=== PATIENT | male | born 1955 | race Caucasian/White ===

== ENCOUNTER 2016-05-20 23:03 | Inpatient (IN) | payer OTHER, SELFPAY ==
[~2016-05-20] VITALS: Ht 185.4 cm; Wt 50.1 kg
[2016-05-20 23:41] LABS: MEAN CORPUSCULAR HEMOGLOBIN 34.1 pg (27.0-33.0); MEAN CORPUSCULAR HGB CONC 34.4 g/dl (32.0-36.5); MEAN CORPUSCULAR VOLUME 99.1 fl (80.0-96.0); RED CELL DISTRIBUTION WIDTH 11.7 % (11.5-14.5); WHITE BLOOD COUNT 19.4 K/mm3 (4.0-10.0)
[2016-05-20 23:43] LABS: INR 1.03
[2016-05-20 23:53] LABS: ANION GAP 9 MEQ/L (8-16); BLOOD UREA NITROGEN 29 MG/DL (7-18); CALCIUM LEVEL 9.4 MG/DL (8.5-10.1); CARBON DIOXIDE LEVEL 30 MEQ/L (21-32); CHLORIDE LEVEL 100 MEQ/L (98-107); CREATININE FOR GFR 0.85 MG/DL (0.70-1.30); GLOMERULAR FILTRATION RATE > 60.0 (>56); GLUCOSE, FASTING 164 MG/DL (70-105); POTASSIUM SERUM 3.8 MEQ/L (3.5-5.1); SODIUM LEVEL 139 MEQ/L (136-145)
[2016-05-20] MEDS ORDERED: ASPIRIN 81 MG CHEW TABLET As Ordered ONE (23:58)
[2016-05-21] VITALS (15 sets, daily range): BP systolic 87–178; BP diastolic 45–91
[2016-05-21] MEDS ORDERED: cloNIDine 0.2 MG TAB As Ordered ONE (00:02)
[2016-05-21] MEDS ORDERED: ISOVUE-370 76% 100ML VIAL (Q9967) As Ordered ONE (00:02)
[2016-05-21 00:30] LABS: ALBUMIN 3.4 GM/DL (3.2-5.2); ALBUMIN/GLOBULIN RATIO 0.85 (1.00-1.93); ALKALINE PHOSPHATASE 83 U/L (45-117); ALT/SGPT 21 U/L (12-78); AMYLASE 74 U/L (25-115); AST/SGOT 17 U/L (15-37); BILIRUBIN,DIRECT 0.2 MG/DL (0.0-0.2); BILIRUBIN,TOTAL 0.6 MG/DL (0.2-1.0); TOTAL PROTEIN 7.4 GM/DL (6.4-8.2)
[2016-05-21] MEDS ORDERED: cloNIDine 0.1 MG TAB As Ordered ONE (01:05)
[2016-05-21] MEDS ORDERED: HYDROmorphone HCL 1 MG/ML SYRINGE (J1170) As Ordered ONE (02:03)
[2016-05-21] MEDS ORDERED: ZOSYN 3.375 GM VIAL (J2543) As Ordered ONE (02:05)
[2016-05-21] MEDS ORDERED: TYLE500T78 PO (02:23)
[2016-05-21] MEDS ORDERED: PROMETHAZINE INJ 25 MG/ML VIAL (J2550) IV PRN (03:15)
[2016-05-21] MEDS ORDERED: zolPIDEM TARTRATE 10MG TAB PO PRN (03:15)
[2016-05-21] MEDS ORDERED: ONDANSETRON 4MG/2ML VIAL (J2405) IV PRN ×2 (03:15→20:15)
[2016-05-21] MEDS ORDERED: HYDROmorphone HCL 1 MG/ML SYRINGE (J1170) IV PRN ×3 (03:15→20:15)
--- NOTE | 2016-05-21 03:50 | REPUSA ---
CLINICAL HISTORY: Abdominal pain. TECHNIQUE: Multiple axial, sagittal and coronal CT images were obtained through the abdomen and pelvi s after administration of intravenous contrast material. COMMENTS: Moderate pneumoperitoneum. Moderate ascites. Distended significantly thickened stomach. Significant thickening and enhancement of the proximal small bowels. Moderate prostatomegaly. Prostatic calcifications. Moderate large bowel fecal stasis. Diffuse thickening of the bladder. Pericholecystic free fluid. The liver is of uniform attenuation without mass or defect. There is no intra or extrahepatic biliary ductal dilatation. The spleen is normal. The pancreas is of normal contour and attenuation character istics. There is no evidence of adrenal mass. Both kidneys demonstrate prompt and equal nephrograms. The kidneys are normal in size, shape and conf iguration. There is no evidence of renal or ureteral mass. No renal or ureteral calculi are identifie d. There is no hydroureter or hydronephrosis. No evidence for appendicitis. No evidence for small or large bowel obstruction. There is no evidence of intrinsic or extrinsic bladder mass. Images of the lung bases show no evidence of pleural or parenchymal mass. There are no pleural effusi ons. The bony structures are free of lytic or blastic lesions. IMPRESSION: Thickened stomach. Thickened duodenum. Moderate amount of pneumoperitoneum. This needs to be correlated with any history of recent surgical intervention to exclude gastric/small bowel perforation. Surgical consultation is suggested. Ascites. Gastroparesis. Mildly dilated and thickened proximal small bowels. Thank you for your kind referral of this patient.
--- NOTE | 2016-05-21 03:57 | EDDOCDS ---
Physician Documentation [facility] Name: Artie Ferguson Age: 60 yrs Sex: Male : 1955 Arrival Date: 05/20/2016 Time: 23:03 Bed 11 Private MD: NO PRIMARY PHYSICIAN, . Disposition: 05/21/16 02:12 Hospitalization ordered by Torito Duran for Inpatient Admission. Preliminary diagnosis are Abdominal tenderness, Perforation of intestine (nontraumatic). - Bed requested for 4 [place]. - Status is Inpatient Admission. jp6 - Condition is Stable. - Problem is new. - Symptoms are unchanged. Historical: - Allergies: no known allergies; - Home Meds: 1. none - PMHx: none; - PSHx: none; - Social history: Smoking status: Patient uses tobacco products, heavy tobacco smoker. No barriers to communication noted, The patient speaks fluent [place]. - Family history: Not pertinent. - : The pt / caregiver states he / she is not on anticoagulants. Home medication list is obtained from the patient. - Exposure Risk Screening:: None identified. Vital Signs: 05/20 23:06 BP 203 / 94; Pulse 101; Resp 18 S; Temp 95.3(T); Pulse Ox 98% on R/A; Weight 55.79 kg / gr2 123 lbs (M); Height 6 ft. 1 in. (185.42 cm); Pain 4/10; 23:15 BP 216 / 99 (auto/); jp6 23:16 Pulse 94 MON; Pulse Ox 100% ; jp6 23:21 BP 205 / 85 (auto/); jp6 23:21 Pulse 92 MON; Pulse Ox 100% ; jp6 23:36 BP 204 / 93 (auto/); jp6 23:36 Pulse 90 MON; Pulse Ox 100% ; jp6 23:51 BP 205 / 89 (auto/); jp6 23:51 Pulse 96 MON; Pulse Ox 98% ; jp6 05/21 00:06 BP 233 / 119 (auto/); jp6 00:06 Pulse 98 MON; Pulse Ox 96% ; jp6 00:21 BP 235 / 106 (auto/); jp6 00:21 Pulse 92 MON; jp6 00:36 BP 220 / 96 (auto/); jp6 00:36 Pulse 94 MON; jp6 00:51 BP 219 / 92 (auto/); jp6 00:51 Pulse 102 MON; Pulse Ox 96% ; jp6 00:54 BP 206 / 91 (auto/); jp6 00:54 Pulse 96 MON; Pulse Ox 97% ; jp6 01:06 BP 187 / 84 (auto/); jp6 01:06 Pulse 96 MON; Pulse Ox 96% ; jp6 01:08 BP 188 / 87 (auto/); jp6 01:08 Pulse 98 MON; Pulse Ox 97% ; jp6 01:21 BP 216 / 96 (auto/); jp6 01:21 Pulse 102 MON; Pulse Ox 98% ; jp6 01:31 BP 205 / 74 (auto/); jp6 01:31 Pulse 104 MON; Pulse Ox 98% ; jp6 01:35 Pulse 100 MON; Pulse Ox 98% ; jp6 01:51 BP 193 / 86 (auto/); jp6 01:51 Pulse 102 MON; Pulse Ox 99% ; jp6 02:06 BP 179 / 82 (auto/); jp6 02:06 Pulse 102 MON; Pulse Ox 97% ; jp6 02:21 BP 182 / 84 (auto/); jp6 02:21 Pulse 106 MON; Pulse Ox 96% ; jp6 02:36 BP 172 / 79 (auto/); jp6 02:36 Pulse 110 MON; Pulse Ox 95% ; jp6 02:50 Pulse 108 MON; Pulse Ox 94% ; jp6 03:30 BP 165 / 80; Pulse 99; Resp 18; Temp 98.1(TE); Pulse Ox 98% ; Pain 0/10; jp6 05/20 23:06 Body Mass Index 16.23 (55.79 kg, 185.42 cm) gr2 MDM: 05/20 23:12 ECG WITH READING ER PHYS+CARDIAG ordered. EDMS 23:33 Chest, 1 View Ordered. EDMS 23:33 CBC Ordered. EDMS 23:33 MED Profile Ordered. EDMS 23:33 Pt & Aptt Ordered. EDMS 23:33 Cardiac Marker Panel Ordered. EDMS 23:57 Aspirin 324 mg PO once ordered. cs11 23:57 CBC Reviewed. cs11 23:57 MED Profile Reviewed. cs11 23:57 Pt & Aptt Reviewed. cs11 23:57 NS 0.9% 500 ml IV at bolus once ordered. cs11 23:59 MED Profile Reviewed. cs11 23:59 Cardiac Marker Panel Reviewed. cs11 23:59 CT Chest Angio R/O PE Ordered. EDMS 05/21 00:00 cloNIDine 0.1 mg PO once ordered. cs11 00:16 CT ABD & PELVIS: IV Contrast Only Ordered. EDMS 00:20 AMYLASE Ordered. EDMS 00:20 LIPASE Ordered. EDMS 00:20 LIVER PROFILE Ordered. EDMS 00:35 Financial registration complete. [facility] 00:55 cloNIDine 0.1 mg PO once ordered. cs11 00:56 MED Profile Reviewed. cs11 00:56 Cardiac Marker Panel Reviewed. cs11 00:56 LIVER PROFILE Reviewed. cs11 00:56 AMYLASE Reviewed. cs11 00:56 LIPASE Reviewed. cs11 00:56 [facility] [place] was scanned into [employer] and attached to record. [facility] 01:57 NS 0.9% 1000 ml IV at bolus once ordered. cs11 01:57 Piperacillin-Tazobactam 3.375 grams IVPB once over 30 mins; dilute in 50mL of NS or D5W cs11 ordered. 01:57 Dilaudid - HYDROmorphone 0.5 mg IVP once ordered. cs11 02:03 BED REQUEST+ADM ordered. EDMS 02:12 NG Tube, 18Fr ordered. cs11 03:17 T-Sheet-- Draft Copy was scanned into [employer] and attached to record. hs2 03:21 Admission / Observation Status ordered. EDMS 03:21 NPO DIET ordered. EDMS 03:23 PICC LINE INSERTION W/SITERITE Ordered. EDMS 03:23 ABCESS DRAIN ([facility] PL[facility]) US Ordered. EDMS 03:23 ABDOMEN (MIN 2 VIEW) Ordered. EDMS 03:23 ABDOMEN (MIN 2 VIEW) Ordered. EDMS 03:23 ABDOMEN (MIN 2 VIEW) Ordered. EDMS 03:55 HEPATITIS PROFILE Ordered. EDMS Administered Medications: 00:01 Drug: Aspirin 324 mg [aspirin 81 mg chewable tablet (4 tabs)] Route: PO; jp6 00:26 Drug: NS 0.9% 500 ml [sodium chloride 0.9 % intravenous solution] Route: IV; Rate: jp6 bolus; Site: left antecubital; 00:26 Drug: cloNIDine 0.1 mg [clonidine HCl 0.2 mg tablet (0.5 tabs)] Route: PO; jp6 01:32 Drug: cloNIDine 0.1 mg [clonidine HCl 0.2 mg tablet (0.5 tabs)] Route: PO; jp6 : Drug: NS 0.9% 1000 ml [sodium chloride 0.9 % intravenous solution] Route: IV; Rate: jp6 bolus; Site: left antecubital; Drug: Piperacillin-Tazobactam 3.375 grams [piperacillin-tazobactam 3.375 gram jp6 intravenous solution] Route: IVPB; Infused Over: 30 mins; Site: left antecubital; Drug: Dilaudid - HYDROmorphone 0.5 mg [hydromorphone 1 mg/mL injection syringe (0.5 jp6 mL)] Route: IVP; Site: left antecubital; Signatures: Dispatcher [employer] EDEma Jay,RN RN jo3 Xu Sahni, DO cs11 McLear, Johanny, SECURITY CONTROL ROOM OFFICER SECURITY CONTROL ROOM OFFICER tmm1 Aysha, Tanika [facility] Lissett Sotelo, Reg Reg hs2 Venice Abraham,RN RN jp6 The chart was reviewed and I authenticate all verbal orders and agree with the evaluation and treatment provided.Corrections: (The following items were deleted from the chart) 00:18 00:17 LIVER PROFILE+LAB ordered. EDMS EDMS 00:18 00:17 AMYLASE+LAB ordered. EDMS EDMS 00:18 00:17 LIPASE+LAB ordered. EDMS EDMS Attachments: 00:56 [facility] Payment Agreement [facility] 03:17 T-Sheet-- Draft Copy hs2 MTDD
--- NOTE | 2016-05-21 03:57 | EDDOCDS ---
Nurse's Notes [facility] Name: Artie Ferguson Age: 60 yrs Sex: Male : 1955 Arrival Date: 05/20/2016 Time: 23:03 Bed 11 Private MD: NO PRIMARY PHYSICIAN, . Diagnosis: Abdominal tenderness;Perforation of intestine (nontraumatic) Presentation: 05/20 23:17 Presenting complaint: Patient states: Mid sternal chest pain which does not radiate x 1 jo3 hour. Pt denies cardiac history. Adult Sepsis Screening: The patient does not have new or worsening altered mentation. Patient's respiratory rate is less than 22. Systolic blood pressure is greater than 100. Patient has a qSOFA score of 0- Negative Sepsis Screen. Suicide/Homicide risk assessment- the patient denies having any suicidal and/or homicidal ideations and does not present with any other emotional, behavioral or mental health complaints. Status: Patient is not a senior professional services consultant or dependent. Transition of care: patient was not received from another setting of care. 23:17 Acuity: RAISA Level 2 jo3 23:17 Method Of Arrival: Walkin/Carried/Asstd jo3 23:26 Aspirin was not taken prior to arrival. jp6 Triage Assessment: 23:18 General: Appears ill, unkempt, Behavior is cooperative. Neurological: Level of jo3 Consciousness is awake, alert, Oriented to person, place, time. Respiratory: Airway is patent Respiratory effort is even, unlabored, Reports shortness of breath at rest. Derm: Skin is intact, Skin is diaphoretic, Skin is pale, Skin temperature is cool. 23:26 Pain: Location: chest. Pt Declines HIV testing. Cardiovascular: Chest pain is described jp6 as when chest pain started it was a 10 at this time chest pain is gone.. radiates Does not radiate. episodes are intermittent began 1 hour prior to arrival. Historical: - Allergies: no known allergies; - Home Meds: 1. none - PMHx: none; - PSHx: none; - Social history: Smoking status: Patient uses tobacco products, heavy tobacco smoker. No barriers to communication noted, The patient speaks fluent Vietnamese. - Family history: Not pertinent. - : The pt / caregiver states he / she is not on anticoagulants. Home medication list is obtained from the patient. - Exposure Risk Screening:: None identified. Screenin:36 Screening information is obtained from the patient. Fall risk: No risks identified. jp6 Assistance ADL's: requires no assistance with activities of daily living. Abuse/DV Screen: The patient / caregiver reports he/she is: not in a situation that causes fear, pain or injury. Nutritional screening: No deficits noted. Advance Directives: Currently, there is no health care proxy. There is no active DNR order. There is no living will. home support is adequate. Assessment: 23:30 General: Appears distressed, slender, Behavior is anxious, appropriate for age, jp6 cooperative, Reports not feeling well. Neurological: Level of Consciousness is awake, alert, Oriented to person, place, time. EENT: No deficits noted. Cardiovascular: Capillary refill < 3 seconds Rhythm is sinus rhythm. Respiratory: Airway is patent Respiratory effort is even, unlabored, Respiratory pattern is regular, symmetrical, Breath sounds with wheezes. GI: No deficits noted. : No deficits noted. Derm: Skin is intact, Skin is clammy, diaphoretic, Skin is pale, Skin temperature is cool. Musculoskeletal: No deficits noted. 05/21 00:47 Reassessment: states pain upon inspiration. General: Appears ill, slender, Behavior is jp6 appropriate for age, cooperative. Pain: Denies pain. Respiratory: Airway is patent Respiratory effort is even, unlabored, Respiratory pattern is regular, symmetrical. 01:33 Reassessment: Patient denies pain at this time. General: Appears in no apparent jp6 distress, ill, Behavior is anxious, appropriate for age, cooperative. Neurological: Level of Consciousness is awake, alert, Oriented to person, place, time. Cardiovascular: Rhythm is sinus rhythm No ectopy. Respiratory: Airway is patent Respiratory effort is even, unlabored, Respiratory pattern is regular, symmetrical. Derm: Skin is intact, Skin is clammy, Skin is pale, Skin temperature is cool. 02:48 Reassessment: Patient states symptoms have not improved. General: Appears ill, Behavior jp6 is appropriate for age, cooperative. Pain: Denies pain. Neurological: Level of Consciousness is awake, alert, Oriented to person, place, time. Cardiovascular: Rhythm is sinus tachycardia No ectopy. Respiratory: Airway is patent Respiratory effort is even, unlabored, Respiratory pattern is regular, symmetrical. GI: Abdomen is flat, NGT to suction. approx 100ml brown emesis returned Bowel sounds present X 4 quads. present in right upper quadrant, left upper quadrant, right lower quadrant and left lower quadrant Reports anorexia, upper abdominal pain, intolerance of food. Vital Signs: 05/20 23:06 BP 203 / 94; Pulse 101; Resp 18 S; Temp 95.3(T); Pulse Ox 98% on R/A; Weight 55.79 kg gr2 (M); Height 6 ft. 1 in. (185.42 cm); Pain 4/10; 23:15 BP 216 / 99 (auto/); jp6 23:16 Pulse 94 MON; Pulse Ox 100% ; jp6 23:21 BP 205 / 85 (auto/); jp6 23:21 Pulse 92 MON; Pulse Ox 100% ; jp6 23:36 BP 204 / 93 (auto/); jp6 23:36 Pulse 90 MON; Pulse Ox 100% ; jp6 23:51 BP 205 / 89 (auto/); jp6 23:51 Pulse 96 MON; Pulse Ox 98% ; jp6 05/21 00:06 BP 233 / 119 (auto/); jp6 00:06 Pulse 98 MON; Pulse Ox 96% ; jp6 00:21 BP 235 / 106 (auto/); jp6 00:21 Pulse 92 MON; jp6 00:36 BP 220 / 96 (auto/); jp6 00:36 Pulse 94 MON; jp6 00:51 BP 219 / 92 (auto/); jp6 00:51 Pulse 102 MON; Pulse Ox 96% ; jp6 00:54 BP 206 / 91 (auto/); jp6 00:54 Pulse 96 MON; Pulse Ox 97% ; jp6 01:06 BP 187 / 84 (auto/); jp6 01:06 Pulse 96 MON; Pulse Ox 96% ; jp6 01:08 BP 188 / 87 (auto/); jp6 01:08 Pulse 98 MON; Pulse Ox 97% ; jp6 01:21 BP 216 / 96 (auto/); jp6 01:21 Pulse 102 MON; Pulse Ox 98% ; jp6 01:31 BP 205 / 74 (auto/); jp6 01:31 Pulse 104 MON; Pulse Ox 98% ; jp6 01:35 Pulse 100 MON; Pulse Ox 98% ; jp6 01:51 BP 193 / 86 (auto/); jp6 01:51 Pulse 102 MON; Pulse Ox 99% ; jp6 02:06 BP 179 / 82 (auto/); jp6 02:06 Pulse 102 MON; Pulse Ox 97% ; jp6 02:21 BP 182 / 84 (auto/); jp6 02:21 Pulse 106 MON; Pulse Ox 96% ; jp6 02:36 BP 172 / 79 (auto/); jp6 02:36 Pulse 110 MON; Pulse Ox 95% ; jp6 02:50 Pulse 108 MON; Pulse Ox 94% ; jp6 03:30 BP 165 / 80; Pulse 99; Resp 18; Temp 98.1(TE); Pulse Ox 98% ; Pain 0/10; jp6 05/20 23:06 Body Mass Index 16.23 (55.79 kg, 185.42 cm) gr2 Vitals: 05/20 23:06 Log In Time: May 20, 2016 at 23:06. RN notified that patient meets Red Flag gr2 criteria. ED Course: 23:05 Patient visited by Yulissa García. gr2 23:05 NO PRIMARY PHYSICIAN, . is Private Physician. gr2 23:05 Patient moved to Waiting gr2 23:08 Patient visited by Yulissa García. gr2 23:08 Patient moved to Pre RCE gr2 23:10 Rebeca Bryan RN is Primary Nurse. jo3 23:10 Patient moved to 11 jo3 23:11 Primary Nurse role handed off by Rebeca Bryan RN jp6 23:11 Venice Abraham,RN is Primary Nurse. jp6 23:12 Xu Sahni DO is Attending Physician. cs11 23:12 Patient visited by Xu Sahni DO. cs11 23:18 Triage Initiated jo3 23:19 Patient visited by Ema Barry RN. jo3 23:22 Patient visited by Maicol Cuenca. jp4 23:22 EKG done. (by ED staff). Reviewed by Xu Sahni DO. jp4 23:36 The patient / caregiver is instructed regarding the plan of care and ED course. Cardiac jp6 monitor on. Pulse ox on. NIBP on. 23:36 Inserted saline lock: 18 gauge in left antecubital area and blood collected. No jp6 procedures done that require assistance. O2 via nasal cannula \T\ 2L/min. 05/21 00:27 Patient visited by Venice Abraham RN. jp6 00:54 Patient name changed from Artie\Xiomara\Valentine\S\Marty\S\ to Artie\Xiomara\Roberto\Xiomara\Marty. EDMS 00:56 [facility] Payment Agreement was scanned into [employer] and attached to record. [facility] 01:38 Patient visited by Venice Abraahm RN. jp6 02:11 Torito Duran MD is Hospitalizing Provider. cs11 02:50 NGT inserted 18 Fr. via right nare. Placement verified. Returned gastric contents. to jp6 intermittent suction. Returned gastric contents. Patient tolerated well. 03:17 T-Sheet-- Draft Copy was scanned into [employer] and attached to record. hs2 Administered Medications: 00:01 Drug: Aspirin 324 mg [aspirin 81 mg chewable tablet (4 tabs)] Route: PO; jp6 00:26 Drug: NS 0.9% 500 ml [sodium chloride 0.9 % intravenous solution] Route: IV; Rate: jp6 bolus; Site: left antecubital; 00:26 Drug: cloNIDine 0.1 mg [clonidine HCl 0.2 mg tablet (0.5 tabs)] Route: PO; jp6 01:32 Drug: cloNIDine 0.1 mg [clonidine HCl 0.2 mg tablet (0.5 tabs)] Route: PO; jp6 02:26 Drug: NS 0.9% 1000 ml [sodium chloride 0.9 % intravenous solution] Route: IV; Rate: jp6 bolus; Site: left antecubital; 02:26 Drug: Piperacillin-Tazobactam 3.375 grams [piperacillin-tazobactam 3.375 gram jp6 intravenous solution] Route: IVPB; Infused Over: 30 mins; Site: left antecubital; 02:26 Drug: Dilaudid - HYDROmorphone 0.5 mg [hydromorphone 1 mg/mL injection syringe (0.5 jp6 mL)] Route: IVP; Site: left antecubital; Intake: 03:30 PO: 0.00ml; IV: 1000.00ml; Total: 1000.00ml. jp6 Output: 03:55 Gastric: 300.00ml (NGT); Total: 300.00ml. jp6 Order Results: Lab Order: CBC; [facility] 05/20/16 23:24 Test: WHITE BLOOD COUNT; Value: 19.4; Range: 4.0-10.0; Abnormal: Above high normal; Units: K/mm3; Status: F Test: RED BLOOD COUNT; Value: 4.71; Range: 4.30-6.10; Units: M/mm3; Status: F Test: HEMOGLOBIN; Value: 16.0; Range: 14.0-18.0; Units: g/dl; Status: F Test: HEMATOCRIT; Value: 46.6; Range: 42.0-52.0; Units: %; Status: F Test: MEAN CORPUSCULAR VOLUME; Value: 99.1; Range: 80.0-96.0; Abnormal: Above high normal; Units: fl; Status: F Test: MEAN CORPUSCULAR HEMOGLOBIN; Value: 34.1; Range: 27.0-33.0; Abnormal: Above high normal; Units: pg; Status: F Test: MEAN CORPUSCULAR HGB CONC; Value: 34.4; Range: 32.0-36.5; Units: g/dl; Status: F Test: RED CELL DISTRIBUTION WIDTH; Value: 11.7; Range: 11.5-14.5; Units: %; Status: F Test: PLATELET COUNT, AUTOMATED; Value: 412; Range: 150-450; Units: k/mm3; Status: F Lab Order: MED Profile; [facility] 05/20/16 23:24 Test: GLUCOSE, FASTING; Value: 164; Range: 70-105; Abnormal: Above high normal; Units: MG/DL; Status: F Test: BLOOD UREA NITROGEN; Value: 29; Range: 7-18; Abnormal: Above high normal; Units: MG/DL; Status: F Test: CREATININE FOR GFR; Value: 0.85; Range: 0.70-1.30; Units: MG/DL; Status: F Test: GLOMERULAR FILTRATION RATE; Value: > 60.0; Range: >56; Status: F Test: SODIUM LEVEL; Value: 139; Range: 136-145; Units: MEQ/L; Status: F Test: POTASSIUM SERUM; Value: 3.8; Range: 3.5-5.1; Units: MEQ/L; Status: F Test: CHLORIDE LEVEL; Value: 100; Range: 98-107; Units: MEQ/L; Status: F Test: CARBON DIOXIDE LEVEL; Value: 30; Range: 21-32; Units: MEQ/L; Status: F Test: ANION GAP; Value: 9; Range: 8-16; Units: MEQ/L; Status: F Test: CALCIUM LEVEL; Value: 9.4; Range: 8.5-10.1; Units: MG/DL; Status: F Test Note: ; Units are mL/min/1.73 m2 Chronic Kidney Disease Staging per NKF: Stage I & II GFR >=60 Normal to Mildly Decreased Stage III GFR 30-59 Moderately Decreased Stage IV GFR 15-29 Severely Decreased Stage V GFR <15 Very Little GFR Left ESRD GFR <15 on FUNCTIONAL ANALYST Lab Order: Pt & Aptt; [facility] 05/20/16 23:24 Test: PROTHROMBIN TIME; Value: 13.6; Range: 12.3-14.5; Units: SECONDS; Status: F Test: INR; Value: 1.03; Status: F Test: PARTIAL THROMBOPLASTIN TIME; Value: 25.9; Range: 26.6-37.1; Abnormal: Below low normal; Units: SECONDS; Status: F Test Note: ; THERAPUTIC HUMAN INR VALUES INDICATIONS NORMAL RANGES PROPHYLAXIS/TREATMENT OF: VENOUS THROMBOSIS 2.0-3.0 PULMONARY EMBOLISM 2.0-3.0 PREVENTION OF SYSTEMIC EMBOLISM FROM: TISSUE HEART VALVES 2.0-3.0 ACUTE MYOCARDIAL INFARCTION 2.0-3.0 VALVULAR HEART DISEASE 2.0-3.0 ATRIAL FIBRILLATION 2.0-3.0 MECHANICAL VALVES(HIGH RISK) 2.5-3.5 RECURRENT MYOCARDIAL INFARCTION 2.5-3.5 Lab Order: Cardiac Marker Panel; [facility] 05/20/16 23:24 Test: CPK CREATINE PHOSPHOKINASE; Value: 28; Range: 39-308; Abnormal: Below low normal; Units: U/L; Status: F Test: CK-MB VALUE MASS; Value: 1.0; Range: 0.0-3.6; Units: NG/ML; Status: F Test: MB/CK RELATIVE INDEX; Value: 3.57; Range: < OR =4; Status: F Test: TROPONIN I; Value: < 0.02; Range: < 0.10; Units: NG/ML; Status: F Test Note: ; DIAGNOSIS CRITERIA MMB ng/ml Relative Index (RI) NON-AMI < or = 5 N/A SONI ZONE > 5 < or = 4 AMI > 5 > 4 Lab Order: AMYLASE; SPEC'M 05/20/16 23:24 Test: AMYLASE; Value: 74; Range: 25-115; Units: U/L; Status: F Lab Order: LIPASE; SPEC'M 05/20/16 23:24 Test: LIPASE; Value: 113; Range: 73-393; Units: U/L; Status: F Lab Order: LIVER PROFILE; SPEC' 05/20/16 23:24 Test: AST/SGOT; Value: 17; Range: 15-37; Units: U/L; Status: F Test: ALT/SGPT; Value: 21; Range: 12-78; Units: U/L; Status: F Test: ALKALINE PHOSPHATASE; Value: 83; Range: 45-117; Units: U/L; Status: F Test: BILIRUBIN,TOTAL; Value: 0.6; Range: 0.2-1.0; Units: MG/DL; Status: F Test: BILIRUBIN,DIRECT; Value: 0.2; Range: 0.0-0.2; Units: MG/DL; Status: F Test: TOTAL PROTEIN; Value: 7.4; Range: 6.4-8.2; Units: GM/DL; Status: F Test: ALBUMIN; Value: 3.4; Range: 3.2-5.2; Units: GM/DL; Status: F Test: ALBUMIN/GLOBULIN RATIO; Value: 0.85; Range: 1.00-1.93; Abnormal: Below low normal; Status: F Outcome: 02:12 Decision to Hospitalize by Provider. cs11 03:55 Discharge Assessment: Patient awake, alert and oriented x 3. No cognitive and/or jp6 functional deficits noted. Patient verbalized understanding of disposition instructions. patient administered narcotics - yes. Patient was admitted to the hospital or transferred to another facility. The following High Risk Discharge criteria are identified: None. Admitted to Med/Surg accompanied by tech, via stretcher, with chart. Condition: unchanged. CT Study completed. Admission hand-off: Report called to [facility]. Property :Personal belongings accompany Pt. 03:56 Patient left the ED. jp6 Signatures: Dispatcher [employer] EDEma Jay,RN RN jo3 Xu Sahni DO DO cs11 Yulissa García gr2 Maicol Cuenca jp4 Tanika Olmstead Lissett Porter, Reg Reg hs2 Venice Abraham,RN RN jp6 MTDD
[2016-05-21] MEDS: LR 1,000 ML IV SCH ×6 (04:28→23:12)
[2016-05-21] MEDS: CIPROFLOXACIN 400 MG in APPROPRIATE DILUENT 1 EA IV SCH ×2 (04:28→22:05)
--- NOTE | 2016-05-21 05:51 | ECGEPIP ---
Stationary ECG Study [facility] - ED Test Date: 2016-05-20 Pat Name: MAMI NIEVES Department: Room: - Gender: M Golf Manager: abhijit : 1955 Requested By: GOLDEN BAI Order Number: [id number] Reading MD: Apollo Sanders Measurements Intervals [place] Rate: 93 P: 138 FL: 124 QRS: -13 QRSD: 108 T: 74 QT: 341 QTc: 426 Interpretive Statements SINUS RHYTHM POSSIBLE LAE Electronically Signed On 05-21-2016 5:51:03 EST by Apollo Sanders
[2016-05-21] MEDS: metroNIDAZOLE 500 MG in APPROPRIATE DILUENT 1 EA IV SCH ×3 (05:55→23:24)
--- NOTE | 2016-05-21 06:11 | CR ---
DATE OF CONSULTATION: 05/21/2016 CONSULTING PHYSICIAN: Dr. Torito Duran PRIMARY CARE PROVIDER: None. REASON FOR CONSULTATION: Medical management. HISTORY OF PRESENT ILLNESS: Patient is a 60-year-old male with no known medical history. Patient does not have a primary care provider, has not gone to see a doctor in many years, presented to the emergency room today complaining of abdominal pain worse in the left than right lower quadrant. CT scan of the abdomen was done in the emergency room, which showed moderate amount of pneumoperitoneum. Patient denies a surgical history. Dr. Duran was called from the emergency room and he agreed to admit patient requesting a medical consultation. Patient in the emergency room had elevated blood pressure in the 200s systolically. He was given two doses of clonidine 0.1 mg. Upon my exam, patient's systolic blood pressure was 178/74, heart rate of 101. Nasogastric (NG) tube was placed in the emergency room. Patient was made nothing by mouth and admitted to a medical-surgical bed. REVIEW OF SYSTEMS: Patient denied any chest pain, stating he had epigastric pain earlier but it had resolved on its own. Denied any palpitation. Denied any shortness of breath. Was complaining of abdominal pain and nausea earlier but currently had resolved. Denied any other fevers or chills. 12-point review of systems was obtained, all of which was negative except for those mentioned. PAST MEDICAL HISTORY: None. PAST SURGICAL HISTORY: None. ALLERGIES: None. MEDICATIONS: None. SOCIAL HISTORY: Patient smokes one pack per day for the past 40 years. Denies any alcohol use. States he lives at home with his mom and his sister. FAMILY HISTORY: Noncontributory. PHYSICAL FINDINGS: Vital signs on admission: Temperature 96.7, pulse 101, respiratory rate 16, blood pressure is 178/74, repeat was 168/81, pulse oximetry 96% on room air. HEENT: Pupils equal, round and react to light and accommodation. Neck: Supple. No jugular venous distention (JVD). Lungs: Clear bilaterally. Abdomen: Soft, but hypoactive bowel sounds. Mild tenderness to palpation in the lower quadrants. Extremities: No clubbing, cyanosis or edema. Skin: No obvious lesions or rashes. Neurologic: Cranial nerves II-XII appear to be grossly intact. No focal deficits. LABORATORY FINDINGS: WBC 19.4, hemoglobin 16, hematocrit 46.6, platelet count 412. Sodium 139, potassium 3.8, chloride 100, bicarbonate 30, BUN 29, creatinine 0.85, fasting glucose 164, total bilirubin 0.6, AST 17, ALT 21, total CK 28, troponin less than 0.02, lipase 113, amylase 74. PT 13.6, INR 1.03, PTT 25.9. CT abdomen and pelvis showed thickened stomach, thickened duodenum, moderate amount of pneumoperitoneum, ascites, gastroparesis, mildly dilated thickened proximal small bowels. CT angiogram is pending. Chest x-ray is pending. ASSESSMENT AND PLAN: 1. Pneumoperitoneum. Dr. Duran admit the patient. NG tube is in place, done at the low intermittent suction. Patient is made nothing by mouth. Patient is currently on ceftriaxone, Flagyl and Cipro. Zofran and Reglan and Dilaudid was ordered for pain, but patient did not receive any on the floor. He did receive one dose of Dilaudid in the emergency room, as well as one dose of Zosyn. Await further surgical recommendation. 2. Hypertension. Patient is on no home medication for high blood pressure. He received two doses of clonidine in the emergency room. Current blood pressure is 168/81. Patient will not be able to take any oral medications at this time and given the fact that patient is on medical-surgical, we will not be able to administer any IV medication. If his blood pressure continues to be elevated, he may have to be transferred to a different unit to administer IV blood pressure medication. 3. Leukocytosis likely secondary to number #1. Continue current antibiotics. 4. Elevated fasting glucose level. We will check hemoglobin A1c. 5. Deep venous thrombosis (DVT) prophylaxis. Will defer to primary team.
[2016-05-21] MEDS: IPRATROPIUM 0.5MG/ALBUTEROL 2.5MG INH SOL UD 3ML (DUONEB)(J7620) NEB SCH ×3 (07:35→20:00)
[2016-05-21] MEDS: PANTOPRAZOLE 40MG INJ (PROTONIX) (C9113) IV SCH ×2 (08:54→22:05)
[2016-05-21] MEDS: cefTRIAXone SOD 1 GM in D5W MINI-BAG PLUS 50 ML IV SCH (08:54)
[2016-05-21] MEDS ORDERED: cloNIDine HCL 0.1 MG/24 HR PATCH TOP SCH (09:00)
[2016-05-21 10:07] LABS: MEAN CORPUSCULAR HEMOGLOBIN 33.5 pg (27.0-33.0); MEAN CORPUSCULAR HGB CONC 33.8 g/dl (32.0-36.5); MEAN CORPUSCULAR VOLUME 99.2 fl (80.0-96.0); RED CELL DISTRIBUTION WIDTH 11.8 % (11.5-14.5); WHITE BLOOD COUNT 5.4 K/mm3 (4.0-10.0)
--- NOTE | 2016-05-21 10:08 | REP ---
PORTABLE CHEST X-RAY: Sitting AP view. HISTORY: Chest pain. FINDINGS: The lungs are symmetrically hyperinflated and clear. Oxygen tubing and EKG electrodes are seen. There is a skin fold over the right upper chest. Pleural angles are sharp. Cardiomediastinal silhouette is unremarkable. IMPRESSION: Mild hyperinflation otherwise no acute disease. Signed by Lloyd Espinosa MD 05/21/2016 04:56 P
[2016-05-21 10:24] LABS: ALBUMIN 2.7 GM/DL (3.2-5.2); ALBUMIN/GLOBULIN RATIO 0.75 (1.00-1.93); ALKALINE PHOSPHATASE 62 U/L (45-117); ALT/SGPT 21 U/L (12-78); ANION GAP 12 MEQ/L (8-16); AST/SGOT 22 U/L (15-37); BILIRUBIN,TOTAL 0.8 MG/DL (0.2-1.0); BLOOD UREA NITROGEN 32 MG/DL (7-18); CALCIUM LEVEL 9.2 MG/DL (8.5-10.1); CARBON DIOXIDE LEVEL 22 MEQ/L (21-32); CHLORIDE LEVEL 105 MEQ/L (98-107); CREATININE FOR GFR 1.12 MG/DL (0.70-1.30); GLOMERULAR FILTRATION RATE > 60.0 (>56); GLUCOSE, FASTING 145 MG/DL (70-105); SODIUM LEVEL 139 MEQ/L (136-145); TOTAL PROTEIN 6.3 GM/DL (6.4-8.2)
[2016-05-21 10:27] LABS: POTASSIUM SERUM 4.7 MEQ/L (3.5-5.1)
[2016-05-21] MEDS ORDERED: SODIUM CHLORIDE 0.9% 1000 ML IV ONE (10:45)
--- NOTE | 2016-05-21 10:46 | REP ---
ABDOMINAL SERIES: Supine and erect views of the abdomen are performed and correlated with the recent CT scan of the abdomen and pelvis performed the same day. Once again, there is free air noted in the peritoneal cavity, seen beneath the diaphragms on the upright view. No dilated bowel loops are seen. Nasogastric tube is seen in the stomach. There is excreted contrast material in a mildly distended urinary bladder. There are scattered vascular calcifications. There are mild degenerative changes of the spine. IMPRESSION: Persistent free air in the peritoneal cavity. No dilated bowel loops. Nasogastric tube with sideport in the body of the stomach. Signed by Winston Salazar MD 05/21/2016 04:14 P
--- NOTE | 2016-05-21 12:40 | HPE ---
DATE OF ADMISSION: 05/21/2016 BRIEF HISTORY OF PRESENT ILLNESS: Patient is a 60-year-old white male who has had about a 40 pound weight loss over the last couple months has developed abdominal pain that has been quite severe over the last 2 weeks and noticed some abdominal distension earlier today. Came into the emergency room with increasing discomfort and pain. He had an nasogastric (NG) tube placed and since having his NG tube placed the patient states that his abdominal pain has improved/mostly resolved. He has not had any fevers, no chills. No diarrhea. Has not had any anemia issues. He has been a chronic smoker, but otherwise does not see a medical doctor, has not had any medical or surgical history. Once again, has not had any gastrointestinal (GI) complaints previously other than this abdominal pain in the epigastric area that has been problematic and quite severe over the last couple weeks such that he is not able to eat regular food for 2 weeks and only has been able to drink liquids. On physical exam, the patient is a 60-year-old of male who looks much older than stated age. He is quite cachectic appearing. HEENT: Reveals an atraumatic, normocephalic head with extraocular movements intact. Pupils are equal and reactive to light. Sclerae nonicteric. Oropharynx clear without exudate or lesions. Neck: Supple without adenopathy. Lungs are diminished bilaterally with a few crackles at the bases, Heart is regular. Abdomen is tense and some mild right upper quadrant tenderness. No significant guarding. No significant rebound. NG tube has old blood within this. Extremities: Warm, well-perfused. In addition, his white count is elevated at 19,000 and he has evidence of this CT scan of some air within the abdominal cavity, i.e. some free air. There is pockets of it all around the stomach and he has a very distended stomach. There is a significant amount of edema and the duodenal loop and even in the small bowel as well on the left side of his abdomen. IMPRESSION/PLAN: The patient has evidence of gastrointestinal abnormality of undetermined etiology. My concerns are twofold. One is the duration of this perforation given that he actually does not appear septic, hypotensive etc. and given that he does not have the typical significant peritoneal signs, I am concerned that this may have occurred previously this perforation and in general would suggest that we may be able to treat him nonoperatively. 2. The inflammatory changes around the duodenum suggest that this may be duodenitis/upper gastrointestinal ulcer with perforation, but the significant amount of inflation is concerning such that it seems as though this is also more than an acute process that has happened within the last few hours. It does not act like a typical acute perforation. 3. Issue #3 is that he has evidence of a significant amount weight loss. With his significant weight loss and the bloody NG tube drainage, I do have concerns that there may be an upper gastrointestinal malignancy as a possibility. Right now the CAT scan would be hard to determine this as a possibility given the inflammatory changes throughout his abdomen, but will obtain some followup labs in the morning and reevaluate him at that time. We will make him nothing by mouth, NG tube, IV fluids, IV antibiotics, and plan on a peripherally inserted central catheter (PICC) line placement and aspiration of this fluid for cytology, gram stain, etc. in the a.m.
--- NOTE | 2016-05-21 13:04 | IPN ---
DATE: 05/21/2016 Patient was admitted earlier this morning and since having his nasogastric (NG) tube patient states his abdominal pain has significantly improved and overall has not required any additional pain medication throughout since being admitted to the floor. He overall once again feels "better, much better this morning." Still has some "discomfort" but nothing compared to what it was yesterday before admission. He has been afebrile and his labs, however show that he has some more hemoconcentration and his white count has dropped. His albumin has dropped as well, which I would have expected given some chronic malnutrition issues, and I anticipate this to continue dropping. I will repeat his complete blood count (CBC) later on today because I am less convinced that it is actually that the CBC is correct, i.e., hematocrit increasing without all the other components of the CBC increasing as well. Will recheck this. On his physical exam, lungs are clear anteriorly. Abdomen is still tight as it was last night, but he has less discomfort, less pain. Still some mild discomfort in lower abdomen at this point. Extremities are warm, well-perfused. IMPRESSION AND PLAN: Patient has a peripherally inserted central catheter (PICC ) line scheduled for today as well as NG tube decompression. Will start some total parenteral nutrition (TPN) on him later on today. Clinically, he appears to have improved. However, I think we will have to reserve our impression how he is going to improve over the ensuing 24-48 hours. We will see what the peritoneal drainage is as well. ARBEN
[2016-05-21 13:40] LABS: CARCINOEMBRYONIC ANTIGEN 1.1 NG/ML (<2.5)
[2016-05-21 14:08] LABS: CA 125 12.2 U/ML (<30.2)
--- NOTE | 2016-05-21 15:41 | REP ---
PICC line insertion: History: TPN. IV access. Procedure: The patient was interviewed and informed consent was obtained. Ultrasound was utilized to identify basilic and brachial vein, a candidate in the right arm above the elbow. The skin was marked at the site. The patient was placed on the angiography table and the right upper medial arm was prepped and draped in the usual fashion. After a patient safety time-out was articulated and agreed to, an ultrasound directed micropuncture was carried out of the basilic vein on the right side without technical difficulty. A 39 cm dual-lumen 5-[place]an PICC line was installed with its tip positioned in the superior vena cava under fluoroscopic guidance. Catheter was flushed with heparinized saline per hospital protocol. The skin entry site was covered with an OpSite dressing. Impression: Dual-lumen PICC line insertion. Signed by Lloyd Espinosa MD 05/21/2016 04:56 P
--- NOTE | 2016-05-21 16:23 | IPN ---
DATE: 05/21/2016 60-year-old seen at bedside. No overnight issues reported. He just returned from x-ray. No nausea or vomiting. Continues with nasogastric tube in place. OBJECTIVE: Temperature is 97.4, pulse 111, respiratory rate 18, blood pressure 127/64, SpO2 is 96% on room air. GENERAL: The patient appears to be in no acute distress. He is alert and oriented. HEENT: Unremarkable. LUNGS: Clear. HEART: Regular rhythm. ABDOMEN: Soft. EXTREMITIES: No edema. No calf tenderness. LABORATORY DATA: White count is 5.4, down from 19,000, hemoglobin is 19.2 with hematocrit of 56.9, platelets 367,000. Sodium is 139, potassium 4.7, chloride 105, bicarbonate 12, anion gap 12, BUN is 32, creatinine 1.12, glucose is 154, albumin is 2.7. Hepatitis antibody is pending, as well as CEA, CA19-9 and CA-125, as well as alpha fetoprotein. ASSESSMENT AND PLAN: 1. Pneumoperitoneum. The patient has had significant amount of weight loss recently. He does appear to be cachectic. Nasogastric tube is in place to low intermittent suction. Appreciate Dr. Duran's care regarding this. He continues on Cipro, Flagyl Zofran, Reglan, and Dilaudid as needed for pain. My concern is that he has had weight loss, he appears to be cachectic and this could be a harbinger of significant pathology. I did discuss this with Dr. Duran who thinks that he might need further workup. 2. Ascites seen on CT. He had paracentesis and that fluid will be sent for further analysis 3. Hypertension. I did start him on a clonidine patch. This appears to be doing better. He does appear to have some tachycardia, and his hemoglobin and hematocrit do appear to be concentrated, most likely some mild dehydration. We will continue with some IV fluids. 4. Leukocytosis, trending downward. Continue antibiotics. 5. Elevated fasting glucose with a normal hemoglobin A1c. We will follow. 6. Deep vein thrombosis (DVT) prophylaxis. Encourage to be out of bed to ambulate. We will put orders in for TEDs and sequential compression device (SCD)s. DISPOSITION: Unclear at this point. We will defer to Dr. Duran regarding gastrointestinal issues and the pneumoperitoneum; however, we will go ahead and begin workup for underlying GI cancer pathology and he will most likely need endoscopy.
[2016-05-21 16:50] LABS: MEAN CORPUSCULAR HEMOGLOBIN 32.4 pg (27.0-33.0); MEAN CORPUSCULAR HGB CONC 31.8 g/dl (32.0-36.5); RED CELL DISTRIBUTION WIDTH 11.8 % (11.5-14.5); WHITE BLOOD COUNT 4.6 K/mm3 (4.0-10.0)
[2016-05-21] MEDS ORDERED: MIDAZOLAM INJ 2 MG/2 ML VIAL (J2250) As Ordered ONE (16:54)
[2016-05-21] MEDS ORDERED: ROCURONIUM BROMIDE 50 MG/5 ML VIAL As Ordered ONE ×2 (16:54→19:11)
[2016-05-21] MEDS ORDERED: fentaNYL 250 MCG/5 ML INJECTION (J3010) As Ordered ONE (16:54)
[2016-05-21] MEDS ORDERED: PROPOFOL 200 MG/20 ML VIAL As Ordered ONE (16:54)
[2016-05-21] MEDS ORDERED: SUCCINYLCHOLINE 100 MG/5 ML SYRINGE (J0330) As Ordered ONE (16:54)
[2016-05-21] MEDS ORDERED: LIDOCAINE 2% INJ 100 MG/5 ML SDV (FOR ANES.) As Ordered ONE (16:54)
--- NOTE | 2016-05-21 16:54 | REP ---
Ultrasound-guided paracentesis: History: Ascites, pneumoperitoneum, diagnostic paracentesis. Comparison is made with the previous CT from earlier on this same date. Procedure: The patient was interviewed and informed consent was obtained. Preliminary sonographic survey scanning demonstrates an area of complex ascites around the liver edge in the right lateral abdomen. This area was marked on the skin. After patient safety time-out was articulated and agreed to, the right mid abdomen was prepped and draped in the usual fashion. Real time ultrasound guidance, aseptic precautions and 1% lidocaine local anesthetic were used to guide an 8-Khmer centesis catheter with trocar technique into the peritoneal space. This was accomplished without difficulty. A total of 770 ml of opaque succus entericus fluid (bile stained bowel content) was withdrawn. A sample of this was submitted to the lab for Gram stain culture and sensitivity and cytology. During the procedure the patient reported difficulty in dorsiflexing the right foot compared to the left and an uncomfortable sensation in the right leg. The skin of the right calf and foot were observed to be cooler than the left lower extremity and I was unable to feel the right groin pulse. This was relayed to Dr. Duran. Impression: Ultrasound guided diagnostic paracentesis. Signed by Lloyd Espinosa MD 05/21/2016 04:58 P
[2016-05-21] MEDS ORDERED: ETOMIDATE INJ 20MG/10ML VIAL As Ordered ONE (17:09)
[2016-05-21] MEDS ORDERED: GLUCAGON FOR INJ 1 MG VIAL (J1610) As Ordered ONE (17:12)
[2016-05-21] MEDS ORDERED: LACTATED RINGER'S 1000 ML IV ONE (17:15)
[2016-05-21 17:16] LABS: MEAN CORPUSCULAR VOLUME 101.9 fl (80.0-96.0)
--- NOTE | 2016-05-21 17:23 | REP ---
MRA of the abdominal aorta with bilateral lower extremity runoff 05/21/2016 Indication: Cold right leg. Technique: Following dynamic IV contrast administration with 35 ml ProHance 0.2 ml/kg, dynamic gadolinium contrast was injected and serial CINE coronal images were obtained. Findings: The abdominal aorta is of normal course and caliber without aneurysm or visualized dissection. The celiac and superior mesenteric arteries are patent. The renal arteries are normal. There is near occlusion of right common iliac artery at its origin and just distal to origin. There is reconstitution of the right common femoral artery by right internal and external iliac artery collaterals. Right lower extremity runoff : There is subsequent tapering of the right common femoral artery distally with near occlusion at the level of the proximal right superficial femoral artery. There is reconstitution of the right popliteal artery via multiple collateral arteries from the profunda femoris as well as from the proximal right superficial femoral artery. The right popliteal artery is unremarkable. There is two vessel runoff to the right mid calf. Left lower extremity runoff : Left common iliac artery is widely patent. The left external iliac artery is widely patent. There is attenuation of the left internal iliac artery branches, which are incompletely visualized. There is moderate tapering at the distal left common femoral artery. There are multiple collaterals likely supplied by the left profunda femoris artery which reconstitute the mid to distal superficial femoral artery. The left popliteal artery is unremarkable. There is two vessel runoff to the distal third left calf. Impression1. Bilateral lower extremity peripheral arterial disease, most significant on the right. 2. There is significant decreased perfusion of the right common iliac artery at its origin with reconstitution of right common femoral artery. Distal tapering of the right common femoral artery with near occlusion at the proximal superficial femoral artery. There is reconstitution of right popliteal artery by multiple collaterals. 3. Two vessel runoff to the mid right calf. 4. Widely patent left common iliac and common femoral arteries. Diffusely attenuated left internal iliac artery. Absent proximal and mid superficial femoral arteries with reconstitution of the mid to distal left superficial femoral artery. Two-vessel runoff to the distal left calf. Signed by Gypsy Russell MD 05/24/2016 03:59 P
[2016-05-21] MEDS ORDERED: PHENYLephrine HCL 500 MCG/5 ML (100MCG/ML) SYRINGE (J2370) As Ordered ONE (17:30)
[2016-05-21] MEDS ORDERED: PHENYLEPHRINE INJ 10MG/ML VIAL (J2370) As Ordered ONE (17:34)
[2016-05-21] MEDS ORDERED: VASOPRESSIN INJ 20 UNITS/ML VIAL As Ordered ONE (18:13)
[2016-05-21] MEDS ORDERED: dexameTHASONE 4 MG/ML 1ML VIAL (J1100) As Ordered ONE (18:23)
[2016-05-21 18:35] LABS: ANION GAP 20 MEQ/L (8-16); BLOOD UREA NITROGEN 21 MG/DL (7-18); CALCIUM LEVEL 7.1 MG/DL (8.5-10.1); CARBON DIOXIDE LEVEL 12 MEQ/L (21-32); CHLORIDE LEVEL 109 MEQ/L (98-107); CREATININE FOR GFR 0.51 MG/DL (0.70-1.30); GLUCOSE, FASTING 61 MG/DL (70-105); POTASSIUM SERUM 4.5 MEQ/L (3.5-5.1); SODIUM LEVEL 141 MEQ/L (136-145)
[2016-05-21 18:37] LABS: GLOMERULAR FILTRATION RATE > 60.0 (>56)
[2016-05-21] MEDS ORDERED: BUPIVACAINE HCL 0.25% 30 ML VIAL As Ordered ONE (19:00)
[2016-05-21] MEDS ORDERED: BUPIVACAINE LIPOSOME/PF 1.3% 20ML (266MG/20ML) VIAL (EXPAREL) As Ordered ONE (19:00)
[2016-05-21] MEDS ORDERED: GLYCOPYRROLATE INJ 0.2 MG/ML 2 ML VIAL As Ordered ONE (19:01)
[2016-05-21] MEDS ORDERED: ONDANSETRON 4MG/2ML VIAL (J2405) As Ordered ONE (19:01)
[2016-05-21] MEDS ORDERED: NEOSTIGMINE 1MG/ML 5 ML SYRINGE (J2710) As Ordered ONE (19:04)
[2016-05-21] MEDS ORDERED: BUPIVACAINE LIPOSOME/PF 1.3% 20ML (266MG/20ML) VIAL (EXPAREL) INJ ONE (19:04)
[2016-05-21] MEDS ORDERED: BUPIVACAINE HCL 0.25% 10 ML VIAL SC ONE (19:05)
[2016-05-21] MEDS ORDERED: fentaNYL 100 MCG/2 ML INJECTION (J3010) As Ordered ONE (19:42)
[2016-05-21] MEDS ORDERED: NS 1,000 ML IV SCH (19:48)
[2016-05-21] MEDS ORDERED: EPIDURAL/PCA KEYS XX PRN (20:00)
[2016-05-21] MEDS ORDERED: diphenhydrAMINE INJ 50MG/ML VIAL (J1200) IV PRN (20:00)
[2016-05-21] MEDS ORDERED: NALBUPHINE HCL 10 MG/ML AMP (J2300) IV PRN (20:00)
[2016-05-21] MEDS ORDERED: NALOXONE INJ 0.4 MG/1 ML VIAL (J2310) IV PRN (20:00)
[2016-05-21] MEDS ORDERED: MORPHINE PCA 1MG/ML 100ML CADD As Ordered ONE (20:13)
[2016-05-21] MEDS ORDERED: LR 1,000 ML IV SCH (20:15)
[2016-05-21] MEDS ORDERED: fentaNYL 100 MCG/2 ML INJECTION (J3010) IV PRN (20:15)
[2016-05-21] MEDS: MORPHINE PCA 1MG/ML 100ML CADD IV PRN (20:20)
[2016-05-21] MEDS: SODIUM CHLORIDE 0.9% INJ 10 ML SYR IV SCH (22:05)
[2016-05-22] VITALS (22 sets, daily range): BP systolic 96–141; BP diastolic 45–62; O2SAT 93–96
[2016-05-22] MEDS: IPRATROPIUM 0.5MG/ALBUTEROL 2.5MG INH SOL UD 3ML (DUONEB)(J7620) NEB SCH ×4 (01:56→19:43)
[2016-05-22 04:49] LABS: MEAN CORPUSCULAR HEMOGLOBIN 33.1 pg (27.0-33.0); MEAN CORPUSCULAR HGB CONC 33.4 g/dl (32.0-36.5); MEAN CORPUSCULAR VOLUME 98.9 fl (80.0-96.0); RED CELL DISTRIBUTION WIDTH 11.8 % (11.5-14.5); WHITE BLOOD COUNT 14.6 K/mm3 (4.0-10.0)
[2016-05-22 04:50] LABS: ALBUMIN 1.7 GM/DL (3.2-5.2); ALBUMIN/GLOBULIN RATIO 0.89 (1.00-1.93); ALKALINE PHOSPHATASE 38 U/L (45-117); ALT/SGPT 59 U/L (12-78); ANION GAP 8 MEQ/L (8-16); AST/SGOT 71 U/L (15-37); BILIRUBIN,TOTAL 0.5 MG/DL (0.2-1.0); BLOOD UREA NITROGEN 26 MG/DL (7-18); CARBON DIOXIDE LEVEL 25 MEQ/L (21-32); CHLORIDE LEVEL 109 MEQ/L (98-107); CREATININE FOR GFR 0.75 MG/DL (0.70-1.30); GLOMERULAR FILTRATION RATE > 60.0 (>56); GLUCOSE, FASTING 71 MG/DL (70-105); POTASSIUM SERUM 4.6 MEQ/L (3.5-5.1); SODIUM LEVEL 142 MEQ/L (136-145); TOTAL PROTEIN 3.6 GM/DL (6.4-8.2)
[2016-05-22] MEDS: CIPROFLOXACIN 400 MG in APPROPRIATE DILUENT 1 EA IV SCH ×2 (05:09→17:02)
[2016-05-22] MEDS: LR 1,000 ML IV SCH ×4 (05:40→19:53)
[2016-05-22] MEDS: metroNIDAZOLE 500 MG in APPROPRIATE DILUENT 1 EA IV SCH ×3 (05:43→21:23)
[2016-05-22] MEDS: SODIUM CHLORIDE 0.9% INJ 10 ML SYR IV SCH ×2 (05:44→18:10)
[2016-05-22] MEDS: PANTOPRAZOLE 40MG INJ (PROTONIX) (C9113) IV SCH ×2 (08:51→21:22)
[2016-05-22] MEDS: cefTRIAXone SOD 1 GM in D5W MINI-BAG PLUS 50 ML IV SCH (08:51)
--- NOTE | 2016-05-22 09:08 | REP ---
Clinical: "Nasogastric tube placement" technique supine and upright views of the abdomen and pelvis. Comparison: 05/21/2016 and 08:15 a.m. Technique: Supine and upright views of the abdomen and pelvis. Findings: Previously identified nasogastric tube has been removed. The patient is status post abdominal surgery with vertical midline skin villa and multiple intra-abdominal drainage catheters noted. The bowel gas pattern is nonspecific. Impression: Nasogastric tube removed. Postsurgical changes. Nonspecific bowel gas pattern. Signed by Franco Sifuentes MD 05/22/2016 08:58 A
--- NOTE | 2016-05-22 09:51 | IPN ---
DATE: 05/22/2016 60-year-old gentleman seen at bedside. No overnight issues reported; however, he was taken to surgery late in the day yesterday for hypotension, sepsis and bowel perforation. OBJECTIVE: Temperature is 96.3 tympanically, pulse is 109, respiratory rate is 18, blood pressure (BP) 120/62, SPO2 is 96% on 2 liters. General: The patient appears to be in no acute distress. He is alert and oriented, pleasant talk to. HEENT: Unremarkable. Lungs: Clear. Heart: Regular rate and rhythm. Abdomen: Soft. Positive bowel sounds. He does have two drains in place which appear to be draining and patent. No purulent drainage is noted. Extremities: No edema. No calf tenderness. LABORATORY DATA: White count is 14.6, hemoglobin 13.9, platelets 278,000. Sodium is 142, potassium 4.6, chloride 109, bicarb 25, anion gap 8, BUN 26, creatinine 0.75, glucose 71, calcium 8.0, total bilirubin 0.5, AST 71, ALT is 59, alkaline phosphatase 38, albumin is 1.7. ASSESSMENT/PLAN: 1. Pneumoperitoneum. Fluid drained from the abdomen yesterday did apparently have some fecal material. The patient has been cachectic. NG tube has been placed to low intermittent suction. He did become hypotensive requiring fluid boluses and appreciate Dr. Duran's timely response. The patient currently does have two drains in place. There is no operative note available for me this morning; however, the patient continues on broad-spectrum antibiotics, pain management per surgery and TPN as well per surgery. 2. Fluid in the abdomen seen on CT with paracentesis that demonstrate fecal material. As outlined above, the patient did go to surgery yesterday. 3. Hypotension, most likely related to bowel perforation and sepsis. Hold parameters in place on his blood pressure medications. 4. Sepsis with hypotension and leukocytosis. Continue broad-spectrum antibiotics and IV fluids. His lungs did sound a little crackly this morning. Will go ahead and decrease the rate from 250 to 125 mL an hour. 5. Elevated fasting glucose with normal hemoglobin A1c. He is critically ill. Will change him to fingersticks every 6 hours since he is nothing by mouth (n.p.o.) with sliding scale coverage as needed. 6. Deep vein thrombosis (DVT) prophylaxis. Thromboembolic deterrents (TEDS) and sequentials. DISPOSITION: The patient does continue to be critically ill. Will continue to follow along for medical issues.
[2016-05-22] MEDS ORDERED: GLUCAGON FOR INJ 1 MG VIAL (J1610) SC PRN (16:15)
[2016-05-22] MEDS ORDERED: GLUCOSE 4 GM CHEW TABLET PO PRN (16:15)
[2016-05-22] MEDS ORDERED: DEXTROSE 50% 50 ML SYRINGE IV PRN (16:15)
[2016-05-22] MEDS: HumaLOG INSULIN (NovoLOG) PER UNIT SC SCH (17:39)
[2016-05-23] VITALS (9 sets, daily range): BP systolic 116–163; BP diastolic 56–71; O2SAT 93
[2016-05-23] MEDS: IPRATROPIUM 0.5MG/ALBUTEROL 2.5MG INH SOL UD 3ML (DUONEB)(J7620) NEB SCH ×4 (01:50→19:26)
[2016-05-23] MEDS: LR 1,000 ML IV SCH (04:01)
[2016-05-23] MEDS: CIPROFLOXACIN 400 MG in APPROPRIATE DILUENT 1 EA IV SCH ×2 (04:34→17:07)
[2016-05-23 04:56] LABS: MEAN CORPUSCULAR HEMOGLOBIN 32.4 pg (27.0-33.0); MEAN CORPUSCULAR HGB CONC 32.8 g/dl (32.0-36.5); MEAN CORPUSCULAR VOLUME 98.7 fl (80.0-96.0); RED CELL DISTRIBUTION WIDTH 12.7 % (11.5-14.5); WHITE BLOOD COUNT 16.3 K/mm3 (4.0-10.0)
--- NOTE | 2016-05-23 04:57 | EDDOCDS ---
Nurse's Notes [facility] Name: Artie Ferguson Age: 60 yrs Sex: Male : 1955 Arrival Date: 05/20/2016 Time: 23:03 Bed 11 Private MD: NO PRIMARY PHYSICIAN, . Diagnosis: Abdominal tenderness;Perforation of intestine (nontraumatic) Presentation: 05/20 23:17 Presenting complaint: Patient states: Mid sternal chest pain which does not radiate x 1 jo3 hour. Pt denies cardiac history. Adult Sepsis Screening: The patient does not have new or worsening altered mentation. Patient's respiratory rate is less than 22. Systolic blood pressure is greater than 100. Patient has a qSOFA score of 0- Negative Sepsis Screen. Suicide/Homicide risk assessment- the patient denies having any suicidal and/or homicidal ideations and does not present with any other emotional, behavioral or mental health complaints. Status: Patient is not a emergency medical services coordinator or dependent. Transition of care: patient was not received from another setting of care. 23:17 Acuity: RAISA Level 2 jo3 23:17 Method Of Arrival: Walkin/Carried/Asstd jo3 23:26 Aspirin was not taken prior to arrival. jp6 Triage Assessment: 23:18 General: Appears ill, unkempt, Behavior is cooperative. Neurological: Level of jo3 Consciousness is awake, alert, Oriented to person, place, time. Respiratory: Airway is patent Respiratory effort is even, unlabored, Reports shortness of breath at rest. Derm: Skin is intact, Skin is diaphoretic, Skin is pale, Skin temperature is cool. 23:26 Pain: Location: chest. Pt Declines HIV testing. Cardiovascular: Chest pain is described jp6 as when chest pain started it was a 10 at this time chest pain is gone.. radiates Does not radiate. episodes are intermittent began 1 hour prior to arrival. Historical: - Allergies: no known allergies; - Home Meds: 1. none - PMHx: none; - PSHx: none; - Social history: Smoking status: Patient uses tobacco products, heavy tobacco smoker. No barriers to communication noted, The patient speaks fluent Sinhala. - Family history: Not pertinent. - : The pt / caregiver states he / she is not on anticoagulants. Home medication list is obtained from the patient. - Exposure Risk Screening:: None identified. Screenin:36 Screening information is obtained from the patient. Fall risk: No risks identified. jp6 Assistance ADL's: requires no assistance with activities of daily living. Abuse/DV Screen: The patient / caregiver reports he/she is: not in a situation that causes fear, pain or injury. Nutritional screening: No deficits noted. Advance Directives: Currently, there is no health care proxy. There is no active DNR order. There is no living will. home support is adequate. Assessment: 23:30 General: Appears distressed, slender, Behavior is anxious, appropriate for age, jp6 cooperative, Reports not feeling well. Neurological: Level of Consciousness is awake, alert, Oriented to person, place, time. EENT: No deficits noted. Cardiovascular: Capillary refill < 3 seconds Rhythm is sinus rhythm. Respiratory: Airway is patent Respiratory effort is even, unlabored, Respiratory pattern is regular, symmetrical, Breath sounds with wheezes. GI: No deficits noted. : No deficits noted. Derm: Skin is intact, Skin is clammy, diaphoretic, Skin is pale, Skin temperature is cool. Musculoskeletal: No deficits noted. 05/21 00:47 Reassessment: states pain upon inspiration. General: Appears ill, slender, Behavior is jp6 appropriate for age, cooperative. Pain: Denies pain. Respiratory: Airway is patent Respiratory effort is even, unlabored, Respiratory pattern is regular, symmetrical. 01:33 Reassessment: Patient denies pain at this time. General: Appears in no apparent jp6 distress, ill, Behavior is anxious, appropriate for age, cooperative. Neurological: Level of Consciousness is awake, alert, Oriented to person, place, time. Cardiovascular: Rhythm is sinus rhythm No ectopy. Respiratory: Airway is patent Respiratory effort is even, unlabored, Respiratory pattern is regular, symmetrical. Derm: Skin is intact, Skin is clammy, Skin is pale, Skin temperature is cool. 02:48 Reassessment: Patient states symptoms have not improved. General: Appears ill, Behavior jp6 is appropriate for age, cooperative. Pain: Denies pain. Neurological: Level of Consciousness is awake, alert, Oriented to person, place, time. Cardiovascular: Rhythm is sinus tachycardia No ectopy. Respiratory: Airway is patent Respiratory effort is even, unlabored, Respiratory pattern is regular, symmetrical. GI: Abdomen is flat, NGT to suction. approx 100ml brown emesis returned Bowel sounds present X 4 quads. present in right upper quadrant, left upper quadrant, right lower quadrant and left lower quadrant Reports anorexia, upper abdominal pain, intolerance of food. Vital Signs: 05/20 23:06 BP 203 / 94; Pulse 101; Resp 18 S; Temp 95.3(T); Pulse Ox 98% on R/A; Weight 55.79 kg gr2 (M); Height 6 ft. 1 in. (185.42 cm); Pain 4/10; 23:15 BP 216 / 99 (auto/); jp6 23:16 Pulse 94 MON; Pulse Ox 100% ; jp6 23:21 BP 205 / 85 (auto/); jp6 23:21 Pulse 92 MON; Pulse Ox 100% ; jp6 23:36 BP 204 / 93 (auto/); jp6 23:36 Pulse 90 MON; Pulse Ox 100% ; jp6 23:51 BP 205 / 89 (auto/); jp6 23:51 Pulse 96 MON; Pulse Ox 98% ; jp6 05/21 00:06 BP 233 / 119 (auto/); jp6 00:06 Pulse 98 MON; Pulse Ox 96% ; jp6 00:21 BP 235 / 106 (auto/); jp6 00:21 Pulse 92 MON; jp6 00:36 BP 220 / 96 (auto/); jp6 00:36 Pulse 94 MON; jp6 00:51 BP 219 / 92 (auto/); jp6 00:51 Pulse 102 MON; Pulse Ox 96% ; jp6 00:54 BP 206 / 91 (auto/); jp6 00:54 Pulse 96 MON; Pulse Ox 97% ; jp6 01:06 BP 187 / 84 (auto/); jp6 01:06 Pulse 96 MON; Pulse Ox 96% ; jp6 01:08 BP 188 / 87 (auto/); jp6 01:08 Pulse 98 MON; Pulse Ox 97% ; jp6 01:21 BP 216 / 96 (auto/); jp6 01:21 Pulse 102 MON; Pulse Ox 98% ; jp6 01:31 BP 205 / 74 (auto/); jp6 01:31 Pulse 104 MON; Pulse Ox 98% ; jp6 01:35 Pulse 100 MON; Pulse Ox 98% ; jp6 01:51 BP 193 / 86 (auto/); jp6 01:51 Pulse 102 MON; Pulse Ox 99% ; jp6 02:06 BP 179 / 82 (auto/); jp6 02:06 Pulse 102 MON; Pulse Ox 97% ; jp6 02:21 BP 182 / 84 (auto/); jp6 02:21 Pulse 106 MON; Pulse Ox 96% ; jp6 02:36 BP 172 / 79 (auto/); jp6 02:36 Pulse 110 MON; Pulse Ox 95% ; jp6 02:50 Pulse 108 MON; Pulse Ox 94% ; jp6 03:30 BP 165 / 80; Pulse 99; Resp 18; Temp 98.1(TE); Pulse Ox 98% ; Pain 0/10; jp6 05/20 23:06 Body Mass Index 16.23 (55.79 kg, 185.42 cm) gr2 Vitals: 05/20 23:06 Log In Time: May 20, 2016 at 23:06. RN notified that patient meets Red Flag gr2 criteria. ED Course: 23:05 Patient visited by Yulissa García. gr2 23:05 NO PRIMARY PHYSICIAN, . is Private Physician. gr2 23:05 Patient moved to Waiting gr2 23:08 Patient visited by Yulissa García. gr2 23:08 Patient moved to Pre RCE gr2 23:10 Rebeca Bryan RN is Primary Nurse. jo3 23:10 Patient moved to 11 jo3 23:11 Primary Nurse role handed off by Rebeca Bryan RN jp6 23:11 Venice Abraham,RN is Primary Nurse. jp6 23:12 Xu Sahni DO is Attending Physician. cs11 23:12 Patient visited by Xu Sahni DO. cs11 23:18 Triage Initiated jo3 23:19 Patient visited by Ema Barry RN. jo3 23:22 Patient visited by Maicol Cuenca. jp4 23:22 EKG done. (by ED staff). Reviewed by Xu Sahni DO. jp4 23:36 The patient / caregiver is instructed regarding the plan of care and ED course. Cardiac jp6 monitor on. Pulse ox on. NIBP on. 23:36 Inserted saline lock: 18 gauge in left antecubital area and blood collected. No jp6 procedures done that require assistance. O2 via nasal cannula \T\ 2L/min. 05/21 00:27 Patient visited by Venice Abraham RN. jp6 00:54 Patient name changed from Artie\Xiomara\Valentine\S\Marty\S\ to Artie\Xiomara\Roberto\Xiomara\Marty. EDMS 00:56 [facility] Payment Agreement was scanned into The [address] [facility] and attached to record. [facility] 01:38 Patient visited by Venice Abraham RN. jp6 02:11 Torito Duran MD is Hospitalizing Provider. cs11 02:50 NGT inserted 18 Fr. via right nare. Placement verified. Returned gastric contents. to jp6 intermittent suction. Returned gastric contents. Patient tolerated well. 03:17 T-Sheet-- Draft Copy was scanned into [employer] and attached to record. hs2 10:23 T-Sheet-- Draft Copy was scanned into [employer] and attached to record. gb 10:23 ECG/EKG was scanned into [employer] and attached to record. gb 10:24 Radiology Report was scanned into The [address] [facility] and attached to record. gb Administered Medications: 00:01 Drug: Aspirin 324 mg [aspirin 81 mg chewable tablet (4 tabs)] Route: PO; jp6 00:26 Drug: NS 0.9% 500 ml [sodium chloride 0.9 % intravenous solution] Route: IV; Rate: jp6 bolus; Site: left antecubital; 00:26 Drug: cloNIDine 0.1 mg [clonidine HCl 0.2 mg tablet (0.5 tabs)] Route: PO; jp6 01:32 Drug: cloNIDine 0.1 mg [clonidine HCl 0.2 mg tablet (0.5 tabs)] Route: PO; jp6 02:26 Drug: NS 0.9% 1000 ml [sodium chloride 0.9 % intravenous solution] Route: IV; Rate: jp6 bolus; Site: left antecubital; 02:26 Drug: Piperacillin-Tazobactam 3.375 grams [piperacillin-tazobactam 3.375 gram jp6 intravenous solution] Route: IVPB; Infused Over: 30 mins; Site: left antecubital; 02:26 Drug: Dilaudid - HYDROmorphone 0.5 mg [hydromorphone 1 mg/mL injection syringe (0.5 jp6 mL)] Route: IVP; Site: left antecubital; Intake: 03:30 PO: 0.00ml; IV: 1000.00ml; Total: 1000.00ml. jp6 Output: 03:55 Gastric: 300.00ml (NGT); Total: 300.00ml. jp6 Order Results: Lab Order: CBC; SPEC'M 05/20/16 23:24 Test: WHITE BLOOD COUNT; Value: 19.4; Range: 4.0-10.0; Abnormal: Above high normal; Units: K/mm3; Status: F Test: RED BLOOD COUNT; Value: 4.71; Range: 4.30-6.10; Units: M/mm3; Status: F Test: HEMOGLOBIN; Value: 16.0; Range: 14.0-18.0; Units: g/dl; Status: F Test: HEMATOCRIT; Value: 46.6; Range: 42.0-52.0; Units: %; Status: F Test: MEAN CORPUSCULAR VOLUME; Value: 99.1; Range: 80.0-96.0; Abnormal: Above high normal; Units: fl; Status: F Test: MEAN CORPUSCULAR HEMOGLOBIN; Value: 34.1; Range: 27.0-33.0; Abnormal: Above high normal; Units: pg; Status: F Test: MEAN CORPUSCULAR HGB CONC; Value: 34.4; Range: 32.0-36.5; Units: g/dl; Status: F Test: RED CELL DISTRIBUTION WIDTH; Value: 11.7; Range: 11.5-14.5; Units: %; Status: F Test: PLATELET COUNT, AUTOMATED; Value: 412; Range: 150-450; Units: k/mm3; Status: F Lab Order: MED Profile; SPEC'M 05/20/16 23:24 Test: GLUCOSE, FASTING; Value: 164; Range: 70-105; Abnormal: Above high normal; Units: MG/DL; Status: F Test: BLOOD UREA NITROGEN; Value: 29; Range: 7-18; Abnormal: Above high normal; Units: MG/DL; Status: F Test: CREATININE FOR GFR; Value: 0.85; Range: 0.70-1.30; Units: MG/DL; Status: F Test: GLOMERULAR FILTRATION RATE; Value: > 60.0; Range: >56; Status: F Test: SODIUM LEVEL; Value: 139; Range: 136-145; Units: MEQ/L; Status: F Test: POTASSIUM SERUM; Value: 3.8; Range: 3.5-5.1; Units: MEQ/L; Status: F Test: CHLORIDE LEVEL; Value: 100; Range: 98-107; Units: MEQ/L; Status: F Test: CARBON DIOXIDE LEVEL; Value: 30; Range: 21-32; Units: MEQ/L; Status: F Test: ANION GAP; Value: 9; Range: 8-16; Units: MEQ/L; Status: F Test: CALCIUM LEVEL; Value: 9.4; Range: 8.5-10.1; Units: MG/DL; Status: F Test Note: ; Units are mL/min/1.73 m2 Chronic Kidney Disease Staging per NKF: Stage I & II GFR >=60 Normal to Mildly Decreased Stage III GFR 30-59 Moderately Decreased Stage IV GFR 15-29 Severely Decreased Stage V GFR <15 Very Little GFR Left ESRD GFR <15 on PROPULSION GENERATOR REPAIRER Lab Order: Pt & Aptt; SPEC'M 05/20/16 23:24 Test: PROTHROMBIN TIME; Value: 13.6; Range: 12.3-14.5; Units: SECONDS; Status: F Test: INR; Value: 1.03; Status: F Test: PARTIAL THROMBOPLASTIN TIME; Value: 25.9; Range: 26.6-37.1; Abnormal: Below low normal; Units: SECONDS; Status: F Test Note: ; THERAPUTIC HUMAN INR VALUES INDICATIONS NORMAL RANGES PROPHYLAXIS/TREATMENT OF: VENOUS THROMBOSIS 2.0-3.0 PULMONARY EMBOLISM 2.0-3.0 PREVENTION OF SYSTEMIC EMBOLISM FROM: TISSUE HEART VALVES 2.0-3.0 ACUTE MYOCARDIAL INFARCTION 2.0-3.0 VALVULAR HEART DISEASE 2.0-3.0 ATRIAL FIBRILLATION 2.0-3.0 MECHANICAL VALVES(HIGH RISK) 2.5-3.5 RECURRENT MYOCARDIAL INFARCTION 2.5-3.5 Lab Order: Cardiac Marker Panel; SPEC'M 05/20/16 23:24 Test: CPK CREATINE PHOSPHOKINASE; Value: 28; Range: 39-308; Abnormal: Below low normal; Units: U/L; Status: F Test: CK-MB VALUE MASS; Value: 1.0; Range: 0.0-3.6; Units: NG/ML; Status: F Test: MB/CK RELATIVE INDEX; Value: 3.57; Range: < OR =4; Status: F Test: TROPONIN I; Value: < 0.02; Range: < 0.10; Units: NG/ML; Status: F Test Note: ; DIAGNOSIS CRITERIA MMB ng/ml Relative Index (RI) NON-AMI < or = 5 N/A SONI ZONE > 5 < or = 4 AMI > 5 > 4 Lab Order: AMYLASE; [facility] 05/20/16 23:24 Test: AMYLASE; Value: 74; Range: 25-115; Units: U/L; Status: F Lab Order: LIPASE; [facility] 05/20/16 23:24 Test: LIPASE; Value: 113; Range: 73-393; Units: U/L; Status: F Lab Order: LIVER PROFILE; [facility] 05/20/16 23:24 Test: AST/SGOT; Value: 17; Range: 15-37; Units: U/L; Status: F Test: ALT/SGPT; Value: 21; Range: 12-78; Units: U/L; Status: F Test: ALKALINE PHOSPHATASE; Value: 83; Range: 45-117; Units: U/L; Status: F Test: BILIRUBIN,TOTAL; Value: 0.6; Range: 0.2-1.0; Units: MG/DL; Status: F Test: BILIRUBIN,DIRECT; Value: 0.2; Range: 0.0-0.2; Units: MG/DL; Status: F Test: TOTAL PROTEIN; Value: 7.4; Range: 6.4-8.2; Units: GM/DL; Status: F Test: ALBUMIN; Value: 3.4; Range: 3.2-5.2; Units: GM/DL; Status: F Test: ALBUMIN/GLOBULIN RATIO; Value: 0.85; Range: 1.00-1.93; Abnormal: Below low normal; Status: F Outcome: 02:12 Decision to Hospitalize by Provider. cs11 03:55 Discharge Assessment: Patient awake, alert and oriented x 3. No cognitive and/or jp6 functional deficits noted. Patient verbalized understanding of disposition instructions. patient administered narcotics - yes. Patient was admitted to the hospital or transferred to another facility. The following High Risk Discharge criteria are identified: None. Admitted to Med/Surg accompanied by tech, via stretcher, with chart. Condition: unchanged. CT Study completed. Admission hand-off: Report called to [address] [place] [address]. Property :Personal belongings accompany Pt. 03:56 Patient left the ED. jp6 Signatures: Dispatcher [employer] EDCT Loren Ybarra, Reg Reg gb Ema Barry,RN RN jo3 Xu Sahni DO DO cs11 Yulissa García gr2 Maicol Cuenca jp4 Tanika Olmstead Hillary, Reg Reg hs2 Venice Abraham,RN RN jp6 Chart Complete MTDD
--- NOTE | 2016-05-23 04:57 | EDDOCDS ---
Physician Documentation [facility] Name: Artie Ferguson Age: 60 yrs Sex: Male : 1955 Arrival Date: 05/20/2016 Time: 23:03 Bed 11 Private MD: NO PRIMARY PHYSICIAN, . Disposition: 05/21/16 02:12 Hospitalization ordered by Torito Duran for Inpatient Admission. Preliminary diagnosis are Abdominal tenderness, Perforation of intestine (nontraumatic). - Bed requested for 4 [place]. - Status is Inpatient Admission. jp6 - Condition is Stable. - Problem is new. - Symptoms are unchanged. Historical: - Allergies: no known allergies; - Home Meds: 1. none - PMHx: none; - PSHx: none; - Social history: Smoking status: Patient uses tobacco products, heavy tobacco smoker. No barriers to communication noted, The patient speaks fluent Faroese. - Family history: Not pertinent. - : The pt / caregiver states he / she is not on anticoagulants. Home medication list is obtained from the patient. - Exposure Risk Screening:: None identified. Vital Signs: 05/20 23:06 BP 203 / 94; Pulse 101; Resp 18 S; Temp 95.3(T); Pulse Ox 98% on R/A; Weight 55.79 kg / gr2 123 lbs (M); Height 6 ft. 1 in. (185.42 cm); Pain 4/10; 23:15 BP 216 / 99 (auto/); jp6 23:16 Pulse 94 MON; Pulse Ox 100% ; jp6 23:21 BP 205 / 85 (auto/); jp6 23:21 Pulse 92 MON; Pulse Ox 100% ; jp6 23:36 BP 204 / 93 (auto/); jp6 23:36 Pulse 90 MON; Pulse Ox 100% ; jp6 23:51 BP 205 / 89 (auto/); jp6 23:51 Pulse 96 MON; Pulse Ox 98% ; jp6 05/21 00:06 BP 233 / 119 (auto/); jp6 00:06 Pulse 98 MON; Pulse Ox 96% ; jp6 00:21 BP 235 / 106 (auto/); jp6 00:21 Pulse 92 MON; jp6 00:36 BP 220 / 96 (auto/); jp6 00:36 Pulse 94 MON; jp6 00:51 BP 219 / 92 (auto/); jp6 00:51 Pulse 102 MON; Pulse Ox 96% ; jp6 00:54 BP 206 / 91 (auto/); jp6 00:54 Pulse 96 MON; Pulse Ox 97% ; jp6 01:06 BP 187 / 84 (auto/); jp6 01:06 Pulse 96 MON; Pulse Ox 96% ; jp6 01:08 BP 188 / 87 (auto/); jp6 01:08 Pulse 98 MON; Pulse Ox 97% ; jp6 01:21 BP 216 / 96 (auto/); jp6 01:21 Pulse 102 MON; Pulse Ox 98% ; jp6 01:31 BP 205 / 74 (auto/); jp6 01:31 Pulse 104 MON; Pulse Ox 98% ; jp6 01:35 Pulse 100 MON; Pulse Ox 98% ; jp6 01:51 BP 193 / 86 (auto/); jp6 01:51 Pulse 102 MON; Pulse Ox 99% ; jp6 02:06 BP 179 / 82 (auto/); jp6 02:06 Pulse 102 MON; Pulse Ox 97% ; jp6 02:21 BP 182 / 84 (auto/); jp6 02:21 Pulse 106 MON; Pulse Ox 96% ; jp6 02:36 BP 172 / 79 (auto/); jp6 02:36 Pulse 110 MON; Pulse Ox 95% ; jp6 02:50 Pulse 108 MON; Pulse Ox 94% ; jp6 03:30 BP 165 / 80; Pulse 99; Resp 18; Temp 98.1(TE); Pulse Ox 98% ; Pain 0/10; jp6 05/20 23:06 Body Mass Index 16.23 (55.79 kg, 185.42 cm) gr2 MDM: 05/20 23:12 ECG WITH READING ER PHYS+CARDIAG ordered. EDMS 23:33 Chest, 1 View Ordered. EDMS 23:33 CBC Ordered. EDMS 23:33 MED Profile Ordered. EDMS 23:33 Pt & Aptt Ordered. EDMS 23:33 Cardiac Marker Panel Ordered. EDMS 23:57 Aspirin 324 mg PO once ordered. cs11 23:57 CBC Reviewed. cs11 23:57 MED Profile Reviewed. cs11 23:57 Pt & Aptt Reviewed. cs11 23:57 NS 0.9% 500 ml IV at bolus once ordered. cs11 23:59 MED Profile Reviewed. cs11 23:59 Cardiac Marker Panel Reviewed. cs11 23:59 CT Chest Angio R/O PE Ordered. EDMS 05/21 00:00 cloNIDine 0.1 mg PO once ordered. cs11 00:16 CT ABD & PELVIS: IV Contrast Only Ordered. EDMS 00:20 AMYLASE Ordered. EDMS 00:20 LIPASE Ordered. EDMS 00:20 LIVER PROFILE Ordered. EDMS 00:35 Financial registration complete. h 00:55 cloNIDine 0.1 mg PO once ordered. cs11 00:56 MED Profile Reviewed. cs11 00:56 Cardiac Marker Panel Reviewed. cs11 00:56 LIVER PROFILE Reviewed. cs11 00:56 AMYLASE Reviewed. cs11 00:56 LIPASE Reviewed. cs11 00:56 [facility] Payment Agreement was scanned into [employer] and attached to record. [facility] 01:57 NS 0.9% 1000 ml IV at bolus once ordered. cs11 01:57 Piperacillin-Tazobactam 3.375 grams IVPB once over 30 mins; dilute in 50mL of NS or D5W cs11 ordered. 01:57 Dilaudid - HYDROmorphone 0.5 mg IVP once ordered. cs11 02:03 BED REQUEST+ADM ordered. EDMS 02:12 NG Tube, 18Fr ordered. cs11 03:17 T-Sheet-- Draft Copy was scanned into [employer] and attached to record. hs2 03:21 Admission / Observation Status ordered. EDMS 03:21 NPO DIET ordered. EDMS 03:23 PICC LINE INSERTION W/SITERITE Ordered. EDMS 03:23 ABCESS DRAIN ([facility]ED[facility] PLACE) US Ordered. EDMS 03:23 ABDOMEN (MIN 2 VIEW) Ordered. EDMS 03:23 ABDOMEN (MIN 2 VIEW) Ordered. EDMS 03:23 ABDOMEN (MIN 2 VIEW) Ordered. EDMS 03:55 HEPATITIS PROFILE Ordered. EDMS 10:23 T-Sheet-- Draft Copy was scanned into [employer] and attached to record. gb 10:23 ECG/EKG was scanned into [employer] and attached to record. gb 10:24 Radiology Report was scanned into [employer] and attached to record. gb Administered Medications: 00:01 Drug: Aspirin 324 mg [aspirin 81 mg chewable tablet (4 tabs)] Route: PO; jp6 00:26 Drug: NS 0.9% 500 ml [sodium chloride 0.9 % intravenous solution] Route: IV; Rate: jp6 bolus; Site: left antecubital; 00:26 Drug: cloNIDine 0.1 mg [clonidine HCl 0.2 mg tablet (0.5 tabs)] Route: PO; jp6 01:32 Drug: cloNIDine 0.1 mg [clonidine HCl 0.2 mg tablet (0.5 tabs)] Route: PO; jp6 02:26 Drug: NS 0.9% 1000 ml [sodium chloride 0.9 % intravenous solution] Route: IV; Rate: jp6 bolus; Site: left antecubital; 02:26 Drug: Piperacillin-Tazobactam 3.375 grams [piperacillin-tazobactam 3.375 gram jp6 intravenous solution] Route: IVPB; Infused Over: 30 mins; Site: left antecubital; 02: Drug: Dilaudid - HYDROmorphone 0.5 mg [hydromorphone 1 mg/mL injection syringe (0.5 jp6 mL)] Route: IVP; Site: left antecubital; Signatures: Dispatcher [employer] EDMS Loren Ybarra, Reg Reg gb Ema Barry,RN RN jo3 Xu Sahni, DO cs11 McLmaria de jesus Johanny, SHOP DIRECTOR SHOP DIRECTOR tmm1 Tanika Olmstead [facility] Lissett Sotelo, Reg Reg hs2 Venice Abraham,RN RN jp6 The chart was reviewed and I authenticate all verbal orders and agree with the evaluation and treatment provided.Corrections: (The following items were deleted from the chart) 00:18 00:17 LIVER PROFILE+LAB ordered. EDMS EDMS 00:18 00:17 AMYLASE+LAB ordered. EDMS EDMS 00:18 00:17 LIPASE+LAB ordered. EDMS EDMS Attachments: 00:56 [facility] Payment Agreement [facility] 10:23 T-Sheet-- Draft Copy 10:23 ECG/EKG Chart Complete MTDD
--- NOTE | 2016-05-23 04:57 | EDDOCDS ---
Physician Documentation [facility] Name: Artie Ferguson Age: 60 yrs Sex: Male : 1955 Arrival Date: 05/20/2016 Time: 23:03 Bed 11 Private MD: NO PRIMARY PHYSICIAN, . Disposition: 05/21/16 02:12 Hospitalization ordered by Torito Duran for Inpatient Admission. Preliminary diagnosis are Abdominal tenderness, Perforation of intestine (nontraumatic). - Bed requested for 4 [place]. - Status is Inpatient Admission. jp6 - Condition is Stable. - Problem is new. - Symptoms are unchanged. Historical: - Allergies: no known allergies; - Home Meds: 1. none - PMHx: none; - PSHx: none; - Social history: Smoking status: Patient uses tobacco products, heavy tobacco smoker. No barriers to communication noted, The patient speaks fluent Kiswahili. - Family history: Not pertinent. - : The pt / caregiver states he / she is not on anticoagulants. Home medication list is obtained from the patient. - Exposure Risk Screening:: None identified. Vital Signs: 05/20 23:06 BP 203 / 94; Pulse 101; Resp 18 S; Temp 95.3(T); Pulse Ox 98% on R/A; Weight 55.79 kg / gr2 123 lbs (M); Height 6 ft. 1 in. (185.42 cm); Pain 4/10; 23:15 BP 216 / 99 (auto/); jp6 23:16 Pulse 94 MON; Pulse Ox 100% ; jp6 23:21 BP 205 / 85 (auto/); jp6 23:21 Pulse 92 MON; Pulse Ox 100% ; jp6 23:36 BP 204 / 93 (auto/); jp6 23:36 Pulse 90 MON; Pulse Ox 100% ; jp6 23:51 BP 205 / 89 (auto/); jp6 23:51 Pulse 96 MON; Pulse Ox 98% ; jp6 05/21 00:06 BP 233 / 119 (auto/); jp6 00:06 Pulse 98 MON; Pulse Ox 96% ; jp6 00:21 BP 235 / 106 (auto/); jp6 00:21 Pulse 92 MON; jp6 00:36 BP 220 / 96 (auto/); jp6 00:36 Pulse 94 MON; jp6 00:51 BP 219 / 92 (auto/); jp6 00:51 Pulse 102 MON; Pulse Ox 96% ; jp6 00:54 BP 206 / 91 (auto/); jp6 00:54 Pulse 96 MON; Pulse Ox 97% ; jp6 01:06 BP 187 / 84 (auto/); jp6 01:06 Pulse 96 MON; Pulse Ox 96% ; jp6 01:08 BP 188 / 87 (auto/); jp6 01:08 Pulse 98 MON; Pulse Ox 97% ; jp6 01:21 BP 216 / 96 (auto/); jp6 01:21 Pulse 102 MON; Pulse Ox 98% ; jp6 01:31 BP 205 / 74 (auto/); jp6 01:31 Pulse 104 MON; Pulse Ox 98% ; jp6 01:35 Pulse 100 MON; Pulse Ox 98% ; jp6 01:51 BP 193 / 86 (auto/); jp6 01:51 Pulse 102 MON; Pulse Ox 99% ; jp6 02:06 BP 179 / 82 (auto/); jp6 02:06 Pulse 102 MON; Pulse Ox 97% ; jp6 02:21 BP 182 / 84 (auto/); jp6 02:21 Pulse 106 MON; Pulse Ox 96% ; jp6 02:36 BP 172 / 79 (auto/); jp6 02:36 Pulse 110 MON; Pulse Ox 95% ; jp6 02:50 Pulse 108 MON; Pulse Ox 94% ; jp6 03:30 BP 165 / 80; Pulse 99; Resp 18; Temp 98.1(TE); Pulse Ox 98% ; Pain 0/10; jp6 05/20 23:06 Body Mass Index 16.23 (55.79 kg, 185.42 cm) gr2 MDM: 05/20 23:12 ECG WITH READING ER PHYS+CARDIAG ordered. EDMS 23:33 Chest, 1 View Ordered. EDMS 23:33 CBC Ordered. EDMS 23:33 MED Profile Ordered. EDMS 23:33 Pt & Aptt Ordered. EDMS 23:33 Cardiac Marker Panel Ordered. EDMS 23:57 Aspirin 324 mg PO once ordered. cs11 23:57 CBC Reviewed. cs11 23:57 MED Profile Reviewed. cs11 23:57 Pt & Aptt Reviewed. cs11 23:57 NS 0.9% 500 ml IV at bolus once ordered. cs11 23:59 MED Profile Reviewed. cs11 23:59 Cardiac Marker Panel Reviewed. cs11 23:59 CT Chest Angio R/O PE Ordered. EDMS 05/21 00:00 cloNIDine 0.1 mg PO once ordered. cs11 00:16 CT ABD & PELVIS: IV Contrast Only Ordered. EDMS 00:20 AMYLASE Ordered. EDMS 00:20 LIPASE Ordered. EDMS 00:20 LIVER PROFILE Ordered. EDMS 00:35 Financial registration complete. h 00:55 cloNIDine 0.1 mg PO once ordered. cs11 00:56 MED Profile Reviewed. cs11 00:56 Cardiac Marker Panel Reviewed. cs11 00:56 LIVER PROFILE Reviewed. cs11 00:56 AMYLASE Reviewed. cs11 00:56 LIPASE Reviewed. cs11 00:56 [facility] Payment Agreement was scanned into [employer] and attached to record. [facility] 01:57 NS 0.9% 1000 ml IV at bolus once ordered. cs11 01:57 Piperacillin-Tazobactam 3.375 grams IVPB once over 30 mins; dilute in 50mL of NS or D5W cs11 ordered. 01:57 Dilaudid - HYDROmorphone 0.5 mg IVP once ordered. cs11 02:03 BED REQUEST+ADM ordered. EDMS 02:12 NG Tube, 18Fr ordered. cs11 03:17 T-Sheet-- Draft Copy was scanned into [employer] and attached to record. hs2 03:21 Admission / Observation Status ordered. EDMS 03:21 NPO DIET ordered. EDMS 03:23 PICC LINE INSERTION W/SITERITE Ordered. EDMS 03:23 ABCESS DRAIN ([facility]) US Ordered. EDMS 03:23 ABDOMEN (MIN 2 VIEW) Ordered. EDMS 03:23 ABDOMEN (MIN 2 VIEW) Ordered. EDMS 03:23 ABDOMEN (MIN 2 VIEW) Ordered. EDMS 03:55 HEPATITIS PROFILE Ordered. EDMS 10:23 T-Sheet-- Draft Copy was scanned into [employer] and attached to record. gb 10:23 ECG/EKG was scanned into [employer] and attached to record. gb 10:24 Radiology Report was scanned into [employer] and attached to record. gb Administered Medications: 00:01 Drug: Aspirin 324 mg [aspirin 81 mg chewable tablet (4 tabs)] Route: PO; jp6 00:26 Drug: NS 0.9% 500 ml [sodium chloride 0.9 % intravenous solution] Route: IV; Rate: jp6 bolus; Site: left antecubital; 00:26 Drug: cloNIDine 0.1 mg [clonidine HCl 0.2 mg tablet (0.5 tabs)] Route: PO; jp6 01:32 Drug: cloNIDine 0.1 mg [clonidine HCl 0.2 mg tablet (0.5 tabs)] Route: PO; jp6 02:26 Drug: NS 0.9% 1000 ml [sodium chloride 0.9 % intravenous solution] Route: IV; Rate: jp6 bolus; Site: left antecubital; 02:26 Drug: Piperacillin-Tazobactam 3.375 grams [piperacillin-tazobactam 3.375 gram jp6 intravenous solution] Route: IVPB; Infused Over: 30 mins; Site: left antecubital; 02: Drug: Dilaudid - HYDROmorphone 0.5 mg [hydromorphone 1 mg/mL injection syringe (0.5 jp6 mL)] Route: IVP; Site: left antecubital; Signatures: Dispatcher [employer] EDMS Loren Ybarra, Reg Reg gb Ema Barry,RN RN jo3 Xu Sahni, DO cs11 McLmaria de jesus Johanny, [employer] tmm1 Tanika [place] [facility] Lissett Sotelo, Reg Reg hs2 [place] Abraham,RN RN jp6 The chart was reviewed and I authenticate all verbal orders and agree with the evaluation and treatment provided.Corrections: (The following items were deleted from the chart) 00:18 00:17 LIVER PROFILE+LAB ordered. EDMS EDMS 00:18 00:17 AMYLASE+LAB ordered. EDMS EDMS 00:18 00:17 LIPASE+LAB ordered. EDMS EDMS Attachments: 00:56 [facility] Payment Agreement [facility] 10:23 T-Sheet-- Draft Copy 10:23 ECG/EKG Chart Complete MTDD
[2016-05-23 05:22] LABS: ALBUMIN 1.5 GM/DL (3.2-5.2); ALBUMIN/GLOBULIN RATIO 0.75 (1.00-1.93); ALKALINE PHOSPHATASE 37 U/L (45-117); ALT/SGPT 42 U/L (12-78); ANION GAP 9 MEQ/L (8-16); AST/SGOT 59 U/L (15-37); BILIRUBIN,TOTAL 0.4 MG/DL (0.2-1.0); BLOOD UREA NITROGEN 18 MG/DL (7-18); CALCIUM LEVEL 8.1 MG/DL (8.5-10.1); CARBON DIOXIDE LEVEL 26 MEQ/L (21-32); CHLORIDE LEVEL 106 MEQ/L (98-107); CREATININE FOR GFR 0.52 MG/DL (0.70-1.30); GLOMERULAR FILTRATION RATE > 60.0 (>56); GLUCOSE, FASTING 61 MG/DL (70-105); POTASSIUM SERUM 3.9 MEQ/L (3.5-5.1); SODIUM LEVEL 141 MEQ/L (136-145); TOTAL PROTEIN 3.5 GM/DL (6.4-8.2)
[2016-05-23] MEDS: metroNIDAZOLE 500 MG in APPROPRIATE DILUENT 1 EA IV SCH ×3 (05:50→21:18)
[2016-05-23] MEDS: SODIUM CHLORIDE 0.9% INJ 10 ML SYR IV SCH ×2 (05:50→18:28)
[2016-05-23] MEDS: HumaLOG INSULIN (NovoLOG) PER UNIT SC SCH ×5 (05:53→23:54)
[2016-05-23] MEDS: cefTRIAXone SOD 1 GM in D5W MINI-BAG PLUS 50 ML IV SCH (07:56)
[2016-05-23 07:59] LABS: VENOUS BASE EXCESS 0.7 (-2.0-2.0); VENOUS O2 SATURATION 98.2 % (60.0-80.0); VENOUS PARTIAL PRESSURE CO2 38.6 mmHg (38.0-50.0); VENOUS STANDARD HCO3 25.1 MEQ/L; VENOUS TOTAL CO2 26.1 MEQ/L (24.0-28.0)
--- NOTE | 2016-05-23 08:46 | REP ---
Clinical: Nasogastric tube placement. Technique: Supine and upright views of the abdomen and pelvis. Findings: Nasogastric tube tip extends to the level of the diaphragm and requires advancement into the stomach. Postsurgical changes involving the abdomen and pelvis noted. Bowel gas pattern is nonspecific. No obvious pneumoperitoneum noted. Impression: 1. Nasogastric tube requires advancement into the stomach. II. Nonspecific bowel gas pattern with postsurgical changes noted. Signed by Franco Sifuentes MD 05/23/2016 08:38 A
[2016-05-23] MEDS ORDERED: INFLUENZA QUADRIVALENT PF VACCINE 0.5ML SYRINGE/VIAL (90686) IM ONE (09:00)
[2016-05-23] MEDS: PANTOPRAZOLE 40MG INJ (PROTONIX) (C9113) IV SCH ×2 (09:10→21:17)
--- NOTE | 2016-05-23 12:26 | IPNPDOC ---
Text Note Date of Service The patient was seen on 05/23/16 at 12:11. NOTE Subjective: Pt is feeling well. Denies any pain. Objective: Vitals: (see below) General: No acute distress, laying comfortably in bed. HEENT: Moist mucous membranes. Neck: No JVD or lymphadenopathy Cardiac: RRR, No murmurs Pulm: Clear to auscultation b/l. No wheezing, rhonchi Abd: NT/ND + BS. 2 RUBY drains with serosanguineous fluid. Ext: No edema or cyanosis Labs (see below) Images: MRA LE 05/21/16 Impression 1. Bilateral lower extremity peripheral arterial disease, most significant on the right. 2. There is significant decreased perfusion of the right common iliac artery at its origin with reconstitution of right common femoral artery. Distal tapering of the right common femoral artery with near occlusion at the proximal superficial femoral artery. There is reconstitution of right popliteal artery by multiple collaterals. 3. Two vessel runoff to the mid right calf. 4. Widely patent left common iliac and common femoral arteries. Diffusely attenuated left internal iliac artery. Absent small and mid superficial femoral arteries with reconstitution of the mid to distal left superficial femoral artery. Two-vessel runoff to the distal left calf. CT Abd/pelvis 05/21/16 IMPRESSION: Thickened stomach. Thickened duodenum. Moderate amount of pneumoperitoneum. This needs to be correlated with any history of recent surgical intervention to exclude gastric/small bowel perforation. Surgical consultation is suggested. Ascites. Gastroparesis. Mildly dilated and thickened proximal small bowels. Assessment/Plan 1. POD 2 s/p Ex lap for Duodenal ulcer perforation. Status post repair of the ulcer, gastrojejunostomy. Management per surgery. 2. Sepsis secondary to #1. On Rocephin, Cipro, Flagyl. The WBC 16. CRP 29. Hemodynamically stable. Leukocytosis and CRP are not improving may need to broaden coverage for Pseudomonas. On IV fluids. Blood cultures negative thus far. 3. PAD with Chronic lower extremity ischemia - will need outpt vascular surgery eval. DVT prophylaxis SCDs. VS,Fishbone, I+O VS, Fishbone, I+O Laboratory Tests 05/23/16 04:33 Calcium Level 8.1 L, Aspartate Amino Transf (AST/SGOT) 59 H, Alanine Aminotransferase (ALT/SGPT) 42, Alkaline Phosphatase 37 L, Total Bilirubin 0.4, Total Protein 3.5 L, Albumin 1.5 L, Red Blood Count 3.33 L, Mean Corpuscular Volume 98.7 H, Mean Corpuscular Hemoglobin 32.4, Mean Corpuscular Hemoglobin Concent 32.8, Red Cell Distribution Width 12.7 Vital Signs Date Time Temp Pulse Resp B/P Pulse Ox O2 Delivery O2 Flow Rate FiO2 05/23/16 10:00 109 20 149/67 93 Nasal Cannula 2.0 05/23/16 08:00 98.4 I&O- Last 24 Hours up to 6 AM 05/23/16 06:00 Intake Total 3450 ml Output Total 1995 ml Balance 1455 ml LEONEL HUYNH MD May 23, 2016 12:26
[2016-05-23] MEDS: KCL 10MEQ IN D5/0.45NS 1000ML 1,000 ML IV SCH (12:40)
[2016-05-23] MEDS ORDERED: SLF 3 ML SYR IV PRN (17:15)
[2016-05-23] MEDS ORDERED: INFLUENZA QUADRIVALENT PF VACCINE 0.5ML SYRINGE/VIAL (90686) IM SCH (17:15)
[2016-05-23] MEDS: PENTOXIFYLLINE 400 MG TAB PO SCH (18:24)
[2016-05-23] MEDS: MORPHINE PCA 1MG/ML 100ML CADD IV PRN (18:29)
[2016-05-23] MEDS: SLF 3 ML SYR IV SCH (21:18)
[2016-05-24] VITALS (8 sets, daily range): BP systolic 114–140; BP diastolic 54–64; O2SAT 93
[2016-05-24] MEDS: KCL 10MEQ IN D5/0.45NS 1000ML 1,000 ML IV SCH (01:10)
[2016-05-24] MEDS: IPRATROPIUM 0.5MG/ALBUTEROL 2.5MG INH SOL UD 3ML (DUONEB)(J7620) NEB SCH ×4 (01:47→20:32)
[2016-05-24] MEDS: CIPROFLOXACIN 400 MG in APPROPRIATE DILUENT 1 EA IV SCH ×2 (04:07→16:02)
[2016-05-24] MEDS: metroNIDAZOLE 500 MG in APPROPRIATE DILUENT 1 EA IV SCH ×3 (05:12→22:07)
[2016-05-24] MEDS: SODIUM CHLORIDE 0.9% INJ 10 ML SYR IV SCH ×2 (05:13→17:06)
[2016-05-24] MEDS: SLF 3 ML SYR IV SCH ×3 (05:13→22:07)
[2016-05-24 05:17] LABS: MEAN CORPUSCULAR HEMOGLOBIN 32.3 pg (27.0-33.0); MEAN CORPUSCULAR HGB CONC 32.9 g/dl (32.0-36.5); MEAN CORPUSCULAR VOLUME 98.2 fl (80.0-96.0); RED CELL DISTRIBUTION WIDTH 12.8 % (11.5-14.5); WHITE BLOOD COUNT 18.7 K/mm3 (4.0-10.0)
[2016-05-24 05:57] LABS: ALBUMIN 1.4 GM/DL (3.2-5.2); ALKALINE PHOSPHATASE 44 U/L (45-117); ALT/SGPT 40 U/L (12-78); ANION GAP 9 MEQ/L (8-16); AST/SGOT 59 U/L (15-37); BILIRUBIN,TOTAL 0.3 MG/DL (0.2-1.0); BLOOD UREA NITROGEN 11 MG/DL (7-18); CALCIUM LEVEL 7.7 MG/DL (8.5-10.1); CARBON DIOXIDE LEVEL 26 MEQ/L (21-32); CHLORIDE LEVEL 103 MEQ/L (98-107); CREATININE FOR GFR 0.48 MG/DL (0.70-1.30); GLOMERULAR FILTRATION RATE > 60.0 (>56); GLUCOSE, FASTING 106 MG/DL (70-105); POTASSIUM SERUM 3.3 MEQ/L (3.5-5.1); SODIUM LEVEL 138 MEQ/L (136-145); TOTAL PROTEIN 4.2 GM/DL (6.4-8.2)
[2016-05-24] MEDS: HumaLOG INSULIN (NovoLOG) PER UNIT SC SCH ×3 (06:00→17:11)
[2016-05-24] MEDS: PENTOXIFYLLINE 400 MG TAB PO SCH ×2 (07:40→17:05)
[2016-05-24] MEDS: cefTRIAXone SOD 1 GM in D5W MINI-BAG PLUS 50 ML IV SCH (07:40)
[2016-05-24] MEDS: PANTOPRAZOLE 40MG INJ (PROTONIX) (C9113) IV SCH ×2 (08:07→20:45)
[2016-05-24] MEDS ORDERED: KCL 20MEQ IN 100ML SWI (KRUN) 20 MEQ in APPROPRIATE DILUENT 1 EA IV ONE ×2 (10:00)
--- NOTE | 2016-05-24 13:38 | IPN ---
DATE: 05/24/2016 Artie is seen in intensive care unit (ICU). White count continues to climb. Dr. Duran's notes have been reviewed and I agree with the concern about developing abscess. No fever has been noted. PHYSICAL EXAMINATION: VITAL SIGNS: Afebrile, 97.2 degrees, vital signs stable. LUNGS: Clear. HEART: Regular rhythm. ABDOMEN: Soft. It is dressed, drain is present. No peripheral edema. LABORATORY DATA: White count is up to 18.7, potassium is 3.3. IMPRESSION: 1. Postoperative day #3 of exploratory laparotomy and perforated duodenal ulcer. Will broaden his antibiotic coverage, stopping the Rocephin, changing to ceftazidime which will provide some pseudomonas coverage. Continue Rocephin and Flagyl. CT scan for tomorrow ordered. 2. Hypokalemia. He is nothing by mouth. Potassium runs have been ordered. 3. Vascular disease. Outpatient vascular surgery referral as an outpatient.
[2016-05-24] MEDS: cefTAZidime 1 GM in D5W MINI-BAG PLUS 100 ML IV SCH ×2 (14:04→23:34)
[2016-05-24] MEDS ORDERED: MULTIVITAMIN -ADULT INJECTION 10 ML, CR/CU/SE/MN/ZN INJ 1 ML in AMINO AC/ELECTROLYTE/DE... IV SCH (18:00)
[2016-05-24] MEDS ORDERED: FAT EMULSION IV 20% 500 ML IV SCH (18:00)
[2016-05-25] MEDS: HumaLOG INSULIN (NovoLOG) PER UNIT SC SCH ×4 (00:07→17:38)
[2016-05-25] MEDS: IPRATROPIUM 0.5MG/ALBUTEROL 2.5MG INH SOL UD 3ML (DUONEB)(J7620) NEB SCH ×4 (01:44→19:16)
[2016-05-25] MEDS: CIPROFLOXACIN 400 MG in APPROPRIATE DILUENT 1 EA IV SCH ×2 (05:16→16:21)
[2016-05-25] MEDS: SLF 3 ML SYR IV SCH ×3 (05:17→22:01)
[2016-05-25] MEDS: SODIUM CHLORIDE 0.9% INJ 10 ML SYR IV SCH ×2 (05:17→17:39)
[2016-05-25 05:54] LABS: MEAN CORPUSCULAR HEMOGLOBIN 32.3 pg (27.0-33.0); MEAN CORPUSCULAR HGB CONC 33.4 g/dl (32.0-36.5); MEAN CORPUSCULAR VOLUME 96.6 fl (80.0-96.0); RED CELL DISTRIBUTION WIDTH 12.8 % (11.5-14.5); WHITE BLOOD COUNT 21.4 K/mm3 (4.0-10.0)
[2016-05-25] MEDS: IPRATROPIUM 0.5MG/ALBUTEROL 2.5MG INH SOL UD 3ML (DUONEB)(J7620) NEB PRN (05:57)
[2016-05-25 06:22] LABS: ALBUMIN 1.6 GM/DL (3.2-5.2); ALBUMIN/GLOBULIN RATIO 0.53 (1.00-1.93); ALKALINE PHOSPHATASE 54 U/L (45-117); ALT/SGPT 40 U/L (12-78); ANION GAP 9 MEQ/L (8-16); AST/SGOT 51 U/L (15-37); BILIRUBIN,TOTAL 0.5 MG/DL (0.2-1.0); BLOOD UREA NITROGEN 8 MG/DL (7-18); CALCIUM LEVEL 7.7 MG/DL (8.5-10.1); CARBON DIOXIDE LEVEL 30 MEQ/L (21-32); CHLORIDE LEVEL 100 MEQ/L (98-107); CREATININE FOR GFR 0.45 MG/DL (0.70-1.30); GLOMERULAR FILTRATION RATE > 60.0 (>56); GLUCOSE, FASTING 119 MG/DL (70-105); POTASSIUM SERUM 3.2 MEQ/L (3.5-5.1); SODIUM LEVEL 139 MEQ/L (136-145); TOTAL PROTEIN 4.6 GM/DL (6.4-8.2)
[2016-05-25] MEDS: metroNIDAZOLE 500 MG in APPROPRIATE DILUENT 1 EA IV SCH ×3 (06:31→22:01)
[2016-05-25] MEDS: cefTAZidime 1 GM in D5W MINI-BAG PLUS 100 ML IV SCH ×3 (07:37→23:25)
[2016-05-25] MEDS: PANTOPRAZOLE 40MG INJ (PROTONIX) (C9113) IV SCH ×2 (09:00→20:38)
[2016-05-25] MEDS ORDERED: ISOVUE-370 76% 100ML VIAL (Q9967) As Ordered ONE (09:32)
[2016-05-25 10:00] VITALS: BP 157/66
[2016-05-25] MEDS: FLUCONAZOLE 200 MG in APPROPRIATE DILUENT 1 EA IV SCH (11:19)
[2016-05-25] MEDS: PENTOXIFYLLINE 400 MG TAB PO SCH ×2 (11:19→17:37)
[2016-05-25 14:00] VITALS: BP 150/70
--- NOTE | 2016-05-25 14:20 | RO ---
DATE OF PROCEDURE: 05/21/2016 PREOPERATIVE DIAGNOSIS: Perforated bowel. POSTOPERATIVE DIAGNOSIS: Perforated bowel (duodenal perforation). PROCEDURE PERFORMED: 1. Repair of duodenal ulcer. 2. Pyloric exclusion 3. Gastrojejunostomy/Billroth II. SURGEON: Torito Duran Jr., MD BALANCE WHEEL HAND FILER: Deon Quezada MD ANESTHESIA: INDICATIONS FOR BALANCE WHEEL HAND FILER: Dr. Quezada provided exposure, assisted with the anastomosis and abdominal wall closure. ESTIMATED BLOOD LOSS: Minimal. FLUIDS: Crystalloid. DESCRIPTION OF PROCEDURE: The patient was brought to the operating room was given preoperative antibiotics, was prepped and draped in the usual sterile fashion. Next, an upper midline incision was made with skin knife. Electrocautery was used to go through dermis, underlying subcutaneous tissue down to the fascia itself. Fascia was entered and there was a great deal of succus entericus that was seen and essentially this was aspirated out. The abdomen was copiously irrigated at this point, but given this was all bilious, I anticipated that this was upper GI in etiology and thus the incision was opened up to just inferior to the xyphoid superiorly and to the umbilicus inferiorly. After adequate exposure of the stomach, which had a great deal of fibrinous exudate on it and fibrinous throughout the abdominal cavity. The end of the stomach looked okay but it was obvious there was a perforation in the post pyloric area and on further evaluation, it was obvious that there was a previous thickened abscess cavity in this area that probably had a secondary perforation on the day of admission. This had about a 2-1/2 cm to 3 cm size duodenal bulb of perforation, but there was almost a second portion like a figure-of-8 that was just as large in the distal portion of the duodenal bulb, almost in her first portion of the duodenum as it started to round the bend. It was abutting the gallbladder area and all this area was able to be visualized adequately, but it was obvious prior to mobilization of the bowel that this was such a large defect and the tissue surrounding was all fibrosed, that this was not going to come together very well and would have an extremely high leak rate associated with, and it either needed to be resected or needed to be excluded. Thus, at this point, dissection of that area was slow and tedious, but eventually I was able to mobilize the duodenum distal to this with a modified Kocherization of this area, I was able to mobilize laterally. The gallbladder was adherent to the top of this ulcer and I mobilized this off using some electrocautery and blunt dissection and eventually the entire defect could be appreciated superior to the duodenum, and I was able to mobilize into less thickened tissue. The peritoneum itself was quite thickened and after getting through this, avoiding any entrance into the biliary system, it still was obvious that this was going to be very difficult to get together. There was a great deal of mucosa that it was pouched out in this area and less of the serosa could be establish well. Thus, given the current findings, I felt that a gastrojejunostomy with pyloric exclusion was a reasonable option for him. A TA60 stapler was placed across the prepyloric area. Next, a gastrojejunostomy was performed using a [id number] anastomosis. First a posterior layer of #3-0 silks, then the staple line was placed and then the anterior soaks were placed as well to reinforce the suture line. The opening was closed with a TA60 stapler. The anastomosis was widely patent. This was reinforced with some interrupted #3-0 silks in this area as well. Next, attention was turned toward the ulcer and after this seemed to be coming together a little bit better, I felt that there was a size mismatch. The proximal/pyloric channel ulcer/perforation was smaller in diameter than the distal portion, thus I opened up the proximal portion slightly to allow for a better closure and it was closed similar to a hand-sewn [id number] anastomosis. Unfortunately. because the tissue was so friable in this area, #3-0 silks were used as a single layer all along this. This came together adequately well. There was a very significant fibrosed posterior wall down next to the neck of the gallbladder and this was able to be used to suture the anterior portion too. Once this was closed transversely, two Nicola-Upton drains, #19 were left in the bed of the dissection on the right-hand side as well as along the left-hand side in the pelvis. The incision was closed with looped #0 PDS and the skin was closed loosely over this and wicked with gauze. Dry sterile dressing was applied. The patient was awakened from his anesthesia and brought to the recovery room extubated, awake, alert and hemodynamically stable. Sponge and needle counts correct times two.
--- NOTE | 2016-05-25 14:56 | REP ---
CT OF ABDOMEN AND PELVIS WITH IV CONTRAST ONLY: 05/25/2016 INDICATION: Postop abscess, no oral contrast. Comparison made with CT abdomen and pelvis of 16 FINDINGS: Moderate bilateral posterior layering pleural effusions with bibasilar atelectatic changes. Lungs are incompletely included in view. The spleen and pancreas are normal. Gallbladder is fluid-filled, without stones. There is mild gallbladder wall enhancement. There is no obvious common bile duct dilatation. The adrenal glands are normal. Kidneys are without hydronephrosis. There is a 13 mm left renal cortical cyst. There is moderate fluid within the stomach with some surgical clips seen anterior to the mid gastric body and representing interval change. Multiple fluid-filled loops of small bowel are identified some of which have mural thickening. The terminal ileum is not dilated but has mild nonspecific mural thickening. The appendix is mildly effaced due to intra-abdominal and pelvic ascites. There is small amount of air within the appendix. Abdominal aorta with atherosclerotic changes. There is absent perfusion within the right common iliac artery. There is some reconstitution of circulation on the right at the level of the common femoral artery. Small amount of air is seen in the bladder may be secondary to recent Barboza catheter or instrumentation. Prostate is not enlarged, yet does have coarse internal calcifications. Mural thickening is seen throughout the majority of the colon contributed to by ascites. Percutaneous drainage catheters are identified within the right upper quadrant and in the left upper to mid pelvis. IMPRESSION: 1. Surgical clips seen in the anterior mid gastric body most compatible with site of previous perforation of duodenal ulcer. There is generalized ascites. Mural thickening within the stomach small bowel and colon most compatible with nonspecific enteritis or gastroenteritis/colitis. 2. Moderate subcostal fluid collection is seen within the peritoneal cavity in the left upper quadrant. 3. Abdominal and upper pelvic drainage catheters. Case discussed with Dr. Duran in Dept. of General Surgery on 05/25/2016 at 2 pm. ARBEN
--- NOTE | 2016-05-25 15:08 | IPNPDOC ---
Text Note Date of Service The patient was seen on 05/25/16 at 15:06. NOTE Subjective: Patient denies any acute changes overnight. Objective: Vitals: (see below) General: No acute distress, laying comfortably in bed. HEENT: Moist mucous membranes. Neck: No JVD or lymphadenopathy Cardiac: RRR, No murmurs Pulm: Clear to auscultation b/l. No wheezing, rhonchi Abd: NT/ND + BS. No drainage. Ext: No edema or cyanosis Labs (see below) Images: MRA LE 05/21/16 Impression 1. Bilateral lower extremity peripheral arterial disease, most significant on the right. 2. There is significant decreased perfusion of the right common iliac artery at its origin with reconstitution of right common femoral artery. Distal tapering of the right common femoral artery with near occlusion at the proximal superficial femoral artery. There is reconstitution of right popliteal artery by multiple collaterals. 3. Two vessel runoff to the mid right calf. 4. Widely patent left common iliac and common femoral arteries. Diffusely attenuated left internal iliac artery. Absent small and mid superficial femoral arteries with reconstitution of the mid to distal left superficial femoral artery. Two-vessel runoff to the distal left calf. CT Abd/pelvis 05/21/16 IMPRESSION: Thickened stomach. Thickened duodenum. Moderate amount of pneumoperitoneum. This needs to be correlated with any history of recent surgical intervention to exclude gastric/small bowel perforation. Surgical consultation is suggested. Ascites. Gastroparesis. Mildly dilated and thickened proximal small bowels. Assessment/Plan 1. POD 2 s/p Ex lap for Duodenal ulcer perforation. Status post repair of the ulcer, gastrojejunostomy. Management per surgery. 2. Sepsis secondary to #1. On Ceftazidine, Cipro, Flagyl. Hemodynamically stable. Leukocytosis elevated. CRP improving. On IV fluids. Blood cultures negative thus far. CT abd/pelvis today to r/o abscess. Body culture with yeast like organism - on fluconazole now. 3. PAD with Chronic lower extremity ischemia - will need outpt vascular surgery eval. DVT prophylaxis SCDs. VS,Fishbone, I+O VS, Fishbone, I+O Laboratory Tests 05/25/16 05:37 Calcium Level 7.7 L, Aspartate Amino Transf (AST/SGOT) 51 H, Alanine Aminotransferase (ALT/SGPT) 40, Alkaline Phosphatase 54, Total Bilirubin 0.5 #, Total Protein 4.6 L, Albumin 1.6 L, Red Blood Count 3.79 L, Mean Corpuscular Volume 96.6 H, Mean Corpuscular Hemoglobin 32.3, Mean Corpuscular Hemoglobin Concent 33.4, Red Cell Distribution Width 12.8 Vital Signs Date Time Temp Pulse Resp B/P Pulse Ox O2 Delivery O2 Flow Rate FiO2 05/25/16 14:34 Room Air 05/25/16 10:00 97.3 91 18 157/66 90 3.0 I&O- Last 24 Hours up to 6 AM 05/25/16 06:00 Intake Total 1595 ml Output Total 4040 ml Balance -2445 ml LEONEL HUYNH MD May 25, 2016 15:08
--- NOTE | 2016-05-25 16:26 | REP ---
CT abdomen and pelvis with IV contrast 05/25/2016 Indication: Possible postoperative abscess. Study performed without contrast. Comparison made with prior CT abdomen and pelvis 05/21/2016. There are [id number] bilateral pleural effusions with bibasilar compressive atelectasis. Bullous changes are present within the lingula. Moderately small hypodense foci in the liver are most compatible with cysts and unchanged. The patient is status post exploratory laparotomy for free intraperitoneal air. The patient had a large perforated duodenal ulcer. Surgical clips are seen anterior to the mid body stomach and in the region of the duodenum post surgical repair. Generalized mural enhancement is noted in the stomach, and also seen throughout small bowel and colon. There is intraluminal fluid within the stomach, small bowel and to a lesser extent colon. Adrenal glands are normal. Kidneys without hydronephrosis. There is a 1.3 cm cyst within the lateral mid pole left kidney. There is moderate left subcostal fluid. Surgical drains are seen within the bilateral lower abdomen/upper pelvis. There is occlusion of the right common iliac artery at its origin with reconstitution of the right common femoral. There is moderate intra-abdominal, to a smaller extent pelvic ascites. Small amount of air is seen in the bladder, likely from recent instrumentation. Impression:1. Patient is status post recent exploratory laparotomy and surgical repair for perforated large duodenal ulcer. There is no visualized free intraperitoneal air. Generalized mural thickening and enhancement in bowel as can be seen with inflammation or infection. 2. Bilateral lower abdominal/superior pelvic percutaneous drainage catheters. No focal visualized intra-abdominal or pelvic abscess. 3. Moderate intra-abdominal and small intrapelvic ascites. 4. Significant peripheral vascular disease with occlusion of the right common iliac artery and its origin and partial occlusion of the right internal and external iliac arteries. There is reconstitution of the right common femoral artery for a short distance only. Case discussed with Dr. Duran of Dept of General Surgery on 05/25/2016 at 410 pm. Signed by Gypsy Russell MD 05/27/2016 10:31 P
[2016-05-25 18:00] VITALS: BP 162/70
[2016-05-25] MEDS ORDERED: POTASSIUM CHLORIDE 10 MEQ SR TABLET PO ONE (18:00)
[2016-05-25] MEDS ORDERED: FAT EMULSION IV 20% 500 ML IV SCH (18:00)
[2016-05-25] MEDS ORDERED: AMINO AC/ELECTROLYTE/DEX/CALC 2,000 ML IV SCH (18:00)
[2016-05-25 22:00] VITALS: BP 160/70
[2016-05-26] MEDS: HumaLOG INSULIN (NovoLOG) PER UNIT SC SCH ×4 (00:07→18:00)
[2016-05-26 02:00] VITALS: BP 148/62
[2016-05-26] MEDS: IPRATROPIUM 0.5MG/ALBUTEROL 2.5MG INH SOL UD 3ML (DUONEB)(J7620) NEB SCH ×5 (02:00→19:15)
[2016-05-26] MEDS: METOCLOPRAMIDE INJ 10MG/2ML VIAL (J2765) IV PRN ×2 (02:48→20:49)
[2016-05-26] MEDS: CIPROFLOXACIN 400 MG in APPROPRIATE DILUENT 1 EA IV SCH ×2 (04:46→17:02)
[2016-05-26 05:44] LABS: MEAN CORPUSCULAR HEMOGLOBIN 33.2 pg (27.0-33.0); MEAN CORPUSCULAR HGB CONC 34.2 g/dl (32.0-36.5); MEAN CORPUSCULAR VOLUME 97.2 fl (80.0-96.0)
[2016-05-26 06:00] VITALS: BP 148/58
[2016-05-26 06:09] LABS: ALBUMIN 1.6 GM/DL (3.2-5.2); ALBUMIN/GLOBULIN RATIO 0.67 (1.00-1.93); ALKALINE PHOSPHATASE 57 U/L (45-117); ALT/SGPT 36 U/L (12-78); ANION GAP 8 MEQ/L (8-16); AST/SGOT 31 U/L (15-37); BILIRUBIN,TOTAL 0.3 MG/DL (0.2-1.0); BLOOD UREA NITROGEN 10 MG/DL (7-18); CALCIUM LEVEL 7.5 MG/DL (8.5-10.1); CARBON DIOXIDE LEVEL 30 MEQ/L (21-32); CHLORIDE LEVEL 101 MEQ/L (98-107); CREATININE FOR GFR 0.46 MG/DL (0.70-1.30); GLOMERULAR FILTRATION RATE > 60.0 (>56); GLUCOSE, FASTING 160 MG/DL (70-105); POTASSIUM SERUM 3.2 MEQ/L (3.5-5.1); SODIUM LEVEL 139 MEQ/L (136-145)
[2016-05-26] MEDS: metroNIDAZOLE 500 MG in APPROPRIATE DILUENT 1 EA IV SCH ×3 (06:15→22:45)
[2016-05-26] MEDS: SLF 3 ML SYR IV SCH ×3 (07:21→22:45)
[2016-05-26] MEDS: cefTAZidime 1 GM in D5W MINI-BAG PLUS 100 ML IV SCH ×3 (07:33→23:58)
[2016-05-26] MEDS: SODIUM CHLORIDE 0.9% INJ 10 ML SYR IV SCH ×2 (07:33→18:05)
[2016-05-26] MEDS: PENTOXIFYLLINE 400 MG TAB PO SCH ×2 (09:13→18:03)
[2016-05-26] MEDS: FLUCONAZOLE 200 MG in APPROPRIATE DILUENT 1 EA IV SCH (09:14)
[2016-05-26] MEDS: PANTOPRAZOLE 40MG INJ (PROTONIX) (C9113) IV SCH ×2 (09:14→20:49)
[2016-05-26 10:00] VITALS: BP 154/69
[2016-05-26 14:00] VITALS: BP 159/70
--- NOTE | 2016-05-26 15:06 | IPNPDOC ---
Text Note Date of Service The patient was seen on 05/26/16 at 15:05. NOTE Subjective: Patient denies any acute changes overnight. No abd pain. Passed gas. No BM yet. Objective: Vitals: (see below) General: No acute distress, laying comfortably in bed. HEENT: Moist mucous membranes. Neck: No JVD or lymphadenopathy Cardiac: RRR, No murmurs Pulm: Clear to auscultation b/l. No wheezing, rhonchi Abd: NT/ND + BS. No drainage. 2 drains with serous fluid. Ext: No edema or cyanosis Labs (see below) Images: MRA LE 05/21/16 Impression 1. Bilateral lower extremity peripheral arterial disease, most significant on the right. 2. There is significant decreased perfusion of the right common iliac artery at its origin with reconstitution of right common femoral artery. Distal tapering of the right common femoral artery with near occlusion at the proximal superficial femoral artery. There is reconstitution of right popliteal artery by multiple collaterals. 3. Two vessel runoff to the mid right calf. 4. Widely patent left common iliac and common femoral arteries. Diffusely attenuated left internal iliac artery. Absent small and mid superficial femoral arteries with reconstitution of the mid to distal left superficial femoral artery. Two-vessel runoff to the distal left calf. CT Abd/pelvis 05/21/16 IMPRESSION: Thickened stomach. Thickened duodenum. Moderate amount of pneumoperitoneum. This needs to be correlated with any history of recent surgical intervention to exclude gastric/small bowel perforation. Surgical consultation is suggested. Ascites. Gastroparesis. Mildly dilated and thickened proximal small bowels. Assessment/Plan 1. POD 2 s/p Ex lap for Duodenal ulcer perforation. Status post repair of the ulcer, gastrojejunostomy. Management per surgery. 2. Sepsis secondary to #1. On Ceftazidine, Cipro, Flagyl. Hemodynamically stable. Leukocytosis elevated. CRP improving. On IV fluids. Blood cultures negative thus far. CT abd/pelvis negative for abscess. Body culture with yeast like organism - on fluconazole. 3. PAD with Chronic lower extremity ischemia - will need outpt vascular surgery eval. DVT prophylaxis SCDs. VS,Fishbone, I+O VS, Fishbone, I+O Laboratory Tests 05/26/16 05:35 Calcium Level 7.5 L, Aspartate Amino Transf (AST/SGOT) 31, Alanine Aminotransferase (ALT/SGPT) 36, Alkaline Phosphatase 57, Total Bilirubin 0.3, Total Protein 4.0 L, Albumin 1.6 L, Red Blood Count 3.75 L, Mean Corpuscular Volume 97.2 H, Mean Corpuscular Hemoglobin 33.2 H, Mean Corpuscular Hemoglobin Concent 34.2, Red Cell Distribution Width 12.0 Vital Signs Date Time Temp Pulse Resp B/P Pulse Ox O2 Delivery O2 Flow Rate FiO2 05/26/16 10:07 Room Air 05/26/16 10:00 97.9 95 20 154/69 95 2.0 I&O- Last 24 Hours up to 6 AM 05/26/16 06:00 Intake Total 3743 ml Output Total 3430 ml Balance 313 ml LEONEL HUYNH MD May 26, 2016 15:06
[2016-05-26 18:00] VITALS: BP 158/72
[2016-05-26] MEDS ORDERED: MULTIVITAMIN -ADULT INJECTION 10 ML, CR/CU/SE/MN/ZN INJ 1 ML in AMINO AC/ELECTROLYTE/DE... IV SCH (18:00)
[2016-05-26] MEDS ORDERED: FAT EMULSION IV 20% 500 ML IV SCH (18:00)
[2016-05-26 22:00] VITALS: BP 152/78
[2016-05-27] MEDS: HumaLOG INSULIN (NovoLOG) PER UNIT SC SCH ×5 (00:32→23:46)
[2016-05-27] MEDS: IPRATROPIUM 0.5MG/ALBUTEROL 2.5MG INH SOL UD 3ML (DUONEB)(J7620) NEB SCH ×4 (01:14→19:36)
[2016-05-27 02:00] VITALS: BP 158/64
[2016-05-27] MEDS: CIPROFLOXACIN 400 MG in APPROPRIATE DILUENT 1 EA IV SCH ×2 (04:04→17:36)
[2016-05-27] MEDS: SLF 3 ML SYR IV SCH ×3 (05:41→21:22)
[2016-05-27] MEDS: SODIUM CHLORIDE 0.9% INJ 10 ML SYR IV SCH ×2 (05:42→18:30)
[2016-05-27] MEDS: metroNIDAZOLE 500 MG in APPROPRIATE DILUENT 1 EA IV SCH ×3 (05:42→21:22)
[2016-05-27 06:00] VITALS: BP 133/66
[2016-05-27 06:06] LABS: MEAN CORPUSCULAR HEMOGLOBIN 32.3 pg (27.0-33.0); MEAN CORPUSCULAR HGB CONC 33.1 g/dl (32.0-36.5); MEAN CORPUSCULAR VOLUME 97.5 fl (80.0-96.0); RED CELL DISTRIBUTION WIDTH 12.1 % (11.5-14.5); WHITE BLOOD COUNT 21.4 K/mm3 (4.0-10.0)
[2016-05-27 06:24] LABS: ALBUMIN 1.6 GM/DL (3.2-5.2); ALBUMIN/GLOBULIN RATIO 0.62 (1.00-1.93); ALKALINE PHOSPHATASE 52 U/L (45-117); ALT/SGPT 32 U/L (12-78); ANION GAP 9 MEQ/L (8-16); AST/SGOT 26 U/L (15-37); BILIRUBIN,TOTAL 0.3 MG/DL (0.2-1.0); BLOOD UREA NITROGEN 10 MG/DL (7-18); CALCIUM LEVEL 7.6 MG/DL (8.5-10.1); CARBON DIOXIDE LEVEL 29 MEQ/L (21-32); CHLORIDE LEVEL 102 MEQ/L (98-107); GLOMERULAR FILTRATION RATE > 60.0 (>56); GLUCOSE, FASTING 110 MG/DL (70-105); SODIUM LEVEL 140 MEQ/L (136-145); TOTAL PROTEIN 4.2 GM/DL (6.4-8.2)
[2016-05-27] MEDS: cefTAZidime 1 GM in D5W MINI-BAG PLUS 100 ML IV SCH ×3 (06:41→23:46)
[2016-05-27] MEDS: PANTOPRAZOLE 40MG INJ (PROTONIX) (C9113) IV SCH ×2 (08:57→21:22)
[2016-05-27] MEDS: PENTOXIFYLLINE 400 MG TAB PO SCH ×2 (08:58→18:29)
[2016-05-27] MEDS: SODIUM CHLORIDE 0.9% INJ 10 ML SYR IV PRN (08:58)
[2016-05-27] MEDS: FLUCONAZOLE 200 MG in APPROPRIATE DILUENT 1 EA IV SCH (09:02)
[2016-05-27 10:00] VITALS: BP 154/70
--- NOTE | 2016-05-27 13:18 | IPNPDOC ---
Text Note Date of Service The patient was seen on 05/27/16 at 13:15. NOTE Subjective: No acute changes overnight. No N/V. No abd pain. Passed gas. Objective: Vitals: (see below) General: No acute distress, laying comfortably in bed. HEENT: Moist mucous membranes. Neck: No JVD or lymphadenopathy Cardiac: RRR, No murmurs Pulm: Clear to auscultation b/l. No wheezing, rhonchi Abd: NT/ND + BS. No drainage. 2 drains with serous fluid. Ext: No edema or cyanosis Labs (see below) Images: MRA LE 05/21/16 Impression 1. Bilateral lower extremity peripheral arterial disease, most significant on the right. 2. There is significant decreased perfusion of the right common iliac artery at its origin with reconstitution of right common femoral artery. Distal tapering of the right common femoral artery with near occlusion at the proximal superficial femoral artery. There is reconstitution of right popliteal artery by multiple collaterals. 3. Two vessel runoff to the mid right calf. 4. Widely patent left common iliac and common femoral arteries. Diffusely attenuated left internal iliac artery. Absent small and mid superficial femoral arteries with reconstitution of the mid to distal left superficial femoral artery. Two-vessel runoff to the distal left calf. CT Abd/pelvis 05/21/16 IMPRESSION: Thickened stomach. Thickened duodenum. Moderate amount of pneumoperitoneum. This needs to be correlated with any history of recent surgical intervention to exclude gastric/small bowel perforation. Surgical consultation is suggested. Ascites. Gastroparesis. Mildly dilated and thickened proximal small bowels. CT Abd/pelvis 05/25/16 There are [id number] bilateral pleural effusions with bibasilar compressive atelectasis. Bullous changes are present within the lingula. Moderately small hypodense foci in the liver are most compatible with cysts and unchanged. The patient is status post exploratory laparotomy for free intraperitoneal air. The patient had a large perforated duodenal ulcer. Surgical clips are seen anterior to the mid body stomach and in the region of the duodenum post surgical repair. Generalized mural enhancement in the stomach also seen throughout small bowel and colon. There is intraluminal fluid within stomach, small bowel and to a lesser extent colon. There is mural enhancement within the colon. Adrenal glands are normal. Kidneys without hydronephrosis. There is a 1.3 cm cyst within the lateral mid pole left kidney. There is moderate left subcostal fluid. Surgical drains are seen within the bilateral lower abdomen/upper pelvis. There is some occlusion of the right common iliac artery at its origin with reconstitution of the right common femoral. There is moderate intra-abdominal, to a smaller extent pelvic ascites. Small amount of air is seen in the bladder, likely from recent instrumentation. Impression: 1. Patient is status post recent exploratory laparotomy and surgical repair for perforated large duodenal ulcer. There is no visualized free intraperitoneal air. 2. Bilateral lower abdominal/superior pelvic percutaneous drainage catheters. No focal visualized intra-abdominal or pelvic abscess. 3. Moderate intra-abdominal and small intrapelvic ascites. 4. Significant peripheral vascular disease with occlusion of the right common iliac artery and its origin and partial occlusion of the right internal and external iliac arteries. There is reconstitution of the right common femoral artery for a short distance only. Assessment/Plan 1. POD 2 s/p Ex lap for Duodenal ulcer perforation. Status post repair of the ulcer, gastrojejunostomy. Management per surgery. 2. Sepsis secondary to #1. On Ceftazidine, Cipro, Flagyl. Hemodynamically stable. Leukocytosis elevated. CRP improving. On IV fluids. Blood cultures negative thus far. CT abd/pelvis negative for abscess. Body culture with yeast like organism - on fluconazole. Getting an u/s abd with needle drainage of a fluid collection in LUQ. 3. PAD with Chronic lower extremity ischemia - will need outpt vascular surgery eval. DVT prophylaxis SCDs. VS,Fishbone, I+O VS, Fishbone, I+O Laboratory Tests 05/27/16 05:47 Calcium Level 7.6 L, Aspartate Amino Transf (AST/SGOT) 26, Alanine Aminotransferase (ALT/SGPT) 32, Alkaline Phosphatase 52, Total Bilirubin 0.3, Total Protein 4.2 L, Albumin 1.6 L, Red Blood Count 3.69 L, Mean Corpuscular Volume 97.5 H, Mean Corpuscular Hemoglobin 32.3, Mean Corpuscular Hemoglobin Concent 33.1, Red Cell Distribution Width 12.1 Vital Signs Date Time Temp Pulse Resp B/P Pulse Ox O2 Delivery O2 Flow Rate FiO2 05/27/16 10:00 97.9 103 20 154/70 90 Nasal Cannula 2.0 I&O- Last 24 Hours up to 6 AM 05/27/16 06:00 Intake Total 3846 ml Output Total 3740 ml Balance 106 ml LEONEL HUYNH MD May 27, 2016 13:18
[2016-05-27] MEDS ORDERED: LIDOCAINE 1% MDV 20ML VIAL As Ordered ONE (14:10)
[2016-05-27 15:50] VITALS: BP 148/70
--- NOTE | 2016-05-27 16:10 | REP ---
PA CHEST: AP view of the chest is performed following placement of left upper quadrant pigtail drainage catheter for a fluid collection. No pneumothorax is seen. Small bilateral pleural effusions are present. There are diffuse interstitial opacities which are unchanged since the prior chest radiograph of 05/20/2016. There is a right arm PICC line. Signed by Winston Salazar MD 05/27/2016 04:57 P
--- NOTE | 2016-05-27 17:09 | REP ---
ULTRASOUND GUIDED DRAINAGE OF LEFT UPPER QUADRANT FLUID COLLECTION: The patient was referred for ultrasound guided drainage of fluid seen in the perisplenic region of left upper quadrant. Informed consent was obtained. Under sterile conditions and after satisfactory administration of local anesthesia, using ultrasound guidance, a #10-J[place]ican pigtail drainage catheter was placed into the fluid collection. Fluid collection appears to contain multiple septations. I moved the catheter around to drain as much fluid as possible and break the septations. Approximately 155 mL of yellow fluid was aspirated and sent for gram stain, culture and sensitivity. The catheter was fixed at the skin entrance site with a suture and dressing was applied. Hemostasis was obtained. The catheter was left in place and hooked up to a drainage bag. Signed by Winston Salazar MD 05/28/2016 04:34 P
[2016-05-27 18:00] VITALS: BP 150/70
[2016-05-27] MEDS ORDERED: FAT EMULSION IV 20% 500 ML IV SCH (18:00)
[2016-05-27] MEDS ORDERED: AMINO AC/ELECTROLYTE/DEX/CALC 2,000 ML IV SCH (18:00)
[2016-05-27 22:00] VITALS: BP 154/72
[2016-05-28] MEDS: IPRATROPIUM 0.5MG/ALBUTEROL 2.5MG INH SOL UD 3ML (DUONEB)(J7620) NEB SCH ×4 (01:12→19:26)
[2016-05-28 02:00] VITALS: BP 148/60
[2016-05-28] MEDS: SODIUM CHLORIDE 0.9% INJ 10 ML SYR IV SCH ×2 (05:15→16:43)
[2016-05-28 06:00] VITALS: BP 148/60
[2016-05-28] MEDS: metroNIDAZOLE 500 MG in APPROPRIATE DILUENT 1 EA IV SCH ×3 (06:00→22:19)
[2016-05-28 06:17] LABS: MEAN CORPUSCULAR HEMOGLOBIN 32.6 pg (27.0-33.0); MEAN CORPUSCULAR HGB CONC 33.9 g/dl (32.0-36.5); MEAN CORPUSCULAR VOLUME 96.1 fl (80.0-96.0); RED CELL DISTRIBUTION WIDTH 12.1 % (11.5-14.5); WHITE BLOOD COUNT 24.3 K/mm3 (4.0-10.0)
[2016-05-28 06:36] LABS: ALBUMIN 1.6 GM/DL (3.2-5.2); ALBUMIN/GLOBULIN RATIO 0.47 (1.00-1.93); ALKALINE PHOSPHATASE 57 U/L (45-117); ALT/SGPT 29 U/L (12-78); ANION GAP 9 MEQ/L (8-16); AST/SGOT 20 U/L (15-37); BILIRUBIN,TOTAL 0.4 MG/DL (0.2-1.0); BLOOD UREA NITROGEN 11 MG/DL (7-18); CALCIUM LEVEL 7.8 MG/DL (8.5-10.1); CARBON DIOXIDE LEVEL 27 MEQ/L (21-32); CHLORIDE LEVEL 103 MEQ/L (98-107); CREATININE FOR GFR 0.33 MG/DL (0.70-1.30); GLOMERULAR FILTRATION RATE > 60.0 (>56); GLUCOSE, FASTING 95 MG/DL (70-105); POTASSIUM SERUM 3.1 MEQ/L (3.5-5.1); SODIUM LEVEL 139 MEQ/L (136-145)
[2016-05-28] MEDS: HumaLOG INSULIN (NovoLOG) PER UNIT SC SCH ×3 (06:48→18:35)
[2016-05-28] MEDS: SLF 3 ML SYR IV SCH ×3 (06:53→22:19)
[2016-05-28] MEDS: cefTAZidime 1 GM in D5W MINI-BAG PLUS 100 ML IV SCH (06:53)
[2016-05-28] MEDS: PENTOXIFYLLINE 400 MG TAB PO SCH ×2 (08:38→18:34)
[2016-05-28] MEDS: KCL 10MEQ IN 100ML SWI (KRUN) 10 MEQ in APPROPRIATE DILUENT 1 EA IV SCH ×8 (08:38→15:06)
[2016-05-28] MEDS: PANTOPRAZOLE 40MG INJ (PROTONIX) (C9113) IV SCH ×2 (08:38→20:38)
[2016-05-28 10:00] VITALS: BP 128/59
[2016-05-28] MEDS: FLUCONAZOLE 200 MG in APPROPRIATE DILUENT 1 EA IV SCH (11:12)
[2016-05-28] MEDS: MEROPENEM INJ 1 GM in D5W MINI-BAG PLUS 100 ML IV SCH ×2 (12:44→20:38)
--- NOTE | 2016-05-28 13:51 | IPNPDOC ---
Text Note Date of Service The patient was seen on 05/28/16 at 13:47. NOTE Subjective: No acute changes overnight. No N/V. No abd pain. Objective: Vitals: (see below) General: No acute distress, laying comfortably in bed. HEENT: Moist mucous membranes. Neck: No JVD or lymphadenopathy Cardiac: RRR, No murmurs Pulm: Diminished breath sounds at the bases. No wheezing. + Rhonchi b/l Abd: NT/ND + BS. No drainage. 2 drains with serous fluid. Ext: No edema or cyanosis Labs (see below) Images: MRA LE 05/21/16 Impression 1. Bilateral lower extremity peripheral arterial disease, most significant on the right. 2. There is significant decreased perfusion of the right common iliac artery at its origin with reconstitution of right common femoral artery. Distal tapering of the right common femoral artery with near occlusion at the proximal superficial femoral artery. There is reconstitution of right popliteal artery by multiple collaterals. 3. Two vessel runoff to the mid right calf. 4. Widely patent left common iliac and common femoral arteries. Diffusely attenuated left internal iliac artery. Absent small and mid superficial femoral arteries with reconstitution of the mid to distal left superficial femoral artery. Two-vessel runoff to the distal left calf. CT Abd/pelvis 05/21/16 IMPRESSION: Thickened stomach. Thickened duodenum. Moderate amount of pneumoperitoneum. This needs to be correlated with any history of recent surgical intervention to exclude gastric/small bowel perforation. Surgical consultation is suggested. Ascites. Gastroparesis. Mildly dilated and thickened proximal small bowels. CT Abd/pelvis 05/25/16 There are [id number] bilateral pleural effusions with bibasilar compressive atelectasis. Bullous changes are present within the lingula. Moderately small hypodense foci in the liver are most compatible with cysts and unchanged. The patient is status post exploratory laparotomy for free intraperitoneal air. The patient had a large perforated duodenal ulcer. Surgical clips are seen anterior to the mid body stomach and in the region of the duodenum post surgical repair. Generalized mural enhancement in the stomach also seen throughout small bowel and colon. There is intraluminal fluid within stomach, small bowel and to a lesser extent colon. There is mural enhancement within the colon. Adrenal glands are normal. Kidneys without hydronephrosis. There is a 1.3 cm cyst within the lateral mid pole left kidney. There is moderate left subcostal fluid. Surgical drains are seen within the bilateral lower abdomen/upper pelvis. There is some occlusion of the right common iliac artery at its origin with reconstitution of the right common femoral. There is moderate intra-abdominal, to a smaller extent pelvic ascites. Small amount of air is seen in the bladder, likely from recent instrumentation. Impression: 1. Patient is status post recent exploratory laparotomy and surgical repair for perforated large duodenal ulcer. There is no visualized free intraperitoneal air. 2. Bilateral lower abdominal/superior pelvic percutaneous drainage catheters. No focal visualized intra-abdominal or pelvic abscess. 3. Moderate intra-abdominal and small intrapelvic ascites. 4. Significant peripheral vascular disease with occlusion of the right common iliac artery and its origin and partial occlusion of the right internal and external iliac arteries. There is reconstitution of the right common femoral artery for a short distance only. Assessment/Plan 1. POD 5 s/p Ex lap for Duodenal ulcer perforation. Status post repair of the ulcer, gastrojejunostomy. Management per surgery. 2. Sepsis secondary to #1. D/c Ceftazidine and Cipro. On Flagyl. Start meropenem. Hemodynamically stable. Leukocytosis still elevated, with mild decrease. On TPN. Blood cultures negative thus far. CT abd/pelvis negative for abscess. Body culture with yeast like organism - on fluconazole. S/p u/s abd guided pigtail and drainage of fluid collection in LUQ with cx pending. CXR negative for acute pathology. 3. PAD with Chronic lower extremity ischemia - will need outpt vascular surgery eval. DVT prophylaxis SCDs. VS,Fishbone, I+O VS, Fishbone, I+O Laboratory Tests 05/28/16 05:49 Calcium Level 7.8 L, Aspartate Amino Transf (AST/SGOT) 20, Alanine Aminotransferase (ALT/SGPT) 29, Alkaline Phosphatase 57, Total Bilirubin 0.4, Total Protein 5.0 L, Albumin 1.6 L, Red Blood Count 3.64 L, Mean Corpuscular Volume 96.1 H, Mean Corpuscular Hemoglobin 32.6, Mean Corpuscular Hemoglobin Concent 33.9, Red Cell Distribution Width 12.1 Vital Signs Date Time Temp Pulse Resp B/P Pulse Ox O2 Delivery O2 Flow Rate FiO2 05/28/16 10:00 98.8 99 20 128/59 92 Nasal Cannula 2.0 I&O- Last 24 Hours up to 6 AM 05/28/16 06:00 Intake Total 3005 ml Output Total 2655 ml Balance 350 ml LEONEL HUYNH MD May 28, 2016 13:51
[2016-05-28 14:00] VITALS: BP 146/62
[2016-05-28] MEDS: guaiFENesin ER 600 MG TAB PO SCH ×2 (15:07→20:38)
--- NOTE | 2016-05-28 15:22 | REP ---
PORTABLE CHEST, SINGLE AP VIEW, 05/28/2016, 2:12 P.M.: Comparisons are the postbiopsy PA chest dated 05/27/2016 and the portable frontal view of the chest dated 05/20/2016. There is a pigtail drainage catheter inferiorly on the left, similar to 05/27/2016. The costophrenic angles are mildly effaced bilaterally, unchanged. There is mild interstitial coarsening, unchanged from recent prior studies. No focal infiltrate. There is a right upper extremity PICC line with the tip at the junction of the subclavian vein and superior vena cava, unchanged. Cardiac size is normal. The ambika, mediastinum, and bony thorax are unremarkable. There is no pneumothorax. IMPRESSION: No significant interval change from 05/27/2016. Unreviewed
[2016-05-28] MEDS ORDERED: MULTIVITAMIN -ADULT INJECTION 10 ML, CR/CU/SE/MN/ZN INJ 1 ML in AMINO AC/ELECTROLYTE/DE... IV SCH (18:00)
[2016-05-28] MEDS ORDERED: FAT EMULSION IV 20% 500 ML IV SCH (18:00)
[2016-05-28 22:00] VITALS: BP 149/66
[2016-05-28] MEDS: SODIUM CHLORIDE 0.9% INJ 10 ML SYR IV PRN (23:42)
[2016-05-29] MEDS: HumaLOG INSULIN (NovoLOG) PER UNIT SC SCH ×3 (00:09→12:00)
[2016-05-29 02:00] VITALS: BP 139/65
[2016-05-29] MEDS: IPRATROPIUM 0.5MG/ALBUTEROL 2.5MG INH SOL UD 3ML (DUONEB)(J7620) NEB SCH ×4 (02:00→20:05)
[2016-05-29] MEDS: MEROPENEM INJ 1 GM in D5W MINI-BAG PLUS 100 ML IV SCH ×3 (04:30→20:21)
[2016-05-29] MEDS: metroNIDAZOLE 500 MG in APPROPRIATE DILUENT 1 EA IV SCH (05:20)
[2016-05-29 06:00] VITALS: BP 129/60
[2016-05-29] MEDS: SLF 3 ML SYR IV SCH ×3 (06:00→20:21)
[2016-05-29] MEDS: SODIUM CHLORIDE 0.9% INJ 10 ML SYR IV SCH ×2 (06:35→18:15)
[2016-05-29 08:00] LABS: MEAN CORPUSCULAR HEMOGLOBIN 32.3 pg (27.0-33.0); MEAN CORPUSCULAR HGB CONC 33.5 g/dl (32.0-36.5); MEAN CORPUSCULAR VOLUME 96.6 fl (80.0-96.0); RED CELL DISTRIBUTION WIDTH 13.1 % (11.5-14.5); WHITE BLOOD COUNT 22.7 K/mm3 (4.0-10.0)
[2016-05-29 08:24] LABS: BANDS 2 % (< 11); EOSINOPHILS 1 % (0-5)
[2016-05-29 08:25] LABS: ANISOCYTOSIS 1+
[2016-05-29 08:26] LABS: POLYCHROMASIA 1+
[2016-05-29 08:27] LABS: ALBUMIN 1.6 GM/DL (3.2-5.2); ALBUMIN/GLOBULIN RATIO 0.55 (1.00-1.93); ALKALINE PHOSPHATASE 67 U/L (45-117); ALT/SGPT 27 U/L (12-78); ANION GAP 10 MEQ/L (8-16); AST/SGOT 20 U/L (15-37); BILIRUBIN,TOTAL 0.5 MG/DL (0.2-1.0); BLOOD UREA NITROGEN 13 MG/DL (7-18); CALCIUM LEVEL 7.3 MG/DL (8.5-10.1); CARBON DIOXIDE LEVEL 26 MEQ/L (21-32); CHLORIDE LEVEL 106 MEQ/L (98-107); GLOMERULAR FILTRATION RATE > 60.0 (>56); GLUCOSE, FASTING 49 MG/DL (70-105); MAGNESIUM LEVEL 1.9 MG/DL (1.8-2.4); POTASSIUM SERUM 3.5 MEQ/L (3.5-5.1); SODIUM LEVEL 142 MEQ/L (136-145); TOTAL PROTEIN 4.5 GM/DL (6.4-8.2)
[2016-05-29] MEDS: FLUCONAZOLE 200 MG in APPROPRIATE DILUENT 1 EA IV SCH (10:08)
[2016-05-29] MEDS: PENTOXIFYLLINE 400 MG TAB PO SCH ×2 (10:08→18:15)
[2016-05-29] MEDS: guaiFENesin ER 600 MG TAB PO SCH ×2 (10:08→20:21)
[2016-05-29] MEDS: PANTOPRAZOLE 40MG INJ (PROTONIX) (C9113) IV SCH (10:08)
[2016-05-29 14:00] VITALS: BP 153/63
[2016-05-29] MEDS: POTASSIUM CHLORIDE 10 MEQ SR TABLET PO SCH ×2 (14:42→20:20)
[2016-05-29] MEDS: metroNIDAZOLE (FLAGYL) 500 MG TAB PO SCH ×2 (14:42→20:20)
[2016-05-29] MEDS ORDERED: HumaLOG INSULIN (NovoLOG) PER UNIT SC SCH (18:00)
[2016-05-29] MEDS ORDERED: AMINO AC/ELECTROLYTE/DEX/CALC 2,000 ML IV SCH (18:00)
[2016-05-29] MEDS ORDERED: FAT EMULSION IV 20% 500 ML IV SCH (18:00)
[2016-05-29] MEDS: PANTOPRAZOLE 40MG TAB (PROTONIX) PO SCH (20:21)
[2016-05-29 22:00] VITALS: BP 144/64
[2016-05-30] MEDS: IPRATROPIUM 0.5MG/ALBUTEROL 2.5MG INH SOL UD 3ML (DUONEB)(J7620) NEB SCH ×5 (02:00→22:30)
[2016-05-30] MEDS: MEROPENEM INJ 1 GM in D5W MINI-BAG PLUS 100 ML IV SCH ×3 (03:21→20:04)
[2016-05-30] MEDS: metroNIDAZOLE (FLAGYL) 500 MG TAB PO SCH ×3 (05:26→21:11)
[2016-05-30] MEDS: SODIUM CHLORIDE 0.9% INJ 10 ML SYR IV SCH ×2 (05:26→17:59)
[2016-05-30 06:00] VITALS: BP 144/65
[2016-05-30 09:08] LABS: MEAN CORPUSCULAR HEMOGLOBIN 32.6 pg (27.0-33.0); MEAN CORPUSCULAR HGB CONC 33.6 g/dl (32.0-36.5); MEAN CORPUSCULAR VOLUME 97.1 fl (80.0-96.0); RED CELL DISTRIBUTION WIDTH 12.4 % (11.5-14.5); WHITE BLOOD COUNT 21.2 K/mm3 (4.0-10.0)
[2016-05-30 09:25] LABS: ALBUMIN 1.8 GM/DL (3.2-5.2); ALBUMIN/GLOBULIN RATIO 0.56 (1.00-1.93); ALKALINE PHOSPHATASE 74 U/L (45-117); ALT/SGPT 28 U/L (12-78); ANION GAP 7 MEQ/L (8-16); AST/SGOT 26 U/L (15-37); BILIRUBIN,TOTAL 0.6 MG/DL (0.2-1.0); BLOOD UREA NITROGEN 13 MG/DL (7-18); CALCIUM LEVEL 7.5 MG/DL (8.5-10.1); CARBON DIOXIDE LEVEL 27 MEQ/L (21-32); CHLORIDE LEVEL 106 MEQ/L (98-107); CREATININE FOR GFR 0.41 MG/DL (0.70-1.30); GLOMERULAR FILTRATION RATE > 60.0 (>56); GLUCOSE, FASTING 105 MG/DL (70-105); POTASSIUM SERUM 3.9 MEQ/L (3.5-5.1); SODIUM LEVEL 140 MEQ/L (136-145)
[2016-05-30] MEDS: PANTOPRAZOLE 40MG TAB (PROTONIX) PO SCH ×2 (09:39→20:05)
[2016-05-30] MEDS: guaiFENesin ER 600 MG TAB PO SCH ×2 (09:39→20:05)
[2016-05-30] MEDS: POTASSIUM CHLORIDE 10 MEQ SR TABLET PO SCH ×2 (09:39→20:05)
[2016-05-30] MEDS: FLUCONAZOLE 200 MG in APPROPRIATE DILUENT 1 EA IV SCH (09:39)
[2016-05-30] MEDS: PENTOXIFYLLINE 400 MG TAB PO SCH ×2 (09:39→17:58)
[2016-05-30 10:02] LABS: ANISOCYTOSIS 1+; BANDS 3 % (< 11)
--- NOTE | 2016-05-30 11:15 | IPNPDOC ---
Text Note Date of Service The patient was seen on 05/30/16 at 11:14. NOTE Subjective: No acute changes overnight. No N/V. No abd pain. Had a BM, and is getting out of bed. Objective: Vitals: (see below) General: No acute distress, laying comfortably in bed. HEENT: Moist mucous membranes. Neck: No JVD or lymphadenopathy Cardiac: RRR, No murmurs Pulm: Diminished breath sounds at the bases. No wheezing. + Rhonchi b/l Abd: NT/ND + BS. No drainage. 1 drain LUQ with serous fluid. Ext: No edema or cyanosis Labs (see below) Images: MRA LE 05/21/16 Impression 1. Bilateral lower extremity peripheral arterial disease, most significant on the right. 2. There is significant decreased perfusion of the right common iliac artery at its origin with reconstitution of right common femoral artery. Distal tapering of the right common femoral artery with near occlusion at the proximal superficial femoral artery. There is reconstitution of right popliteal artery by multiple collaterals. 3. Two vessel runoff to the mid right calf. 4. Widely patent left common iliac and common femoral arteries. Diffusely attenuated left internal iliac artery. Absent small and mid superficial femoral arteries with reconstitution of the mid to distal left superficial femoral artery. Two-vessel runoff to the distal left calf. CT Abd/pelvis 05/21/16 IMPRESSION: Thickened stomach. Thickened duodenum. Moderate amount of pneumoperitoneum. This needs to be correlated with any history of recent surgical intervention to exclude gastric/small bowel perforation. Surgical consultation is suggested. Ascites. Gastroparesis. Mildly dilated and thickened proximal small bowels. CT Abd/pelvis 05/25/16 There are [id number] bilateral pleural effusions with bibasilar compressive atelectasis. Bullous changes are present within the lingula. Moderately small hypodense foci in the liver are most compatible with cysts and unchanged. The patient is status post exploratory laparotomy for free intraperitoneal air. The patient had a large perforated duodenal ulcer. Surgical clips are seen anterior to the mid body stomach and in the region of the duodenum post surgical repair. Generalized mural enhancement in the stomach also seen throughout small bowel and colon. There is intraluminal fluid within stomach, small bowel and to a lesser extent colon. There is mural enhancement within the colon. Adrenal glands are normal. Kidneys without hydronephrosis. There is a 1.3 cm cyst within the lateral mid pole left kidney. There is moderate left subcostal fluid. Surgical drains are seen within the bilateral lower abdomen/upper pelvis. There is some occlusion of the right common iliac artery at its origin with reconstitution of the right common femoral. There is moderate intra-abdominal, to a smaller extent pelvic ascites. Small amount of air is seen in the bladder, likely from recent instrumentation. Impression: 1. Patient is status post recent exploratory laparotomy and surgical repair for perforated large duodenal ulcer. There is no visualized free intraperitoneal air. 2. Bilateral lower abdominal/superior pelvic percutaneous drainage catheters. No focal visualized intra-abdominal or pelvic abscess. 3. Moderate intra-abdominal and small intrapelvic ascites. 4. Significant peripheral vascular disease with occlusion of the right common iliac artery and its origin and partial occlusion of the right internal and external iliac arteries. There is reconstitution of the right common femoral artery for a short distance only. Assessment/Plan 1. POD 6 s/p Ex lap for Duodenal ulcer perforation. Status post repair of the ulcer, gastrojejunostomy. Management per surgery. 2. Sepsis secondary to #1. D/c Ceftazidine and Cipro. On Flagyl. Cont meropenem. Hemodynamically stable. Leukocytosis still elevated, with mild decrease. On TPN. Blood cultures negative thus far. CT abd/pelvis negative for abscess. Body culture with yeast like organism - on fluconazole. S/p u/s abd guided pigtail and drainage of fluid collection in LUQ with cx with yeast. CXR negative for acute pathology. 3. PAD with Chronic lower extremity ischemia - will need outpt vascular surgery eval. DVT prophylaxis SCDs. VS,Fishbone, I+O VS, Fishbone, I+O Laboratory Tests 05/30/16 08:05 Calcium Level 7.5 L, Aspartate Amino Transf (AST/SGOT) 26, Alanine Aminotransferase (ALT/SGPT) 28, Alkaline Phosphatase 74, Total Bilirubin 0.6, Total Protein 5.0 L, Albumin 1.8 L Vital Signs Date Time Temp Pulse Resp B/P Pulse Ox O2 Delivery O2 Flow Rate FiO2 05/30/16 06:00 97.8 86 18 144/65 97 Nasal Cannula 1.0 I&O- Last 24 Hours up to 6 AM 05/30/16 06:00 Intake Total 4120 ml Output Total 2225 ml Balance 1895 ml LEONEL HUYNH MD May 30, 2016 11:15
[2016-05-30 14:00] VITALS: BP 141/63
--- NOTE | 2016-05-30 15:25 | REP ---
Clinical: Shortness of breath and decreased breath sounds on auscultation. Technique: PA and lateral. Comparison: 05/27/2016. Findings: Pigtail catheter at the left lung base is unchanged. Bibasilar atelectasis and small pleural effusions are similar to prior examination. Lung nunez demonstrate diffuse chronic interstitial changes. Subtle right upper lobe infiltrate on prior examination may be slightly improved. No pneumothorax. Right subclavian catheter with tip in the SVC. Impression: Bibasilar atelectasis and small pleural effusions similar to prior examination. Diffuse chronic interstitial changes. Suspect improved aeration to the right upper lobe infiltrate. Signed by Franco Sifuentes MD 05/30/2016 03:17 P
[2016-05-30] MEDS: SODIUM CHLORIDE 0.9% INJ 10 ML SYR IV PRN (20:19)
[2016-05-30 21:38] VITALS: BP 128/60
[2016-05-31] MEDS: MEROPENEM INJ 1 GM in D5W MINI-BAG PLUS 100 ML IV SCH ×3 (03:41→20:05)
[2016-05-31] MEDS: SODIUM CHLORIDE 0.9% INJ 10 ML SYR IV PRN (04:28)
[2016-05-31] MEDS: SODIUM CHLORIDE 0.9% INJ 10 ML SYR IV SCH (05:04)
[2016-05-31] MEDS: metroNIDAZOLE (FLAGYL) 500 MG TAB PO SCH (05:04)
[2016-05-31 05:22] LABS: MEAN CORPUSCULAR HEMOGLOBIN 32.2 pg (27.0-33.0); MEAN CORPUSCULAR HGB CONC 33.1 g/dl (32.0-36.5); MEAN CORPUSCULAR VOLUME 97.1 fl (80.0-96.0); RED CELL DISTRIBUTION WIDTH 13.2 % (11.5-14.5); WHITE BLOOD COUNT 21.2 K/mm3 (4.0-10.0)
[2016-05-31 05:26] VITALS: BP 138/63
[2016-05-31 05:49] LABS: ALBUMIN 1.7 GM/DL (3.2-5.2); ALBUMIN/GLOBULIN RATIO 0.53 (1.00-1.93); ALKALINE PHOSPHATASE 72 U/L (45-117); ALT/SGPT 25 U/L (12-78); ANION GAP 8 MEQ/L (8-16); AST/SGOT 20 U/L (15-37); BILIRUBIN,TOTAL 0.5 MG/DL (0.2-1.0); BLOOD UREA NITROGEN 13 MG/DL (7-18); CALCIUM LEVEL 7.4 MG/DL (8.5-10.1); CARBON DIOXIDE LEVEL 26 MEQ/L (21-32); CHLORIDE LEVEL 106 MEQ/L (98-107); CREATININE FOR GFR 0.49 MG/DL (0.70-1.30); GLOMERULAR FILTRATION RATE > 60.0 (>56); GLUCOSE, FASTING 79 MG/DL (70-105); POTASSIUM SERUM 4.3 MEQ/L (3.5-5.1); SODIUM LEVEL 140 MEQ/L (136-145); TOTAL PROTEIN 4.9 GM/DL (6.4-8.2)
[2016-05-31] MEDS: IPRATROPIUM 0.5MG/ALBUTEROL 2.5MG INH SOL UD 3ML (DUONEB)(J7620) NEB SCH ×3 (07:44→19:09)
[2016-05-31] MEDS ORDERED: FLUCONAZOLE 100 MG TAB PO SCH (09:00)
[2016-05-31] MEDS: PENTOXIFYLLINE 400 MG TAB PO SCH ×2 (09:53→18:16)
[2016-05-31] MEDS: PANTOPRAZOLE 40MG TAB (PROTONIX) PO SCH ×2 (09:53→20:05)
[2016-05-31] MEDS: guaiFENesin ER 600 MG TAB PO SCH ×2 (09:53→20:05)
[2016-05-31 14:00] VITALS: BP 122/62
--- NOTE | 2016-05-31 14:03 | IPNPDOC ---
Text Note Date of Service The patient was seen on 05/31/16 at 13:56. NOTE Subjective: No acute changes overnight. Getting out of bed. Objective: Vitals: (see below) General: No acute distress, laying comfortably in bed. HEENT: Moist mucous membranes. Neck: No JVD or lymphadenopathy Cardiac: RRR, No murmurs Pulm: Diminished breath sounds at the bases. No wheezing. + Rhonchi b/l Abd: NT/ND + BS. No drainage. 1 drain LUQ with serous fluid. Ext: No edema or cyanosis Labs (see below) Images: MRA LE 05/21/16 Impression 1. Bilateral lower extremity peripheral arterial disease, most significant on the right. 2. There is significant decreased perfusion of the right common iliac artery at its origin with reconstitution of right common femoral artery. Distal tapering of the right common femoral artery with near occlusion at the proximal superficial femoral artery. There is reconstitution of right popliteal artery by multiple collaterals. 3. Two vessel runoff to the mid right calf. 4. Widely patent left common iliac and common femoral arteries. Diffusely attenuated left internal iliac artery. Absent small and mid superficial femoral arteries with reconstitution of the mid to distal left superficial femoral artery. Two-vessel runoff to the distal left calf. CT Abd/pelvis 05/21/16 IMPRESSION: Thickened stomach. Thickened duodenum. Moderate amount of pneumoperitoneum. This needs to be correlated with any history of recent surgical intervention to exclude gastric/small bowel perforation. Surgical consultation is suggested. Ascites. Gastroparesis. Mildly dilated and thickened proximal small bowels. CT Abd/pelvis 05/25/16 There are [id number] bilateral pleural effusions with bibasilar compressive atelectasis. Bullous changes are present within the lingula. Moderately small hypodense foci in the liver are most compatible with cysts and unchanged. The patient is status post exploratory laparotomy for free intraperitoneal air. The patient had a large perforated duodenal ulcer. Surgical clips are seen anterior to the mid body stomach and in the region of the duodenum post surgical repair. Generalized mural enhancement in the stomach also seen throughout small bowel and colon. There is intraluminal fluid within stomach, small bowel and to a lesser extent colon. There is mural enhancement within the colon. Adrenal glands are normal. Kidneys without hydronephrosis. There is a 1.3 cm cyst within the lateral mid pole left kidney. There is moderate left subcostal fluid. Surgical drains are seen within the bilateral lower abdomen/upper pelvis. There is some occlusion of the right common iliac artery at its origin with reconstitution of the right common femoral. There is moderate intra-abdominal, to a smaller extent pelvic ascites. Small amount of air is seen in the bladder, likely from recent instrumentation. Impression: 1. Patient is status post recent exploratory laparotomy and surgical repair for perforated large duodenal ulcer. There is no visualized free intraperitoneal air. 2. Bilateral lower abdominal/superior pelvic percutaneous drainage catheters. No focal visualized intra-abdominal or pelvic abscess. 3. Moderate intra-abdominal and small intrapelvic ascites. 4. Significant peripheral vascular disease with occlusion of the right common iliac artery and its origin and partial occlusion of the right internal and external iliac arteries. There is reconstitution of the right common femoral artery for a short distance only. Assessment/Plan 1. POD 7 s/p Ex lap for Duodenal ulcer perforation. Status post repair of the ulcer, gastrojejunostomy. Management per surgery. 2. Sepsis secondary to #1. D/c Ceftazidine and Cipro. On Flagyl. Cont meropenem. Hemodynamically stable. Leukocytosis still elevated, with mild decrease. On TPN. Blood cultures negative thus far. CT abd/pelvis negative for abscess. Body culture with yeast like organism - on fluconazole. S/p u/s abd guided pigtail and drainage of fluid collection in LUQ with cx with yeast. CXR negative for acute pathology. Will have ID available tomorrow for persistent leukocytosis. 3. PAD with Chronic lower extremity ischemia - will need outpt vascular surgery eval. DVT prophylaxis SCDs. VS,Fishbone, I+O VS, Fishbone, I+O Laboratory Tests 05/31/16 05:08 Calcium Level 7.4 L, Aspartate Amino Transf (AST/SGOT) 20, Alanine Aminotransferase (ALT/SGPT) 25, Alkaline Phosphatase 72, Total Bilirubin 0.5, Total Protein 4.9 L, Albumin 1.7 L Vital Signs Date Time Temp Pulse Resp B/P Pulse Ox O2 Delivery O2 Flow Rate FiO2 05/31/16 10:17 Room Air 05/31/16 08:17 96 05/31/16 05:26 97.3 81 18 138/63 1.0 I&O- Last 24 Hours up to 6 AM 05/31/16 05:59 Intake Total 1950 ml Output Total 1410 ml Balance 540 ml LEONEL HUYNH MD May 31, 2016 14:03
[2016-05-31 22:00] VITALS: BP 139/64
[2016-06-01] MEDS: IPRATROPIUM 0.5MG/ALBUTEROL 2.5MG INH SOL UD 3ML (DUONEB)(J7620) NEB SCH ×4 (01:40→19:39)
[2016-06-01] MEDS: IPRATROPIUM 0.5MG/ALBUTEROL 2.5MG INH SOL UD 3ML (DUONEB)(J7620) NEB PRN (03:20)
[2016-06-01] MEDS: MEROPENEM INJ 1 GM in D5W MINI-BAG PLUS 100 ML IV SCH ×2 (03:32→12:48)
[2016-06-01 06:00] VITALS: BP 128/60
[2016-06-01 06:30] LABS: MEAN CORPUSCULAR HEMOGLOBIN 31.7 pg (27.0-33.0); MEAN CORPUSCULAR HGB CONC 31.9 g/dl (32.0-36.5); MEAN CORPUSCULAR VOLUME 99.3 fl (80.0-96.0); RED CELL DISTRIBUTION WIDTH 13.2 % (11.5-14.5); WHITE BLOOD COUNT 20.4 K/mm3 (4.0-10.0)
[2016-06-01 06:50] LABS: ALBUMIN 1.8 GM/DL (3.2-5.2); ALBUMIN/GLOBULIN RATIO 0.46 (1.00-1.93); ALKALINE PHOSPHATASE 69 U/L (45-117); ALT/SGPT 24 U/L (12-78); ANION GAP 8 MEQ/L (8-16); AST/SGOT 20 U/L (15-37); BILIRUBIN,TOTAL 0.6 MG/DL (0.2-1.0); BLOOD UREA NITROGEN 11 MG/DL (7-18); CARBON DIOXIDE LEVEL 27 MEQ/L (21-32); CHLORIDE LEVEL 104 MEQ/L (98-107); CREATININE FOR GFR 0.48 MG/DL (0.70-1.30); GLOMERULAR FILTRATION RATE > 60.0 (>56); GLUCOSE, FASTING 90 MG/DL (70-105); POTASSIUM SERUM 3.7 MEQ/L (3.5-5.1); SODIUM LEVEL 139 MEQ/L (136-145); TOTAL PROTEIN 5.7 GM/DL (6.4-8.2)
[2016-06-01] MEDS: PENTOXIFYLLINE 400 MG TAB PO SCH ×2 (08:11→17:46)
[2016-06-01] MEDS: PANTOPRAZOLE 40MG TAB (PROTONIX) PO SCH ×2 (08:11→20:31)
[2016-06-01] MEDS: guaiFENesin ER 600 MG TAB PO SCH ×2 (08:11→20:31)
[2016-06-01] MEDS: FLUCONAZOLE 100 MG TAB PO SCH (08:11)
--- NOTE | 2016-06-01 11:38 | IPNPDOC ---
Text Note Date of Service The patient was seen on 06/01/16 at 11:26. NOTE Subjective: Patient is a 60 year old male with no PMHx who presented to the ER with complaints of abdominal pain. CT performed in the ER reveals pneumoperitoneum. Patient was admitted to surgical service. Patient was also found to be hypertensive with SBP in 200s. He received clonidine and his BP became better controlled. Patient subsequently received a paracentesis which revealed stool. He was taken to the OR on 05/25 and found to have a duodenal ulcer perforation which was repaired. Patient was seen and examined at the bedside. He denies any abdominal pain, nausea, vomiting, diarrhea or constipation. He reports that he is ambulating and having bowel movements. Objective: Vitals (See below) General: Lying in bed, no acute distress, AAOx3 HEENT: NC, AT CVS: RRR, +S1S2 Lungs: Fair air entry b/l, -w/r/r Abdomen: Midline incision (no erythema, drainage or tenderness), NT, ND, +BSx4 Extremities: +PPx4 Assessment and plan: 1. s/p Abdominal pain 2/2 perforated duodenal ulcer - s/p exploratory laparotomy and repair (POD #8) - s/p repair of duodenal ulcer, gastrojejunostomy - c/w Protonix BID - on regular diet - managed by surgery 2. Sepsis - likely 2/2 perforated duodenal ulcer - denies abdominal pain, diarrhea, has remained afebrile - CRP has been trending down - leukocytosis still remains elevated - fluid collection in LUQ had drainage catheter placed; + For yeast organisms - Cultures from abdomen were positive for So albicans - c/w meropenem and fluconazole - Will consult ID (Dr. Mejia) today 3. Peripheral vascular disease with chronic lower extremity ischemia - will need outpatient vascular surgery evaluation - c/w Pentoxifylline 4. GI Prophylaxis - c/w protonix 5. DVT Prophylaxis - c/w Heparin VS,Fishbone, I+O VS, Fishbone, I+O Laboratory Tests 06/01/16 05:30 Calcium Level 8.0 L, Aspartate Amino Transf (AST/SGOT) 20, Alanine Aminotransferase (ALT/SGPT) 24, Alkaline Phosphatase 69, Total Bilirubin 0.6, Total Protein 5.7 L, Albumin 1.8 L Vital Signs Date Time Temp Pulse Resp B/P Pulse Ox O2 Delivery O2 Flow Rate FiO2 06/01/16 06:00 97.0 85 20 128/60 96 Room Air 05/31/16 05:26 1.0 I&O- Last 24 Hours up to 6 AM 06/01/16 06:00 Intake Total 1470 ml Output Total 925 ml Balance 545 ml NATHANAEL FERRO MD Jun 01, 2016 11:26
[2016-06-01 14:00] VITALS: BP 122/60
--- NOTE | 2016-06-01 19:10 | CR ---
DATE OF CONSULTATION: 06/01/2016 REASON FOR CONSULTATION: Asked to consult by hospitalist for evaluation of abdominal abscess after perforation of duodenal ulcer. HISTORY: The patient is as 60-year-old admitted to Dr. Duran after he had severe abdominal pain. The patient came to the emergency room on 05/21, complaining of 40-pound weight loss with increasing abdominal pain worsening over the past two weeks. The patient had an nasogastric (NG) tube placed. He had a CT of the abdomen which showed some free air. He did not have any fever or chills. He had an elevated white count at 19,000. The patient went to the operating room with , who had repaired the duodenal ulcer and did a gastrojejunostomy. The patient has been on intravenous (IV) meropenem and Diflucan. The patient has markedly improved. On 05/21, cultures from the abdomen had So albicans; on 05/27, again cultures had yeastlike organism. The patient's NG tube was removed and total parenteral nutrition (TPN) was discontinued. His white count has remained elevated at 20,000, but clinically he is markedly improved. He denies any nausea, vomiting, diarrhea or abdominal pain. He is anxious to go home. His last temperature was on 05/27 which was 100. PAST MEDICAL HISTORY: Is significant for tobacco abuse but no other history of chronic obstructive pulmonary disease (COPD) or diabetes or hypertension. PAST SURGICAL HISTORY: Duodenal perforation repair done on this admission and gastrojejunostomy. He has a drain placed in the left upper quadrant, which still has about 10 mL of yeastlike organism. ALLERGIES: No known drug allergies. MEDICATIONS: - fluconazole 200 mg daily started on 06/01 - meropenem 1 gram IV every eight hours - Protonix 40 mg by mouth twice a day - Mucinex 600 mg twice a day - Trental 400 mg twice a day - albuterol/Atrovent nebulizers. He received Flagyl 500 mg by mouth every eight hours from 05/29 to 05/31. He was on IV fluconazole from 05/25 to 05/31, ceftazidime 1 gram IV every eight hours from 05/24 to 05/28. PHYSICAL EXAMINATION: GENERAL: On physical exam he is a pleasant gentleman, looks older than stated age in no acute distress. VITAL SIGNS: Temperature is 98.1, pulse 103, respirations 20, blood pressure 122/60, oxygen saturation 97% on room air. HEART: Normal S1, S2 with no murmurs, rubs or gallops. LUNGS: Clear but diminished. No wheezes, rales or rhonchi. ABDOMEN: Soft. There are villa in place. There is minimal yellowish discharge at the middle of the incision. BACK: No costovertebral angle tenderness. EXTREMITIES: No clubbing, cyanosis or edema. No calf tenderness. MOUTH: Oropharynx clear. LABORATORY DATA: On 05/21, peritoneal fluid culture had So albicans. MRSA screen was negative. Blood culture from 05/23 two sets were negative. Abdominal fluid culture from 05/27 again had yeastlike organism preliminary. White count is 20.4, hemoglobin 11.3, hematocrit 35.4, platelets 607, 90% neutrophils, 8% lymphocytes. Sodium 139, potassium 3.7, chloride 104, bicarb 27, BUN 11, creatinine 0.4, glucose 90, calcium 8, AST 20, ALT 24. CRP 7.66. IMAGING STUDY: Chest x-ray done 05/30 showed right basilar atelectasis, small pleural effusion, diffuse chronic interstitial changes, improved aeration of the right upper lobe. Drainage of the left upper quadrant was done under ultrasound guidance by Dr. Salazar. Approximately 155 mL of yellow fluid was aspirated on 05/27. Cultures and sensitivities were sent and they are still not final. Lower extremity MRA 05/21 shows bilateral lower extremity peripheral arterial disease, more on the right side, with significant decreased perfusion of the right common iliac artery. IMPRESSION: This is a 60-year-old gentleman with peripheral vascular disease, tobacco abuse, who presented with duodenal ulcer perforation and developed an abdominal abscess. The patient had repair of the ulcer, gastrojejunostomy and drainage of the abscess. Abscess has mostly been positive for So albicans. The patient has markedly improved, tolerating oral intake and asymptomatic except for an elevated white count of 20,000. PLAN: Agree with Dr. Duran for home discharge in the morning. Switch to fluconazole 200 mg by mouth daily, which has already been done. Discontinue IV meropenem. Switch him to Augmentin. Continue 7-10 days of antibiotic. Repeat complete blood count (CBC), C-reactive protein (CRP) next week.
[2016-06-01] MEDS: AUGMENTIN 875 MG TAB PO SCH (20:31)
[2016-06-01 22:00] VITALS: BP 131/61
[2016-06-02] MEDS: IPRATROPIUM 0.5MG/ALBUTEROL 2.5MG INH SOL UD 3ML (DUONEB)(J7620) NEB SCH ×3 (01:37→13:40)
[2016-06-02 05:51] LABS: BASO # 0.1 K/mm3 (0.0-0.2); BASO % 0.4 % (0.0-1.0); EOS # 0.2 K/mm3 (0.0-0.50); EOS % 1.1 % (0.0-3.0); LARGE UNSTAINED CELL # 0.7 K/mm3 (0.0-0.4); LARGE UNSTAINED CELL % 4.3 % (0.0-4.0); LYMPH # 1.7 K/mm3 (1.5-4.5); MEAN CORPUSCULAR HEMOGLOBIN 32.3 pg (27.0-33.0); MEAN CORPUSCULAR HGB CONC 32.8 g/dl (32.0-36.5); MEAN CORPUSCULAR VOLUME 98.2 fl (80.0-96.0); MONO # 1.2 K/mm3 (0.0-0.8); MONO % 7.2 % (0.0-5.0); NEUTROPHILS # 12.6 K/mm3 (1.8-7.7); NEUTROPHILS % 76.9 % (36.0-66.0); PLATELET COUNT, AUTOMATED 676 k/mm3 (150-450); RED CELL DISTRIBUTION WIDTH 12.6 % (11.5-14.5); WHITE BLOOD COUNT 16.4 K/mm3 (4.0-10.0)
[2016-06-02 06:00] VITALS: BP 138/62
[2016-06-02 06:08] LABS: ALBUMIN 1.9 GM/DL (3.2-5.2); ALBUMIN/GLOBULIN RATIO 0.45 (1.00-1.93); ALKALINE PHOSPHATASE 80 U/L (45-117); ALT/SGPT 26 U/L (12-78); ANION GAP 8 MEQ/L (8-16); AST/SGOT 22 U/L (15-37); BILIRUBIN,TOTAL 0.5 MG/DL (0.2-1.0); BLOOD UREA NITROGEN 14 MG/DL (7-18); CARBON DIOXIDE LEVEL 26 MEQ/L (21-32); CHLORIDE LEVEL 105 MEQ/L (98-107); CREATININE FOR GFR 0.46 MG/DL (0.70-1.30); GLOMERULAR FILTRATION RATE > 60.0 (>56); GLUCOSE, FASTING 93 MG/DL (70-105); POTASSIUM SERUM 3.9 MEQ/L (3.5-5.1); SODIUM LEVEL 139 MEQ/L (136-145); TOTAL PROTEIN 6.1 GM/DL (6.4-8.2)
[2016-06-02] MEDS ORDERED: PENT40TASA PO (07:10)
[2016-06-02] MEDS ORDERED: PANT40TA2 PO (07:10)
[2016-06-02] MEDS ORDERED: FLUC10TA PO (07:10)
[2016-06-02] MEDS ORDERED: AMOX875T2 PO (07:10)
[2016-06-02] MEDS: PANTOPRAZOLE 40MG TAB (PROTONIX) PO SCH (08:43)
[2016-06-02] MEDS: AUGMENTIN 875 MG TAB PO SCH (08:43)
[2016-06-02] MEDS: guaiFENesin ER 600 MG TAB PO SCH (08:43)
[2016-06-02] MEDS: FLUCONAZOLE 100 MG TAB PO SCH (08:44)
[2016-06-02] MEDS: PENTOXIFYLLINE 400 MG TAB PO SCH (08:44)
--- NOTE | 2016-06-02 11:34 | IPNPDOC ---
Text Note Date of Service The patient was seen on 06/02/16 at 11:25. NOTE Subjective: Patient is a 60 year old male with no PMHx who presented to the ER with complaints of abdominal pain. CT performed in the ER reveals pneumoperitoneum. Patient was admitted to surgical service. Patient was also found to be hypertensive with SBP in 200s. He received clonidine and his BP became better controlled. Patient subsequently received a paracentesis which revealed stool. He was taken to the OR on 05/25 and found to have a duodenal ulcer perforation which was repaired. Patient was seen and examined at the bedside. He was sitting in the couch, has been ambulating. No events overnight. Objective: Vitals (See below) General: Lying in bed, no acute distress, AAOx3 HEENT: NC, AT CVS: RRR, +S1S2 Lungs: Fair air entry b/l, -w/r/r Abdomen: Midline incision (no erythema, drainage or tenderness), NT, ND, +BSx4, L drainage catheter in place Extremities: +PPx4 Assessment and plan: 1. s/p Abdominal pain 2/2 perforated duodenal ulcer - s/p exploratory laparotomy and repair (POD #8) - s/p repair of duodenal ulcer, gastrojejunostomy - c/w Protonix BID - Drainage catheter present within minimal drainage; will be removed today prior to discharge home - on regular diet - managed by surgery 2. Sepsis - likely 2/2 perforated duodenal ulcer - denies abdominal pain, diarrhea, has remained afebrile - CRP has been trending down - leukocytosis still remains elevated - fluid collection in LUQ had drainage catheter placed; + For yeast organisms - Cultures from abdomen were positive for Os albicans - c/w Augmentin and fluconazole, s/p meropenem - ID consulted (Dr. Mejia); recommended change from meropenem to Augmentin 3. Peripheral vascular disease with chronic lower extremity ischemia - will need outpatient vascular surgery evaluation - c/w Pentoxifylline 4. GI Prophylaxis - c/w protonix 5. DVT Prophylaxis - c/w Heparin Disposition: - Plan on discharge home today with oral antibiotics and f/u with Dr. Mejia and Dr. Roger HOYOS,Tash, I+O VSTash, I+O Laboratory Tests 06/02/16 04:58 Calcium Level 8.0 L, Aspartate Amino Transf (AST/SGOT) 22, Alanine Aminotransferase (ALT/SGPT) 26, Alkaline Phosphatase 80, Total Bilirubin 0.5, Total Protein 6.1 L, Albumin 1.9 L, Red Blood Count 3.65 L, Mean Corpuscular Volume 98.2 H, Mean Corpuscular Hemoglobin 32.3, Mean Corpuscular Hemoglobin Concent 32.8, Red Cell Distribution Width 12.6, Neutrophils (%) (Auto) 76.9 H, Lymphocytes (%) (Auto) 10.0 L, Monocytes (%) (Auto) 7.2 H, Eosinophils (%) (Auto ) 1.1, Basophils (%) (Auto) 0.4, Neutrophils # (Auto) 12.6 H, Lymphocytes # ( Auto) 1.7, Monocytes # (Auto) 1.2 H, Eosinophils # (Auto) 0.2, Basophils # (Auto ) 0.1 Vital Signs Date Time Temp Pulse Resp B/P Pulse Ox O2 Delivery O2 Flow Rate FiO2 06/02/16 06:00 97.7 95 22 138/62 98 Room Air 05/31/16 05:26 1.0 I&O- Last 24 Hours up to 6 AM 06/02/16 06:00 Intake Total 1450 ml Output Total 775 ml Balance 675 ml NATHANAEL FERRO MD Jun 02, 2016 11:33
--- NOTE | 2016-06-06 17:33 | DSES ---
DATE OF ADMISSION: 05/21/2016 DATE OF DISCHARGE: 06/02/2016 PRINCIPAL DIAGNOSIS: Perforated duodenal ulcer. ASSOCIATED DIAGNOSES: 1. History of recent weight loss. 2. History of peripheral vascular disease. 3. History of hypertension. PROCEDURES PERFORMED: Exploratory laparotomy with oversewing of duodenal ulcer, pyloric exclusion and gastrojejunostomy (Billroth II). BRIEF HOSPITAL COURSE SUMMARY: The patient was seen in the emergency room with a prolonged history of abdominal pain about two weeks with some ascites and underwent an aspiration of fluid intra-abdominally which revealed succus entericus. At that point, we planned on taking him to the operating room. However, he developed a cold right leg and was brought to the radiology/MRI for an angiogram which revealed some chronic severe arterial insufficiency with occlusions and reconstitutions of lower extremities. In any case, because of some progressive sepsis, hypotension over a very short period of time, he is taken emergently to the operating room where he underwent exploratory laparotomy and had what appeared to be a probable perforated duodenum that had sealed off and was most likely the reason of his abdominal pain for two weeks, and then probably re-perforated his duodenum on the day of admission. He underwent operative intervention and because of the inflammatory changes in the duodenum and essentially what was probably two perforations adjacent to itself in the duodenal bulb and first portion of the duodenum, this area was able to be oversewn but I felt that we needed to divert gastrointestinal (GI) contents and thus, the pylorus was excluded using a TA stapler, and then a gastrojejunostomy was performed. Postoperatively he had a very slow but progressive improvement over the next few weeks with a slow resolution of his of his ileus. Given the amount of inflammatory changes, he had some drains that were in place draining a significant amount. As these turned to serous, they were removed. He also had followup CAT scans performed because of elevated white count which showed a left subcostal fluid collection which was also drained percutaneously, and this was discontinued prior to his discharge home. He had evidence of a fungal infection within this peritoneal fluid. Eventually he was able to be discharged home on Augmentin and fluconazole. He was tolerating a regular diet, had an incision which was clean, dry, healing without any erythema, drainage, discharge, and was to followup in my office in two weeks. Followup with a primary care provider in 1-2 weeks.
== END 2016-06-02 14:52 | disposition home or self-care (01) | DRG 220 ==
LOC: M ED 23:03 → M ED INP 05-21 03:12 → M MSPAV 05-21 03:56 → M ICU 05-21 21:31 → M MSPAV 05-24 21:35
PROVIDERS: ADMIT Surgery; ATTEND Surgery
PROC: 05HB33Z Insertion of Infusion Device into Right Basilic Vein, Percutaneous Approach (ICD-10-PCS; 2016-05-21)
PROC: 0DQ90ZZ Repair Duodenum, Open Approach (ICD-10-PCS; principal; 2016-05-21 16:39)
PROC: 0D1 Gastrointestinal System, Bypass (ICD-10-PCS; 2016-05-27)
PROC: 0W9G3ZX Drainage of Peritoneal Cavity, Percutaneous Approach, Diagnostic (ICD-10-PCS; 2016-05-27)
PROC: 0W9G30Z Drainage of Peritoneal Cavity with Drainage Device, Percutaneous Approach (ICD-10-PCS; 2016-05-27)
DX: K26.1 Acute duodenal ulcer with perforation (principal); A41.9 Sepsis, unspecified organism; R64 Cachexia; R18.8 Other ascites; F17.210 Nicotine dependence, cigarettes, uncomplicated; I10 Essential (primary) hypertension; I73.9 Peripheral vascular disease, unspecified; E87.6 Hypokalemia; K65.1 Peritoneal abscess

== ENCOUNTER → 2016-06-18 | Outpatient (REF) | payer SELFPAY ==
[~2016-06-18] MED LIST: AMOX875T2 PO; FLUC10TA PO; PANT40TA2 PO; PENT40TASA PO; TYLE500T78 PO
== END ==
LOC: M LAB REF 08:58
PROVIDERS: ATTEND Surgery
DX: R19.7 Diarrhea, unspecified (principal)

== ENCOUNTER → 2016-06-25 | Outpatient (REF) | payer SELFPAY ==
[2016-06-25 13:41] LABS: BASO % 0.5 % (0.0-1.0); EOS % 0.4 % (0.0-3.0); LARGE UNSTAINED CELL # 0.4 K/mm3 (0.0-0.4); LARGE UNSTAINED CELL % 3.8 % (0.0-4.0); LYMPH # 1.7 K/mm3 (1.5-4.5); LYMPH % 15.5 % (24.0-44.0); MEAN CORPUSCULAR HEMOGLOBIN 32.2 pg (27.0-33.0); MEAN CORPUSCULAR HGB CONC 31.7 g/dl (32.0-36.5); MEAN CORPUSCULAR VOLUME 101.5 fl (80.0-96.0); MONO # 0.8 K/mm3 (0.0-0.8); MONO % 7.5 % (0.0-5.0); NEUTROPHILS % 72.2 % (36.0-66.0); PLATELET COUNT, AUTOMATED 392 k/mm3 (150-450); WHITE BLOOD COUNT 11.1 K/mm3 (4.0-10.0)
[2016-06-25 13:57] LABS: ALBUMIN/GLOBULIN RATIO 0.88 (1.00-1.93); ALKALINE PHOSPHATASE 64 U/L (45-117); ALT/SGPT 24 U/L (12-78); ANION GAP 8 MEQ/L (8-16); AST/SGOT 22 U/L (15-37); BILIRUBIN,TOTAL 0.3 MG/DL (0.2-1.0); BLOOD UREA NITROGEN 17 MG/DL (7-18); CALCIUM LEVEL 9.2 MG/DL (8.5-10.1); CARBON DIOXIDE LEVEL 29 MEQ/L (21-32); CHLORIDE LEVEL 105 MEQ/L (98-107); CHOLESTEROL LEVEL 122 MG/DL (<200); CREATININE FOR GFR 0.68 MG/DL (0.70-1.30); GLOMERULAR FILTRATION RATE > 60.0 (>56); GLUCOSE, FASTING 100 MG/DL (70-105); POTASSIUM SERUM 4.4 MEQ/L (3.5-5.1); SODIUM LEVEL 142 MEQ/L (136-145); TOTAL PROTEIN 6.4 GM/DL (6.4-8.2); TRIGLYCERIDES LEVEL 91 MG/DL (<150)
[2016-06-25 14:00] LABS: HEPATITIS B SURFACE ANTIBODY POSITIVE (POSITIVE)
[2016-06-25 14:09] LABS: CONTROL LINE INT CTR LINE PRESENT; HIV SCRN NEGATIVE (NEGATIVE); HIV SCRN1 NEGATIVE (NEGATIVE)
== END ==
LOC: M LABDRAW1 13:27
PROVIDERS: ATTEND Family Medicine
DX: Z76.89 Persons encountering health services in other specified circumstances (principal); Z13.220 Encounter for screening for lipoid disorders; I73.9 Peripheral vascular disease, unspecified; B37.9 Candidiasis, unspecified

== ENCOUNTER 2016-07-10 10:38 | Emergency (ER) | payer OTHER, SELFPAY ==
[2016-07-10] MEDS ORDERED: GASTROGRAFIN SOLUTION 30ML (Q9963) As Ordered ONE (11:04)
[2016-07-10] MEDS ORDERED: MORPHINE 2 MG/ML 1ML SYRINGE As Ordered ONE (11:04)
[2016-07-10 11:21] LABS: BASO % 0.3 % (0.0-1.0); EOS # 0.1 K/mm3 (0.0-0.50); LARGE UNSTAINED CELL # 0.4 K/mm3 (0.0-0.4); LARGE UNSTAINED CELL % 3.6 % (0.0-4.0); LYMPH # 1.9 K/mm3 (1.5-4.5); LYMPH % 15.9 % (24.0-44.0); MEAN CORPUSCULAR HEMOGLOBIN 32.7 pg (27.0-33.0); MEAN CORPUSCULAR HGB CONC 33.1 g/dl (32.0-36.5); MONO # 0.7 K/mm3 (0.0-0.8); MONO % 5.4 % (0.0-5.0); NEUTROPHILS # 8.8 K/mm3 (1.8-7.7); NEUTROPHILS % 73.8 % (36.0-66.0); PLATELET COUNT, AUTOMATED 374 k/mm3 (150-450); WHITE BLOOD COUNT 11.9 K/mm3 (4.0-10.0)
[2016-07-10 11:46] LABS: ALBUMIN 3.2 GM/DL (3.2-5.2); ALBUMIN/GLOBULIN RATIO 0.84 (1.00-1.93); ALKALINE PHOSPHATASE 69 U/L (45-117); ALT/SGPT 26 U/L (12-78); ANION GAP 6 MEQ/L (8-16); AST/SGOT 16 U/L (15-37); BILIRUBIN,DIRECT < 0.1 MG/DL (0.0-0.2); BILIRUBIN,TOTAL 0.3 MG/DL (0.2-1.0); BLOOD UREA NITROGEN 16 MG/DL (7-18); CALCIUM LEVEL 8.9 MG/DL (8.5-10.1); CARBON DIOXIDE LEVEL 30 MEQ/L (21-32); CHLORIDE LEVEL 104 MEQ/L (98-107); CREATININE FOR GFR 0.67 MG/DL (0.70-1.30); GLOMERULAR FILTRATION RATE > 60.0 (>56); GLUCOSE, FASTING 140 MG/DL (70-105); POTASSIUM SERUM 3.5 MEQ/L (3.5-5.1); SODIUM LEVEL 140 MEQ/L (136-145)
[2016-07-10] MEDS ORDERED: ISOVUE-370 76% 100ML VIAL (Q9967) As Ordered ONE (12:14)
--- NOTE | 2016-07-10 13:55 | EDDOCDS ---
Nurse's Notes [facility] Name: Artie Ferguson Age: 60 yrs Sex: Male : 1955 Arrival Date: 07/10/2016 Time: 10:38 Bed I7 Private MD: Steve Heck Diagnosis: Left sided colitis Presentation: 07/10 10:43 Presenting complaint: Patient states: LLQ pain began yesterday denies N/V/D. Adult mlb1 Sepsis Screening: The patient does not have new or worsening altered mentation. Patient's respiratory rate is less than 22. Systolic blood pressure is greater than 100. Patient has a qSOFA score of 0- Negative Sepsis Screen. Suicide/Homicide risk assessment- the patient denies having any suicidal and/or homicidal ideations and does not present with any other emotional, behavioral or mental health complaints. Status: Patient is not a creative services producer or dependent. Transition of care: patient was not received from another setting of care. 10:43 Acuity: RAISA Level 3 mlb1 10:43 Method Of Arrival: Walkin/Carried/Asstd mlb1 Triage Assessment: 10:50 General: Appears slender, Behavior is appropriate for age, cooperative. Pain: Denies mlb1 pain. Location: left lower quadrant Pain. HIV screening NA for this visit Offered previously. GI: Denies constipation, diarrhea, nausea, vomiting. 13:54 GI: Reports lower abdominal pain. dls Historical: - Allergies: no known allergies; - Home Meds: 1. atorvastatin 20 mg oral tab 1 tab once daily 2. lisinopril 10 mg Oral tab 1 tab once daily 3. pantoprazole 40 mg oral TbEC 1 tab 2 times per day 4. pentoxifylline 400 mg oral TbER 1 tab 2 times per day - PMHx: none; - PSHx: abdominal surgery perforated stomach; - Social history: Smoking status: Patient uses tobacco products, heavy tobacco smoker. No barriers to communication noted, The patient speaks fluent Indian, Speaks appropriately for age. - Family history: Not pertinent. - : The pt / caregiver states he / she is not on anticoagulants. Home medication list is obtained from the patient. - Exposure Risk Screening:: None identified. Screenin:05 Screening information is obtained from the patient. Fall risk: No risks identified. mk4 13:03 Assistance ADL's: requires no assistance with activities of daily living. Abuse/DV mk4 Screen: The patient / caregiver reports he/she is: not in a situation that causes fear, pain or injury. Nutritional screening: No deficits noted. Advance Directives: Currently, there is no health care proxy. There is no active DNR order. There is no living will. There is no Power of Excavator Operator. Advance directive information has not previously been placed in an [facility] medical record. Further advance directive information is declined. home support is adequate. Assessment: 11:05 General: Appears uncomfortable. Pain: Location: left lower quadrant Pain began 1 day mk4 ago. GI: Abdomen is flat, non- distended Bowel sounds present X 4 quads. Abd is soft and non tender X 4 quads. Derm: Skin is intact, is healthy with good turgor, Skin is pink, warm & dry. 13:03 General: Appears in no apparent distress, Behavior is cooperative. Pain: Location: left mk4 lower quadrant Quality of pain is described as Is intermittent episodic lasting a few seconds. Neurological: Level of Consciousness is awake, alert. Derm: Skin is intact, Skin is pale. Vital Signs: 10:40 BP 154 / 69; Pulse 98; Resp 18; Temp 96.5(O); Pulse Ox 100% on R/A; Weight 53.07 kg; dem1 Height 5 ft. 11 in. (180.34 cm); Pain 2/10; 13:40 BP 127 / 60; Pulse 81; Resp 20; Temp 98.3(O); Pulse Ox 100% on R/A; Pain 0/10; jml1 10:40 Body Mass Index 16.32 (53.07 kg, 180.34 cm) [facility] Vitals: 10:40 Log In Time: July 10, 2016 at 10:37. [facility] ED Course: 10:40 Patient visited by Bucky Osei. dem1 10:40 Steve Heck DO is Private Physician. dem1 10:40 Patient moved to Waiting dem1 10:41 Patient visited by Bucky Osei. dem1 10:41 Patient moved to Pre RCE dem1 10:44 Triage Initiated mlb1 10:48 Monster Bear PA-C is PHCP. cc10 10:48 Sulaiman Holcomb MD is Attending Physician. cc10 10:50 Patient visited by Leodan Henry RN. mlb1 10:50 Patient visited by Monster Bear PA-C. cc10 10:50 Patient visited by Monster Bear PA-C. cc10 10:50 Patient moved to Triage 1 mlb1 10:59 Patient moved to I7 / 29 ck1 11:04 [facility] Payment Agreement was scanned into Yek[employer] and attached to record. mm15 11:23 Patient visited by Val Lockhart RN. mk4 12:18 Patient visited by Val Lockhart RN. mk4 12:54 Patient visited by Val Lockhart RN. mk4 13:03 The patient / caregiver is instructed regarding the plan of care and ED course. mk4 13:03 No procedures done that require assistance. mk4 13:05 No IV's were initiated during this patient's visit. No procedures done that require mk4 assistance. 13:28 Patient visited by Val Lockhart RN. mk4 13:34 Torito Duran MD is Referral Physician. cc10 13:40 Patient visited by Raymon Peraza. jml1 13:53 Discontinued IV lock intact, bleeding controlled, pressure dressing applied, No dls redness/swelling at site. Administered Medications: 11:13 Drug: Diatrizoate Meglumine & Sodium 10 ml [diatrizoate meglumine and diat.sodium 66 dls %-10 % oral solution (10 mL)] Route: PO; 11:14 Drug: morphine 2 mg [morphine 2 mg/mL intravenous cartridge (1 mL)] Route: IVP; Site: dls right antecubital; 11:45 Drug: Diatrizoate Meglumine & Sodium 10 ml [diatrizoate meglumine and diat.sodium 66 dls %-10 % oral solution (10 mL)] Route: PO; Order Results: Lab Order: Basic Metabolic Profile; SPEC'07/10/16 11:09 Test: GLUCOSE, FASTING; Value: 140; Range: 70-105; Abnormal: Above high normal; Units: MG/DL; Status: F Test: BLOOD UREA NITROGEN; Value: 16; Range: 7-18; Units: MG/DL; Status: F Test: CREATININE FOR GFR; Value: 0.67; Range: 0.70-1.30; Abnormal: Below low normal; Units: MG/DL; Status: F Test: GLOMERULAR FILTRATION RATE; Value: > 60.0; Range: >56; Status: F Test: SODIUM LEVEL; Value: 140; Range: 136-145; Units: MEQ/L; Status: F Test: POTASSIUM SERUM; Value: 3.5; Range: 3.5-5.1; Units: MEQ/L; Status: F Test: CHLORIDE LEVEL; Value: 104; Range: 98-107; Units: MEQ/L; Status: F Test: CARBON DIOXIDE LEVEL; Value: 30; Range: 21-32; Units: MEQ/L; Status: F Test: ANION GAP; Value: 6; Range: 8-16; Abnormal: Below low normal; Units: MEQ/L; Status: F Test: CALCIUM LEVEL; Value: 8.9; Range: 8.5-10.1; Units: MG/DL; Status: F Test Note: ; Units are mL/min/1.73 m2 Chronic Kidney Disease Staging per NKF: Stage I & II GFR >=60 Normal to Mildly Decreased Stage III GFR 30-59 Moderately Decreased Stage IV GFR 15-29 Severely Decreased Stage V GFR <15 Very Little GFR Left ESRD GFR <15 on [facility] SPECIALIST Lab Order: CBC with Diff; SPEC'M 07/10/16 11:09 Test: WHITE BLOOD COUNT; Value: 11.9; Range: 4.0-10.0; Abnormal: Above high normal; Units: K/mm3; Status: F Test: RED BLOOD COUNT; Value: 4.01; Range: 4.30-6.10; Abnormal: Below low normal; Units: M/mm3; Status: F Test: HEMOGLOBIN; Value: 13.1; Range: 14.0-18.0; Abnormal: Below low normal; Units: g/dl; Status: F Test: HEMATOCRIT; Value: 39.7; Range: 42.0-52.0; Abnormal: Below low normal; Units: %; Status: F Test: MEAN CORPUSCULAR VOLUME; Value: 99.0; Range: 80.0-96.0; Abnormal: Above high normal; Units: fl; Status: F Test: MEAN CORPUSCULAR HEMOGLOBIN; Value: 32.7; Range: 27.0-33.0; Units: pg; Status: F Test: MEAN CORPUSCULAR HGB CONC; Value: 33.1; Range: 32.0-36.5; Units: g/dl; Status: F Test: RED CELL DISTRIBUTION WIDTH; Value: 13.0; Range: 11.5-14.5; Units: %; Status: F Test: PLATELET COUNT, AUTOMATED; Value: 374; Range: 150-450; Units: k/mm3; Status: F Test: NEUTROPHILS %; Value: 73.8; Range: 36.0-66.0; Abnormal: Above high normal; Units: %; Status: F Test: LYMPH %; Value: 15.9; Range: 24.0-44.0; Abnormal: Below low normal; Units: %; Status: F Test: MONO %; Value: 5.4; Range: 0.0-5.0; Abnormal: Above high normal; Units: %; Status: F Test: EOS %; Value: 1.0; Range: 0.0-3.0; Units: %; Status: F Test: BASO %; Value: 0.3; Range: 0.0-1.0; Units: %; Status: F Test: LARGE UNSTAINED CELL %; Value: 3.6; Range: 0.0-4.0; Units: %; Status: F Test: NEUTROPHILS #; Value: 8.8; Range: 1.8-7.7; Abnormal: Above high normal; Units: K/mm3; Status: F Test: LYMPH #; Value: 1.9; Range: 1.5-4.5; Units: K/mm3; Status: F Test: MONO #; Value: 0.7; Range: 0.0-0.8; Units: K/mm3; Status: F Test: EOS #; Value: 0.1; Range: 0.0-0.50; Units: K/mm3; Status: F Test: BASO #; Value: 0.0; Range: 0.0-0.2; Units: K/mm3; Status: F Test: LARGE UNSTAINED CELL #; Value: 0.4; Range: 0.0-0.4; Units: K/mm3; Status: F Lab Order: Lipase; SPEC'M 07/10/16 11:09 Test: LIPASE; Value: 172; Range: 73-393; Units: U/L; Status: F Lab Order: Liver Profile; SPEC'M 07/10/16 11:09 Test: AST/SGOT; Value: 16; Range: 15-37; Units: U/L; Status: F Test: ALT/SGPT; Value: 26; Range: 12-78; Units: U/L; Status: F Test: ALKALINE PHOSPHATASE; Value: 69; Range: 45-117; Units: U/L; Status: F Test: BILIRUBIN,TOTAL; Value: 0.3; Range: 0.2-1.0; Units: MG/DL; Status: F Test: BILIRUBIN,DIRECT; Value: < 0.1; Range: 0.0-0.2; Units: MG/DL; Status: F Test: TOTAL PROTEIN; Value: 7.0; Range: 6.4-8.2; Units: GM/DL; Status: F Test: ALBUMIN; Value: 3.2; Range: 3.2-5.2; Units: GM/DL; Status: F Test: ALBUMIN/GLOBULIN RATIO; Value: 0.84; Range: 1.00-1.93; Abnormal: Below low normal; Status: F Lab Order: Urinalysis; SPEC'M 07/10/16 11:00 Test: APPEARANCE, URINE; Value: HAZY; Range: CLEAR; Status: F Test: COLOR, URINE; Value: YELLOW; Range: YELLOW; Status: F Test: PH,URINE; Value: 5.0; Range: 5.0-9.0; Units: UNITS; Status: F Test: SPECIFIC GRAVITY URINE AUTO; Value: 1.023; Range: 1.002-1.035; Status: F Test: PROTEIN, URINE AUTO; Value: NEGATIVE; Range: NEGATIVE; Units: mg/dL; Status: F Test: GLUCOSE, URINE (UA) AUTO; Value: NEGATIVE; Range: NEGATIVE; Units: mg/dL; Status: F Test: KETONE, URINE AUTO; Value: NEGATIVE; Range: NEGATIVE; Units: mg/dL; Status: F Test: UROBILINOGEN, URINE AUTO; Value: 2.0; Range: 0.0-2.0; Abnormal: Above high normal; Units: mg/dL; Status: F Test: BILIRUBIN, URINE AUTO; Value: NEGATIVE; Range: NEGATIVE; Status: F Test: NITRITE, URINE AUTO; Value: NEGATIVE; Range: NEGATIVE; Status: F Test: LEUKOCYTE ESTERASE, URINE AUTO; Value: NEGATIVE; Range: NEGATIVE; Status: F Test: BLOOD, URINE BLOOD; Value: NEGATIVE; Range: NEGATIVE; Status: F Test: WBC, URINE AUTO; Value: 0; Range: 0-3; Units: /HPF; Status: F Test: RBC, URINE AUTO; Value: 2; Range: 0-3; Units: /HPF; Status: F Test: BACTERIA, URINE AUTO; Value: NEGATIVE; Range: NEGATIVE; Status: F Test: SQUAMOUS EPITHELIAL CELL UR AU; Value: 0; Range: 0-6; Units: /HPF; Status: F Test: MUCUS, URINE; Value: SMALL; Range: NEGATIVE; Status: F Test: HYALINE CAST, URINE AUTO; Value: 0; Range: 0-1; Units: /LPF; Status: F Outcome: 13:34 Discharge ordered by Provider. cc10 13:53 Discharge Assessment: Patient awake, alert and oriented x 3. No cognitive and/or dls functional deficits noted. Patient verbalized understanding of disposition instructions. patient administered narcotics - yes. Pt provided with safe discharge. The following High Risk Discharge criteria are identified: None. Discharged to home ambulatory. Condition: stable. Discharge instructions given to patient, Instructed on discharge instructions, follow up and referral plans. medication usage, Demonstrated understanding of instructions, medications, Pt was receptive of discharge instructions/ teaching. Prescriptions given X 3. CT Study completed. Property sent home with patient. 13:54 Patient left the ED. dls Signatures: Joselin Edmondson RN RN dls Barney, Michael B RN RN mlb1 Jayshree Bond RN RN get1 Raymon Perazal1 Bucky Osei1 Gus Small mm15 Val Lockhart RN RN mk4 Monster Bear, PA-C PA-C cc10 Corrections: (The following items were deleted from the chart) 10:54 10:49 Home Meds: pantoprazole 40 mg oral TbEC 1 tab once daily; mlgabbi mlgabbi MTDD
--- NOTE | 2016-07-10 13:55 | EDDOCDS ---
Physician Documentation [facility] Name: Artie Ferguson Age: 60 yrs Sex: Male : 1955 Arrival Date: 07/10/2016 Time: 10:38 Bed I7 29 Private MD: Steve Heck Disposition: 07/10/16 13:34 Discharged to Home/Self Care. Impression: Left sided colitis. - Condition is Stable. - Discharge Instructions: Abdominal Pain, Adult, Clear Liquid Diet. - Prescriptions for Cipro 500 mg Oral Tablet - take 1 tablet by ORAL route every 12 hours; 14 tablet. Flagyl 500 mg Oral Tablet - take 1 tablet by ORAL route every 8 hours for 10 days; 30 tablet. Ultram 50 mg Oral Tablet - take 1 tablet by ORAL route every 6 hours As needed MDD: 4 tabs; 20 tablet. - Medication Reconciliation form. - Follow up: Torito Duran MD; When: 4 - 5 days; Reason: Wound/Symptom Recheck, Recheck today's complaints, Worsening of conditions, Continuance of care. Follow up: Emergency Department; When: As needed; Reason: Worsening of conditions. - Problem is new. - Symptoms are unchanged. Historical: - Allergies: no known allergies; - Home Meds: 1. atorvastatin 20 mg oral tab 1 tab once daily 2. lisinopril 10 mg Oral tab 1 tab once daily 3. pantoprazole 40 mg oral TbEC 1 tab 2 times per day 4. pentoxifylline 400 mg oral TbER 1 tab 2 times per day - PMHx: none; - PSHx: abdominal surgery perforated stomach; - Social history: Smoking status: Patient uses tobacco products, heavy tobacco smoker. No barriers to communication noted, The patient speaks fluent [place] Irish, Speaks appropriately for age. - Family history: Not pertinent. - : The pt / caregiver states he / she is not on anticoagulants. Home medication list is obtained from the patient. - Exposure Risk Screening:: None identified. Vital Signs: 07/10 10:40 BP 154 / 69; Pulse 98; Resp 18; Temp 96.5(O); Pulse Ox 100% on R/A; Weight 53.07 kg / dem1 117 lbs; Height 5 ft. 11 in. (180.34 cm); Pain 2/10; 13:40 BP 127 / 60; Pulse 81; Resp 20; Temp 98.3(O); Pulse Ox 100% on R/A; Pain 0/10; jml1 10:40 Body Mass Index 16.32 (53.07 kg, 180.34 cm) dem1 MDM: 10:55 IV Saline Lock ordered. cc10 10:55 Undress patient appropriately for examination ordered. cc10 10:55 morphine 2 mg IVP once ordered. cc10 10:57 Financial registration complete. mm15 10:58 Basic Metabolic Profile Ordered. EDMS 10:58 CBC with Diff Ordered. EDMS 10:58 Lipase Ordered. EDMS 10:58 Liver Profile Ordered. EDMS 10:58 Urinalysis Ordered. EDMS 10:58 CT ABD & PELVIS: IV and Oral Contrast Ordered. EDMS 10:58 NOTHING BY MOUTH+DIET ordered. EDMS 11:01 Diatrizoate Meglumine & Sodium Liquid 10 ml PO once; mix in 290cc of water ordered. dls 11:01 Diatrizoate Meglumine & Sodium Liquid 10 ml PO once; mix in 290cc of water ordered. dls 11:04 [facility] Payment Agreement was scanned into [employer] and attached to record. mm15 11:58 Basic Metabolic Profile Reviewed. cc10 11:58 CBC with Diff Reviewed. cc10 11:58 Liver Profile Reviewed. cc10 11:58 Urinalysis Reviewed. cc10 11:58 Lipase Reviewed. cc10 Administered Medications: 11:13 Drug: Diatrizoate Meglumine & Sodium 10 ml [diatrizoate meglumine and diat.sodium 66 dls %-10 % oral solution (10 mL)] Route: PO; 11:14 Drug: morphine 2 mg [morphine 2 mg/mL intravenous cartridge (1 mL)] Route: IVP; Site: dls right antecubital; 11:45 Drug: Diatrizoate Meglumine & Sodium 10 ml [diatrizoate meglumine and diat.sodium 66 dls %-10 % oral solution (10 mL)] Route: PO; Signatures: Dispatcher [employer] EDMS Joselin Edmondson RN RN dls Leodan Henry RN RN mlb1 Gus Small mm15 Val Lockhart RN RN mk4 Monster Bear, PAAnC PA-C cc10 The chart was reviewed and I authenticate all verbal orders and agree with the evaluation and treatment provided.Corrections: (The following items were deleted from the chart) 10:54 10:49 Home Meds: pantoprazole 40 mg oral TbEC 1 tab once daily; mlb1 mlb1 Attachments: 11:04 [facility] Payment Agreement mm15 MTDD
--- NOTE | 2016-07-10 14:25 | REP ---
CT ABDOMEN AND PELVIS WITH CONTRAST: 07/10/2016. Comparison: 05/25/2016. Clinical history: Diverticulitis symptoms. Prior gastric ulcer perforation with surgery. Technique: Oral Gastrografin mixture 10 mL in 290 mL of flavored water for two doses per our bowel contrast protocol. Bolus of 100 mL Isovue 370 given with scanning through the abdomen and pelvis and reconstructions done. Findings: Abdomen: Lung bases are now clear. There are no effusions, infiltrates, or atelectasis. Heart not enlarged. No pericardial thickening or effusion and no hiatal hernia. I see no hepatosplenomegaly. There are a few small cysts in the liver, unchanged. There is no intrahepatic biliary dilatation, solid hepatic mass or any calcified gallstones in the adjacent gallbladder, spleen not enlarged and without a focal lesion. Colon shows some wall thickening on the left colon, splenic flexure and transverse colon greater than right colon. This suggest colitis. I do not see diverticula or diverticulitis. Small bowel loops grossly intact. Stomach filled with some retained food but no hiatal hernia or mass. There is heavy atherosclerotic calcification of the aorta without dissection or aneurysm. No periaortic other retroperitoneal pathologic sized lymphadenopathy. There are surgical clips around the antrum of the stomach, likely related to surgery for gastric perforation. Adrenal glands were normal. Kidneys show function without obstruction, stone, mass or cyst. There was no hydronephrosis or renal stone disease. Most of small bowel loops are fluid filled suggesting some gastroenteritis or ileus. No dilated loops or air-fluid levels. Oral contrast reaches the distal but not terminal ileum. There is no free air or perforation in the abdomen or pelvis. 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 The bone windows show degenerative disc changes at L5- S1 with a few millimeters of retrolisthesis. There is no compression deformity. Visualized ribs intact. CT pelvis: The bony hips, pelvis, sacrum, SI joints and lumbosacral junction were intact. Distal left colon is collapsed. There is wall thickening and edema throughout distal left colon, sigmoid and rectum. The findings represent colitis. No diverticulitis. Small bowel loops contrast filled in the deep pelvis within the distal ileum while the terminal ileum was fluid-filled without oral contrast yet but no dilated loops or signs of obstruction. No inflammatory changes about the cecum. Prostate has calcifications but is not grossly enlarged. Bladder shows no wall thickening, stone or mass and the distal ureters are not dilated. No ureteral stones seen. No ventral or inguinal hernia nor pathologic inguinal adenopathy. Impression: 1. Pancolitis noted from cecum to the rectosigmoid without signs of diverticulosis or diverticulitis. 2. Small bowel loops fluid-filled but not abnormally dilated. No signs of obstruction. 3. There is no ascites, adenopathy or free air. 4. A few hepatic cysts noted but the liver, spleen, gallbladder, kidneys, adrenal glands are grossly intact. Pancreas unremarkable. No other significant finding. Signed by Kedar Yang MD 07/10/2016 07:39 P
--- NOTE | 2016-07-12 14:55 | EDDOCDS ---
Physician Documentation [facility] Name: Artie Ferguson Age: 60 yrs Sex: Male : 1955 Arrival Date: 07/10/2016 Time: 10:38 Bed I7 29 Private MD: Steve Heck Disposition: 07/10/16 13:34 Discharged to Home/Self Care. Impression: Left sided colitis. - Condition is Stable. - Discharge Instructions: Abdominal Pain, Adult, Clear Liquid Diet. - Prescriptions for Cipro 500 mg Oral Tablet - take 1 tablet by ORAL route every 12 hours; 14 tablet. Flagyl 500 mg Oral Tablet - take 1 tablet by ORAL route every 8 hours for 10 days; 30 tablet. Ultram 50 mg Oral Tablet - take 1 tablet by ORAL route every 6 hours As needed MDD: 4 tabs; 20 tablet. - Medication Reconciliation form. - Follow up: Torito Duran MD; When: 4 - 5 days; Reason: Wound/Symptom Recheck, Recheck today's complaints, Worsening of conditions, Continuance of care. Follow up: Emergency Department; When: As needed; Reason: Worsening of conditions. - Problem is new. - Symptoms are unchanged. Historical: - Allergies: no known allergies; - Home Meds: 1. atorvastatin 20 mg oral tab 1 tab once daily 2. lisinopril 10 mg Oral tab 1 tab once daily 3. pantoprazole 40 mg oral TbEC 1 tab 2 times per day 4. pentoxifylline 400 mg oral TbER 1 tab 2 times per day - PMHx: none; - PSHx: abdominal surgery perforated stomach; - Social history: Smoking status: Patient uses tobacco products, heavy tobacco smoker. No barriers to communication noted, The patient speaks fluent [place]guill[place], Speaks appropriately for age. - Family history: Not pertinent. - : The pt / caregiver states he / she is not on anticoagulants. Home medication list is obtained from the patient. - Exposure Risk Screening:: None identified. Vital Signs: 07/10 10:40 BP 154 / 69; Pulse 98; Resp 18; Temp 96.5(O); Pulse Ox 100% on R/A; Weight 53.07 kg / dem1 117 lbs; Height 5 ft. 11 in. (180.34 cm); Pain 2/10; 13:40 BP 127 / 60; Pulse 81; Resp 20; Temp 98.3(O); Pulse Ox 100% on R/A; Pain 0/10; jml1 10:40 Body Mass Index 16.32 (53.07 kg, 180.34 cm) dem1 MDM: 10:55 IV Saline Lock ordered. cc10 10:55 Undress patient appropriately for examination ordered. cc10 10:55 morphine 2 mg IVP once ordered. cc10 10:57 Financial registration complete. mm15 10:58 Basic Metabolic Profile Ordered. EDMS 10:58 CBC with Diff Ordered. EDMS 10:58 Lipase Ordered. EDMS 10:58 Liver Profile Ordered. EDMS 10:58 Urinalysis Ordered. EDMS 10:58 CT ABD & PELVIS: IV and Oral Contrast Ordered. EDMS 10:58 NOTHING BY MOUTH+DIET ordered. EDMS 11:01 Diatrizoate Meglumine & Sodium Liquid 10 ml PO once; mix in 290cc of water ordered. dls 11:01 Diatrizoate Meglumine & Sodium Liquid 10 ml PO once; mix in 290cc of water ordered. dls 11:04 [facility] Payment Agreement was scanned into [employer]oguides and attached to record. mm15 11:58 Basic Metabolic Profile Reviewed. cc10 11:58 CBC with Diff Reviewed. cc10 11:58 Liver Profile Reviewed. cc10 11:58 Urinalysis Reviewed. cc10 11:58 Lipase Reviewed. cc10 17:40 T-Sheet-- Draft Copy was scanned into [employer]oguides and attached to record. klr Administered Medications: 11:13 Drug: Diatrizoate Meglumine & Sodium 10 ml [diatrizoate meglumine and diat.sodium 66 dls %-10 % oral solution (10 mL)] Route: PO; 11:14 Drug: morphine 2 mg [morphine 2 mg/mL intravenous cartridge (1 mL)] Route: IVP; Site: dls right antecubital; 11:45 Drug: Diatrizoate Meglumine & Sodium 10 ml [diatrizoate meglumine and diat.sodium 66 dls %-10 % oral solution (10 mL)] Route: PO; Signatures: Dispatcher [employer] MELT EDMS Joselin Edmondson RN RN dls Leodan Henry RN RN mlb1 Gus Small mm15 Val Lockhart RN RN mk4 [place], KRIS Hook PA-C cc10 Shelby Murcia The chart was reviewed and I authenticate all verbal orders and agree with the evaluation and treatment provided.Corrections: (The following items were deleted from the chart) 10:54 10:49 Home Meds: pantoprazole 40 mg oral TbEC 1 tab once daily; mlb1 mlb1 Attachments: 11:04 [facility] Payment Agreement mm15 17:40 T-Sheet-- Draft Copy klr Chart Complete MTDD
--- NOTE | 2016-07-12 14:55 | EDDOCDS ---
Physician Documentation [facility] Name: Artie Ferguson Age: 60 yrs Sex: Male : 1955 Arrival Date: 07/10/2016 Time: 10:38 Bed I7 29 Private MD: Steve Heck Disposition: 07/10/16 13:34 Discharged to Home/Self Care. Impression: Left sided colitis. - Condition is Stable. - Discharge Instructions: Abdominal Pain, Adult, Clear Liquid Diet. - Prescriptions for Cipro 500 mg Oral Tablet - take 1 tablet by ORAL route every 12 hours; 14 tablet. Flagyl 500 mg Oral Tablet - take 1 tablet by ORAL route every 8 hours for 10 days; 30 tablet. Ultram 50 mg Oral Tablet - take 1 tablet by ORAL route every 6 hours As needed MDD: 4 tabs; 20 tablet. - Medication Reconciliation form. - Follow up: Torito Duran MD; When: 4 - 5 days; Reason: Wound/Symptom Recheck, Recheck today's complaints, Worsening of conditions, Continuance of care. Follow up: Emergency Department; When: As needed; Reason: Worsening of conditions. - Problem is new. - Symptoms are unchanged. Historical: - Allergies: no known allergies; - Home Meds: 1. atorvastatin 20 mg oral tab 1 tab once daily 2. lisinopril 10 mg Oral tab 1 tab once daily 3. pantoprazole 40 mg oral TbEC 1 tab 2 times per day 4. pentoxifylline 400 mg oral TbER 1 tab 2 times per day - PMHx: none; - PSHx: abdominal surgery perforated stomach; - Social history: Smoking status: Patient uses tobacco products, heavy tobacco smoker. No barriers to communication noted, The patient speaks fluent Tristanian, Speaks appropriately for age. - Family history: Not pertinent. - : The pt / caregiver states he / she is not on anticoagulants. Home medication list is obtained from the patient. - Exposure Risk Screening:: None identified. Vital Signs: 07/10 10:40 BP 154 / 69; Pulse 98; Resp 18; Temp 96.5(O); Pulse Ox 100% on R/A; Weight 53.07 kg / dem1 117 lbs; Height 5 ft. 11 in. (180.34 cm); Pain 2/10; 13:40 BP 127 / 60; Pulse 81; Resp 20; Temp 98.3(O); Pulse Ox 100% on R/A; Pain 0/10; jml1 10:40 Body Mass Index 16.32 (53.07 kg, 180.34 cm) dem1 MDM: 10:55 IV Saline Lock ordered. cc10 10:55 Undress patient appropriately for examination ordered. cc10 10:55 morphine 2 mg IVP once ordered. cc10 10:57 Financial registration complete. mm15 10:58 Basic Metabolic Profile Ordered. EDMS 10:58 CBC with Diff Ordered. EDMS 10:58 Lipase Ordered. EDMS 10:58 Liver Profile Ordered. EDMS 10:58 Urinalysis Ordered. EDMS 10:58 CT ABD & PELVIS: IV and Oral Contrast Ordered. EDMS 10:58 NOTHING BY MOUTH+DIET ordered. EDMS 11:01 Diatrizoate Meglumine & Sodium Liquid 10 ml PO once; mix in 290cc of water ordered. dls 11:01 Diatrizoate Meglumine & Sodium Liquid 10 ml PO once; mix in 290cc of water ordered. dls 11:04 [facility] Payment Agreement was scanned into [employer] and attached to record. mm15 11:58 Basic Metabolic Profile Reviewed. cc10 11:58 CBC with Diff Reviewed. cc10 11:58 Liver Profile Reviewed. cc10 11:58 Urinalysis Reviewed. cc10 11:58 Lipase Reviewed. cc10 17:40 T-Sheet-- Draft Copy was scanned into [employer] and attached to record. klr Administered Medications: 11:13 Drug: Diatrizoate Meglumine & Sodium 10 ml [diatrizoate meglumine and diat.sodium 66 dls %-10 % oral solution (10 mL)] Route: PO; 11:14 Drug: morphine 2 mg [morphine 2 mg/mL intravenous cartridge (1 mL)] Route: IVP; Site: dls right antecubital; 11:45 Drug: Diatrizoate Meglumine & Sodium 10 ml [diatrizoate meglumine and diat.sodium 66 dls %-10 % oral solution (10 mL)] Route: PO; Signatures: Dispatcher [employer] EDMS Joselin Edmondson RN RN dls Leodan Henry RN RN mlb1 Gus Small mm15 Val Lockhart RN RN mk4 [place], KRIS Hook PA-C cc10 Shelby Murcia The chart was reviewed and I authenticate all verbal orders and agree with the evaluation and treatment provided.Corrections: (The following items were deleted from the chart) 10:54 10:49 Home Meds: pantoprazole 40 mg oral TbEC 1 tab once daily; mlb1 mlb1 Attachments: 11:04 [facility] [place] Agreement mm15 17:40 T-Sheet-- Draft Copy klr Chart Complete MTDD
--- NOTE | 2016-07-12 14:55 | EDDOCDS ---
Nurse's Notes [facility] Name: Artie Ferguson Age: 60 yrs Sex: Male : 1955 Arrival Date: 07/10/2016 Time: 10:38 Bed I7 Private MD: Steve Heck Diagnosis: Left sided colitis Presentation: 07/10 10:43 Presenting complaint: Patient states: LLQ pain began yesterday denies N/V/D. Adult mlb1 Sepsis Screening: The patient does not have new or worsening altered mentation. Patient's respiratory rate is less than 22. Systolic blood pressure is greater than 100. Patient has a qSOFA score of 0- Negative Sepsis Screen. Suicide/Homicide risk assessment- the patient denies having any suicidal and/or homicidal ideations and does not present with any other emotional, behavioral or mental health complaints. Status: Patient is not a administrative services officer or dependent. Transition of care: patient was not received from another setting of care. 10:43 Acuity: RAISA Level 3 mlb1 10:43 Method Of Arrival: Walkin/Carried/Asstd mlb1 Triage Assessment: 10:50 General: Appears slender, Behavior is appropriate for age, cooperative. Pain: Denies mlb1 pain. Location: left lower quadrant Pain. HIV screening NA for this visit Offered previously. GI: Denies constipation, diarrhea, nausea, vomiting. 13:54 GI: Reports lower abdominal pain. dls Historical: - Allergies: no known allergies; - Home Meds: 1. atorvastatin 20 mg oral tab 1 tab once daily 2. lisinopril 10 mg Oral tab 1 tab once daily 3. pantoprazole 40 mg oral TbEC 1 tab 2 times per day 4. pentoxifylline 400 mg oral TbER 1 tab 2 times per day - PMHx: none; - PSHx: abdominal surgery perforated stomach; - Social history: Smoking status: Patient uses tobacco products, heavy tobacco smoker. No barriers to communication noted, The patient speaks fluent Sierra Leonean, Speaks appropriately for age. - Family history: Not pertinent. - : The pt / caregiver states he / she is not on anticoagulants. Home medication list is obtained from the patient. - Exposure Risk Screening:: None identified. Screenin:05 Screening information is obtained from the patient. Fall risk: No risks identified. mk4 13:03 Assistance ADL's: requires no assistance with activities of daily living. Abuse/DV mk4 Screen: The patient / caregiver reports he/she is: not in a situation that causes fear, pain or injury. Nutritional screening: No deficits noted. Advance Directives: Currently, there is no health care proxy. There is no active DNR order. There is no living will. There is no Power of Head Concierge. Advance directive information has not previously been placed in an [facility] medical record. Further advance directive information is declined. home support is adequate. Assessment: 11:05 General: Appears uncomfortable. Pain: Location: left lower quadrant Pain began 1 day mk4 ago. GI: Abdomen is flat, non- distended Bowel sounds present X 4 quads. Abd is soft and non tender X 4 quads. Derm: Skin is intact, is healthy with good turgor, Skin is pink, warm & dry. 13:03 General: Appears in no apparent distress, Behavior is cooperative. Pain: Location: left mk4 lower quadrant Quality of pain is described as Is intermittent episodic lasting a few seconds. Neurological: Level of Consciousness is awake, alert. Derm: Skin is intact, Skin is pale. Vital Signs: 10:40 BP 154 / 69; Pulse 98; Resp 18; Temp 96.5(O); Pulse Ox 100% on R/A; Weight 53.07 kg; dem1 Height 5 ft. 11 in. (180.34 cm); Pain 2/10; 13:40 BP 127 / 60; Pulse 81; Resp 20; Temp 98.3(O); Pulse Ox 100% on R/A; Pain 0/10; jml1 10:40 Body Mass Index 16.32 (53.07 kg, 180.34 cm) [facility] Vitals: 10:40 Log In Time: July 10, 2016 at 10:37. [facility] ED Course: 10:40 Patient visited by Bucky Osei. dem1 10:40 Steve Heck DO is Private Physician. dem1 10:40 Patient moved to Waiting dem1 10:41 Patient visited by Bucky Osei. dem1 10:41 Patient moved to Pre RCE dem1 10:44 Triage Initiated mlb1 10:48 Monster Bear PA-C is PHCP. cc10 10:48 Sulaiman Holcomb MD is Attending Physician. cc10 10:50 Patient visited by Leodan Henry RN. mlb1 10:50 Patient visited by Monster Bear PA-C. cc10 10:50 Patient visited by Monster Bear PA-C. cc10 10:50 Patient moved to Triage 1 mlb1 10:59 Patient moved to I7 / 29 ck1 11:04 [facility] Payment Agreement was scanned into [employer] and attached to record. mm15 11:23 Patient visited by Val Lockhart RN. mk4 12:18 Patient visited by Val Lockhart RN. mk4 12:54 Patient visited by Val Lockhart RN. mk4 13:03 The patient / caregiver is instructed regarding the plan of care and ED course. mk4 13:03 No procedures done that require assistance. mk4 13:05 No IV's were initiated during this patient's visit. No procedures done that require mk4 assistance. 13:28 Patient visited by Val Lockhart RN. mk4 13:34 Torito Duran MD is Referral Physician. cc10 13:40 Patient visited by Raymon Peraza. jml1 13:53 Discontinued IV lock intact, bleeding controlled, pressure dressing applied, No dls redness/swelling at site. 14:59 CT ABD & PELVIS: IV and Oral Contrast Returned. EDMS 17:40 T-Sheet-- Draft Copy was scanned into [employer] and attached to record. klr Administered Medications: 11:13 Drug: Diatrizoate Meglumine & Sodium 10 ml [diatrizoate meglumine and diat.sodium 66 dls %-10 % oral solution (10 mL)] Route: PO; 11:14 Drug: morphine 2 mg [morphine 2 mg/mL intravenous cartridge (1 mL)] Route: IVP; Site: dls right antecubital; 11:45 Drug: Diatrizoate Meglumine & Sodium 10 ml [diatrizoate meglumine and diat.sodium 66 dls %-10 % oral solution (10 mL)] Route: PO; Order Results: Lab Order: Basic Metabolic Profile; SPEC'M 07/10/16 11:09 Test: GLUCOSE, FASTING; Value: 140; Range: 70-105; Abnormal: Above high normal; Units: MG/DL; Status: F Test: BLOOD UREA NITROGEN; Value: 16; Range: 7-18; Units: MG/DL; Status: F Test: CREATININE FOR GFR; Value: 0.67; Range: 0.70-1.30; Abnormal: Below low normal; Units: MG/DL; Status: F Test: GLOMERULAR FILTRATION RATE; Value: > 60.0; Range: >56; Status: F Test: SODIUM LEVEL; Value: 140; Range: 136-145; Units: MEQ/L; Status: F Test: POTASSIUM SERUM; Value: 3.5; Range: 3.5-5.1; Units: MEQ/L; Status: F Test: CHLORIDE LEVEL; Value: 104; Range: 98-107; Units: MEQ/L; Status: F Test: CARBON DIOXIDE LEVEL; Value: 30; Range: 21-32; Units: MEQ/L; Status: F Test: ANION GAP; Value: 6; Range: 8-16; Abnormal: Below low normal; Units: MEQ/L; Status: F Test: CALCIUM LEVEL; Value: 8.9; Range: 8.5-10.1; Units: MG/DL; Status: F Test Note: ; Units are mL/min/1.73 m2 Chronic Kidney Disease Staging per NKF: Stage I & II GFR >=60 Normal to Mildly Decreased Stage III GFR 30-59 Moderately Decreased Stage IV GFR 15-29 Severely Decreased Stage V GFR <15 Very Little GFR Left ESRD GFR <15 on DIGITAL MEDIA STRATEGIST Lab Order: CBC with Diff; SPEC'M 07/10/16 11:09 Test: WHITE BLOOD COUNT; Value: 11.9; Range: 4.0-10.0; Abnormal: Above high normal; Units: K/mm3; Status: F Test: RED BLOOD COUNT; Value: 4.01; Range: 4.30-6.10; Abnormal: Below low normal; Units: M/mm3; Status: F Test: HEMOGLOBIN; Value: 13.1; Range: 14.0-18.0; Abnormal: Below low normal; Units: g/dl; Status: F Test: HEMATOCRIT; Value: 39.7; Range: 42.0-52.0; Abnormal: Below low normal; Units: %; Status: F Test: MEAN CORPUSCULAR VOLUME; Value: 99.0; Range: 80.0-96.0; Abnormal: Above high normal; Units: fl; Status: F Test: MEAN CORPUSCULAR HEMOGLOBIN; Value: 32.7; Range: 27.0-33.0; Units: pg; Status: F Test: MEAN CORPUSCULAR HGB CONC; Value: 33.1; Range: 32.0-36.5; Units: g/dl; Status: F Test: RED CELL DISTRIBUTION WIDTH; Value: 13.0; Range: 11.5-14.5; Units: %; Status: F Test: PLATELET COUNT, AUTOMATED; Value: 374; Range: 150-450; Units: k/mm3; Status: F Test: NEUTROPHILS %; Value: 73.8; Range: 36.0-66.0; Abnormal: Above high normal; Units: %; Status: F Test: LYMPH %; Value: 15.9; Range: 24.0-44.0; Abnormal: Below low normal; Units: %; Status: F Test: MONO %; Value: 5.4; Range: 0.0-5.0; Abnormal: Above high normal; Units: %; Status: F Test: EOS %; Value: 1.0; Range: 0.0-3.0; Units: %; Status: F Test: BASO %; Value: 0.3; Range: 0.0-1.0; Units: %; Status: F Test: LARGE UNSTAINED CELL %; Value: 3.6; Range: 0.0-4.0; Units: %; Status: F Test: NEUTROPHILS #; Value: 8.8; Range: 1.8-7.7; Abnormal: Above high normal; Units: K/mm3; Status: F Test: LYMPH #; Value: 1.9; Range: 1.5-4.5; Units: K/mm3; Status: F Test: MONO #; Value: 0.7; Range: 0.0-0.8; Units: K/mm3; Status: F Test: EOS #; Value: 0.1; Range: 0.0-0.50; Units: K/mm3; Status: F Test: BASO #; Value: 0.0; Range: 0.0-0.2; Units: K/mm3; Status: F Test: LARGE UNSTAINED CELL #; Value: 0.4; Range: 0.0-0.4; Units: K/mm3; Status: F Lab Order: Lipase; SPEC'M 07/10/16 11:09 Test: LIPASE; Value: 172; Range: 73-393; Units: U/L; Status: F Lab Order: Liver Profile; [facility]'M 07/10/16 11:09 Test: AST/SGOT; Value: 16; Range: 15-37; Units: U/L; Status: F Test: ALT/SGPT; Value: 26; Range: 12-78; Units: U/L; Status: F Test: ALKALINE PHOSPHATASE; Value: 69; Range: 45-117; Units: U/L; Status: F Test: BILIRUBIN,TOTAL; Value: 0.3; Range: 0.2-1.0; Units: MG/DL; Status: F Test: BILIRUBIN,DIRECT; Value: < 0.1; Range: 0.0-0.2; Units: MG/DL; Status: F Test: TOTAL PROTEIN; Value: 7.0; Range: 6.4-8.2; Units: GM/DL; Status: F Test: ALBUMIN; Value: 3.2; Range: 3.2-5.2; Units: GM/DL; Status: F Test: ALBUMIN/GLOBULIN RATIO; Value: 0.84; Range: 1.00-1.93; Abnormal: Below low normal; Status: F Lab Order: Urinalysis; [facility]' 07/10/16 11:00 Test: APPEARANCE, URINE; Value: HAZY; Range: CLEAR; Status: F Test: COLOR, URINE; Value: YELLOW; Range: YELLOW; Status: F Test: PH,URINE; Value: 5.0; Range: 5.0-9.0; Units: UNITS; Status: F Test: SPECIFIC GRAVITY URINE AUTO; Value: 1.023; Range: 1.002-1.035; Status: F Test: PROTEIN, URINE AUTO; Value: NEGATIVE; Range: NEGATIVE; Units: mg/dL; Status: F Test: GLUCOSE, URINE (UA) AUTO; Value: NEGATIVE; Range: NEGATIVE; Units: mg/dL; Status: F Test: KETONE, URINE AUTO; Value: NEGATIVE; Range: NEGATIVE; Units: mg/dL; Status: F Test: UROBILINOGEN, URINE AUTO; Value: 2.0; Range: 0.0-2.0; Abnormal: Above high normal; Units: mg/dL; Status: F Test: BILIRUBIN, URINE AUTO; Value: NEGATIVE; Range: NEGATIVE; Status: F Test: NITRITE, URINE AUTO; Value: NEGATIVE; Range: NEGATIVE; Status: F Test: LEUKOCYTE ESTERASE, URINE AUTO; Value: NEGATIVE; Range: NEGATIVE; Status: F Test: BLOOD, URINE BLOOD; Value: NEGATIVE; Range: NEGATIVE; Status: F Test: WBC, URINE AUTO; Value: 0; Range: 0-3; Units: /HPF; Status: F Test: RBC, URINE AUTO; Value: 2; Range: 0-3; Units: /HPF; Status: F Test: BACTERIA, URINE AUTO; Value: NEGATIVE; Range: NEGATIVE; Status: F Test: SQUAMOUS EPITHELIAL CELL UR AU; Value: 0; Range: 0-6; Units: /HPF; Status: F Test: MUCUS, URINE; Value: SMALL; Range: NEGATIVE; Status: F Test: HYALINE CAST, URINE AUTO; Value: 0; Range: 0-1; Units: /LPF; Status: F Radiology Order: CT ABD & PELVIS: IV and Oral Contrast Test: CT ABD & PELVIS: IV and Oral Contrast REASON FOR EXAMINATION: Diverticulitis; CT ABDOMEN AND PELVIS WITH CONTRAST: 07/10/2016.; ; Comparison: 05/25/2016.; ; Clinical history: Diverticulitis symptoms. Prior gastric ulcer perforation with; surgery.; ; Technique: Oral Gastrografin mixture 10 mL in 290 mL of flavored water for two; doses per our bowel contrast protocol. Bolus of 100 mL Isovue 370 given with; scanning through the abdomen and pelvis and reconstructions done.; ; Findings:; ; Abdomen: Lung bases are now clear. There are no effusions, infiltrates, or; atelectasis. Heart not enlarged. No pericardial thickening or effusion and no; hiatal hernia. I see no hepatosplenomegaly. There are a few small cysts in the; liver, unchanged. There is no intrahepatic biliary dilatation, solid hepatic; mass or any calcified gallstones in the adjacent gallbladder, spleen not enlarged; and without a focal lesion. Colon shows some wall thickening on the left colon,; splenic flexure and transverse colon greater than right colon. This suggest; colitis. I do not see diverticula or diverticulitis. Small bowel loops grossly; intact. Stomach filled with some retained food but no hiatal hernia or mass.; There is heavy atherosclerotic calcification of the aorta without dissection or; aneurysm. No periaortic other retroperitoneal pathologic sized lymphadenopathy.; There are surgical clips around the antrum of the stomach, likely related to; surgery for gastric perforation. Adrenal glands were normal. Kidneys show; function without obstruction, stone, mass or cyst. There was no hydronephrosis; or renal stone disease. Most of small bowel loops are fluid filled suggesting; some gastroenteritis or ileus. No dilated loops or air-fluid levels. Oral; contrast reaches the distal but not terminal ileum. There is no free air or; perforation in the abdomen or pelvis. 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 The bone windows show degenerative disc; changes at L5- S1 with a few millimeters of retrolisthesis. There is no; compression deformity. Visualized ribs intact.; ; CT pelvis: The bony hips, pelvis, sacrum, SI joints and lumbosacral junction; were intact. Distal left colon is collapsed. There is wall thickening and edema; throughout distal left colon, sigmoid and rectum. The findings represent; colitis. No diverticulitis. Small bowel loops contrast filled in the deep; pelvis within the distal ileum while the terminal ileum was fluid-filled without; oral contrast yet but no dilated loops or signs of obstruction. No inflammatory; changes about the cecum. Prostate has calcifications but is not grossly; enlarged. Bladder shows no wall thickening, stone or mass and the distal ureters; are not dilated. No ureteral stones seen. No ventral or inguinal hernia nor; pathologic inguinal adenopathy.; ; Impression:; ; 1. Pancolitis noted from cecum to the rectosigmoid without signs of; diverticulosis or diverticulitis.; ; 2. Small bowel loops fluid-filled but not abnormally dilated. No signs of; obstruction.; ; 3. There is no ascites, adenopathy or free air.; ; 4. A few hepatic cysts noted but the liver, spleen, gallbladder, kidneys,; adrenal glands are grossly intact. Pancreas unremarkable. No other significant; finding.; ; ; Signed by; Kedar Yang MD 07/10/2016 07:39 P; Outcome: 13:34 Discharge ordered by Provider. psychiatric 13:53 Discharge Assessment: Patient awake, alert and oriented x 3. No cognitive and/or dls functional deficits noted. Patient verbalized understanding of disposition instructions. patient administered narcotics - yes. Pt provided with safe discharge. The following High Risk Discharge criteria are identified: None. Discharged to home ambulatory. Condition: stable. Discharge instructions given to patient, Instructed on discharge instructions, follow up and referral plans. medication usage, Demonstrated understanding of instructions, medications, Pt was receptive of discharge instructions/ teaching. Prescriptions given X 3. CT Study completed. Property sent home with patient. 13:54 Patient left the ED. dls Signatures: Dispatcher [employer] EDMS Joselin Edmondson, RN RN dls Leodan Henry RN RN mlb1 Jayshree Bond RN RN ck1 Raymon Perazal1 Bucky Osei1 Gus Small mm15 Val Lockhart RN RN mk4 Monster Bear, PA-C PA-C cc10 Shelby Murcia Corrections: (The following items were deleted from the chart) 10:54 10:49 Home Meds: pantoprazole 40 mg oral TbEC 1 tab once daily; mlb1 mlb1 Chart Complete MTDD
== END 2016-07-10 13:54 | disposition home or self-care (01) ==
LOC: M ED 10:38
DX: K51.00 Ulcerative (chronic) pancolitis without complications (principal); I10 Essential (primary) hypertension; K21.9 Gastro-esophageal reflux disease without esophagitis; Z79.899 Other long term (current) drug therapy; F17.210 Nicotine dependence, cigarettes, uncomplicated
CPT/HCPCS: 36415; 74177; 80048; 80076; 81001; 83690; 85025; 96374; 99284; Q9963; Q9967

== ENCOUNTER 2016-07-30 12:48 | Emergency (ER) | payer OTHER, SELFPAY ==
[~2016-07-30] VITALS: Ht 180.3 cm; Wt 54.9 kg
[2016-07-30] MEDS ORDERED: ATOR1TAB21 PO (13:00)
[2016-07-30] MEDS ORDERED: LISI10TA4 PO (13:00)
[2016-07-30 13:40] LABS: BASO % 0.3 % (0.0-1.0); EOS # 0.1 K/mm3 (0.0-0.50); LARGE UNSTAINED CELL # 0.4 K/mm3 (0.0-0.4); LARGE UNSTAINED CELL % 3.4 % (0.0-4.0); LYMPH # 2.1 K/mm3 (1.5-4.5); LYMPH % 16.6 % (24.0-44.0); MEAN CORPUSCULAR HEMOGLOBIN 33.3 pg (27.0-33.0); MEAN CORPUSCULAR HGB CONC 34.1 g/dl (32.0-36.5); MEAN CORPUSCULAR VOLUME 97.9 fl (80.0-96.0); MONO # 1.3 K/mm3 (0.0-0.8); MONO % 11.8 % (0.0-5.0); NEUTROPHILS # 7.2 K/mm3 (1.8-7.7); NEUTROPHILS % 66.9 % (36.0-66.0); PLATELET COUNT, AUTOMATED 368 k/mm3 (150-450); RED CELL DISTRIBUTION WIDTH 12.9 % (11.5-14.5); WHITE BLOOD COUNT 10.7 K/mm3 (4.0-10.0)
[2016-07-30 13:55] LABS: ANION GAP 7 MEQ/L (8-16); BLOOD UREA NITROGEN 13 MG/DL (7-18); CALCIUM LEVEL 8.8 MG/DL (8.8-10.2); CARBON DIOXIDE LEVEL 27 MEQ/L (21-32); CHLORIDE LEVEL 105 MEQ/L (98-107); CREATININE FOR GFR 0.62 MG/DL (0.70-1.30); GLOMERULAR FILTRATION RATE > 60.0 (>49); GLUCOSE, FASTING 80 MG/DL (80-110); SODIUM LEVEL 139 MEQ/L (136-145)
[2016-07-30] MEDS ORDERED: ISOVUE-370 76% 100ML VIAL (Q9967) As Ordered ONE (14:49)
[2016-07-30 15:01] LABS: ALBUMIN/GLOBULIN RATIO 0.94 (1.00-1.93); ALKALINE PHOSPHATASE 64 U/L (45-117); ALT/SGPT 17 U/L (12-78); AST/SGOT 15 U/L (15-37); BILIRUBIN,DIRECT 0.1 MG/DL (0.0-0.2); BILIRUBIN,TOTAL 0.4 MG/DL (0.2-1.0); TOTAL PROTEIN 6.2 GM/DL (6.4-8.2)
--- NOTE | 2016-07-30 15:30 | REP ---
CT pulmonary angiogram: With IV contrast. History: Chest pain. Comparison studies: May 21, 2016. Contrast dose: 100 cc's of Isovue [address] technique: Helical scanning is acquired and overlapping 1.5 mm and contiguous 3 mm axial images are reformatted. In addition, a 3-D work station is deployed to generate thick slab maximum intensity projection images in sagittal and coronal imaging projections. CT pulmonary angiographic findings: There is good opacification of the pulmonary arterial tree and there is no CT evidence to suggest pulmonary embolism. The thoracic aorta is normal in caliber and enhancement pattern is homogeneous. There is no evidence of dissection or aneurysm. Mild vascular calcification is seen in the great vessel origins. No pleural or pericardial effusion is seen. Biapical bullous formation is again seen in the upper lobes. There is a bolus in the lingular segment of the left lower lobe at the base, which is also unchanged from the May 21, 2016 prior study. There is a tiny linear zone of fibrosis in the right middle lobe. No pulmonary nodule or mass lesion is seen. Another area of linear fibrosis is seen in the left lower lobe. There is a granulomatous calcification in the right upper lobe anteriorly. No mediastinal or hilar mass or adenopathy is seen. No adrenal lesion is seen. There are small low density lesions in the liver compatible with cysts. These are unchanged from the May 21, 2016 prior study. No bony destructive lesion is appreciated. Impression: 1. No CT evidence of pulmonary embolism. 2. Biapical bullous formation again noted with a lingular segment left upper lobe bullous at the base. This measures 6 cm in greatest diameter, but is unchanged. Old granulomatous calcification. No acute disease. Signed by Lloyd Esipnosa MD 07/30/2016 04:53 P
--- NOTE | 2016-07-30 15:32 | REP ---
CHEST, TWO VIEWS: HISTORY: Chest pain. COMPARISON: 05/30/2016 The lungs are hyperinflated. An increase in interstitial markings is present in the lungs. The heart is normal in size. The pulmonary vasculature is normal in appearance. IMPRESSION: Chronic interstitial fibrosis. Signed by Hamlet Jimenez MD 07/30/2016 03:47 P
--- NOTE | 2016-07-30 15:35 | REP ---
CT study of the abdomen and pelvis with IV but without oral contrast: History: Chest pain. Comparison: Chest CT study is from July 10, 2016. This showed evidence of pancolitis. There is apparently a history of a gastric perforation in the past. CT contrast dose: 100 ml of Isovue [address] findings: Bowel gas pattern is unremarkable on digital corporate travel expert radiograph. There are clips in right upper quadrant. There are several small sharply circumscribed low density left lobe liver lesions compatible with cysts, unchanged. Spleen is unremarkable. No adrenal lesion is seen on either side. No pancreatic abnormality is seen. The kidneys enhance symmetrically and are morphologically intact. No retroperitoneal mass or adenopathy is observed. There are suture lines visible adjacent to the body of the stomach from previous surgery. The gallbladder is unremarkable. Small bowel loops are unremarkable. A normal appendix is seen in the right lower abdomen. There is no CT evidence of diverticulitis or enterocolitis. There are dystrophic calcifications in the prostate gland. Urinary bladder is intact. No pelvic mass or adenopathy is seen. 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 The right common femoral artery is reconstituted via collaterals. This is unchanged from the comparison study. Bone window settings show no bony destructive lesion. Impression: Postoperative changes adjacent to the stomach. Stable small hepatic cysts. 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 No acute intra-abdominal abnormality seen. Signed by Lloyd Espinosa MD 07/30/2016 04:53 P
[2016-07-30 17:04] VITALS: BP 134/61
--- NOTE | 2016-07-31 12:23 | ECGEPIP ---
Stationary ECG Study [facility] - ED Test Date: 2016-07-30 Pat Name: MAMI NIEVES Department: Room: - Gender: M Pm Technician: ct : 1955 Requested By: Sulaiman Holcomb Order Number: [id number] Reading MD: Love Austin Measurements Intervals [place] Rate: 76 P: 87 DE: 141 QRS: -20 QRSD: 98 T: 72 QT: 377 QTc: 425 Interpretive Statements SINUS RHYTHM ?KYLIE PROMINENT T WAVES, CLINICAL CORRELATION Electronically Signed On 07-31-2016 12:22:57 EST by Love Austin
== END 2016-07-30 17:06 | disposition home or self-care (01) ==
LOC: M ED 16:47
DX: R07.9 Chest pain, unspecified (principal); I70.213 Atherosclerosis of native arteries of extremities with intermittent claudication, bilateral legs; J84.10 Pulmonary fibrosis, unspecified; I10 Essential (primary) hypertension; K25.9 Gastric ulcer, unspecified as acute or chronic, without hemorrhage or perforation; F17.200 Nicotine dependence, unspecified, uncomplicated; Z79.899 Other long term (current) drug therapy
CPT/HCPCS: 71010; 71275; 74177; 80048; 80076; 82550; 82553; 83690; 85025; 93005; 93041; 94760; 99285; Q9967

== ENCOUNTER → 2016-10-13 | Outpatient (CLI) | payer OTHER ==
[~2016-10-13] MED LIST changes: +ASPI81TA24 PO; +ATOR1TAB21 PO; +CLEO300C2 PO; +IBUP-1022 PO; +LISI10TA4 PO; +OMEP20CA3 PO; +SUCR10SS PO; +TRAM50TA2 PO; +ULTR50TA8 PO
--- NOTE | 2016-10-13 08:22 | REP ---
Clinical: Chronic liver disease. Technique: Real time hallman scale ultrasound examination using curved array transducer. Findings: The liver demonstrates a coarsened echotexture consistent with known hepatocellular disease and includes 7 mm cyst in the superior right lobe and 12 mm cyst in the mid right lobe. No further focal hepatic lesions are identified. Pancreas appears normal. Gallbladder is without gallstones, wall thickening, or pericholecystic fluid. No biliary ductal dilatation is appreciated and the common bile duct measures 3.2 mm diameter. Right kidney is normal in reniform shape and measures 11.8 x 5.6 x 3.9 cm with findings to suggest renal vascular calcifications and no evidence for hydronephrosis. Visualized abdominal aorta normal. No ascites. Impression: 1. Evidence for chronic hepatocellular disease as described above with two small cysts up to 12 mm. 2. Age-related changes to the right kidney without hydronephrosis. Signed by Franco Sifuentes MD 10/13/2016 08:13 A
== END ==
LOC: M RAD 06:48
PROVIDERS: ATTEND Family Medicine
DX: K74.0 Hepatic fibrosis (principal); K76.89 Other specified diseases of liver

== ENCOUNTER 2016-11-21 10:45 | Emergency (ER) | payer OTHER, MEDICAID ==
[~2016-11-21] VITALS: Ht 180.3 cm; Wt 62.1 kg
[~2016-11-21 10:45] MED LIST changes: -ASPI81TA24 PO; -CLEO300C2 PO; -IBUP-1022 PO; -OMEP20CA3 PO; -SUCR10SS PO; -TRAM50TA2 PO; -ULTR50TA8 PO
[2016-11-21] MEDS ORDERED: NS 1,000 ML IV SCH (11:51)
[2016-11-21] MEDS ORDERED: ONDANSETRON 4MG/2ML VIAL (J2405) IV ONE (12:00)
[2016-11-21] MEDS ORDERED: MORPHINE 4 MG/ML 1ML SYRINGE IV PRN (12:00)
[2016-11-21 12:25] LABS: BASO # 0.1 K/mm3 (0.0-0.2); BASO % 0.6 % (0.0-1.0); EOS # 0.1 K/mm3 (0.0-0.50); EOS % 0.6 % (0.0-3.0); LARGE UNSTAINED CELL # 0.5 K/mm3 (0.0-0.4); LARGE UNSTAINED CELL % 3.2 % (0.0-4.0); LYMPH # 1.5 K/mm3 (1.5-4.5); LYMPH % 10.5 % (24.0-44.0); MEAN CORPUSCULAR HGB CONC 33.7 g/dl (32.0-36.5); MEAN CORPUSCULAR VOLUME 100.9 fl (80.0-96.0); MONO # 0.9 K/mm3 (0.0-0.8); MONO % 6.4 % (0.0-5.0); NEUTROPHILS # 11.4 K/mm3 (1.8-7.7); NEUTROPHILS % 78.6 % (36.0-66.0); PLATELET COUNT, AUTOMATED 281 k/mm3 (150-450); WHITE BLOOD COUNT 14.4 K/mm3 (4.0-10.0)
--- NOTE | 2016-11-21 12:38 | REP ---
ACUTE ABDOMINAL SERIES: 11/21/2016 COMPARISON: Chest x-ray 07/30/2016, abdomen 05/23/2016. CLINICAL HISTORY: Abdominal pain. FINDINGS: PA CHEST: Lungs hyperinflated. There are some changes of COPD with pulmonary artery hypertension. There is no cardiomegaly, vascular redistribution or pulmonary edema. No dense consolidation. The aorta is normal for age. Airway is intact. Bony thorax shows no acute finding. No free air under the diaphragm. ABDOMEN: Heavy vascular calcifications aorta and iliac vessels with clips in the inguinal region from vascular surgery in both femoral artery regions. There are right upper quadrant clips and some clips over the midline upper abdomen. The gas pattern is nonspecific. There are scattered areas with stool and gas in the colon. Some dilated small bowel loops in the right upper quadrant with air-fluid levels are noted. Other small bowel loops are fluid filled in the left upper quadrant and mid abdomen. Findings may reflect focal ileus or partial small-bowel obstruction. Stool and gas scattered in the colon to the rectosigmoid. There are degenerative changes in the spine and hips which are mild. IMPRESSION: 1. Surgical clips in the right upper quadrant and in the midline abdomen as described with gas pattern showing air-fluid levels and some mildly distended small bowel loops right upper quadrant less elsewhere with mostly fluid-filled small bowel loops. This suggest focal ileus or partial small-bowel obstruction. No free air. There is stool and gas scattered throughout the colon to rectosigmoid. 2. Heavy vascular calcifications in the aorta, iliac and femoral vessels. Surgical clips from prior femoral artery surgery in both groins. 3. Degenerative changes spine and hips. 4. COPD with pulmonary hypertension. No acute finding in the chest. Signed by Kedar Yang MD 11/21/2016 07:36 P
[2016-11-21 12:41] LABS: ALBUMIN 3.4 GM/DL (3.2-5.2); ALBUMIN/GLOBULIN RATIO 0.77 (1.00-1.93); ALKALINE PHOSPHATASE 86 U/L (45-117); ALT/SGPT 17 U/L (12-78); ANION GAP 5 MEQ/L (8-16); AST/SGOT 14 U/L (15-37); BILIRUBIN,DIRECT 0.1 MG/DL (0.0-0.2); BILIRUBIN,TOTAL 0.5 MG/DL (0.2-1.0); BLOOD UREA NITROGEN 16 MG/DL (7-18); CALCIUM LEVEL 9.1 MG/DL (8.8-10.2); CARBON DIOXIDE LEVEL 29 MEQ/L (21-32); CHLORIDE LEVEL 104 MEQ/L (98-107); CREATININE FOR GFR 0.77 MG/DL (0.70-1.30); GLOMERULAR FILTRATION RATE > 60.0 (>49); GLUCOSE, FASTING 96 MG/DL (80-110); POTASSIUM SERUM 3.9 MEQ/L (3.5-5.1); SODIUM LEVEL 138 MEQ/L (136-145); TOTAL PROTEIN 7.8 GM/DL (6.4-8.2)
[2016-11-21] MEDS ORDERED: GASTROGRAFIN SOLUTION 30ML PO ONE (13:15)
[2016-11-21] MEDS ORDERED: GASTROGRAFIN SOLUTION 30ML (Q9963) PO ONE (13:45)
[2016-11-21 13:55] VITALS: BP 160/73
[2016-11-21] MEDS ORDERED: ISOVUE-370 76% 100ML VIAL (Q9967) As Ordered ONE (14:10)
[2016-11-21] MEDS ORDERED: IBUP-1022 PO (16:23)
--- NOTE | 2016-11-22 12:11 | REP ---
CT ABDOMEN AND PELVIS WITH ORAL AND IV CONTRAST: 11/21/2016. Comparison: CT 07/30/2016. Clinical history: Incisional hernia. The patient states has vascular surgery 09/17/2016. There is a cross femoral graft placed. Technique: Oral Gastrografin mixture 30 ml in a liter of flavored water given per our bowel contrast protocol. After bolus of 100 mL, Isovue 370 given, scanning through the abdomen and pelvis with coronal and sagittal reconstructions reviewed. CT abdomen: The lung bases are without infiltrate or effusion. There is minor dependent atelectasis deep sulcus left lower lobe. Heart is not enlarged. There is no pericardial thickening or effusion. Stomach is well distended. Suture lines anteriorly in the stomach wall are noted. Previous gastric perforation with repair. Stomach is empty. Diameter of the gastrojejunostomy is enlarged. Loops of small bowel in the central and right upper quadrant shows thick-wall and increased caliber. Lung window review shows no evidence of perforation or pneumatosis. Mid to distal small bowel loops show fluid or contrast and normal caliber. Heavy atherosclerotic calcifications of the aorta and occlusion of the right common iliac artery. There is atherosclerotic calcification in the aorta and branches. The SMA, celiac axis and origins of both renal arteries show atherosclerotic calcifications. There is a small ODILIA evident. Kidneys show function without obstruction, stone or mass. Adrenal glands normal. Pancreas without mass, ductal dilatation or adjacent inflammatory change. Bone windows show retrolisthesis grade 1 of L5 on S1 due to facet arthropathy. The other vertebral body heights are intact. Disc space is narrowed at that L5-S1 with vacuum phenomena. Visualized ribs intact. CT pelvis: Sacrum, SI joints, pelvis, hips and symphysis pubis with pubic rami all unremarkable. Calcifications in the prostate. Bladder only partially filled without wall thickening, mass or stone. Small bowel loops in the distal and terminal ileum are contrast filled but not abnormally dilated. Loops of proximal ileum are fluid filled slightly more caliber and without air fluid levels. Distal left colon and proximal sigmoid were unremarkable. 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 No ascites. There is a cross femoral graft [id number] with feeding of the common femoral arteries and back flow in the distal external iliac. Small nodes in the inguinal region. No inguinal hernia. Impression: 1. Prior gastric perforation repair with multiple loops of small bowel and gastric wall thickened and edematous in the upper abdomen. No pneumatosis. No free air. No ascites in the abdomen. 2. The caliber of small bowel loops in mid to distal is decreased compared to those proximal loops and wall thickness is normal. Oral contrast only seen in the distal ileum and terminal ileum. 3. No ascites, perforation or abscess. No pneumatosis. 4. Liver, spleen, gallbladder, pancreas, adrenal glands and kidneys intact. 5. Heavy atherosclerotic calcification of the aorta without aneurysm and occlusion of the right common iliac artery. Cross femoral graft is now present from left to right with some retrograde flow in the common femoral and the distal external iliac. 6. Mucosal thickening and pericolonic changes in the distal sigmoid and rectum suggesting some proctosigmoiditis. Signed by Kedar Yang MD 11/22/2016 09:31 A
--- NOTE | 2016-11-22 18:46 | ED PDOC ---
Post-Departure Follow-Up radiology report faxed to Love Warner MD Nov 22, 2016 18:46
== END 2016-11-21 16:43 | disposition home or self-care (01) ==
LOC: M ED 11:59
DX: R10.30 Lower abdominal pain, unspecified (principal); T82.848A Pain due to vascular prosthetic devices, implants and grafts, initial encounter; Y83.2 Surgical operation with anastomosis, bypass or graft as the cause of abnormal reaction of the patient, or of later complication, without mention of misadventure at the time of the procedure; Z98.0 Intestinal bypass and anastomosis status; F17.210 Nicotine dependence, cigarettes, uncomplicated; Z79.899 Other long term (current) drug therapy
CPT/HCPCS: 74022; 74177; 80048; 80076; 83605; 83690; 85025; 93041; 99284; Q9963; Q9967

== ENCOUNTER 2016-11-26 09:11 | Emergency (ER) | payer OTHER, MEDICAID ==
[~2016-11-26] VITALS: Ht 180.3 cm; Wt 60.5 kg
[~2016-11-26 09:11] MED LIST changes: +IBUP-1022 PO
[2016-11-26 09:13] VITALS: BP 179/77
[2016-11-26] MEDS ORDERED: CLEO300C2 PO (10:14)
[2016-11-26] MEDS ORDERED: ULTR50TA8 PO (10:14)
== END 2016-11-26 10:24 | disposition home or self-care (01) ==
LOC: M ED 09:11
DX: L03.311 Cellulitis of abdominal wall (principal); I10 Essential (primary) hypertension; Z79.899 Other long term (current) drug therapy; Z79.82 Long term (current) use of aspirin

== ENCOUNTER 2016-11-29 06:33 | Inpatient (IN) | payer OTHER, MEDICAID ==
[~2016-11-29] VITALS: Ht 180.3 cm; Wt 62.1 kg
[~2016-11-29 06:33] MED LIST changes: +CLEO300C2 PO; +ULTR50TA8 PO
[2016-11-29 07:54] LABS: BASO % 0.4 % (0.0-1.0); EOS # 0.2 K/mm3 (0.0-0.50); EOS % 1.9 % (0.0-3.0); LARGE UNSTAINED CELL # 0.3 K/mm3 (0.0-0.4); LARGE UNSTAINED CELL % 2.4 % (0.0-4.0); LYMPH # 1.8 K/mm3 (1.5-4.5); LYMPH % 13.4 % (24.0-44.0); MEAN CORPUSCULAR HEMOGLOBIN 33.1 pg (27.0-33.0); MEAN CORPUSCULAR HGB CONC 33.2 g/dl (32.0-36.5); MEAN CORPUSCULAR VOLUME 99.6 fl (80.0-96.0); MONO # 0.8 K/mm3 (0.0-0.8); NEUTROPHILS # 8.7 K/mm3 (1.8-7.7); NEUTROPHILS % 74.9 % (36.0-66.0); PLATELET COUNT, AUTOMATED 396 k/mm3 (150-450); RED CELL DISTRIBUTION WIDTH 12.1 % (11.5-14.5); WHITE BLOOD COUNT 11.6 K/mm3 (4.0-10.0)
[2016-11-29 08:15] LABS: ALBUMIN 2.9 GM/DL (3.2-5.2); ALBUMIN/GLOBULIN RATIO 0.66 (1.00-1.93); ALKALINE PHOSPHATASE 73 U/L (45-117); ALT/SGPT 14 U/L (12-78); ANION GAP 7 MEQ/L (8-16); AST/SGOT 14 U/L (15-37); BILIRUBIN,DIRECT < 0.1 MG/DL (0.0-0.2); BILIRUBIN,TOTAL 0.4 MG/DL (0.2-1.0); BLOOD UREA NITROGEN 19 MG/DL (7-18); CARBON DIOXIDE LEVEL 27 MEQ/L (21-32); CHLORIDE LEVEL 103 MEQ/L (98-107); CREATININE FOR GFR 0.78 MG/DL (0.70-1.30); GLOMERULAR FILTRATION RATE > 60.0 (>49); GLUCOSE, FASTING 90 MG/DL (80-110); POTASSIUM SERUM 3.9 MEQ/L (3.5-5.1); SODIUM LEVEL 137 MEQ/L (136-145); TOTAL PROTEIN 7.3 GM/DL (6.4-8.2)
[2016-11-29] MEDS ORDERED: GASTROGRAFIN SOLUTION 30ML (Q9963) As Ordered ONE (08:18)
[2016-11-29] MEDS ORDERED: GASTROGRAFIN SOLUTION 30ML (Q9963) PO ONE ×2 (08:30)
[2016-11-29] MEDS ORDERED: ISOVUE-370 76% 100ML VIAL (Q9967) As Ordered ONE (08:43)
[2016-11-29] MEDS ORDERED: OCTREOTIDE ACETATE 100 MCG/ML VIAL (J2354) IV ONE (08:45)
[2016-11-29] MEDS ORDERED: FLUCONAZOLE 200 MG in APPROPRIATE DILUENT 1 EA IV ONE (08:45)
[2016-11-29] MEDS ORDERED: NS 500 ML IV ONE (08:45)
[2016-11-29] MEDS ORDERED: PIPERACILLIN/TAZOBACTAM SOD 3.375 GM in D5W MINI-BAG PLUS 50 ML IV ONE (08:45)
[2016-11-29] MEDS ORDERED: TRAM50TA2 PO (09:13)
[2016-11-29] MEDS ORDERED: ASPI81TA24 PO (09:13)
[2016-11-29] MEDS ORDERED: PENT40TASA PO (09:13)
[2016-11-29] MEDS ORDERED: PANT40TA2 PO (09:13)
[2016-11-29] MEDS ORDERED: CLEO300C2 PO (09:13)
[2016-11-29] MEDS ORDERED: BISACODYL 10 MG SUPP PR PRN (09:30)
[2016-11-29] MEDS ORDERED: ONDANSETRON 4MG/2ML VIAL (J2405) IV PRN (09:30)
[2016-11-29] MEDS ORDERED: MORPHINE 2 MG/ML 1ML SYRINGE IV PRN (09:30)
[2016-11-29] MEDS: OCTREOTIDE ACETATE 100 MCG/ML VIAL (J2354) SC SCH ×3 (09:44→21:17)
--- NOTE | 2016-11-29 09:46 | REP ---
Clinical: Abdominal pain and possible fistula. Technique: Axial contrast enhanced images from the lung bases to the pubic symphysis using oral and 100 ml Isovue 370 intravenous contrast material with coronal and sagittal re-formations. Comparison: 11/21/2016. Findings: The the patient appears to be status post gastrojejunostomy and there are inflammatory and phlegmonous changes involving the anterior gastric wall which is inseparable from the anterior abdominal wall. There is associated contrast extravasation from the stomach into an anterior abdominal wall collection which measures roughly 8.2 x 3.0 x 5.0 cm with continued fistulous connection through the anterior abdominal wall to the skin surface (images 40 - 60). Liver demonstrates few simple stable 1 cm cysts. Spleen, pancreas, gallbladder, bilateral adrenal glands and kidneys are normal. There is no evidence for bowel obstruction. Normal terminal ileum and appendix identified in the right lower quadrant. Pelvis demonstrates relatively normal rectosigmoid colon, bladder, and age appropriate prostate gland with parenchymal calcifications. No ascites. No pneumoperitoneum. Atherosclerotic changes to the vasculature without aneurysm. Musculoskeletal structures demonstrate degenerative changes without focal osseous abnormality. Impression: 1. Evidence for gastric perforation into an anterior abdominal wall abscess collection and continued fistulous formation to the skin surface with obvious contrast extravasation. Findings are adjacent to the site of previous gastrojejunostomy. 2. The remainder of the small and large bowel appears relatively normal and without obstruction and no evidence for pneumoperitoneum or ascites/intra-abdominal extravasation. 3. Chronic stable changes as described above. Signed by Franco Sifuentes MD 11/29/2016 09:38 A
[2016-11-29] MEDS ORDERED: PIPERACILLIN/TAZOBACTAM SOD 3.375 GM in D5W MINI-BAG PLUS 50 ML IV SCH (10:00)
--- NOTE | 2016-11-29 10:27 | HPE ---
DATE OF ADMISSION: 11/29/2016 CHIEF COMPLAINT: Abdominal pain and drainage from his midline abdomen. HISTORY OF PRESENT ILLNESS: The patient is a 61-year-old male patient of Dr. Duran who underwent a duodenal ulcer repair end of April with a Billroth II gastrojejunostomy. Postoperatively, he has been doing well up until the past few days. He has had increasing upper midline abdominal pain, some redness and swelling; and last evening, the area that was red and swollen opened up and started draining liquid onto his abdomen. He came to the emergency room for evaluation. In the emergency room (ER), his vitals were stable. Laboratories were okay. White count was just slightly elevated at 11.6. However, he does have this fluid draining on his abdomen that does look quite gastric contents. I was called down to the emergency room to evaluate him and see what we needed for imaging. On examination, he did have air bubbles coming out of this wound, large amount of gastric contents pouring out of this. When he started to drink the oral contrast, every time he took a sip, he could feel the coldness on his skin, and a large gush of fluid would come pouring out. This was highly suggestive of a gastric fistula as opposed to a small bowel fistula, so we sent him for a CT abdomen with just one sip of the contrast on the table, which confirmed the diagnosis of a gastric fistula with likely fluid collection in between the stomach and the abdominal wall, as well. He has not had any problems with this up until a few days ago. No other surgeries to his abdomen in the past. No recent trauma. No recent changes in diet or medications. No problems with fevers, nausea, or vomiting. No changes in bowel movements. PAST MEDICAL HISTORY: Hyperlipidemia, hypertension, gastroesophageal reflux disease (GERD), duodenal ulcer. PAST SURGICAL HISTORY: A femoral femoral (FEM-FEM) bypass and exploratory laparotomy with Billroth II repair of gastric ulcer. ALLERGIES: None. MEDICATIONS: Please see medical record. SOCIAL HISTORY: Smokes a pack a day. Denies drug or alcohol abuse. FAMILY HISTORY: Noncontributory. REVIEW OF SYSTEMS: Pertinent positives and negatives as stated in history of present illness (HPI). PHYSICAL EXAMINATION: General: Alert and oriented times three. No acute stress. Vital signs: Temperature 97.9, pulse 83, respirations 20, blood pressure 151/70, pulse oximetry 96% on room air. HEENT: Pupils equal, round, and react to light and accommodation. Heart: S1, S2, regular rate and rhythm. Lungs: Clear to auscultation bilaterally. Abdomen: Soft, tender to palpation in midline upper incision, where there is a 4 mm opening draining what appears to be gastric contents. No signs of peritonitis. No skin erythema. Extremities: No clubbing, cyanosis, or edema. LABORATORIES: White count 11.6, hemoglobin 14, platelets 396, lactic acid 1.2, potassium 3.9, creatinine 0.78. IMAGING: CT abdomen and pelvis shows evidence of gastric perforation into an anterior abdominal wall abscess collection and continued fistula formation to the skin surface with obvious contrast extravasation. Findings are adjacent to the site of previous gastrojejunostomy. The remainder of the small and large bowel appear relatively normal and without obstruction. No evidence of pneumoperitoneum or ascites or intraabdominal extravasation. ASSESSMENT AND PLAN: The patient is a 61-year-old male, status post exploratory laparotomy with repair of duodenal ulcer and a Billroth II gastric bypass done on 05/25/[address] Duran, presents with a gastrocutaneous fistula. The plan at this time is to admit him. He will be placed on strict nothing by mouth, IV fluids, IV antibiotics, IV antifungals, IV actreotide, and we will place an ostomy appliance over top of his fistula to help control it and record output. Will give this a few days to see if this will heal up on its own. He may require drain placement versus surgical intervention prior to discharge if this does not show any signs of healing on its own. Will discuss the case with Dr. Duran, as well, with further recommendations to follow.
[2016-11-29 10:50] VITALS: BP 146/61
[2016-11-29] MEDS: KCL 20MEQ IN D5/0.45NS 1000ML 1,000 ML IV SCH ×2 (11:25→18:26)
[2016-11-29 13:13] VITALS: BP 147/65
[2016-11-29] MEDS: HEPARIN SOD (PORCINE) 5000 UNITS/ML VIAL SC SCH ×2 (13:17→21:17)
[2016-11-29 14:00] VITALS: BP 150/69
[2016-11-29] MEDS: PIPERACILLIN/TAZOBACTAM SOD 3.375 GM in D5W MINI-BAG PLUS 50 ML IV SCH ×2 (14:57→21:16)
[2016-11-29 22:00] VITALS: BP 150/68
[2016-11-30] MEDS: PIPERACILLIN/TAZOBACTAM SOD 3.375 GM in D5W MINI-BAG PLUS 50 ML IV SCH ×4 (03:10→21:53)
[2016-11-30] MEDS: OCTREOTIDE ACETATE 100 MCG/ML VIAL (J2354) SC SCH ×3 (05:40→21:53)
[2016-11-30] MEDS: HEPARIN SOD (PORCINE) 5000 UNITS/ML VIAL SC SCH ×3 (05:40→21:53)
[2016-11-30] MEDS: KCL 20MEQ IN D5/0.45NS 1000ML 1,000 ML IV SCH ×3 (05:40→17:04)
[2016-11-30 06:00] VITALS: BP 152/60
[2016-11-30 06:08] LABS: MEAN CORPUSCULAR HEMOGLOBIN 33.6 pg (27.0-33.0); MEAN CORPUSCULAR HGB CONC 33.9 g/dl (32.0-36.5); MEAN CORPUSCULAR VOLUME 99.1 fl (80.0-96.0); RED CELL DISTRIBUTION WIDTH 11.6 % (11.5-14.5)
[2016-11-30 06:30] LABS: ALBUMIN 2.5 GM/DL (3.2-5.2); ALBUMIN/GLOBULIN RATIO 0.68 (1.00-1.93); ALKALINE PHOSPHATASE 61 U/L (45-117); ALT/SGPT 11 U/L (12-78); ANION GAP 7 MEQ/L (8-16); AST/SGOT 13 U/L (15-37); BILIRUBIN,TOTAL 0.4 MG/DL (0.2-1.0); BLOOD UREA NITROGEN 9 MG/DL (7-18); CALCIUM LEVEL 8.7 MG/DL (8.8-10.2); CARBON DIOXIDE LEVEL 26 MEQ/L (21-32); CHLORIDE LEVEL 104 MEQ/L (98-107); CREATININE FOR GFR 0.76 MG/DL (0.70-1.30); GLOMERULAR FILTRATION RATE > 60.0 (>49); GLUCOSE, FASTING 114 MG/DL (80-110); MAGNESIUM LEVEL 2.1 MG/DL (1.8-2.4); POTASSIUM SERUM 4.4 MEQ/L (3.5-5.1); SODIUM LEVEL 137 MEQ/L (136-145); TOTAL PROTEIN 6.2 GM/DL (6.4-8.2)
--- NOTE | 2016-11-30 07:25 | ECGEPIP ---
Stationary ECG Study 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
[2016-11-30] MEDS: PANTOPRAZOLE 40MG INJ (PROTONIX) (C9113) IV SCH (08:28)
[2016-11-30] MEDS: FLUCONAZOLE 100 MG in APPROPRIATE DILUENT 1 EA IV SCH (08:28)
[2016-11-30] MEDS: LISINOPRIL 10 MG TAB PO SCH (08:28)
[2016-11-30 14:00] VITALS: BP 162/71
[2016-11-30] MEDS: KETOROLAC 30 MG/ML VIAL (J1885) IV PRN (21:59)
[2016-11-30 22:00] VITALS: BP 149/80
[2016-12-01] MEDS: KCL 20MEQ IN D5/0.45NS 1000ML 1,000 ML IV SCH ×2 (01:32→12:40)
[2016-12-01] MEDS: PIPERACILLIN/TAZOBACTAM SOD 3.375 GM in D5W MINI-BAG PLUS 50 ML IV SCH ×4 (02:02→20:03)
[2016-12-01] MEDS: OCTREOTIDE ACETATE 100 MCG/ML VIAL (J2354) SC SCH ×3 (05:23→21:34)
[2016-12-01] MEDS: HEPARIN SOD (PORCINE) 5000 UNITS/ML VIAL SC SCH ×3 (05:23→21:35)
[2016-12-01 06:00] VITALS: BP 158/70
[2016-12-01 06:32] LABS: MEAN CORPUSCULAR HGB CONC 33.5 g/dl (32.0-36.5); MEAN CORPUSCULAR VOLUME 98.6 fl (80.0-96.0); RED CELL DISTRIBUTION WIDTH 11.5 % (11.5-14.5); WHITE BLOOD COUNT 7.7 K/mm3 (4.0-10.0)
[2016-12-01 06:52] LABS: ALBUMIN 2.6 GM/DL (3.2-5.2); ALBUMIN/GLOBULIN RATIO 0.68 (1.00-1.93); ALKALINE PHOSPHATASE 61 U/L (45-117); ALT/SGPT 9 U/L (12-78); ANION GAP 7 MEQ/L (8-16); AST/SGOT 12 U/L (15-37); BILIRUBIN,TOTAL 0.4 MG/DL (0.2-1.0); BLOOD UREA NITROGEN 6 MG/DL (7-18); CALCIUM LEVEL 8.7 MG/DL (8.8-10.2); CARBON DIOXIDE LEVEL 28 MEQ/L (21-32); CHLORIDE LEVEL 102 MEQ/L (98-107); CREATININE FOR GFR 0.86 MG/DL (0.70-1.30); GLOMERULAR FILTRATION RATE > 60.0 (>49); GLUCOSE, FASTING 116 MG/DL (80-110); POTASSIUM SERUM 4.3 MEQ/L (3.5-5.1); SODIUM LEVEL 137 MEQ/L (136-145); TOTAL PROTEIN 6.4 GM/DL (6.4-8.2)
[2016-12-01] MEDS: PANTOPRAZOLE 40MG INJ (PROTONIX) (C9113) IV SCH (08:37)
[2016-12-01] MEDS: FLUCONAZOLE 100 MG in APPROPRIATE DILUENT 1 EA IV SCH (08:37)
[2016-12-01] MEDS: LISINOPRIL 10 MG TAB PO SCH (08:37)
[2016-12-01 14:00] VITALS: BP 150/68
[2016-12-01] MEDS ORDERED: GASTROGRAFIN SOLUTION 30ML (Q9963) As Ordered ONE (14:51)
--- NOTE | 2016-12-01 15:57 | REP ---
RIGHT PICC LINE PLACEMENT: Procedure was performed by Bobbi URIARTE, under the direct supervision of Dr Espinosa. The procedure with its potential risk, benefits, and complications were discussed with the patient. Both verbal and written consent were obtained. The patient was placed in a supine position on the table. The right arm was prepped and draped in the usual sterile fashion. A procedural "time out" was performed where the appropriate exam, correct patient, and correct site were all identified with everyone in the room. The right brachial vein was accessed using ultrasound guidance. A thin guide wire was introduced. The needle removed and the tear away sheath was placed. Under fluoroscopic observation and via the peel away sheath, a 5.5 Malay 48cm double lumen PICC line was placed. The tip of the PICC line was confirmed to be at the SVC via fluoroscopic imaging. The tear away sheath was removed. The catheter was flushed with heparinized saline and affixed to the patients skin. Patient tolerated the procedure well. Reviewed by CHAPITO Seay 12/01/2016 05:00 PEdited and Signed by Lloyd Espinosa MD 12/01/2016 05:01 P
--- NOTE | 2016-12-01 17:39 | REP ---
Gastrographin upper GI series: History: Evaluate for gastric obstruction. CT study from 11/29/2016 showed evidence of gastric perforation with anterior abdominal wall collection and the gastrocutaneous fistula. The patient is status post recent ulcer surgery. Findings: Metal Riveter view demonstrates a suture line in the right upper quadrant suggesting distal gastric resection and another suture line along the greater curvature region of the stomach consistent with gastric jejunostomy. There are clips in the right mid and upper abdomen. Vascular calcification is observed. The abdomen is essentially gasless except for some air in the nondilated stomach. Gastrograph and upper GI series showed no esophageal abnormality. In the upright and in the right lateral decubitus positions, the ingested Gastrographin predominantly accumulates in an extraluminal abdominal cavity along the greater curvature in the region of the gastric jejunostomy. Most of the ingested Gastrographin leaves the gastric lumen into this cavity where upon it drains promptly into the stoma bag which overlies the gastrocutaneous fistula. A small quantity of contrast is seen accumulating in the nondilated loops of proximal jejunum. Impression: Most of the ingested contrast stream leaves the gastric lumen via the gastrocutaneous fistula. Only a small quantity of contrast enters the small bowel via the gastrojejunostomy. No small bowel or gastric dilation is seen. 1 minute 35 seconds of fluoroscopy time is reported. The fluoroscopy portion of the exam was performed by CHAPITO Seay, under my direct supervision. Signed by Lloyd Espinosa MD 12/02/2016 04:54 P
[2016-12-01] MEDS ORDERED: MULTIVITAMIN -ADULT INJECTION 10 ML, CR/CU/SE/MN/ZN INJ 1 ML in AMINO AC/ELECTROLYTE/DE... IV SCH (18:00)
[2016-12-01] MEDS ORDERED: FAT EMULSION IV 20% 500 ML IV SCH (18:00)
[2016-12-01] MEDS: HumaLOG INSULIN (NovoLOG) PER UNIT SC SCH (18:00)
[2016-12-01] MEDS: SODIUM CHLORIDE 0.9% INJ 10 ML SYR IV SCH (18:20)
[2016-12-01] MEDS: KETOROLAC 30 MG/ML VIAL (J1885) IV PRN (18:21)
[2016-12-01] MEDS: SODIUM CHLORIDE 0.9% INJ 10 ML SYR IV PRN (21:35)
[2016-12-01 21:40] VITALS: BP 150/66
[2016-12-02] MEDS: HumaLOG INSULIN (NovoLOG) PER UNIT SC SCH ×5 (00:30→23:57)
[2016-12-02] MEDS: PIPERACILLIN/TAZOBACTAM SOD 3.375 GM in D5W MINI-BAG PLUS 50 ML IV SCH ×4 (03:00→21:32)
[2016-12-02 03:08] VITALS: BP 162/77
[2016-12-02] MEDS: SODIUM CHLORIDE 0.9% INJ 10 ML SYR IV SCH ×2 (05:02→18:00)
[2016-12-02 05:14] LABS: MEAN CORPUSCULAR HEMOGLOBIN 32.6 pg (27.0-33.0); MEAN CORPUSCULAR HGB CONC 33.7 g/dl (32.0-36.5); MEAN CORPUSCULAR VOLUME 96.8 fl (80.0-96.0); RED CELL DISTRIBUTION WIDTH 11.8 % (11.5-14.5); WHITE BLOOD COUNT 11.5 K/mm3 (4.0-10.0)
[2016-12-02 05:20] VITALS: BP 148/58
[2016-12-02 05:30] VITALS: BP 148/58
[2016-12-02 05:39] LABS: ALBUMIN 2.7 GM/DL (3.2-5.2); ALBUMIN/GLOBULIN RATIO 0.75 (1.00-1.93); ALKALINE PHOSPHATASE 61 U/L (45-117); ALT/SGPT 13 U/L (12-78); ANION GAP 5 MEQ/L (8-16); AST/SGOT 11 U/L (15-37); BILIRUBIN,TOTAL 0.3 MG/DL (0.2-1.0); BLOOD UREA NITROGEN 10 MG/DL (7-18); CALCIUM LEVEL 8.6 MG/DL (8.8-10.2); CARBON DIOXIDE LEVEL 31 MEQ/L (21-32); CHLORIDE LEVEL 103 MEQ/L (98-107); CREATININE FOR GFR 0.81 MG/DL (0.70-1.30); GLOMERULAR FILTRATION RATE > 60.0 (>49); GLUCOSE, FASTING 97 MG/DL (80-110); MAGNESIUM LEVEL 2.1 MG/DL (1.8-2.4); POTASSIUM SERUM 4.3 MEQ/L (3.5-5.1); SODIUM LEVEL 139 MEQ/L (136-145); TOTAL PROTEIN 6.3 GM/DL (6.4-8.2)
[2016-12-02] MEDS: OCTREOTIDE ACETATE 100 MCG/ML VIAL (J2354) SC SCH ×3 (06:09→21:32)
[2016-12-02] MEDS: HEPARIN SOD (PORCINE) 5000 UNITS/ML VIAL SC SCH ×3 (06:09→21:32)
[2016-12-02] MEDS: PANTOPRAZOLE 40MG INJ (PROTONIX) (C9113) IV SCH (09:19)
[2016-12-02] MEDS: FLUCONAZOLE 100 MG in APPROPRIATE DILUENT 1 EA IV SCH (09:20)
[2016-12-02] MEDS: LISINOPRIL 10 MG TAB PO SCH (09:20)
[2016-12-02 14:00] VITALS: BP 150/70
[2016-12-02] MEDS ORDERED: AMINO AC/ELECTROLYTE/DEX/CALC 2,000 ML IV SCH (18:00)
[2016-12-02] MEDS ORDERED: FAT EMULSION IV 20% 500 ML IV SCH (18:00)
[2016-12-02 22:00] VITALS: BP 162/73
[2016-12-02] MEDS: KETOROLAC 30 MG/ML VIAL (J1885) IV PRN (22:12)
[2016-12-02] MEDS: SODIUM CHLORIDE 0.9% INJ 10 ML SYR IV PRN (23:02)
[2016-12-03] MEDS: PIPERACILLIN/TAZOBACTAM SOD 3.375 GM in D5W MINI-BAG PLUS 50 ML IV SCH ×4 (02:51→21:14)
[2016-12-03] MEDS: OCTREOTIDE ACETATE 100 MCG/ML VIAL (J2354) SC SCH ×3 (05:05→21:13)
[2016-12-03] MEDS: SODIUM CHLORIDE 0.9% INJ 10 ML SYR IV SCH ×2 (05:05→18:04)
[2016-12-03] MEDS: HEPARIN SOD (PORCINE) 5000 UNITS/ML VIAL SC SCH ×3 (05:05→21:13)
[2016-12-03 05:51] LABS: MEAN CORPUSCULAR HGB CONC 33.2 g/dl (32.0-36.5); RED CELL DISTRIBUTION WIDTH 11.5 % (11.5-14.5); WHITE BLOOD COUNT 10.8 K/mm3 (4.0-10.0)
[2016-12-03 05:55] LABS: MEAN CORPUSCULAR VOLUME 111.6 fl (80.0-96.0)
[2016-12-03 06:00] VITALS: BP 143/65
[2016-12-03] MEDS: HumaLOG INSULIN (NovoLOG) PER UNIT SC SCH ×3 (06:50→18:10)
[2016-12-03 07:50] LABS: MEAN CORPUSCULAR HEMOGLOBIN 32.9 pg (27.0-33.0); MEAN CORPUSCULAR HGB CONC 33.6 g/dl (32.0-36.5); RED CELL DISTRIBUTION WIDTH 11.7 % (11.5-14.5); WHITE BLOOD COUNT 9.9 K/mm3 (4.0-10.0)
[2016-12-03 07:57] LABS: MEAN CORPUSCULAR VOLUME 97.8 fl (80.0-96.0)
[2016-12-03 08:17] LABS: ALBUMIN 2.8 GM/DL (3.2-5.2); ALKALINE PHOSPHATASE 61 U/L (45-117); ALT/SGPT 13 U/L (12-78); ANION GAP 6 MEQ/L (8-16); AST/SGOT 14 U/L (15-37); BILIRUBIN,TOTAL 0.2 MG/DL (0.2-1.0); BLOOD UREA NITROGEN 16 MG/DL (7-18); CALCIUM LEVEL 8.6 MG/DL (8.8-10.2); CARBON DIOXIDE LEVEL 28 MEQ/L (21-32); CHLORIDE LEVEL 104 MEQ/L (98-107); CREATININE FOR GFR 0.83 MG/DL (0.70-1.30); GLOMERULAR FILTRATION RATE > 60.0 (>49); GLUCOSE, FASTING 65 MG/DL (80-110); MAGNESIUM LEVEL 2.3 MG/DL (1.8-2.4); POTASSIUM SERUM 4.3 MEQ/L (3.5-5.1); SODIUM LEVEL 138 MEQ/L (136-145); TOTAL PROTEIN 6.3 GM/DL (6.4-8.2)
[2016-12-03] MEDS: PANTOPRAZOLE 40MG INJ (PROTONIX) (C9113) IV SCH (09:18)
[2016-12-03] MEDS: LISINOPRIL 10 MG TAB PO SCH (09:19)
[2016-12-03] MEDS: FLUCONAZOLE 100 MG in APPROPRIATE DILUENT 1 EA IV SCH (09:19)
[2016-12-03 14:00] VITALS: BP 162/70
[2016-12-03] MEDS ORDERED: FAT EMULSION IV 20% 500 ML IV SCH (18:00)
[2016-12-03] MEDS ORDERED: MULTIVITAMIN -ADULT INJECTION 10 ML, CR/CU/SE/MN/ZN INJ 1 ML in AMINO AC/ELECTROLYTE/DE... IV SCH (18:00)
[2016-12-03 22:00] VITALS: BP 154/67
[2016-12-04] MEDS: PIPERACILLIN/TAZOBACTAM SOD 3.375 GM in D5W MINI-BAG PLUS 50 ML IV SCH ×4 (02:29→20:57)
[2016-12-04] MEDS: HEPARIN SOD (PORCINE) 5000 UNITS/ML VIAL SC SCH (05:16)
[2016-12-04] MEDS: SODIUM CHLORIDE 0.9% INJ 10 ML SYR IV SCH ×2 (05:17→18:00)
[2016-12-04] MEDS: OCTREOTIDE ACETATE 100 MCG/ML VIAL (J2354) SC SCH ×3 (05:17→20:58)
[2016-12-04 05:40] LABS: MEAN CORPUSCULAR HEMOGLOBIN 33.2 pg (27.0-33.0); MEAN CORPUSCULAR HGB CONC 33.9 g/dl (32.0-36.5); MEAN CORPUSCULAR VOLUME 97.9 fl (80.0-96.0); RED CELL DISTRIBUTION WIDTH 12.1 % (11.5-14.5); WHITE BLOOD COUNT 11.9 K/mm3 (4.0-10.0)
[2016-12-04 06:00] VITALS: BP 130/62
[2016-12-04] MEDS: HumaLOG INSULIN (NovoLOG) PER UNIT SC SCH ×5 (06:00→23:48)
[2016-12-04 06:10] LABS: ALBUMIN 2.8 GM/DL (3.2-5.2); ALKALINE PHOSPHATASE 64 U/L (45-117); ALT/SGPT 14 U/L (12-78); ANION GAP 7 MEQ/L (8-16); AST/SGOT 15 U/L (15-37); BILIRUBIN,TOTAL 0.3 MG/DL (0.2-1.0); BLOOD UREA NITROGEN 19 MG/DL (7-18); CALCIUM LEVEL 8.7 MG/DL (8.8-10.2); CARBON DIOXIDE LEVEL 29 MEQ/L (21-32); CHLORIDE LEVEL 102 MEQ/L (98-107); CREATININE FOR GFR 0.82 MG/DL (0.70-1.30); GLOMERULAR FILTRATION RATE > 60.0 (>49); GLUCOSE, FASTING 89 MG/DL (80-110); MAGNESIUM LEVEL 2.4 MG/DL (1.8-2.4); POTASSIUM SERUM 4.4 MEQ/L (3.5-5.1); SODIUM LEVEL 138 MEQ/L (136-145); TOTAL PROTEIN 6.3 GM/DL (6.4-8.2)
[2016-12-04] MEDS: PANTOPRAZOLE 40MG INJ (PROTONIX) (C9113) IV SCH (08:20)
[2016-12-04] MEDS: LISINOPRIL 10 MG TAB PO SCH (08:20)
[2016-12-04] MEDS: FLUCONAZOLE 100 MG in APPROPRIATE DILUENT 1 EA IV SCH (09:32)
[2016-12-04] MEDS: SODIUM CHLORIDE 0.9% INJ 10 ML SYR IV PRN (10:35)
[2016-12-04 14:00] VITALS: BP 132/65
[2016-12-04] MEDS ORDERED: FAT EMULSION IV 20% 500 ML IV SCH (18:00)
[2016-12-04] MEDS ORDERED: AMINO AC/ELECTROLYTE/DEX/CALC 2,000 ML IV SCH (18:00)
[2016-12-04] MEDS: ENOXAPARIN 40 MG/0.4 ML SYRINGE (J1650) SC SCH (20:57)
[2016-12-04 22:00] VITALS: BP 137/65
[2016-12-05] MEDS: PIPERACILLIN/TAZOBACTAM SOD 3.375 GM in D5W MINI-BAG PLUS 50 ML IV SCH ×2 (02:37→10:16)
[2016-12-05] MEDS: OCTREOTIDE ACETATE 100 MCG/ML VIAL (J2354) SC SCH ×3 (05:01→21:38)
[2016-12-05] MEDS: SODIUM CHLORIDE 0.9% INJ 10 ML SYR IV SCH ×2 (05:02→17:38)
[2016-12-05 05:32] LABS: MEAN CORPUSCULAR HEMOGLOBIN 33.2 pg (27.0-33.0); MEAN CORPUSCULAR HGB CONC 33.9 g/dl (32.0-36.5); RED CELL DISTRIBUTION WIDTH 12.1 % (11.5-14.5)
[2016-12-05 05:58] LABS: ALBUMIN 2.9 GM/DL (3.2-5.2); ALBUMIN/GLOBULIN RATIO 0.78 (1.00-1.93); ALKALINE PHOSPHATASE 63 U/L (45-117); ALT/SGPT 17 U/L (12-78); ANION GAP 5 MEQ/L (8-16); AST/SGOT 12 U/L (15-37); BILIRUBIN,TOTAL 0.2 MG/DL (0.2-1.0); BLOOD UREA NITROGEN 18 MG/DL (7-18); CARBON DIOXIDE LEVEL 30 MEQ/L (21-32); CHLORIDE LEVEL 104 MEQ/L (98-107); GLOMERULAR FILTRATION RATE > 60.0 (>49); GLUCOSE, FASTING 81 MG/DL (80-110); MAGNESIUM LEVEL 2.1 MG/DL (1.8-2.4); POTASSIUM SERUM 4.4 MEQ/L (3.5-5.1); SODIUM LEVEL 139 MEQ/L (136-145); TOTAL PROTEIN 6.6 GM/DL (6.4-8.2)
[2016-12-05 06:00] VITALS: BP 135/63
[2016-12-05] MEDS: HumaLOG INSULIN (NovoLOG) PER UNIT SC SCH ×2 (06:00→12:26)
[2016-12-05] MEDS: LISINOPRIL 10 MG TAB PO SCH (10:16)
[2016-12-05] MEDS: PANTOPRAZOLE 40MG INJ (PROTONIX) (C9113) IV SCH (10:16)
[2016-12-05] MEDS: FLUCONAZOLE 100 MG in APPROPRIATE DILUENT 1 EA IV SCH (10:17)
[2016-12-05 14:00] VITALS: BP 132/63
[2016-12-05] MEDS ORDERED: PIPERACILLIN/TAZOBACTAM SOD 2.25 GM in D5W MINI-BAG PLUS 50 ML IV SCH (15:00)
[2016-12-05] MEDS: PIPERACILLIN/TAZOBACTAM SOD 2.25 GM in D5W MINI-BAG PLUS 50 ML IV SCH ×2 (15:17→21:37)
[2016-12-05] MEDS: SODIUM CHLORIDE 0.9% INJ 10 ML SYR IV PRN ×2 (16:20→22:33)
[2016-12-05] MEDS ORDERED: FAT EMULSION IV 20% 500 ML IV SCH (18:00)
[2016-12-05] MEDS ORDERED: HumaLOG INSULIN (NovoLOG) PER UNIT SC SCH (18:00)
[2016-12-05] MEDS ORDERED: AMINO AC/ELECTROLYTE/DEX/CALC 2,000 ML IV SCH (18:00)
[2016-12-05] MEDS: ENOXAPARIN 40 MG/0.4 ML SYRINGE (J1650) SC SCH (21:38)
[2016-12-05 22:00] VITALS: BP 135/61
[2016-12-06] MEDS: PIPERACILLIN/TAZOBACTAM SOD 2.25 GM in D5W MINI-BAG PLUS 50 ML IV SCH ×4 (03:31→20:56)
[2016-12-06] MEDS: SODIUM CHLORIDE 0.9% INJ 10 ML SYR IV SCH ×2 (05:31→17:09)
[2016-12-06] MEDS: OCTREOTIDE ACETATE 100 MCG/ML VIAL (J2354) SC SCH ×3 (05:32→21:07)
[2016-12-06 05:50] LABS: MEAN CORPUSCULAR HEMOGLOBIN 33.2 pg (27.0-33.0); MEAN CORPUSCULAR HGB CONC 33.5 g/dl (32.0-36.5); MEAN CORPUSCULAR VOLUME 99.1 fl (80.0-96.0); RED CELL DISTRIBUTION WIDTH 12.2 % (11.5-14.5); WHITE BLOOD COUNT 11.6 K/mm3 (4.0-10.0)
[2016-12-06 06:00] VITALS: BP 140/63
[2016-12-06 06:20] LABS: ALBUMIN 2.9 GM/DL (3.2-5.2); ALBUMIN/GLOBULIN RATIO 0.66 (1.00-1.93); ALKALINE PHOSPHATASE 67 U/L (45-117); ALT/SGPT 26 U/L (12-78); ANION GAP 5 MEQ/L (8-16); AST/SGOT 21 U/L (15-37); BILIRUBIN,TOTAL 0.4 MG/DL (0.2-1.0); BLOOD UREA NITROGEN 21 MG/DL (7-18); CALCIUM LEVEL 9.2 MG/DL (8.8-10.2); CARBON DIOXIDE LEVEL 28 MEQ/L (21-32); CHLORIDE LEVEL 104 MEQ/L (98-107); CREATININE FOR GFR 0.86 MG/DL (0.70-1.30); GLOMERULAR FILTRATION RATE > 60.0 (>49); GLUCOSE, FASTING 81 MG/DL (80-110); MAGNESIUM LEVEL 2.1 MG/DL (1.8-2.4); POTASSIUM SERUM 4.3 MEQ/L (3.5-5.1); SODIUM LEVEL 137 MEQ/L (136-145); TOTAL PROTEIN 7.3 GM/DL (6.4-8.2)
[2016-12-06] MEDS: LISINOPRIL 10 MG TAB PO SCH (08:43)
[2016-12-06] MEDS: PANTOPRAZOLE 40MG INJ (PROTONIX) (C9113) IV SCH (08:43)
[2016-12-06] MEDS: FLUCONAZOLE 100 MG in APPROPRIATE DILUENT 1 EA IV SCH (09:54)
[2016-12-06] MEDS: SODIUM CHLORIDE 0.9% INJ 10 ML SYR IV PRN ×2 (10:46→21:41)
--- NOTE | 2016-12-06 13:03 | REP ---
KUB: Two views presented. History: NG tube placement. Findings: Two views of the abdomen are presented. A nasogastric tube is passed into the left upper quadrant with the tip in the region of the gastric fundus. The side-hole of the NG tube is in the area of the GE junction. There are clips and sutures in the right mid abdomen. Vascular calcification is noted. Impression: Nasogastric tube tip in the gastric fundus. Side hole near the region of the GE junction. Signed by Lloyd Espinosa MD 12/06/2016 03:50 P
[2016-12-06 13:22] VITALS: BP 134/61
[2016-12-06] MEDS: HumaLOG INSULIN (NovoLOG) PER UNIT SC SCH ×2 (17:03→23:45)
[2016-12-06] MEDS ORDERED: FAT EMULSION IV 20% 500 ML IV SCH (18:00)
[2016-12-06] MEDS ORDERED: MULTIVITAMIN -ADULT INJECTION 10 ML, CR/CU/SE/MN/ZN INJ 1 ML in AMINO AC/ELECTROLYTE/DE... IV SCH (18:00)
[2016-12-06] MEDS: ENOXAPARIN 40 MG/0.4 ML SYRINGE (J1650) SC SCH (21:07)
[2016-12-06 22:00] VITALS: BP 138/63
[2016-12-07] MEDS: PIPERACILLIN/TAZOBACTAM SOD 2.25 GM in D5W MINI-BAG PLUS 50 ML IV SCH ×4 (02:45→21:02)
[2016-12-07 06:00] VITALS: BP 155/69
[2016-12-07] MEDS: OCTREOTIDE ACETATE 100 MCG/ML VIAL (J2354) SC SCH ×2 (06:10→13:42)
[2016-12-07] MEDS: HumaLOG INSULIN (NovoLOG) PER UNIT SC SCH ×3 (06:11→17:44)
[2016-12-07] MEDS: SODIUM CHLORIDE 0.9% INJ 10 ML SYR IV SCH ×2 (06:12→15:25)
[2016-12-07] MEDS: PANTOPRAZOLE 40MG INJ (PROTONIX) (C9113) IV SCH (08:17)
[2016-12-07] MEDS: LISINOPRIL 10 MG TAB PO SCH (08:18)
[2016-12-07] MEDS: FLUCONAZOLE 100 MG in APPROPRIATE DILUENT 1 EA IV SCH ×2 (08:18→10:09)
[2016-12-07 09:40] VITALS: BP 116/55
[2016-12-07 13:48] VITALS: BP 128/60
--- NOTE | 2016-12-07 17:07 | IPN ---
DATE: 12/07/2016 The patient overall has been doing relatively well with his nasogastric (NG) tube in place. He is having about 50/50 for the amount of drainage out of his NG tube and the amount out of his ostomy. It is clear. Overall has been doing well with this. He has been getting some octreotide subcutaneous, but I will change this over to intravenous (IV) instead and see if there is a difference in his output over the next 24-48 hours; otherwise has been doing relatively well with total parenteral nutrition (TPN). 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 Will keep him nothing by mouth, IV fluids, and TPN for now. I do feel that he has made some overall improvement, and the drainage seems to be steady, but will see if we can change the amount with our current medication adjustment.
[2016-12-07] MEDS ORDERED: AMINO AC/ELECTROLYTE/DEX/CALC 2,000 ML IV SCH (18:00)
[2016-12-07] MEDS ORDERED: FAT EMULSION IV 20% 500 ML IV SCH (18:00)
[2016-12-07] MEDS: ENOXAPARIN 40 MG/0.4 ML SYRINGE (J1650) SC SCH (21:02)
[2016-12-07] MEDS: OCTREOTIDE ACETATE 100 MCG/ML VIAL (J2354) IV SCH (21:04)
--- NOTE | 2016-12-07 21:28 | IPN ---
DATE: 12/06/2016 Patient overall has been stable. White count still seems to be elevated today at 11.6 but he has been afebrile, has not complained of any nausea, no vomiting. His intake and output does show that he still has some nasogastric (NG) tube output and also his gastrostomy output is still a fair bit, it is about half and half that he is having drainage from the two. The ostomy site itself/the abscess drainage seems to be much smaller than it was beforehand. I anticipate this was probably a marginal ulcer that perforated and then subsequently necessitated out the abdominal wall. In any case, he seems to be doing better, not complaining of any pain or discomfort at this time. I anticipate that after the next few days we will probably stop his antibiotics and his Diflucan as well given that there probably is not any additional infection associated with this and it is has not become a sinus tract and hopefully will start to decrease in amount over time. 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 Will keep him nothing by mouth and keep the nasogastric (NG) tube in and IV fluids and keep him on total parenteral nutrition (TPN) for now.
[2016-12-07] MEDS: SODIUM CHLORIDE 0.9% INJ 10 ML SYR IV PRN (21:47)
[2016-12-08] MEDS: HumaLOG INSULIN (NovoLOG) PER UNIT SC SCH ×4 (00:05→18:00)
[2016-12-08] MEDS: PIPERACILLIN/TAZOBACTAM SOD 2.25 GM in D5W MINI-BAG PLUS 50 ML IV SCH ×4 (02:27→20:57)
[2016-12-08] MEDS: OCTREOTIDE ACETATE 100 MCG/ML VIAL (J2354) IV SCH ×3 (05:25→21:00)
[2016-12-08] MEDS: SODIUM CHLORIDE 0.9% INJ 10 ML SYR IV SCH ×2 (05:26→15:47)
[2016-12-08 05:37] LABS: MEAN CORPUSCULAR HEMOGLOBIN 33.3 pg (27.0-33.0); MEAN CORPUSCULAR HGB CONC 33.3 g/dl (32.0-36.5); RED CELL DISTRIBUTION WIDTH 12.2 % (11.5-14.5); WHITE BLOOD COUNT 13.3 K/mm3 (4.0-10.0)
[2016-12-08 05:49] LABS: ANION GAP 4 MEQ/L (8-16); BLOOD UREA NITROGEN 25 MG/DL (7-18); CALCIUM LEVEL 9.2 MG/DL (8.8-10.2); CARBON DIOXIDE LEVEL 28 MEQ/L (21-32); CHLORIDE LEVEL 102 MEQ/L (98-107); CREATININE FOR GFR 0.86 MG/DL (0.70-1.30); GLOMERULAR FILTRATION RATE > 60.0 (>49); GLUCOSE, FASTING 93 MG/DL (80-110); POTASSIUM SERUM 4.1 MEQ/L (3.5-5.1); SODIUM LEVEL 134 MEQ/L (136-145)
[2016-12-08 07:49] VITALS: BP 135/62
[2016-12-08] MEDS: PANTOPRAZOLE 40MG INJ (PROTONIX) (C9113) IV SCH (08:29)
[2016-12-08] MEDS: LISINOPRIL 10 MG TAB PO SCH (08:30)
[2016-12-08] MEDS: FLUCONAZOLE 100 MG in APPROPRIATE DILUENT 1 EA IV SCH (09:39)
[2016-12-08] MEDS: SODIUM CHLORIDE 0.9% INJ 10 ML SYR IV PRN (10:51)
[2016-12-08 13:46] VITALS: BP 125/58
[2016-12-08] MEDS ORDERED: MULTIVITAMIN -ADULT INJECTION 10 ML, CR/CU/SE/MN/ZN INJ 1 ML in AMINO AC/ELECTROLYTE/DE... IV SCH (18:00)
[2016-12-08] MEDS ORDERED: FAT EMULSION IV 20% 500 ML IV SCH (18:00)
[2016-12-08] MEDS: ENOXAPARIN 40 MG/0.4 ML SYRINGE (J1650) SC SCH (21:00)
[2016-12-08 22:00] VITALS: BP 142/70
[2016-12-09] MEDS: PIPERACILLIN/TAZOBACTAM SOD 2.25 GM in D5W MINI-BAG PLUS 50 ML IV SCH ×4 (03:00→21:35)
[2016-12-09] MEDS: SODIUM CHLORIDE 0.9% INJ 10 ML SYR IV SCH ×2 (05:06→17:45)
[2016-12-09] MEDS: OCTREOTIDE ACETATE 100 MCG/ML VIAL (J2354) IV SCH ×3 (05:06→21:35)
[2016-12-09 05:29] LABS: MEAN CORPUSCULAR HEMOGLOBIN 33.2 pg (27.0-33.0); MEAN CORPUSCULAR HGB CONC 33.6 g/dl (32.0-36.5); MEAN CORPUSCULAR VOLUME 98.7 fl (80.0-96.0); WHITE BLOOD COUNT 9.4 K/mm3 (4.0-10.0)
[2016-12-09 06:00] VITALS: BP 117/58
[2016-12-09] MEDS: HumaLOG INSULIN (NovoLOG) PER UNIT SC SCH ×4 (06:00→18:00)
[2016-12-09 06:06] LABS: ANION GAP 5 MEQ/L (8-16); BLOOD UREA NITROGEN 24 MG/DL (7-18); CALCIUM LEVEL 9.2 MG/DL (8.8-10.2); CARBON DIOXIDE LEVEL 30 MEQ/L (21-32); CHLORIDE LEVEL 103 MEQ/L (98-107); CREATININE FOR GFR 0.81 MG/DL (0.70-1.30); GLOMERULAR FILTRATION RATE > 60.0 (>49); GLUCOSE, FASTING 94 MG/DL (80-110); POTASSIUM SERUM 4.3 MEQ/L (3.5-5.1); SODIUM LEVEL 138 MEQ/L (136-145)
[2016-12-09] MEDS: LISINOPRIL 10 MG TAB PO SCH (08:23)
[2016-12-09] MEDS: FLUCONAZOLE 100 MG in APPROPRIATE DILUENT 1 EA IV SCH (08:26)
[2016-12-09] MEDS: PANTOPRAZOLE 40MG INJ (PROTONIX) (C9113) IV SCH (09:00)
[2016-12-09] MEDS: SODIUM CHLORIDE 0.9% INJ 10 ML SYR IV PRN (10:58)
[2016-12-09 14:00] VITALS: BP 135/63
[2016-12-09] MEDS ORDERED: FAT EMULSION IV 20% 500 ML IV SCH (18:00)
[2016-12-09] MEDS ORDERED: AMINO AC/ELECTROLYTE/DEX/CALC 2,000 ML IV SCH (18:00)
[2016-12-09] MEDS: ENOXAPARIN 40 MG/0.4 ML SYRINGE (J1650) SC SCH (21:35)
[2016-12-09 22:00] VITALS: BP 134/60
[2016-12-10] MEDS: PIPERACILLIN/TAZOBACTAM SOD 2.25 GM in D5W MINI-BAG PLUS 50 ML IV SCH ×4 (03:00→21:08)
[2016-12-10] MEDS: OCTREOTIDE ACETATE 100 MCG/ML VIAL (J2354) IV SCH ×3 (05:42→21:08)
[2016-12-10] MEDS: SODIUM CHLORIDE 0.9% INJ 10 ML SYR IV SCH ×2 (05:42→17:44)
[2016-12-10 06:00] VITALS: BP 128/64
[2016-12-10] MEDS: HumaLOG INSULIN (NovoLOG) PER UNIT SC SCH ×4 (06:00→17:56)
[2016-12-10 06:04] LABS: MEAN CORPUSCULAR HEMOGLOBIN 32.8 pg (27.0-33.0); MEAN CORPUSCULAR HGB CONC 33.2 g/dl (32.0-36.5); MEAN CORPUSCULAR VOLUME 98.6 fl (80.0-96.0); RED CELL DISTRIBUTION WIDTH 12.2 % (11.5-14.5); WHITE BLOOD COUNT 8.6 K/mm3 (4.0-10.0)
[2016-12-10 06:24] LABS: ANION GAP 5 MEQ/L (8-16); BLOOD UREA NITROGEN 25 MG/DL (7-18); CALCIUM LEVEL 9.1 MG/DL (8.8-10.2); CARBON DIOXIDE LEVEL 29 MEQ/L (21-32); CHLORIDE LEVEL 102 MEQ/L (98-107); CREATININE FOR GFR 0.79 MG/DL (0.70-1.30); GLOMERULAR FILTRATION RATE > 60.0 (>49); GLUCOSE, FASTING 94 MG/DL (80-110); POTASSIUM SERUM 4.3 MEQ/L (3.5-5.1); SODIUM LEVEL 136 MEQ/L (136-145)
[2016-12-10 08:38] VITALS: BP 134/63
[2016-12-10] MEDS: PANTOPRAZOLE 40MG INJ (PROTONIX) (C9113) IV SCH (09:39)
[2016-12-10] MEDS: LISINOPRIL 10 MG TAB PO SCH (09:40)
[2016-12-10] MEDS: FLUCONAZOLE 100 MG in APPROPRIATE DILUENT 1 EA IV SCH (10:55)
[2016-12-10 14:00] VITALS: BP 123/53
[2016-12-10] MEDS ORDERED: MULTIVITAMIN -ADULT INJECTION 10 ML, CR/CU/SE/MN/ZN INJ 1 ML in AMINO AC/ELECTROLYTE/DE... IV SCH (18:00)
[2016-12-10] MEDS ORDERED: FAT EMULSION IV 20% 500 ML IV SCH (18:00)
[2016-12-10] MEDS: ENOXAPARIN 40 MG/0.4 ML SYRINGE (J1650) SC SCH (21:08)
[2016-12-10 22:00] VITALS: BP 128/58
[2016-12-10] MEDS: SODIUM CHLORIDE 0.9% INJ 10 ML SYR IV PRN (22:02)
[2016-12-11] MEDS: HumaLOG INSULIN (NovoLOG) PER UNIT SC SCH ×4 (00:16→18:34)
[2016-12-11] MEDS: PIPERACILLIN/TAZOBACTAM SOD 2.25 GM in D5W MINI-BAG PLUS 50 ML IV SCH ×4 (03:07→20:33)
[2016-12-11] MEDS: SODIUM CHLORIDE 0.9% INJ 10 ML SYR IV PRN ×2 (03:07→12:56)
[2016-12-11] MEDS: SODIUM CHLORIDE 0.9% INJ 10 ML SYR IV SCH ×2 (05:59→18:35)
[2016-12-11] MEDS: OCTREOTIDE ACETATE 100 MCG/ML VIAL (J2354) IV SCH ×3 (05:59→22:09)
[2016-12-11 06:05] VITALS: BP 132/62
[2016-12-11 06:33] LABS: MEAN CORPUSCULAR HGB CONC 33.3 g/dl (32.0-36.5); RED CELL DISTRIBUTION WIDTH 12.3 % (11.5-14.5); WHITE BLOOD COUNT 10.3 K/mm3 (4.0-10.0)
[2016-12-11 06:48] LABS: ANION GAP 6 MEQ/L (8-16); BLOOD UREA NITROGEN 27 MG/DL (7-18); CALCIUM LEVEL 9.3 MG/DL (8.8-10.2); CARBON DIOXIDE LEVEL 28 MEQ/L (21-32); CHLORIDE LEVEL 102 MEQ/L (98-107); CREATININE FOR GFR 0.82 MG/DL (0.70-1.30); GLOMERULAR FILTRATION RATE > 60.0 (>49); GLUCOSE, FASTING 78 MG/DL (80-110); POTASSIUM SERUM 4.3 MEQ/L (3.5-5.1); SODIUM LEVEL 136 MEQ/L (136-145)
[2016-12-11] MEDS: PANTOPRAZOLE 40MG INJ (PROTONIX) (C9113) IV SCH (09:41)
[2016-12-11] MEDS: LISINOPRIL 10 MG TAB PO SCH (09:42)
[2016-12-11] MEDS: FLUCONAZOLE 100 MG in APPROPRIATE DILUENT 1 EA IV SCH (11:11)
[2016-12-11] MEDS: URSODIOL 300 MG CAP PO SCH ×4 (11:12→20:31)
[2016-12-11 14:00] VITALS: BP 124/57
[2016-12-11] MEDS ORDERED: FAT EMULSION IV 20% 500 ML IV SCH (18:00)
[2016-12-11] MEDS ORDERED: AMINO AC/ELECTROLYTE/DEX/CALC 2,000 ML IV SCH (18:00)
[2016-12-11 22:00] VITALS: BP 120/58
[2016-12-11] MEDS: ENOXAPARIN 40 MG/0.4 ML SYRINGE (J1650) SC SCH (22:09)
[2016-12-12] MEDS: HumaLOG INSULIN (NovoLOG) PER UNIT SC SCH ×4 (00:35→17:42)
[2016-12-12] MEDS: PIPERACILLIN/TAZOBACTAM SOD 2.25 GM in D5W MINI-BAG PLUS 50 ML IV SCH ×2 (02:30→10:16)
[2016-12-12] MEDS: SODIUM CHLORIDE 0.9% INJ 10 ML SYR IV SCH ×2 (05:27→17:43)
[2016-12-12 05:51] LABS: MEAN CORPUSCULAR HEMOGLOBIN 32.6 pg (27.0-33.0); MEAN CORPUSCULAR HGB CONC 32.8 g/dl (32.0-36.5); MEAN CORPUSCULAR VOLUME 99.4 fl (80.0-96.0); RED CELL DISTRIBUTION WIDTH 12.3 % (11.5-14.5); WHITE BLOOD COUNT 9.4 K/mm3 (4.0-10.0)
[2016-12-12 06:00] VITALS: BP 146/66
[2016-12-12 06:03] LABS: ANION GAP 6 MEQ/L (8-16); BLOOD UREA NITROGEN 26 MG/DL (7-18); CALCIUM LEVEL 9.3 MG/DL (8.8-10.2); CARBON DIOXIDE LEVEL 28 MEQ/L (21-32); CHLORIDE LEVEL 102 MEQ/L (98-107); CREATININE FOR GFR 0.77 MG/DL (0.70-1.30); GLOMERULAR FILTRATION RATE > 60.0 (>49); GLUCOSE, FASTING 86 MG/DL (80-110); POTASSIUM SERUM 4.2 MEQ/L (3.5-5.1); SODIUM LEVEL 136 MEQ/L (136-145)
[2016-12-12] MEDS: OCTREOTIDE ACETATE 100 MCG/ML VIAL (J2354) IV SCH ×3 (06:16→21:56)
[2016-12-12] MEDS: FLUCONAZOLE 100 MG in APPROPRIATE DILUENT 1 EA IV SCH (08:47)
[2016-12-12] MEDS: URSODIOL 300 MG CAP PO SCH ×4 (08:47→21:56)
[2016-12-12] MEDS: PANTOPRAZOLE 40MG INJ (PROTONIX) (C9113) IV SCH (08:47)
[2016-12-12] MEDS: LISINOPRIL 10 MG TAB PO SCH (08:50)
[2016-12-12] MEDS: SUCRALFATE SUSP 1GM/10ML UD PO SCH ×3 (09:00→21:55)
[2016-12-12 14:00] VITALS: BP 126/59
[2016-12-12] MEDS ORDERED: FAT EMULSION IV 20% 500 ML IV SCH (18:00)
[2016-12-12] MEDS ORDERED: AMINO AC/ELECTROLYTE/DEX/CALC 2,000 ML IV SCH (18:00)
[2016-12-12] MEDS: ENOXAPARIN 40 MG/0.4 ML SYRINGE (J1650) SC SCH (21:56)
[2016-12-12 22:00] VITALS: BP 127/60
[2016-12-13] MEDS: HumaLOG INSULIN (NovoLOG) PER UNIT SC SCH ×5 (00:08→23:10)
[2016-12-13] MEDS: OCTREOTIDE ACETATE 100 MCG/ML VIAL (J2354) IV SCH ×3 (05:19→21:50)
[2016-12-13] MEDS: SODIUM CHLORIDE 0.9% INJ 10 ML SYR IV SCH ×2 (05:19→17:29)
[2016-12-13 05:27] LABS: MEAN CORPUSCULAR HEMOGLOBIN 32.7 pg (27.0-33.0); MEAN CORPUSCULAR HGB CONC 33.2 g/dl (32.0-36.5); MEAN CORPUSCULAR VOLUME 98.5 fl (80.0-96.0); WHITE BLOOD COUNT 6.9 K/mm3 (4.0-10.0)
[2016-12-13 05:48] LABS: ANION GAP 5 MEQ/L (8-16); BLOOD UREA NITROGEN 23 MG/DL (7-18); CARBON DIOXIDE LEVEL 29 MEQ/L (21-32); CHLORIDE LEVEL 105 MEQ/L (98-107); CREATININE FOR GFR 0.67 MG/DL (0.70-1.30); GLOMERULAR FILTRATION RATE > 60.0 (>49); GLUCOSE, FASTING 79 MG/DL (80-110); POTASSIUM SERUM 4.3 MEQ/L (3.5-5.1); SODIUM LEVEL 139 MEQ/L (136-145)
[2016-12-13 06:00] VITALS: BP 131/60
[2016-12-13] MEDS: URSODIOL 300 MG CAP PO SCH ×4 (08:12→21:50)
[2016-12-13] MEDS: PANTOPRAZOLE 40MG INJ (PROTONIX) (C9113) IV SCH (08:12)
[2016-12-13] MEDS: LISINOPRIL 10 MG TAB PO SCH (08:13)
[2016-12-13] MEDS: SUCRALFATE SUSP 1GM/10ML UD PO SCH ×3 (08:14→21:50)
[2016-12-13] MEDS: FLUCONAZOLE 100 MG in APPROPRIATE DILUENT 1 EA IV SCH (08:50)
[2016-12-13 14:00] VITALS: BP 118/59
[2016-12-13] MEDS ORDERED: FAT EMULSION IV 20% 500 ML IV SCH (18:00)
[2016-12-13] MEDS ORDERED: MULTIVITAMIN -ADULT INJECTION 10 ML, CR/CU/SE/MN/ZN INJ 1 ML in AMINO AC/ELECTROLYTE/DE... IV SCH (18:00)
[2016-12-13] MEDS: ENOXAPARIN 40 MG/0.4 ML SYRINGE (J1650) SC SCH (21:50)
[2016-12-13 22:00] VITALS: BP 140/64
[2016-12-14] MEDS: HumaLOG INSULIN (NovoLOG) PER UNIT SC SCH ×3 (05:24→18:12)
[2016-12-14] MEDS: SODIUM CHLORIDE 0.9% INJ 10 ML SYR IV SCH ×2 (05:30→18:00)
[2016-12-14] MEDS: OCTREOTIDE ACETATE 100 MCG/ML VIAL (J2354) IV SCH ×3 (05:30→20:37)
[2016-12-14 05:54] LABS: MEAN CORPUSCULAR HGB CONC 33.7 g/dl (32.0-36.5); MEAN CORPUSCULAR VOLUME 97.7 fl (80.0-96.0); RED CELL DISTRIBUTION WIDTH 12.1 % (11.5-14.5); WHITE BLOOD COUNT 6.5 K/mm3 (4.0-10.0)
[2016-12-14 06:00] VITALS: BP 116/55
[2016-12-14 06:19] LABS: ANION GAP 7 MEQ/L (8-16); BLOOD UREA NITROGEN 25 MG/DL (7-18); CALCIUM LEVEL 9.2 MG/DL (8.8-10.2); CARBON DIOXIDE LEVEL 28 MEQ/L (21-32); CHLORIDE LEVEL 103 MEQ/L (98-107); CREATININE FOR GFR 0.67 MG/DL (0.70-1.30); GLOMERULAR FILTRATION RATE > 60.0 (>49); GLUCOSE, FASTING 70 MG/DL (80-110); POTASSIUM SERUM 4.1 MEQ/L (3.5-5.1); SODIUM LEVEL 138 MEQ/L (136-145)
[2016-12-14] MEDS: FLUCONAZOLE 100 MG in APPROPRIATE DILUENT 1 EA IV SCH (10:28)
[2016-12-14] MEDS: SUCRALFATE SUSP 1GM/10ML UD PO SCH ×3 (10:28→20:37)
[2016-12-14] MEDS: LISINOPRIL 10 MG TAB PO SCH (10:28)
[2016-12-14] MEDS: URSODIOL 300 MG CAP PO SCH ×4 (10:28→20:37)
[2016-12-14] MEDS: PANTOPRAZOLE 40MG INJ (PROTONIX) (C9113) IV SCH (10:53)
[2016-12-14] MEDS: SODIUM CHLORIDE 0.9% INJ 10 ML SYR IV PRN ×3 (11:30→20:43)
[2016-12-14 14:00] VITALS: BP 137/64
[2016-12-14] MEDS ORDERED: AMINO AC/ELECTROLYTE/DEX/CALC 2,000 ML IV SCH (18:00)
[2016-12-14] MEDS ORDERED: FAT EMULSION IV 20% 500 ML IV SCH (18:00)
[2016-12-14] MEDS: ENOXAPARIN 40 MG/0.4 ML SYRINGE (J1650) SC SCH (20:38)
[2016-12-14 22:00] VITALS: BP 113/55
[2016-12-15] MEDS: HumaLOG INSULIN (NovoLOG) PER UNIT SC SCH ×4 (00:26→17:40)
[2016-12-15] MEDS: SODIUM CHLORIDE 0.9% INJ 10 ML SYR IV SCH ×2 (05:36→17:40)
[2016-12-15] MEDS: OCTREOTIDE ACETATE 100 MCG/ML VIAL (J2354) IV SCH ×3 (05:36→20:59)
[2016-12-15 06:00] VITALS: BP 125/58
[2016-12-15] MEDS: PANTOPRAZOLE 40MG INJ (PROTONIX) (C9113) IV SCH (09:40)
[2016-12-15] MEDS: SUCRALFATE SUSP 1GM/10ML UD PO SCH ×3 (09:40→20:59)
[2016-12-15] MEDS: LISINOPRIL 10 MG TAB PO SCH (09:40)
[2016-12-15] MEDS: FLUCONAZOLE 100 MG in APPROPRIATE DILUENT 1 EA IV SCH (09:41)
[2016-12-15] MEDS: URSODIOL 300 MG CAP PO SCH ×4 (09:43→20:59)
[2016-12-15 14:00] VITALS: BP 107/51
[2016-12-15] MEDS ORDERED: MULTIVITAMIN -ADULT INJECTION 10 ML, CR/CU/SE/MN/ZN INJ 1 ML in AMINO AC/ELECTROLYTE/DE... IV SCH (18:00)
[2016-12-15] MEDS ORDERED: FAT EMULSION IV 20% 500 ML IV SCH (18:00)
[2016-12-15] MEDS: ENOXAPARIN 40 MG/0.4 ML SYRINGE (J1650) SC SCH (20:58)
[2016-12-15 22:00] VITALS: BP 124/60
[2016-12-16] MEDS: HumaLOG INSULIN (NovoLOG) PER UNIT SC SCH ×5 (00:32→23:45)
[2016-12-16 06:00] VITALS: BP 127/62
[2016-12-16] MEDS: OCTREOTIDE ACETATE 100 MCG/ML VIAL (J2354) IV SCH ×3 (06:00→21:26)
[2016-12-16] MEDS: SODIUM CHLORIDE 0.9% INJ 10 ML SYR IV SCH ×2 (06:07→17:45)
[2016-12-16 07:45] VITALS: BP 127/58
[2016-12-16] MEDS: SUCRALFATE SUSP 1GM/10ML UD PO SCH ×3 (08:40→20:30)
[2016-12-16] MEDS: PANTOPRAZOLE 40MG INJ (PROTONIX) (C9113) IV SCH (08:40)
[2016-12-16] MEDS: FLUCONAZOLE 100 MG in APPROPRIATE DILUENT 1 EA IV SCH (08:41)
[2016-12-16] MEDS: SODIUM CHLORIDE 0.9% INJ 10 ML SYR IV PRN ×3 (09:41→21:27)
[2016-12-16] MEDS ORDERED: GASTROGRAFIN SOLUTION 30ML (Q9963) As Ordered ONE ×2 (09:43→09:51)
[2016-12-16] MEDS: LISINOPRIL 10 MG TAB PO SCH (11:04)
[2016-12-16] MEDS: URSODIOL 300 MG CAP PO SCH ×4 (11:05→20:30)
[2016-12-16 14:00] VITALS: BP 125/58
--- NOTE | 2016-12-16 14:15 | REP ---
GASTROGRAFIN UPPER GI: The procedure was performed under the direct supervision of Dr. Espinosa. The images were reviewed with Dr. Espinosa. City Bus Driver film shows no organomegaly or pathologic masses. The intestinal gas pattern is nonspecific. There is a suture line i the right upper quadrant consistent with the patient's history of distal gastric resection and gastric jejunostomy. There is an NG tube in place. 150 mL of a 50/50 solution of Gastrografin and water was instilled through the NG tube. Contrast fills the stomach and empties through the anastomosis and into the proximal small bowel without delay. There is no evidence of obstruction or extravasation. The gastrocutaneous fistula seen on the previous exam dated 12/01/2016 is not visualized on today's examination. Impression: The gastrocutaneous fistula seen on the previous exam dated 12/01/2016 is not visualized on today's examination. There is no evidence of obstruction. There is free flow of contrast through the anastomosis and into the proximal small bowel. 2 minutes and 7 seconds of fluoroscopy time was utilized for this procedure. Reviewed by CHAPITO Pereira 12/16/2016 04:28 PEdited and Signed by Lloyd Espinosa MD 12/16/2016 04:43 P
[2016-12-16] MEDS ORDERED: FAT EMULSION IV 20% 500 ML IV SCH (18:00)
[2016-12-16] MEDS ORDERED: AMINO AC/ELECTROLYTE/DEX/CALC 2,000 ML IV SCH (18:00)
[2016-12-16] MEDS: ENOXAPARIN 40 MG/0.4 ML SYRINGE (J1650) SC SCH (21:26)
[2016-12-16 22:00] VITALS: BP 147/67
[2016-12-17] MEDS: OCTREOTIDE ACETATE 100 MCG/ML VIAL (J2354) IV SCH (05:19)
[2016-12-17] MEDS: SODIUM CHLORIDE 0.9% INJ 10 ML SYR IV SCH ×2 (05:19→17:09)
[2016-12-17 06:00] VITALS: BP 120/56
[2016-12-17] MEDS: HumaLOG INSULIN (NovoLOG) PER UNIT SC SCH ×2 (06:00→11:48)
[2016-12-17 08:00] VITALS: BP 118/56
[2016-12-17] MEDS: SUCRALFATE SUSP 1GM/10ML UD PO SCH ×3 (08:50→21:08)
[2016-12-17] MEDS: PANTOPRAZOLE 40MG INJ (PROTONIX) (C9113) IV SCH (08:55)
[2016-12-17] MEDS: FLUCONAZOLE 100 MG in APPROPRIATE DILUENT 1 EA IV SCH (08:55)
[2016-12-17] MEDS: SODIUM CHLORIDE 0.9% INJ 10 ML SYR IV PRN (09:33)
[2016-12-17] MEDS: LISINOPRIL 10 MG TAB PO SCH (10:57)
[2016-12-17] MEDS: URSODIOL 300 MG CAP PO SCH (11:21)
[2016-12-17 14:00] VITALS: BP 134/64
[2016-12-17] MEDS: OMEPRAZOLE 20 MG CAP PO SCH (21:08)
[2016-12-17] MEDS: ENOXAPARIN 40 MG/0.4 ML SYRINGE (J1650) SC SCH (21:08)
[2016-12-17 22:00] VITALS: BP 129/60
[2016-12-18 05:15] VITALS: BP 120/56
[2016-12-18] MEDS: SODIUM CHLORIDE 0.9% INJ 10 ML SYR IV SCH ×2 (06:26→17:02)
[2016-12-18] MEDS: OMEPRAZOLE 20 MG CAP PO SCH ×2 (07:58→21:50)
[2016-12-18] MEDS: SUCRALFATE SUSP 1GM/10ML UD PO SCH ×3 (07:58→21:50)
[2016-12-18] MEDS: LISINOPRIL 10 MG TAB PO SCH (07:58)
--- NOTE | 2016-12-18 10:58 | IPNPDOC ---
Subjective General Date/Time Seen The patient was seen on 12/18/16 at 10:45. Subject Chief Complaint/History The patient is a 61-year-old male admitted with a reason for visit of Gastric Fistula. Seems to have resolved. Patient denies any abdominal pain. He tolerated full liquids yesterday. Current Medications Current Medications Current Medications Amino Ac/Electrol/ Dextrose/Calcium 2,000 ml @ 60 mls/hr ONCE@1800 IV Last administered on 12/02/16 18:01; Start 12/02/16 at 18:00; Stop 12/03/16 at 17:59; Status DC Amino Ac/Electrol/ Dextrose/Calcium 2,000 ml @ 65 mls/hr ONCE@1800 IV Last administered on 12/04/16 18:22; Start 12/04/16 at 18:00; Stop 12/05/16 at 17:59; Status DC Amino Ac/Electrol/ Dextrose/Calcium 2,000 ml @ 65 mls/hr ONCE@1800 IV Last administered on 12/05/16 17:59; Start 12/05/16 at 18:00; Stop 12/06/16 at 17:59; Status DC Amino Ac/Electrol/ Dextrose/Calcium 2,000 ml @ 75 mls/hr ONCE@1800 IV Last administered on 12/07/16 18:08; Start 12/07/16 at 18:00; Stop 12/08/16 at 17:59 ; Status DC Amino Ac/Electrol/ Dextrose/Calcium 2,000 ml @ 75 mls/hr ONCE@1800 IV Last administered on 12/09/16 17:45; Start 12/09/16 at 18:00; Stop 12/10/16 at 17:59 ; Status DC Amino Ac/Electrol/ Dextrose/Calcium 2,000 ml @ 75 mls/hr ONCE@1800 IV Last administered on 12/11/16 18:33; Start 12/11/16 at 18:00; Stop 12/12/16 at 17:59 ; Status DC Amino Ac/Electrol/ Dextrose/Calcium 2,000 ml @ 75 mls/hr ONCE@1800 IV Last administered on 12/12/16 17:43; Start 12/12/16 at 18:00; Stop 12/13/16 at 17:59 ; Status DC Amino Ac/Electrol/ Dextrose/Calcium 2,000 ml @ 75 mls/hr ONCE@1800 IV Last administered on 12/14/16 18:11; Start 12/14/16 at 18:00; Stop 12/15/16 at 17:59 ; Status DC Amino Ac/Electrol/ Dextrose/Calcium 2,000 ml @ 75 mls/hr ONCE@1800 IV Last administered on 12/16/16 17:45; Start 12/16/16 at 18:00; Stop 12/17/16 at 17:59 ; Status DC Bisacodyl (Dulcolax Suppository) 10 mg DAILYPRN PRN LA CONSTIPATION; Start 11/29 at 09:30; Stop 12/29/16 at 09:29 Enoxaparin Sodium (Lovenox) 40 mg DAILY@2200 SC Last administered on 12/17/16 21:08; Start 12/04/16 at 22:00; Stop 12/21/16 at 21:59 Fat Emulsion Intravenous 500 ml @ 20 mls/hr ONCE@1800 IV Last administered on 12/06/16 17:09; Start 12/06/16 at 18:00; Stop 12/07/16 at 17:59; Status DC Fat Emulsion Intravenous 500 ml @ 20 mls/hr ONCE@1800 IV Last administered on 12/07/16 18:08; Start 12/07/16 at 18:00; Stop 12/08/16 at 17:59; Status DC Fat Emulsion Intravenous 500 ml @ 20 mls/hr ONCE@1800 IV Last administered on 12/08/16 18:04; Start 12/08/16 at 18:00; Stop 12/09/16 at 17:59; Status DC Fat Emulsion Intravenous 500 ml @ 20 mls/hr ONCE@1800 IV Last administered on 12/09/16 17:46; Start 12/09/16 at 18:00; Stop 12/10/16 at 17:59; Status DC Fat Emulsion Intravenous 500 ml @ 20 mls/hr ONCE@1800 IV Last administered on 12/10/16 17:46; Start 12/10/16 at 18:00; Stop 12/11/16 at 17:59; Status DC Fat Emulsion Intravenous 500 ml @ 20 mls/hr ONCE@1800 IV Last administered on 12/11/16 18:33; Start 12/11/16 at 18:00; Stop 12/12/16 at 17:59; Status DC Fat Emulsion Intravenous 500 ml @ 20 mls/hr ONCE@1800 IV Last administered on 12/12/16 17:43; Start 12/12/16 at 18:00; Stop 12/13/16 at 17:59; Status DC Fat Emulsion Intravenous 500 ml @ 20 mls/hr ONCE@1800 IV Last administered on 12/13/16 17:29; Start 12/13/16 at 18:00; Stop 12/14/16 at 17:59; Status DC Fat Emulsion Intravenous 500 ml @ 20 mls/hr ONCE@1800 IV Last administered on 12/14/16 18:10; Start 12/14/16 at 18:00; Stop 12/15/16 at 17:59; Status DC Fat Emulsion Intravenous 500 ml @ 20 mls/hr ONCE@1800 IV Last administered on 12/15/16 17:39; Start 12/15/16 at 18:00; Stop 12/16/16 at 17:59; Status DC Fat Emulsion Intravenous 500 ml @ 20 mls/hr ONCE@1800 IV Last administered on 12/16/16 17:45; Start 12/16/16 at 18:00; Stop 12/17/16 at 17:59; Status DC Fat Emulsion Intravenous 500 ml @ 20 mls/hr ONCE@1800 IV Last administered on 12/01/16 18:20; Start 12/01/16 at 18:00; Stop 12/02/16 at 17:59; Status DC Fat Emulsion Intravenous 500 ml @ 20 mls/hr ONCE@1800 IV Last administered on 12/02/16 18:01; Start 12/02/16 at 18:00; Stop 12/03/16 at 17:59; Status DC Fat Emulsion Intravenous 500 ml @ 20 mls/hr ONCE@1800 IV Last administered on 12/03/16 18:03; Start 12/03/16 at 18:00; Stop 12/04/16 at 17:59; Status DC Fat Emulsion Intravenous 500 ml @ 20 mls/hr ONCE@1800 IV Last administered on 12/04/16 18:22; Start 12/04/16 at 18:00; Stop 12/05/16 at 17:59; Status DC Fat Emulsion Intravenous 500 ml @ 20 mls/hr ONCE@1800 IV Last administered on 12/05/16 17:59; Start 12/05/16 at 18:00; Stop 12/06/16 at 17:59; Status DC Fluconazole 100 mg/IV Miscellaneous Supplies 50 ml @ 100 mls/hr DAILY IV Last administered on 12/17/16 08:55; Start 11/30/16 at 09:00; Stop 12/17/16 at 09:25 ; Status DC Heparin Sodium (Heparin (Flush)) 200 units ASDIRECTED PRN IV SEE LABEL COMMENTS Last administered on 12/17/16 09:33; Start 12/01/16 at 16:15; Stop 12/31 at 16:14 Heparin Sodium (Heparin (Flush)) 200 units PICC IV Last administered on 06:25; Start 12/01/16 at 18:00; Stop 12/31/16 at 17:59 Heparin Sodium (Porcine) (Heparin) 5,000 units Q8H SC Last administered on 05:16; Start 11/29/16 at 14:00; Stop 12/04/16 at 13:27; Status DC Home Med (Med Rec Complete!) ASDIRECTED XX ; Start 11/29/16 at 09:15; Stop at 09:15; Status DC Insulin Human Lispro (HumaLOG INSULIN) See Protocol Table Q6H SC Last administered on 12/07/16 11:45; Start 12/06/16 at 18:00; Stop 12/07/16 at 14:00 ; Status DC Insulin Human Lispro (HumaLOG INSULIN) See Protocol Table Q6H SC Last administered on 12/08/16 12:56; Start 12/07/16 at 18:00; Stop 12/08/16 at 12:01 ; Status DC Insulin Human Lispro (HumaLOG INSULIN) See Protocol Table Q6H SC Last administered on 12/09/16 12:20; Start 12/08/16 at 18:00; Stop 12/09/16 at 12:01 ; Status DC Insulin Human Lispro (HumaLOG INSULIN) See Protocol Table Q6H SC Last administered on 12/10/16 12:43; Start 12/09/16 at 18:00; Stop 12/10/16 at 15:00 ; Status DC Insulin Human Lispro (HumaLOG INSULIN) See Protocol Table Q6H SC Last administered on 12/11/16 12:55; Start 12/10/16 at 18:00; Stop 12/11/16 at 15:00 ; Status DC Insulin Human Lispro (HumaLOG INSULIN) See Protocol Table Q6H SC Last administered on 12/12/16 12:36; Start 12/11/16 at 18:00; Stop 12/12/16 at 15:00 ; Status DC Insulin Human Lispro (HumaLOG INSULIN) See Protocol Table Q6H SC Last administered on 12/13/16 11:59; Start 12/12/16 at 18:00; Stop 12/13/16 at 15:00 ; Status DC Insulin Human Lispro (HumaLOG INSULIN) See Protocol Table Q6H SC Last administered on 12/14/16 11:31; Start 12/13/16 at 18:00; Stop 12/14/16 at 12:01 ; Status DC Insulin Human Lispro (HumaLOG INSULIN) See Protocol Table Q6H SC Last administered on 12/15/16 12:06; Start 12/14/16 at 18:00; Stop 12/15/16 at 12:01 ; Status DC Insulin Human Lispro (HumaLOG INSULIN) See Protocol Table Q6H SC Last administered on 12/16/16 12:06; Start 12/15/16 at 18:00; Stop 12/16/16 at 14:00 ; Status DC Insulin Human Lispro (HumaLOG INSULIN) See Protocol Table Q6H SC Last administered on 12/16/16 23:45; Start 12/16/16 at 18:00; Stop 12/17/16 at 14:00 ; Status DC Insulin Human Lispro (HumaLOG INSULIN) See Protocol Table Q6H SC Last administered on 12/02/16 14:23; Start 12/01/16 at 18:00; Stop 12/02/16 at 12:01; Status DC Insulin Human Lispro (HumaLOG INSULIN) See Protocol Table Q6H SC Last administered on 12/03/16 13:00; Start 12/02/16 at 18:00; Stop 12/03/16 at 15:00; Status DC Insulin Human Lispro (HumaLOG INSULIN) See Protocol Table Q6H SC Last administered on 12/03/16 18:10; Start 12/03/16 at 18:00; Stop 12/04/16 at 15:00; Status DC Insulin Human Lispro (HumaLOG INSULIN) See Protocol Table Q6H SC Last administered on 12/05/16 12:26; Start 12/04/16 at 18:00; Stop 12/05/16 at 15:00; Status DC Insulin Human Lispro (HumaLOG INSULIN) See Protocol Table Q6H SC ; Start at 18:00; Stop 12/05/16 at 18:00; Status DC Ketorolac Tromethamine (ToRADol) 15 mg Q6HP PRN IV MILD/MODERATE PAIN (PS 1-7) Last administered on 12/02/16 22:12; Start 11/29/16 at 09:30; Stop 12/04/16 at 09: 29; Status DC Lisinopril (Prinivil) 10 mg DAILY PO Last administered on 12/18/16 07:58; Start 11/30/16 at 09:00; Stop 12/30/16 at 08:59 Morphine Sulfate (Morphine Sulfate Inj) 2 mg Q2HP PRN IV SEVERE PAIN (PS 8-10) ; Start 11/29/16 at 09:30; Stop 12/05/16 at 10:45; Status DC Multivitamins 10 ml/Chromium/ Copper/Manganese/ Seleni/Zn 1 ml/ Amino Ac/ Electrol/ Dextrose/Calcium 2,011 ml @ 60 mls/hr ONCE@1800 IV Last administered on 12/01/16 18:20; Start 12/01/16 at 18:00; Stop 12/02/16 at 17:59; Status DC Multivitamins 10 ml/Chromium/ Copper/Manganese/ Seleni/Zn 1 ml/ Amino Ac/ Electrol/ Dextrose/Calcium 2,011 ml @ 75 mls/hr ONCE@1800 IV Last administered on 12/06/16 17:08; Start 12/06/16 at 18:00; Stop 12/07/16 at 17:59 ; Status DC Multivitamins 10 ml/Chromium/ Copper/Manganese/ Seleni/Zn 1 ml/ Amino Ac/ Electrol/ Dextrose/Calcium 2,011 ml @ 75 mls/hr ONCE@1800 IV Last administered on 12/08/16 18:04; Start 12/08/16 at 18:00; Stop 12/09/16 at 17:59 ; Status DC Multivitamins 10 ml/Chromium/ Copper/Manganese/ Seleni/Zn 1 ml/ Amino Ac/ Electrol/ Dextrose/Calcium 2,011 ml @ 75 mls/hr ONCE@1800 IV Last administered on 12/10/16 17:47; Start 12/10/16 at 18:00; Stop 12/11/16 at 17:59 ; Status DC Multivitamins 10 ml/Chromium/ Copper/Manganese/ Seleni/Zn 1 ml/ Amino Ac/ Electrol/ Dextrose/Calcium 2,011 ml @ 75 mls/hr ONCE@1800 IV Last administered on 12/13/16 17:29; Start 12/13/16 at 18:00; Stop 12/14/16 at 17:59 ; Status DC Multivitamins 10 ml/Chromium/ Copper/Manganese/ Seleni/Zn 1 ml/ Amino Ac/ Electrol/ Dextrose/Calcium 2,011 ml @ 75 mls/hr ONCE@1800 IV Last administered on 12/15/16 17:39; Start 12/15/16 at 18:00; Stop 12/16/16 at 17:59 ; Status DC Multivitamins 10 ml/Chromium/ Copper/Manganese/ Seleni/Zn 1 ml/ Amino Ac/ Electrol/ Dextrose/Calcium 2,011 ml @ 75 mls/hr ONCE@1800 IV Last administered on 12/03/16 18:03; Start 12/03/16 at 18:00; Stop 12/04/16 at 17:59; Status DC Octreotide Acetate (SandoSTATIN) 100 mcg Q8H IV Last administered on 12/17/16 05:19; Start 12/07/16 at 22:00; Stop 12/17/16 at 09:25; Status DC Octreotide Acetate (SandoSTATIN) 100 mcg Q8H SC Last administered on 12/07/16 13:42; Start 11/29/16 at 06:00; Stop 12/07/16 at 17:02; Status DC Omeprazole (PriLOSEC) 40 mg BID PO Last administered on 12/18/16 07:58; Start 12/17/16 at 21:00; Stop 01/16/17 at 20:59 Ondansetron HCl (ZOFRAN INJection) 4 mg Q6HP PRN IV NAUSEA OR VOMITING; Start 11/29/16 at 09:30; Stop 12/05/16 at 10:45; Status DC Pantoprazole Sodium (Protonix) 40 mg DAILY IV Last administered on 12/17/16 08 :55; Start 11/30/16 at 09:00; Stop 12/17/16 at 09:36; Status DC Piperacillin Sod/ Tazobactam Sod 2.25 gm/Dextrose 50 ml @ 100 mls/hr Q6H IV Last administered on 12/12/16 10:16; Start 12/05/16 at 15:00; Stop 12/12/16 at 14:59; Status DC Piperacillin Sod/ Tazobactam Sod 2.25 gm/Dextrose 50 ml @ 50 mls/hr Q6H IV ; Start 12/05/16 at 15:00; Stop 12/12/16 at 14:59; Status UNV Piperacillin Sod/ Tazobactam Sod 3.375 gm/Dextrose 50 ml @ 50 mls/hr Q6H IV ; Start 11/29/16 at 10:00; Stop 11/29/16 at 10:00; Status DC Piperacillin Sod/ Tazobactam Sod 3.375 gm/Dextrose 50 ml @ 50 mls/hr Q6H IV Last administered on 12/05/16 10:16; Start 11/29/16 at 15:00; Stop 12/05/16 at 10: 45; Status DC Potassium Chloride/Dextrose/ Sod Cl 1,000 ml @ 125 mls/hr Q8H IV Last administered on 12/01/16 12:40; Start 11/29/16 at 09:17; Stop 12/01/16 at 18:09; Status DC Sodium Chloride (Saline Lock Flush) 10 ML PICC IV Last administered on 06:26; Start 12/01/16 at 18:00; Stop 12/31/16 at 17:59 Sodium Chloride (Saline Lock Flush) 10ML ASDIRECTED PRN IV SEE LABEL COMMENTS Last administered on 12/17/16 09:33; Start 12/01/16 at 16:15; Stop 12/31/16 at 16 :14 Sucralfate (Carafate Suspension) 1 gm TID PO Last administered on 12/18/16 07: 58; Start 12/12/16 at 09:00; Stop 01/11/17 at 08:59 Ursodiol (Actigall) 300 mg QID PO Last administered on 12/16/16t 20:30; Start 12/11/16 at 09:00; Stop 12/17/16 at 09:25; Status DC Allergies Coded Allergies: No Known Allergies (Unverified , 05/21/16) Objective Physical Examination Examination GENERAL APPEARANCE:Patient seen, laying in bed, awake, alert, and oriented. Comfortable, in no acute distress. SKIN: Warm and moist. HEENT: Normocephalic, atraumatic. Mathews palpebral conjunctiva, anicteric sclerae. Lips and mucosa appear moist. NECK: Supple, no thyromegaly. No obvious jugular venous distention. LUNGS: Clear to auscultation bilaterally. No wheezing appreciated. HEART: No chest wall abnormalities. Regular rate and rhythm with no murmurs appreciated. ABDOMEN: Abdomen is flat, soft, nondistended. Upper midline incision healed. No drainage. Nontender on palpation. EXTREMITIES: Extremities have no deformities. No edema identified. Vital Signs Vital Signs Date Time Temp Pulse Resp B/P (MAP) Pulse Ox O2 Delivery O2 Flow Rate FiO2 12/18/16 07:58 142/60 12/18/16 05:15 97.7 68 18 99 Room Air I&Os I&O- Last 24 Hours up to 6 AM 12/18/16 06:00 Intake Total 2595 ml Output Total 1805 ml Balance 790 ml Impression Gastrocutaneous Fistula Continue to advance diet Protonix and carafate Anticipate d/c soon if tolerating diet. Plan / VTE VTE Prophylaxis Ordered?: Yes ADRIEN BENSON MD Dec 18, 2016 10:58
[2016-12-18 14:00] VITALS: BP 120/57
[2016-12-18] MEDS: ENOXAPARIN 40 MG/0.4 ML SYRINGE (J1650) SC SCH (21:50)
[2016-12-18 22:00] VITALS: BP 124/85
[2016-12-19 06:00] VITALS: BP 125/60
[2016-12-19] MEDS: SODIUM CHLORIDE 0.9% INJ 10 ML SYR IV SCH (06:41)
[2016-12-19 08:48] VITALS: BP 125/60
[2016-12-19] MEDS: OMEPRAZOLE 20 MG CAP PO SCH (08:48)
[2016-12-19] MEDS: LISINOPRIL 10 MG TAB PO SCH (08:48)
[2016-12-19] MEDS: SUCRALFATE SUSP 1GM/10ML UD PO SCH (08:48)
[2016-12-19] MEDS ORDERED: SUCR10SS PO (09:25)
[2016-12-19] MEDS ORDERED: OMEP20CA3 PO (09:25)
--- NOTE | 2016-12-19 10:28 | IPNPDOC ---
Subjective General Date/Time Seen The patient was seen on 12/19/16 at 10:27. Subject Chief Complaint/History The patient is a 61-year-old male admitted with a reason for visit of Gastric Fistula. He is tolerating soft foods. He denies any abdominal pain. No drainage from his incision sites. Current Medications Current Medications Current Medications Amino Ac/Electrol/ Dextrose/Calcium 2,000 ml @ 60 mls/hr ONCE@1800 IV Last administered on 12/02/16 18:01; Start 12/02/16 at 18:00; Stop 12/03/16 at 17:59; Status DC Amino Ac/Electrol/ Dextrose/Calcium 2,000 ml @ 65 mls/hr ONCE@1800 IV Last administered on 12/04/16 18:22; Start 12/04/16 at 18:00; Stop 12/05/16 at 17:59; Status DC Amino Ac/Electrol/ Dextrose/Calcium 2,000 ml @ 65 mls/hr ONCE@1800 IV Last administered on 12/05/16 17:59; Start 12/05/16 at 18:00; Stop 12/06/16 at 17:59; Status DC Amino Ac/Electrol/ Dextrose/Calcium 2,000 ml @ 75 mls/hr ONCE@1800 IV Last administered on 12/07/16 18:08; Start 12/07/16 at 18:00; Stop 12/08/16 at 17:59 ; Status DC Amino Ac/Electrol/ Dextrose/Calcium 2,000 ml @ 75 mls/hr ONCE@1800 IV Last administered on 12/09/16 17:45; Start 12/09/16 at 18:00; Stop 12/10/16 at 17:59 ; Status DC Amino Ac/Electrol/ Dextrose/Calcium 2,000 ml @ 75 mls/hr ONCE@1800 IV Last administered on 12/11/16 18:33; Start 12/11/16 at 18:00; Stop 12/12/16 at 17:59 ; Status DC Amino Ac/Electrol/ Dextrose/Calcium 2,000 ml @ 75 mls/hr ONCE@1800 IV Last administered on 12/12/16 17:43; Start 12/12/16 at 18:00; Stop 12/13/16 at 17:59 ; Status DC Amino Ac/Electrol/ Dextrose/Calcium 2,000 ml @ 75 mls/hr ONCE@1800 IV Last administered on 12/14/16 18:11; Start 12/14/16 at 18:00; Stop 12/15/16 at 17:59 ; Status DC Amino Ac/Electrol/ Dextrose/Calcium 2,000 ml @ 75 mls/hr ONCE@1800 IV Last administered on 12/16/16 17:45; Start 12/16/16 at 18:00; Stop 12/17/16 at 17:59 ; Status DC Bisacodyl (Dulcolax Suppository) 10 mg DAILYPRN PRN NE CONSTIPATION; Start 11/29 at 09:30; Stop 12/29/16 at 09:29 Enoxaparin Sodium (Lovenox) 40 mg DAILY@2200 SC Last administered on 12/18/16 21:50; Start 12/04/16 at 22:00; Stop 12/21/16 at 21:59 Fat Emulsion Intravenous 500 ml @ 20 mls/hr ONCE@1800 IV Last administered on 12/06/16 17:09; Start 12/06/16 at 18:00; Stop 12/07/16 at 17:59; Status DC Fat Emulsion Intravenous 500 ml @ 20 mls/hr ONCE@1800 IV Last administered on 12/07/16 18:08; Start 12/07/16 at 18:00; Stop 12/08/16 at 17:59; Status DC Fat Emulsion Intravenous 500 ml @ 20 mls/hr ONCE@1800 IV Last administered on 12/08/16 18:04; Start 12/08/16 at 18:00; Stop 12/09/16 at 17:59; Status DC Fat Emulsion Intravenous 500 ml @ 20 mls/hr ONCE@1800 IV Last administered on 12/09/16 17:46; Start 12/09/16 at 18:00; Stop 12/10/16 at 17:59; Status DC Fat Emulsion Intravenous 500 ml @ 20 mls/hr ONCE@1800 IV Last administered on 12/10/16 17:46; Start 12/10/16 at 18:00; Stop 12/11/16 at 17:59; Status DC Fat Emulsion Intravenous 500 ml @ 20 mls/hr ONCE@1800 IV Last administered on 12/11/16 18:33; Start 12/11/16 at 18:00; Stop 12/12/16 at 17:59; Status DC Fat Emulsion Intravenous 500 ml @ 20 mls/hr ONCE@1800 IV Last administered on 12/12/16 17:43; Start 12/12/16 at 18:00; Stop 12/13/16 at 17:59; Status DC Fat Emulsion Intravenous 500 ml @ 20 mls/hr ONCE@1800 IV Last administered on 12/13/16 17:29; Start 12/13/16 at 18:00; Stop 12/14/16 at 17:59; Status DC Fat Emulsion Intravenous 500 ml @ 20 mls/hr ONCE@1800 IV Last administered on 12/14/16 18:10; Start 12/14/16 at 18:00; Stop 12/15/16 at 17:59; Status DC Fat Emulsion Intravenous 500 ml @ 20 mls/hr ONCE@1800 IV Last administered on 12/15/16 17:39; Start 12/15/16 at 18:00; Stop 12/16/16 at 17:59; Status DC Fat Emulsion Intravenous 500 ml @ 20 mls/hr ONCE@1800 IV Last administered on 12/16/16 17:45; Start 12/16/16 at 18:00; Stop 12/17/16 at 17:59; Status DC Fat Emulsion Intravenous 500 ml @ 20 mls/hr ONCE@1800 IV Last administered on 12/01/16 18:20; Start 12/01/16 at 18:00; Stop 12/02/16 at 17:59; Status DC Fat Emulsion Intravenous 500 ml @ 20 mls/hr ONCE@1800 IV Last administered on 12/02/16 18:01; Start 12/02/16 at 18:00; Stop 12/03/16 at 17:59; Status DC Fat Emulsion Intravenous 500 ml @ 20 mls/hr ONCE@1800 IV Last administered on 12/03/16 18:03; Start 12/03/16 at 18:00; Stop 12/04/16 at 17:59; Status DC Fat Emulsion Intravenous 500 ml @ 20 mls/hr ONCE@1800 IV Last administered on 12/04/16 18:22; Start 12/04/16 at 18:00; Stop 12/05/16 at 17:59; Status DC Fat Emulsion Intravenous 500 ml @ 20 mls/hr ONCE@1800 IV Last administered on 12/05/16 17:59; Start 12/05/16 at 18:00; Stop 12/06/16 at 17:59; Status DC Fluconazole 100 mg/IV Miscellaneous Supplies 50 ml @ 100 mls/hr DAILY IV Last administered on 12/17/16 08:55; Start 11/30/16 at 09:00; Stop 12/17/16 at 09:25 ; Status DC Heparin Sodium (Heparin (Flush)) 200 units ASDIRECTED PRN IV SEE LABEL COMMENTS Last administered on 12/17/16 09:33; Start 12/01/16 at 16:15; Stop 12/31 at 16:14 Heparin Sodium (Heparin (Flush)) 200 units PICC IV Last administered on 06:41; Start 12/01/16 at 18:00; Stop 12/31/16 at 17:59 Heparin Sodium (Porcine) (Heparin) 5,000 units Q8H SC Last administered on 05:16; Start 11/29/16 at 14:00; Stop 12/04/16 at 13:27; Status DC Home Med (Med Rec Complete!) ASDIRECTED XX ; Start 11/29/16 at 09:15; Stop at 09:15; Status DC Insulin Human Lispro (HumaLOG INSULIN) See Protocol Table Q6H SC Last administered on 12/07/16 11:45; Start 12/06/16 at 18:00; Stop 12/07/16 at 14:00 ; Status DC Insulin Human Lispro (HumaLOG INSULIN) See Protocol Table Q6H SC Last administered on 12/08/16 12:56; Start 12/07/16 at 18:00; Stop 12/08/16 at 12:01 ; Status DC Insulin Human Lispro (HumaLOG INSULIN) See Protocol Table Q6H SC Last administered on 12/09/16 12:20; Start 12/08/16 at 18:00; Stop 12/09/16 at 12:01 ; Status DC Insulin Human Lispro (HumaLOG INSULIN) See Protocol Table Q6H SC Last administered on 12/10/16 12:43; Start 12/09/16 at 18:00; Stop 12/10/16 at 15:00 ; Status DC Insulin Human Lispro (HumaLOG INSULIN) See Protocol Table Q6H SC Last administered on 12/11/16 12:55; Start 12/10/16 at 18:00; Stop 12/11/16 at 15:00 ; Status DC Insulin Human Lispro (HumaLOG INSULIN) See Protocol Table Q6H SC Last administered on 12/12/16 12:36; Start 12/11/16 at 18:00; Stop 12/12/16 at 15:00 ; Status DC Insulin Human Lispro (HumaLOG INSULIN) See Protocol Table Q6H SC Last administered on 12/13/16 11:59; Start 12/12/16 at 18:00; Stop 12/13/16 at 15:00 ; Status DC Insulin Human Lispro (HumaLOG INSULIN) See Protocol Table Q6H SC Last administered on 12/14/16 11:31; Start 12/13/16 at 18:00; Stop 12/14/16 at 12:01 ; Status DC Insulin Human Lispro (HumaLOG INSULIN) See Protocol Table Q6H SC Last administered on 12/15/16 12:06; Start 12/14/16 at 18:00; Stop 12/15/16 at 12:01 ; Status DC Insulin Human Lispro (HumaLOG INSULIN) See Protocol Table Q6H SC Last administered on 12/16/16 12:06; Start 12/15/16 at 18:00; Stop 12/16/16 at 14:00 ; Status DC Insulin Human Lispro (HumaLOG INSULIN) See Protocol Table Q6H SC Last administered on 12/16/16 23:45; Start 12/16/16 at 18:00; Stop 12/17/16 at 14:00 ; Status DC Insulin Human Lispro (HumaLOG INSULIN) See Protocol Table Q6H SC Last administered on 12/02/16 14:23; Start 12/01/16 at 18:00; Stop 12/02/16 at 12:01; Status DC Insulin Human Lispro (HumaLOG INSULIN) See Protocol Table Q6H SC Last administered on 12/03/16 13:00; Start 12/02/16 at 18:00; Stop 12/03/16 at 15:00; Status DC Insulin Human Lispro (HumaLOG INSULIN) See Protocol Table Q6H SC Last administered on 12/03/16 18:10; Start 12/03/16 at 18:00; Stop 12/04/16 at 15:00; Status DC Insulin Human Lispro (HumaLOG INSULIN) See Protocol Table Q6H SC Last administered on 12/05/16 12:26; Start 12/04/16 at 18:00; Stop 12/05/16 at 15:00; Status DC Insulin Human Lispro (HumaLOG INSULIN) See Protocol Table Q6H SC ; Start at 18:00; Stop 12/05/16 at 18:00; Status DC Ketorolac Tromethamine (ToRADol) 15 mg Q6HP PRN IV MILD/MODERATE PAIN (PS 1-7) Last administered on 12/02/16 22:12; Start 11/29/16 at 09:30; Stop 12/04/16 at 09: 29; Status DC Lisinopril (Prinivil) 10 mg DAILY PO Last administered on 12/19/16 08:48; Start 11/30/16 at 09:00; Stop 12/30/16 at 08:59 Morphine Sulfate (Morphine Sulfate Inj) 2 mg Q2HP PRN IV SEVERE PAIN (PS 8-10) ; Start 11/29/16 at 09:30; Stop 12/05/16 at 10:45; Status DC Multivitamins 10 ml/Chromium/ Copper/Manganese/ Seleni/Zn 1 ml/ Amino Ac/ Electrol/ Dextrose/Calcium 2,011 ml @ 60 mls/hr ONCE@1800 IV Last administered on 12/01/16 18:20; Start 12/01/16 at 18:00; Stop 12/02/16 at 17:59; Status DC Multivitamins 10 ml/Chromium/ Copper/Manganese/ Seleni/Zn 1 ml/ Amino Ac/ Electrol/ Dextrose/Calcium 2,011 ml @ 75 mls/hr ONCE@1800 IV Last administered on 12/06/16 17:08; Start 12/06/16 at 18:00; Stop 12/07/16 at 17:59 ; Status DC Multivitamins 10 ml/Chromium/ Copper/Manganese/ Seleni/Zn 1 ml/ Amino Ac/ Electrol/ Dextrose/Calcium 2,011 ml @ 75 mls/hr ONCE@1800 IV Last administered on 12/08/16 18:04; Start 12/08/16 at 18:00; Stop 12/09/16 at 17:59 ; Status DC Multivitamins 10 ml/Chromium/ Copper/Manganese/ Seleni/Zn 1 ml/ Amino Ac/ Electrol/ Dextrose/Calcium 2,011 ml @ 75 mls/hr ONCE@1800 IV Last administered on 12/10/16 17:47; Start 12/10/16 at 18:00; Stop 12/11/16 at 17:59 ; Status DC Multivitamins 10 ml/Chromium/ Copper/Manganese/ Seleni/Zn 1 ml/ Amino Ac/ Electrol/ Dextrose/Calcium 2,011 ml @ 75 mls/hr ONCE@1800 IV Last administered on 12/13/16 17:29; Start 12/13/16 at 18:00; Stop 12/14/16 at 17:59 ; Status DC Multivitamins 10 ml/Chromium/ Copper/Manganese/ Seleni/Zn 1 ml/ Amino Ac/ Electrol/ Dextrose/Calcium 2,011 ml @ 75 mls/hr ONCE@1800 IV Last administered on 12/15/16 17:39; Start 12/15/16 at 18:00; Stop 12/16/16 at 17:59 ; Status DC Multivitamins 10 ml/Chromium/ Copper/Manganese/ Seleni/Zn 1 ml/ Amino Ac/ Electrol/ Dextrose/Calcium 2,011 ml @ 75 mls/hr ONCE@1800 IV Last administered on 12/03/16 18:03; Start 12/03/16 at 18:00; Stop 12/04/16 at 17:59; Status DC Octreotide Acetate (SandoSTATIN) 100 mcg Q8H IV Last administered on 12/17/16 05:19; Start 12/07/16 at 22:00; Stop 12/17/16 at 09:25; Status DC Octreotide Acetate (SandoSTATIN) 100 mcg Q8H SC Last administered on 12/07/16 13:42; Start 11/29/16 at 06:00; Stop 12/07/16 at 17:02; Status DC Omeprazole (PriLOSEC) 40 mg BID PO Last administered on 12/19/16 08:48; Start 12/17/16 at 21:00; Stop 01/16/17 at 20:59 Ondansetron HCl (ZOFRAN INJection) 4 mg Q6HP PRN IV NAUSEA OR VOMITING; Start 11/29/16 at 09:30; Stop 12/05/16 at 10:45; Status DC Pantoprazole Sodium (Protonix) 40 mg DAILY IV Last administered on 12/17/16 08 :55; Start 11/30/16 at 09:00; Stop 12/17/16 at 09:36; Status DC Piperacillin Sod/ Tazobactam Sod 2.25 gm/Dextrose 50 ml @ 100 mls/hr Q6H IV Last administered on 12/12/16 10:16; Start 12/05/16 at 15:00; Stop 12/12/16 at 14:59; Status DC Piperacillin Sod/ Tazobactam Sod 2.25 gm/Dextrose 50 ml @ 50 mls/hr Q6H IV ; Start 12/05/16 at 15:00; Stop 12/12/16 at 14:59; Status UNV Piperacillin Sod/ Tazobactam Sod 3.375 gm/Dextrose 50 ml @ 50 mls/hr Q6H IV ; Start 11/29/16 at 10:00; Stop 11/29/16 at 10:00; Status DC Piperacillin Sod/ Tazobactam Sod 3.375 gm/Dextrose 50 ml @ 50 mls/hr Q6H IV Last administered on 12/05/16 10:16; Start 11/29/16 at 15:00; Stop 12/05/16 at 10: 45; Status DC Potassium Chloride/Dextrose/ Sod Cl 1,000 ml @ 125 mls/hr Q8H IV Last administered on 12/01/16 12:40; Start 11/29/16 at 09:17; Stop 12/01/16 at 18:09; Status DC Sodium Chloride (Saline Lock Flush) 10 ML PICC IV Last administered on 06:41; Start 12/01/16 at 18:00; Stop 12/31/16 at 17:59 Sodium Chloride (Saline Lock Flush) 10ML ASDIRECTED PRN IV SEE LABEL COMMENTS Last administered on 12/17/16 09:33; Start 12/01/16 at 16:15; Stop 12/31/16 at 16 :14 Sucralfate (Carafate Suspension) 1 gm TID PO Last administered on 12/19/16 08: 48; Start 12/12/16 at 09:00; Stop 01/11/17 at 08:59 Ursodiol (Actigall) 300 mg QID PO Last administered on 12/16/16t 20:30; Start 12/11/16 at 09:00; Stop 12/17/16 at 09:25; Status DC Allergies Coded Allergies: No Known Allergies (Unverified , 05/21/16) Objective Physical Examination Examination GENERAL APPEARANCE:Patient seen, laying in bed, awake, alert, and oriented. Comfortable, in no acute distress. SKIN: Warm and moist. HEENT: Normocephalic, atraumatic. [place] palpebral conjunctiva, anicteric sclerae. Lips and mucosa appear moist. NECK: Supple, no thyromegaly. No obvious jugular venous distention. LUNGS: Clear to auscultation bilaterally. No wheezing appreciated. HEART: No chest wall abnormalities. Regular rate and rhythm with no murmurs appreciated. ABDOMEN: Abdomen is flat, nondistended soft. Upper vertical midline incision with no drainage. Nontender and palpation. EXTREMITIES: Extremities have no deformities. No edema identified. 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 He can go home with soft foods. We will discharge him on twice a day Prilosec and Carafate 3 times daily. He will follow up with Dr. Church. Plan / VTE VTE Prophylaxis Ordered?: Yes ADRIEN BENSON MD Dec 19, 2016 10:28
--- NOTE | 2017-01-02 19:21 | DSES ---
DATE OF ADMISSION: 11/29/2016 DATE OF DISCHARGE: 12/19/2016 PRINCIPAL DIAGNOSIS: Enterocutaneous fistula / perforated marginal ulcer. ASSOCIATED DIAGNOSES: History of perforated gastric ulcer, history of gastroesophageal reflux disease, duodenal ulcer, hyperlipidemia, hypertension, femoral-femoral artery bypass, exploratory laparotomy with a Billroth II repair and a gastric ulcer. HISTORY OF PRESENT ILLNESS: The patient is a 61-year-old male who underwent duodenal ulcer repair approximately 7 months prior to admission, had developed epigastric pain, redness, swelling prior to admission and essentially he had been to the emergency room several times for this severe epigastric pain and then presented with an obvious red swollen area which resulted in drainage of a abdominal wall abscess and essentially turned out to be a enterocutaneous fistula from a probable perforated marginal ulcer. HOSPITAL COURSE SUMMARY: The patient was admitted with the above diagnosis, was placed nothing by mouth, NG tube in place, IV fluids and was placed on octreotide and eventually he had decreased output through his fistula but it did take quite a while, the overall size of the fistula improved substantially over a week's time and then the second week this fistula tract was still having high output and then eventually decreased significantly more while he was on octreotide and he resolved this drainage, had his NG tube removed and was started on a clear liquid diet and advanced to a regular diet and was discharged home on omeprazole as well as Carafate. He was encouraged to continue Tylenol as needed, atorvastatin, lisinopril, aspirin and Trental, as well as tramadol after discharge. He was instructed to followup in my office in 1 week for suture removal and to followup 2-3 weeks for reevaluation.
== END 2016-12-19 10:53 | disposition home or self-care (01) | DRG 395 ==
LOC: M ED 06:33 → M ED INP 09:17 → M MSPAV 10:54
PROVIDERS: ADMIT Surgery; ATTEND Surgery
PROC: 02HV33Z Insertion of Infusion Device into Superior Vena Cava, Percutaneous Approach (ICD-10-PCS; principal; 2016-12-01)
DX: K63.2 Fistula of intestine (principal); I10 Essential (primary) hypertension; K21.9 Gastro-esophageal reflux disease without esophagitis; E78.5 Hyperlipidemia, unspecified; F17.210 Nicotine dependence, cigarettes, uncomplicated

== ENCOUNTER → 2017-08-17 | Outpatient (REF) | payer OTHER, MEDICAID ==
[2017-08-17 11:38] LABS: HEMATOCRIT 43.2 % (42.0-52.0); HEMOGLOBIN 14.3 g/dl (14.0-18.0); MEAN CORPUSCULAR HEMOGLOBIN 32.9 pg (27.0-33.0); MEAN CORPUSCULAR HGB CONC 33.1 g/dl (32.0-36.5); MEAN CORPUSCULAR VOLUME 99.3 fl (80.0-96.0); PLATELET COUNT, AUTOMATED 241 10^3/uL (150-450); RED BLOOD COUNT 4.35 10^6/uL (4.30-6.10); RED CELL DISTRIBUTION WIDTH 13.1 % (11.5-14.5); WHITE BLOOD COUNT 10.1 10^3/uL (4.0-10.0)
[2017-08-17 12:03] LABS: ANION GAP 7 MEQ/L (8-16); BLOOD UREA NITROGEN 15 MG/DL (7-18); CALCIUM LEVEL 9.1 MG/DL (8.8-10.2); CARBON DIOXIDE LEVEL 28 MEQ/L (21-32); CHLORIDE LEVEL 106 MEQ/L (98-107); CREATININE FOR GFR 0.84 MG/DL (0.70-1.30); GLOMERULAR FILTRATION RATE > 60.0 (>49); GLUCOSE, FASTING 91 MG/DL (70-100); MAGNESIUM LEVEL 2.1 MG/DL (1.8-2.4); POTASSIUM SERUM 3.9 MEQ/L (3.5-5.1); SODIUM LEVEL 141 MEQ/L (136-145)
[2017-08-17 12:39] LABS: CONTROL LINE HPYORI INT CTR LINE PRESENT; H PYLORI QUALITATIVE IgG DETECTED (NEGATIVE)
[2017-08-17 12:51] LABS: VITAMIN B12 LEVEL 463 PG/ML (247-911)
== END ==
LOC: M SFHCPLAZ 08:42
DX: Z51.81 Encounter for therapeutic drug level monitoring (principal); Z79.899 Other long term (current) drug therapy; R10.13 Epigastric pain
CPT/HCPCS: 83735

== ENCOUNTER → 2017-08-19 | Outpatient (CLI) | payer OTHER, MEDICAID | LOC: M RAD 09:53 | DX: F17.210 Nicotine dependence, cigarettes, uncomplicated (principal) ==

== ENCOUNTER → 2017-09-19 | Outpatient (REF) | payer OTHER, MEDICAID ==
[2017-09-21 00:06] LABS: H PYLORI STOOL ANTIGEN Negative (Negative)
== END ==
LOC: M SFHCPLAZ 11:41
DX: A04.8 Other specified bacterial intestinal infections (principal)
CPT/HCPCS: 87338

== ENCOUNTER → 2017-09-29 | Outpatient (CLI) | payer OTHER, MEDICAID | LOC: M RAD 09:02 | DX: K76.89 Other specified diseases of liver (principal) | CPT/HCPCS: 76705 ==

== ENCOUNTER 2017-10-13 10:22 | Day surgery (SDC) | payer OTHER, MEDICAID ==
[~2017-10-13 10:22] MED LIST changes: -AMOX875T2 PO; -ATOR1TAB21 PO; -CLEO300C2 PO; -FLUC10TA PO; -IBUP-1022 PO; +LIDOCAINE 2% INJ 100 MG/5 ML SDV (FOR ANES.) As Ordered; -LISI10TA4 PO; -PANT40TA2 PO; -PENT40TASA PO; +PROPOFOL 200 MG/20 ML VIAL As Ordered; -TYLE500T78 PO; -ULTR50TA8 PO
[2017-10-13] MEDS: NS 1,000 ML IV (10:30)
[2017-10-13] MEDS ORDERED: PROPOFOL 200 MG/20 ML VIAL As Ordered (12:06)
== END 2017-10-13 13:15 | disposition home or self-care (01) ==
LOC: M OPP 10:22
DX: Z12.11 Encounter for screening for malignant neoplasm of colon (principal); K21.9 Gastro-esophageal reflux disease without esophagitis; Z87.11 Personal history of peptic ulcer disease; K29.70 Gastritis, unspecified, without bleeding; Z98.0 Intestinal bypass and anastomosis status; I10 Essential (primary) hypertension; E78.5 Hyperlipidemia, unspecified; I73.9 Peripheral vascular disease, unspecified; I25.10 Atherosclerotic heart disease of native coronary artery without angina pectoris; F17.210 Nicotine dependence, cigarettes, uncomplicated; Z79.899 Other long term (current) drug therapy; Z79.82 Long term (current) use of aspirin
CPT/HCPCS: G0121

== ENCOUNTER → 2017-11-22 | Outpatient (CLI) | payer OTHER, MEDICAID ==
[~2017-11-22] MED LIST changes: +GASTROGRAFIN SOLUTION 30ML (Q9963) As Ordered; +ISOVUE-370 76% 100ML VIAL (Q9967) As Ordered; -LIDOCAINE 2% INJ 100 MG/5 ML SDV (FOR ANES.) As Ordered; -PROPOFOL 200 MG/20 ML VIAL As Ordered
== END ==
LOC: M RAD 08:44
DX: R10.31 Right lower quadrant pain (principal)
CPT/HCPCS: Q9963

== ENCOUNTER → 2018-03-15 | Outpatient (CLI) | payer OTHER, MEDICAID | LOC: M RAD 08:57 | DX: K76.89 Other specified diseases of liver (principal); K74.0 Hepatic fibrosis | CPT/HCPCS: 76705 ==

== ENCOUNTER → 2018-04-27 | Outpatient (REF) | payer OTHER, MEDICAID ==
[2018-05-01 14:10] LABS: AFP TUMOR TOTAL 2.7 ng/mL (0.0-8.0)
== END ==
LOC: M SFHCPLAZ 08:51
DX: K74.0 Hepatic fibrosis (principal)

== ENCOUNTER → 2018-05-08 | Outpatient (CLI) | payer OTHER, MEDICAID | LOC: M CARPUL 10:53 | DX: F17.200 Nicotine dependence, unspecified, uncomplicated (principal) | CPT/HCPCS: 94060 ==

== ENCOUNTER → 2018-08-04 | Outpatient (REF) | payer OTHER, MEDICAID ==
[~2018-08-04] MED LIST changes: +AMOX875T2 PO; +ASPI81TA24 PO; +ATOR1TAB21 PO; +CLEO300C2 PO; +FLUC10TA PO; -GASTROGRAFIN SOLUTION 30ML (Q9963) As Ordered; +IBUP-1022 PO; -ISOVUE-370 76% 100ML VIAL (Q9967) As Ordered; +LISI10TA4 PO; +OMEP20CA3 PO; +PANT40TA3 PO; +PENT40TASA PO; +RANI150T PO; +SUCR10SS PO; +SUCR1SUS PO; +TRAM50TA2 PO; +TYLE500T78 PO; +ULTR50TA8 PO
[2018-08-04 13:00] LABS: BLOOD UREA NITROGEN 16 MG/DL (7-18); CALCIUM LEVEL 8.5 MG/DL (8.8-10.2); CARBON DIOXIDE LEVEL 28 MEQ/L (21-32); CHLORIDE LEVEL 108 MEQ/L (98-107); CHOLESTEROL LEVEL 127 MG/DL (<200); CHOLESTEROL RISK RATIO 1.953 (<5); CREATININE FOR GFR 0.69 MG/DL (0.70-1.30); GLOMERULAR FILTRATION RATE > 60.0 (>49); GLUCOSE, FASTING 93 MG/DL (70-100); HDL CHOLESTEROL 65 MG/DL (>40); LDL CHOLESTEROL 53 MG/DL (<100); NON-HDL-C 62 MG/DL; POTASSIUM SERUM 4.8 MEQ/L (3.5-5.1); SODIUM LEVEL 141 MEQ/L (136-145); TRIGLYCERIDES LEVEL 45 MG/DL (<150)
[2018-08-08 14:48] LABS: AFP TUMOR TOTAL 2.4 ng/mL (0.0-8.0)
== END ==
LOC: M SFHCPLAZ 08:29
PROVIDERS: ATTEND Family Medicine
DX: E78.5 Hyperlipidemia, unspecified (principal); I10 Essential (primary) hypertension; K74.0 Hepatic fibrosis

== ENCOUNTER → 2018-08-09 | Outpatient (CLI) | payer OTHER, MEDICAID ==
--- NOTE | 2018-08-09 08:18 | REP ---
Clinical: Hyperlipidemia. Comparison: 03/15/2018. Technique: Real time hallman scale ultrasound examination using curved array transducer. Findings: Multiple hepatic cysts are again identified with the largest measuring 14 mm and 10 mm maximal diameter within the right lobe. No further significant hepatic lesions are appreciated. The pancreas is incompletely evaluated due to interposed bowel gas but visualized portions appear normal. The gallbladder is unremarkable and without gallstones, wall thickening, or pericholecystic fluid. No biliary ductal dilatation is appreciated and the common bile duct measures 3.6 mm diameter. The right kidney is normal in reniform shape without hydronephrosis and measures 11.4 x 4.4 x 3.8 cm. No ascites in the visualized right upper quadrant. Impression: Stable hepatic cysts up to 14 mm. Otherwise normal right upper quadrant abdominal ultrasound. Electronically Signed by Franco Sifuentes MD 08/09/2018 08:09 A
== END ==
LOC: M RAD 07:23
PROVIDERS: ATTEND Obstetrics & Gynecology
DX: E78.5 Hyperlipidemia, unspecified (principal); K76.89 Other specified diseases of liver

== ENCOUNTER → 2018-08-31 | Outpatient (CLI) | payer OTHER, MEDICAID ==
[2018-08-31 09:28] LABS: BLOOD UREA NITROGEN 19 MG/DL (7-18); CREATININE FOR GFR 0.79 MG/DL (0.70-1.30); GLOMERULAR FILTRATION RATE > 60.0 (>49)
== END ==
LOC: M LAB 07:34
PROVIDERS: ATTEND Surgery Vascular Surgery
DX: I70.511 Atherosclerosis of nonautologous biological bypass graft(s) of the extremities with intermittent claudication, right leg (principal)

== ENCOUNTER → 2018-09-08 | Outpatient (CLI) | payer OTHER, MEDICAID ==
[~2018-09-08] MED LIST changes: +ISOVUE-370 76% 100ML VIAL (Q9967) As Ordered ONE
--- NOTE | 2018-09-08 15:55 | REP ---
CT angiography of the abdominal aorta, pelvis and bilateral lower extremity runoff vessels with IV contrast: History: Atherosclerosis. Intermittent claudication. Bypass of extremity. CT contrast dose: 100 ml of intravenous Isovue [address] findings: The suprarenal abdominal aorta and the lower thoracic aorta are smooth and widely patent. There is some vascular calcification at the origin of the celiac axis without evidence of stenosis. SMA is unremarkable proximally. There is atherosclerotic calcification at the origin of the renal arteries bilaterally and I suspect moderate stenosis of the right main renal artery associated with this. No renal atrophy is apparent. The inferior mesenteric artery is patent. There is considerable plaquing in the small distal abdominal aorta. The right common iliac artery is occluded at its origin. The internal iliac artery branches are reconstituted. The proximal internal iliac artery is occluded. The external iliac artery on the right is occluded. There is a fem-fem crossover graft which is occluded. Collaterals reconstitute the right superficial femoral artery and profunda artery branches, which are heavily calcified and multiply stenotic. There is a fairly long segment occlusion of the right distal superficial femoral artery. Heavy calcification is seen. The right popliteal artery appears to be reconstituted via geniculate. There is calcification at the trifurcation but three-vessel calf runoff is seen to the distal calf on the right. The anterior and posterior tibial arteries on the right appear patent across the ankle. On the left, the common iliac artery shows calcific plaquing and approximately 40% narrowing. The distal common iliac artery shows heavy calcific plaquing and 50% narrowing. The external iliac artery is occluded at its origin on the left. The left internal iliac artery appears to be patent although heavily calcified proximally. Collateral vessels reconstitute the common femoral artery at its bifurcation. Multiple proximal SFA stenoses are seen due to heavy calcification and the proximal SFA is occluded. Profunda generated collaterals reconstitute the distal SFA at the level of the adductor canal on the left. There is calcification at the trifurcation on the left. Patent three-vessel calf runoff is present on the left and the anterior and posterior tibial arteries are patent across the ankle. Impression: Severe aortoiliac disease with occlusions of the right common iliac and left external iliac artery. A fem-fem crossover graft is present but occluded. Bilateral superficial femoral artery occlusions are present as well. Multifocal heavy vascular calcification is seen. Fairly good three-vessel calf runoff is present. Electronically Signed by Lloyd Espinosa MD 09/08/2018 08:09 P
== END ==
LOC: M RAD 13:05
PROVIDERS: ATTEND Surgery Vascular Surgery
DX: I70.511 Atherosclerosis of nonautologous biological bypass graft(s) of the extremities with intermittent claudication, right leg (principal)

== ENCOUNTER → 2018-10-10 | Outpatient (REF) | payer OTHER, MEDICAID ==
[~2018-10-10] MED LIST changes: -ISOVUE-370 76% 100ML VIAL (Q9967) As Ordered ONE
[2018-10-10 13:34] LABS: HEMOGLOBIN 15.8 g/dl (13.5-17.5); MEAN CORPUSCULAR HEMOGLOBIN 33.6 pg (27.0-33.0); MEAN CORPUSCULAR HGB CONC 32.2 g/dl (32.0-36.5); MEAN CORPUSCULAR VOLUME 104.3 fl (80.0-96.0); PLATELET COUNT, AUTOMATED 270 10^3/uL (150-450); WHITE BLOOD COUNT 10.8 10^3/uL (4.0-10.0)
[2018-10-10 13:43] LABS: INR 1.03; PROTHROMBIN TIME 13.6 SECONDS (12.1-14.4)
[2018-10-10 14:05] LABS: ALBUMIN 3.9 GM/DL (3.2-5.2); ALT/SGPT 20 U/L (12-78); BILIRUBIN,TOTAL 0.8 MG/DL (0.2-1.0); BLOOD UREA NITROGEN 21 MG/DL (7-18); CALCIUM LEVEL 9.2 MG/DL (8.8-10.2); CARBON DIOXIDE LEVEL 27 MEQ/L (21-32); CHLORIDE LEVEL 107 MEQ/L (98-107); CREATININE FOR GFR 0.79 MG/DL (0.70-1.30); GLOMERULAR FILTRATION RATE > 60.0 (>49); GLUCOSE, FASTING 103 MG/DL (70-100); POTASSIUM SERUM 4.1 MEQ/L (3.5-5.1); SODIUM LEVEL 140 MEQ/L (136-145); TOTAL PROTEIN 7.5 GM/DL (6.4-8.2)
== END ==
LOC: M SFHCPLAZ 10:58
PROVIDERS: ATTEND Family Medicine
DX: I10 Essential (primary) hypertension (principal); K74.0 Hepatic fibrosis

== ENCOUNTER → 2018-10-19 | Outpatient (CLI) | payer OTHER, MEDICAID ==
--- NOTE | 2018-10-19 15:22 | REP ---
Clinical: Peripheral vascular disease . Technique: Salazar scale and color Doppler evaluation using linear high frequency transducer Findings: Two-dimensional salaazr scale and color images demonstrate mixed atheromatous plaquing through the common carotid arteries and carotid bulbs to the proximal internal and external carotid arteries bilaterally. Bilateral calcified plaque causes shadowing and limited evaluation at the carotid bulbs. Color Doppler interrogation demonstrates biphasic arterial wave patterns and velocities with areas of spectral broadening. Normal flow direction is appreciated in the bilateral vertebral arteries. RIGHT (cm/s) LEFT (cm/s) ICA peak systolic velocity 100.0 149.0 ICA diastolic velocity 23.8 36.0 ECA peak systolic velocity 255.0 143.0 CCA peak systolic velocity 73.6 79.6 ICA/CCA ratio 1.3 1.8 Impression: 1. Limited examination due to shadowing at the bilateral carotid bulbs from partially calcified plaque material. Suspicions for narrowing in the less than 50% range at the bilateral bulbs along with narrowing through the proximal left internal carotid artery at the lower limits of the 50-69% range. 2. Stenosis of the right external carotid artery approaches the 70% range. Electronically Signed by Franco Sifuentes MD 10/19/2018 03:14 P
== END ==
LOC: M RAD 13:43
PROVIDERS: ATTEND Physician Assistant
DX: I73.9 Peripheral vascular disease, unspecified (principal); I65.23 Occlusion and stenosis of bilateral carotid arteries

== ENCOUNTER → 2019-01-19 | Outpatient (CLI) | payer OTHER, MEDICAID ==
[~2019-01-19] MED LIST changes: +CLOP75TA2 PO; +MICR1TAB5 PO; +OMEP-221 PO; +OMEP1CAP73 PO; -OMEP20CA3 PO; +PENT400T23 PO; -PENT40TASA PO; +RANI15TA PO; +RANI300T PO; +SUCR1ORA PO; -SUCR1SUS PO; +SUCR1TAB56 PO
[2019-01-19 12:34] LABS: ALBUMIN 3.7 GM/DL (3.2-5.2); ALT/SGPT 18 U/L (12-78); BILIRUBIN,TOTAL 0.5 MG/DL (0.2-1.0); BLOOD UREA NITROGEN 16 MG/DL (7-18); CARBON DIOXIDE LEVEL 28 MEQ/L (21-32); CHLORIDE LEVEL 105 MEQ/L (98-107); CREATININE FOR GFR 0.77 MG/DL (0.70-1.30); GLOMERULAR FILTRATION RATE > 60.0 (>49); GLUCOSE, FASTING 85 MG/DL (70-100); POTASSIUM SERUM 4.4 MEQ/L (3.5-5.1); SODIUM LEVEL 139 MEQ/L (136-145); TOTAL PROTEIN 6.9 GM/DL (6.4-8.2)
[2019-01-23 00:10] LABS: AFP TUMOR TOTAL 2.6 ng/mL (0.0-8.0)
== END ==
LOC: M LAB 11:15
PROVIDERS: ATTEND Obstetrics & Gynecology
DX: K74.0 Hepatic fibrosis (principal); I10 Essential (primary) hypertension

== ENCOUNTER → 2019-01-19 | Outpatient (REF) | payer OTHER, MEDICAID ==
[~2019-01-19] MED LIST changes: -CLOP75TA2 PO; -MICR1TAB5 PO; -OMEP-221 PO; -OMEP1CAP73 PO; +OMEP20CA4 PO; -RANI15TA PO; -RANI300T PO; -SUCR1ORA PO; +SUCR1SUS PO; -SUCR1TAB56 PO
== END ==
LOC: M SFHCPLAZ 10:38
PROVIDERS: ATTEND Family Medicine
DX: K74.0 Hepatic fibrosis (principal); I10 Essential (primary) hypertension

== ENCOUNTER → 2019-02-09 | Outpatient (CLI) | payer OTHER, MEDICAID ==
--- NOTE | 2019-02-09 10:21 | REP ---
RIGHT UPPER QUADRANT ULTRASOUND: Real-time sonographic evaluation of the right upper quadrant was performed. The gallbladder demonstrates no evidence of intraluminal sludge or calculi, wall thickening or pericholecystic fluid. There is no intrahepatic or extrahepatic biliary dilatation. Common bile duct measures 4 mm. Liver again demonstrates three cysts in the right lobe. The largest measures 1.1 cm maximally. It appears essentially unchanged. No new liver mass is seen. Pancreas is grossly unremarkable. Right kidney demonstrates no hydronephrosis with normal size 10.2 cm in length. There is no ascites. IMPRESSION: Stable exam. There are three stable cysts in the right lobe of the liver. No new findings. Electronically Signed by Winston Salazar MD 02/09/2019 11:31 A
== END ==
LOC: M RAD 08:04
PROVIDERS: ATTEND Obstetrics & Gynecology
DX: K74.60 Unspecified cirrhosis of liver (principal)

== ENCOUNTER → 2019-03-22 | Outpatient (CLI) | payer OTHER, MEDICAID ==
--- NOTE | 2019-03-23 15:00 | REP ---
Clinical: Lung screening. History smoking. Comparison: 08/19/2017 Technique: Axial low-dose noncontrast images from the thoracic inlet to the upper abdomen using lung screening technique. Findings: The lung nunez again demonstrate emphysematous changes with scattered bullae, fibrosis and scarring. Calcified granuloma in the left lower lobe then identified. No consolidation, significant nodule or mass lesion is appreciated. No pleural effusion/reaction or pneumothorax. Tracheobronchial tree is patent. Mediastinum demonstrates mild atherosclerotic changes of the coronary arteries without cardiomegaly. Impression: Lung-RADS category II. Chronic changes. Management recommendations include annual low-dose CT reevaluation/follow-up. Electronically Signed by Franco Sifuentes MD 03/23/2019 02:51 P
== END ==
LOC: M RAD 08:44
PROVIDERS: ATTEND Obstetrics & Gynecology
DX: Z12.2 Encounter for screening for malignant neoplasm of respiratory organs (principal); F17.200 Nicotine dependence, unspecified, uncomplicated; J43.9 Emphysema, unspecified; J84.10 Pulmonary fibrosis, unspecified; I25.10 Atherosclerotic heart disease of native coronary artery without angina pectoris

== ENCOUNTER 2019-06-01 15:34 | Inpatient (IN) | payer OTHER, MEDICAID ==
[2019-06-01] VITALS (19 sets, daily range): BP systolic 113–152; BP diastolic 53–74
[~2019-06-01] VITALS: Ht 180.3 cm; Wt 70.3 kg
[~2019-06-01 15:34] MED LIST changes: -CLOP75TA2 PO; -MICR1TAB5 PO; -OMEP-221 PO; -RANI15TA PO; -RANI300T PO; -SUCR1TAB56 PO
[2019-06-01] MEDS ORDERED: MICR1TAB5 PO (15:42)
[2019-06-01] MEDS ORDERED: CLOP75TA2 PO (15:42)
[2019-06-01] MEDS ORDERED: RANI15TA PO (15:42)
[2019-06-01 17:41] LABS: BASO % 0.4 % (0.0-1.0); EOS # 0.1 10^3/uL (0.0-0.5); EOS % 0.6 % (0.0-3.0); HEMATOCRIT 21.2 % (42.0-52.0); LYMPH # 1.4 10^3/uL (1.5-5.0); LYMPH % 14.1 % (24.0-44.0); MEAN CORPUSCULAR HEMOGLOBIN 27.1 pg (27.0-33.0); MEAN CORPUSCULAR HGB CONC 28.8 g/dl (32.0-36.5); MEAN CORPUSCULAR VOLUME 94.2 fl (80.0-96.0); MONO # 0.8 10^3/uL (0.0-0.8); NEUTROPHILS # 7.8 10^3/uL (1.5-8.5); NEUTROPHILS % 76.3 % (36.0-66.0); PLATELET COUNT, AUTOMATED 428 10^3/uL (150-450); RED BLOOD COUNT 2.25 10^6/uL (4.30-6.10); WHITE BLOOD COUNT 10.2 10^3/uL (4.0-10.0)
[2019-06-01 17:43] LABS: HEMOGLOBIN 6.1 g/dl (13.5-17.5)
[2019-06-01 17:52] LABS: ALBUMIN 2.9 GM/DL (3.2-5.2); ALT/SGPT 15 U/L (12-78); BILIRUBIN,DIRECT < 0.1 MG/DL (0.0-0.2); BILIRUBIN,TOTAL 0.3 MG/DL (0.2-1.0); BLOOD UREA NITROGEN 17 MG/DL (7-18); CARBON DIOXIDE LEVEL 23 MEQ/L (21-32); CHLORIDE LEVEL 112 MEQ/L (98-107); CREATININE FOR GFR 0.82 MG/DL (0.70-1.30); GLOMERULAR FILTRATION RATE > 60.0 (>49); GLUCOSE, FASTING 88 MG/DL (70-100); LIPASE 90 U/L (73-393); POTASSIUM SERUM 4.1 MEQ/L (3.5-5.1); SODIUM LEVEL 142 MEQ/L (136-145); TOTAL PROTEIN 6.1 GM/DL (6.4-8.2)
[2019-06-01] MEDS ORDERED: RANI300T PO (18:03)
[2019-06-01] MEDS ORDERED: OMEP-221 PO (18:03)
[2019-06-01] MEDS ORDERED: SUCR1TAB56 PO (18:03)
--- NOTE | 2019-06-01 18:50 | HPEPDOC ---
[facility] Medical History & Physical Date of Admission Jun 01, 2019 Date of Service: Jun 01, 2019 Attending Physician: STANLEY CASTILLO MD History and Physical CHIEF COMPLAINT: Sent by PCP for acute anemia HISTORY OF PRESENT ILLNESS: 63-year-old male with past medical history of GERD and peripheral vascular disease from PCPs office for acute anemia requiring blood transfusion. Patient reports dark stool for the past 2 weeks along with some fatigue and dyspnea. He has never had a GI bleed in the past, last blood work was from 3-6 months ago which showed a normal hemoglobin, has never had issues with low hemoglobin in the past. His stool OB was negative and the primary care physician's office and in the ED, CT abdomen and pelvis shows possible infection/inflammatory etiology of the bowel. Patient has had bowel resection with anastomosis in the past due to an abdominal abscess. CT scan findings were reviewed with Dr. Duran who performed the patient's abdominal surgery and recommends monitoring with hydration, no need for acute surgical intervention at this time. Patient has been having some periumbilical discomfort, mostly on the left side for the past 1-2 weeks as well. He denies any shortness of breath, chest pain, nausea, vomiting, urinary difficulty, or headaches. 10 point review of system is negative except for above PAST MEDICAL HISTORY: 1. GERD. 2. Peripheral vascular disease PAST SURGICAL HISTORY: 1. Lower extremity arterial bypass 2. 2. Abdominal resection with anastomosis. SOCIAL HISTORY: Current smoker, smokes over 1 pack per day for 40 years Denies alcohol use. Smokes marijuana FAMILY HISTORY: Positive for heart disease ALLERGIES: Please see below. HOME MEDICATIONS: Please see below. PHYSICAL EXAMINATION: VITAL SIGNS: Please see below. GENERAL: No distress HEENT: Normocephalic, atraumatic, moist mucous membranes NECK: Supple CARDIOVASCULAR EXAMINATION: S1, S2, no murmurs RESPIRATORY EXAMINATION: Clear to auscultation, no wheezing ABDOMINAL EXAMINATION: Soft, nontender, nondistended, positive bowel sounds EXTREMITIES: Range of motion intact SKIN: No rash NEUROLOGICAL EXAMINATION: Alert and oriented 3, no focal deficits PSYCHIATRIC EXAMINATION: Calm and cooperative LABORATORY DATA: See below. IMAGING: CT abdomen showing infectious/inflammatory etiology of possible gastritis/enteritis MICROBIOLOGY: Please see below. ASSESSMENT: 63-year-old male with past medical history of GERD and peripheral vascular disease presents with acute anemia, unknown etiology. PLAN: 1. Acute anemia. CT findings showing possible gastritis/enteritis from infectious/inflammatory source, stool occult blood negative, hemoglobin 6.1, ordered to receive 2 units of packed cells, hold Plavix, GI panel ordered, hemolytic workup ordered, will monitor with supportive care for now, no obvious need for antibiotics. 2. Peripheral vascular disease. Status post arterial bypass, continue statin, hold Plavix for now. 3. GERD. Continue home PPI, H2 ammy and Carafate DVT prophylaxis: TEDs. GI prophylaxis: Home PPI H2 ammy and Carafate Vital Signs Vital Signs Date Time Temp Pulse Resp B/P (MAP) Pulse Ox O2 Delivery O2 Flow Rate FiO2 06/01/19 18:04 80 98 06/01/19 18:01 125/55 (78) 06/01/19 15:35 98.3 18 Room Air Laboratory Data Labs 24H Laboratory Tests 2 06/01/19 16:49: Immature Granulocyte % (Auto) 0.6, Neutrophils (%) (Auto) 76.3H, Lymphocytes (%) (Auto) 14.1L, Monocytes (%) (Auto) 8.0H, Eosinophils (%) (Auto) 0.6, Basophils (%) (Auto) 0.4, Neutrophils # (Auto) 7.8, Lymphocytes # (Auto) 1.4L, Monocytes # (Auto) 0.8, Eosinophils # (Auto) 0.1, Basophils # (Auto) 0.0, Nucleated Red Blood Cells % (auto) 0.0, Anion Gap 7L, Glomerular Filtration Rate > 60.0, Calcium Level 8.0L, Total Bilirubin 0.3, Direct Bilirubin < 0.1, Aspartate Amino Transf (AST/SGOT) 16, Alanine Aminotransferase (ALT/SGPT) 15, Alkaline Phosphata se 78, Total Protein 6.1L, Albumin 2.9L, Albumin/Globulin Ratio 0.91L, Lipase 90 CBC/BMP Laboratory Tests 06/01/19 16:49 Home Medications Scheduled Atorvastatin Calcium (Atorvastatin Calcium) 20 Mg Tab, 20 MG PO DAILY Clopidogrel Bisulfate (Clopidogrel) 75 Mg Tablet, 75 MG PO DAILY Colestipol HCl (Micronized Colestipol HCl) 1 Gm Tablet, 1 GM PO BID Omeprazole (Omeprazole) 40 Mg Capsule.dr, 40 MG PO DAILY Ranitidine HCl (Ranitidine HCl) 300 Mg Tablet, 1 TAB PO QHS Sucralfate (Sucralfate) 1 Gm Tablet, 1 GM PO ACHS Allergies Coded Allergies: No Known Allergies (Unverified , 10/06/17) A-FIB/CHADSVASC A-FIB History Current/History of A-Fib/PAF?: No STANLEY CASTILLO MD Jun 01, 2019 18:50
--- NOTE | 2019-06-01 19:48 | ECGEPIP ---
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
[2019-06-01 20:03] LABS: LDH LACTATE DEHYDROGENASE 142 U/L (87-241)
[2019-06-01] MEDS ORDERED: FAMOTIDINE 20 MG TAB PO SCH (21:00)
[2019-06-01] MEDS: PANTOPRAZOLE 40MG TAB (PROTONIX) PO SCH (22:06)
[2019-06-01] MEDS: SUCRALFATE 1 GM TAB PO SCH (22:06)
[2019-06-02] VITALS: BP 119/56
[2019-06-02 04:00] VITALS: BP 117/55
[2019-06-02 07:36] LABS: HEMATOCRIT 25.4 % (42.0-52.0); MEAN CORPUSCULAR HEMOGLOBIN 28.2 pg (27.0-33.0); MEAN CORPUSCULAR HGB CONC 31.5 g/dl (32.0-36.5); MEAN CORPUSCULAR VOLUME 89.4 fl (80.0-96.0); PLATELET COUNT, AUTOMATED 389 10^3/uL (150-450); RED BLOOD COUNT 2.84 10^6/uL (4.30-6.10); WHITE BLOOD COUNT 8.9 10^3/uL (4.0-10.0)
[2019-06-02 08:00] VITALS: BP 145/67
[2019-06-02 08:16] LABS: ALBUMIN 2.8 GM/DL (3.2-5.2); ALT/SGPT 16 U/L (12-78); BILIRUBIN,TOTAL 0.7 MG/DL (0.2-1.0); BLOOD UREA NITROGEN 12 MG/DL (7-18); CARBON DIOXIDE LEVEL 22 MEQ/L (21-32); CHLORIDE LEVEL 113 MEQ/L (98-107); GLOMERULAR FILTRATION RATE > 60.0 (>49); GLUCOSE, FASTING 85 MG/DL (70-100); MAGNESIUM LEVEL 2.1 MG/DL (1.8-2.4); POTASSIUM SERUM 3.9 MEQ/L (3.5-5.1); SODIUM LEVEL 141 MEQ/L (136-145); TOTAL PROTEIN 6.1 GM/DL (6.4-8.2)
[2019-06-02] MEDS: SUCRALFATE 1 GM TAB PO SCH (08:36)
[2019-06-02] MEDS: PANTOPRAZOLE 40MG TAB (PROTONIX) PO SCH (08:36)
[2019-06-02] MEDS ORDERED: ATORVASTATIN 20 MG TAB PO SCH (09:00)
[2019-06-02 09:19] LABS: FERRITIN 5 NG/ML (26-388); IRON (FE) 64 UG/DL (65-175); PERCENT SATURATION 14.4 % (19.7-50.0); TOTAL IRON BINDING CAPACITY 445 UG/DL (250-450)
--- NOTE | 2019-06-03 21:31 | DS.PDOC ---
Discharge Summary General Date of Admission Jun 01, 2019 at 18:24 Date of Discharge 06/02/19 Attending Physician: STANLEY CASTILLO MD Discharge Summary PROCEDURES PERFORMED DURING STAY: None. ADMITTING DIAGNOSES: 1. Acute anemia. DISCHARGE DIAGNOSES: 1. Acute anemia. COMPLICATIONS/CHIEF COMPLAINT: Acute Anemia;Gerd;Pvd. HISTORY OF PRESENT ILLNESS: 63-year-old male with past medical history of peripheral respiratory disease and GERD was admitted for acute anemia. He did not have any signs of bleeding, including workup was negative as well. Patient was transfused with 2 units of packed red blood cells, hemoglobin adequate overnight. Patient has always been asymptomatic, clinically stable for discharge and outpatient follow with PCP for further workup. HOSPITAL COURSE: As above. DISCHARGE MEDICATIONS: Please see below. ALLERGIES: Please see below. PHYSICAL EXAMINATION: VITAL SIGNS: Please see below. GENERAL: No distress HEENT: Normocephalic, atraumatic, moist mucous membranes NECK: Supple CARDIOVASCULAR EXAMINATION: S1, S2, no murmurs RESPIRATORY EXAMINATION: Clear to auscultation, no wheezing ABDOMINAL EXAMINATION: Soft, nontender, nondistended, positive bowel sounds EXTREMITIES: Range of motion intact SKIN: No rash NEUROLOGICAL EXAMINATION: Alert and oriented 3, no focal deficits PSYCHIATRIC EXAMINATION: Calm and cooperative LABORATORY DATA: Please see below. PROGNOSIS: Fair ACTIVITY: As tolerated. DIET: Cardiac DISCHARGE PLAN: Follow with PCP within 1 week DISPOSITION: 01 Home, Self-Care. DISCHARGE INSTRUCTIONS: 1. As above. DISCHARGE CONDITION: Stable. TIME SPENT ON DISCHARGE: Greater than 32 minutes. Vital Signs/I&Os Vital Signs Date Time Temp Pulse Resp B/P (MAP) Pulse Ox O2 Delivery O2 Flow Rate FiO2 06/02/19 08:00 96.7 71 18 145/67 (93) 100 Room Air I&O- Last 24 Hours up to 6 AM 06/03/19 05:59 Intake Total 480 ml Output Total 550 ml Balance -70 ml Discharge Medications Scheduled Atorvastatin Calcium (Atorvastatin Calcium) 20 Mg Tab, 20 MG PO DAILY, (Reported) Clopidogrel Bisulfate (Clopidogrel) 75 Mg Tablet, 75 MG PO DAILY, (Reported) Colestipol HCl (Micronized Colestipol HCl) 1 Gm Tablet, 1 GM PO BID, (Reported) Omeprazole (Omeprazole) 40 Mg Capsule.dr, 40 MG PO DAILY, (Reported) Ranitidine HCl (Ranitidine HCl) 300 Mg Tablet, 1 TAB PO QHS, (Reported) Sucralfate (Sucralfate) 1 Gm Tablet, 1 GM PO ACHS, (Reported) Allergies Coded Allergies: No Known Allergies (Unverified , 10/06/17) STANLEY CASTILLO MD Jun 03, 2019 21:31
[2019-06-04 09:15] LABS: VITAMIN B12 LEVEL 509 PG/ML (247-911)
== END 2019-06-02 13:00 | disposition home or self-care (01) | DRG 812 ==
LOC: M ED 15:34 → M ED INP 18:24
PROVIDERS: ADMIT Internal Medicine; ATTEND Internal Medicine
PROC: 30233N1 Transfusion of Nonautologous Red Blood Cells into Peripheral Vein, Percutaneous Approach (ICD-10-PCS; principal; 2019-06-01)
DX: D62 Acute posthemorrhagic anemia (principal); K21.9 Gastro-esophageal reflux disease without esophagitis; I73.9 Peripheral vascular disease, unspecified; F17.210 Nicotine dependence, cigarettes, uncomplicated; F12.20 Cannabis dependence, uncomplicated; K29.70 Gastritis, unspecified, without bleeding; Z79.899 Other long term (current) drug therapy; Z90.49 Acquired absence of other specified parts of digestive tract

== ENCOUNTER → 2019-06-01 | Outpatient (CLI) | payer OTHER, MEDICAID ==
[~2019-06-01] MED LIST changes: +CLOP75TA2 PO; +ISOVUE-370 76% 100ML VIAL (Q9967) As Ordered ONE; +MICR1TAB5 PO; +OMEP-172 PO; +OMEP-221 PO; -OMEP20CA4 PO; +RANI15TA PO; +RANI300T PO; +SUCR1TAB56 PO
--- NOTE | 2019-06-01 12:40 | REP ---
Clinical: Acute periumbilical pain. Technique: Axial contrast enhanced images from the lung bases to the pubic symphysis using 100 ml Isovue 370 intravenous contrast material with coronal and sagittal re-formations. Findings: Mucosal thickening to stomach and small bowel primarily related to the areas of prior resection and anastomoses in the mid abdomen and periumbilical region are appreciated. Underlying the umbilicus is a site of prior anastomoses which demonstrates mucosal thickening and inflammatory stranding without discrete abscess suggesting enteritis and a focal area of inflammatory changes at the anastomosis. Correlation with surgical history is recommended. There is no evidence for obstruction and no free air to suggest perforation. No drainable collection is identified at this time. The remainder of the small large bowel is relatively normal. Liver demonstrates hypodensities suggesting small cysts. Spleen, pancreas, gallbladder, bilateral adrenal glands and kidneys are normal. Pelvis demonstrates normal bladder and age appropriate prostate/seminal vesicles. Vascular surgery including aorto bifemoral graft appears patent. No ascites. No free air. No adenopathy. Surrounding musculoskeletal structures demonstrate age-related changes without focal abnormality. For for lung bases are clear. Impression: 1. The mucosal thickening and surrounding inflammatory changes of underlying the umbilicus involving portion of the stomach and adjacent bowel with evidence for prior associated surgical procedure and anastomoses. Findings suggest an acute infectious/inflammatory process at the surgical region which may be related to underlying gastritis/enteritis. No bowel obstruction. No free air for perforation. No drainable collection/abscess currently identified. Electronically Signed by Franco Sifuentes MD 06/01/2019 12:32 P
== END ==
LOC: M RAD 11:44
PROVIDERS: ATTEND Obstetrics & Gynecology
DX: R10.33 Periumbilical pain (principal); Z98.0 Intestinal bypass and anastomosis status
CPT/HCPCS: 74177; Q9967

== ENCOUNTER → 2019-06-01 | Outpatient (REF) | payer OTHER, MEDICAID ==
[~2019-06-01] MED LIST changes: -ISOVUE-370 76% 100ML VIAL (Q9967) As Ordered ONE
[2019-06-01 11:58] LABS: BASO % 0.4 % (0.0-1.0); EOS # 0.1 10^3/uL (0.0-0.5); EOS % 0.6 % (0.0-3.0); HEMATOCRIT 23.1 % (42.0-52.0); LYMPH # 1.7 10^3/uL (1.5-5.0); LYMPH % 15.7 % (24.0-44.0); MEAN CORPUSCULAR HEMOGLOBIN 27.7 pg (27.0-33.0); MEAN CORPUSCULAR VOLUME 95.5 fl (80.0-96.0); MONO # 0.7 10^3/uL (0.0-0.8); MONO % 6.7 % (0.0-5.0); NEUTROPHILS # 8.5 10^3/uL (1.5-8.5); NEUTROPHILS % 76.1 % (36.0-66.0); PLATELET COUNT, AUTOMATED 436 10^3/uL (150-450); RED BLOOD COUNT 2.42 10^6/uL (4.30-6.10); WHITE BLOOD COUNT 11.1 10^3/uL (4.0-10.0)
[2019-06-01 12:20] LABS: BLOOD UREA NITROGEN 18 MG/DL (7-18); CALCIUM LEVEL 8.5 MG/DL (8.8-10.2); CARBON DIOXIDE LEVEL 25 MEQ/L (21-32); CHLORIDE LEVEL 111 MEQ/L (98-107); CREATININE FOR GFR 0.77 MG/DL (0.70-1.30); GLOMERULAR FILTRATION RATE > 60.0 (>49); GLUCOSE, FASTING 95 MG/DL (70-100); SODIUM LEVEL 142 MEQ/L (136-145)
[2019-06-01 14:32] LABS: HEMOGLOBIN 6.7 g/dl (13.5-17.5)
== END ==
LOC: M SFHCPLAZ 11:22
PROVIDERS: ATTEND Family Medicine
DX: R55 Syncope and collapse (principal); R10.33 Periumbilical pain

== ENCOUNTER → 2019-08-24 | Outpatient (REF) | payer OTHER, MEDICAID ==
[~2019-08-24] MED LIST changes: +CLOP75TA2 PO; +MICR1TAB5 PO; -OMEP-172 PO; +OMEP-221 PO; +OMEP1CAP73 PO; +RANI15TA PO; +RANI300T PO; -SUCR10SS PO; +SUCR1ORA PO; +SUCR1ORA2 PO; -SUCR1SUS PO; +SUCR1TAB56 PO
[2019-08-24 10:58] LABS: BLOOD UREA NITROGEN 18 MG/DL (7-18); CALCIUM LEVEL 8.6 MG/DL (8.8-10.2); CARBON DIOXIDE LEVEL 29 MEQ/L (21-32); CHLORIDE LEVEL 109 MEQ/L (98-107); CHOLESTEROL LEVEL 117 MG/DL (<200); CHOLESTEROL RISK RATIO 2.166 (<5); FERRITIN 77 NG/ML (26-388); GLOMERULAR FILTRATION RATE > 60.0 (>49); GLUCOSE, FASTING 90 MG/DL (70-100); HDL CHOLESTEROL 54 MG/DL (>40); IRON (FE) 72 UG/DL (65-175); LDL CHOLESTEROL 50 MG/DL (<100); NON-HDL-C 63 MG/DL; PERCENT SATURATION 21.8 % (19.7-50.0); POTASSIUM SERUM 4.7 MEQ/L (3.5-5.1); SODIUM LEVEL 141 MEQ/L (136-145); TOTAL IRON BINDING CAPACITY 330 UG/DL (250-450); TRIGLYCERIDES LEVEL 66 MG/DL (<150)
[2019-08-24 11:27] LABS: HEMATOCRIT 42.4 % (42.0-52.0); HEMOGLOBIN 13.4 g/dl (13.5-17.5); MEAN CORPUSCULAR HEMOGLOBIN 30.6 pg (27.0-33.0); MEAN CORPUSCULAR HGB CONC 31.6 g/dl (32.0-36.5); MEAN CORPUSCULAR VOLUME 96.8 fl (80.0-96.0); PLATELET COUNT, AUTOMATED 260 10^3/uL (150-450); RED BLOOD COUNT 4.38 10^6/uL (4.30-6.10); WHITE BLOOD COUNT 10.4 10^3/uL (4.0-10.0)
[2019-08-27 14:15] LABS: AFP TUMOR TOTAL 2.7 ng/mL (0.0-8.0)
== END ==
LOC: M SFHCPLAZ 08:26
PROVIDERS: ATTEND Family Medicine
DX: I10 Essential (primary) hypertension (principal); E78.5 Hyperlipidemia, unspecified; D50.8 Other iron deficiency anemias; K74.0 Hepatic fibrosis; Z12.5 Encounter for screening for malignant neoplasm of prostate
CPT/HCPCS: 76705; 80048; 80061; 82107; 82728; 83550; 85027; G0103

== ENCOUNTER → 2019-08-24 | Outpatient (CLI) | payer OTHER, MEDICAID ==
--- NOTE | 2019-08-24 09:23 | REP ---
RIGHT QUADRANT SONOGRAPHY: HISTORY: Hepatic fibrosis. Comparison CT study June 01, 2019 and comparison sonography February 09, 2019. SONOGRAPHIC FINDINGS: Scanning through right upper quadrant of the abdomen demonstrates a normal size liver. This is homogeneous except for the presence of three small cysts in the right lobe. These measure 1.0, 0.7, and 0.5 cm in greatest diameter respectively. No mass lesion is seen. Common bile duct is normal measuring 0.3 cm in greatest diameter. A normal sized thin-walled gallbladder is seen without evidence of stone or polyp. There is no evidence of ascites. Limited views of the pancreas show no abnormality. The right kidney measures 11.5 x 5.9 x 4.8 cm. IMPRESSION: Small hepatic cysts again noted. No acute abnormality. Otherwise negative.
== END ==
LOC: M WHC 07:40
PROVIDERS: ATTEND Family Medicine
DX: K74.0 Hepatic fibrosis (principal); K76.89 Other specified diseases of liver

== ENCOUNTER → 2019-09-13 | Outpatient (CLI) | payer OTHER, MEDICAID ==
[~2019-09-13] MED LIST changes: +E-Z-GAS II EFFERVESCENT PACKET (SODIUM BICARB./CITRIC ACID/SIMETHICONE) As Ordered ONE; +E-Z-HD 98% w/w 340GM SUSP BTL As Ordered ONE; +E-Z-PAQUE 96% w/w SUSP 176GM BTL As Ordered ONE
--- NOTE | 2019-09-13 15:56 | REP ---
UPPER GI AIR CONTRAST AND SMALL BOWEL FOLLOW THROUGH The procedure was performed under the direct supervision of Dr. Salazar. The images were reviewed with Dr. Salazar The astronomy teacher film shows no organomegaly or pathological masses. The intestinal gas pattern is non-specific. There are multiple surgical clips noted throughout the abdomen. Liquid barium was administered in the erect and prone oblique positions in order to perform a single contrast upper GI examination. Additionally liquid barium was given at the end of the examination in order to perform a small bowel follow through. The oral and pharyngeal stages of deglutition are unremarkable. Esophageal transport is prompt and efficient and there is no esophagitis, stricture, mucosal ring or hiatal hernia. Gastroesophageal reflux is not demonstrated on this examination. Within the stomach there are thickened folds which likely represents gastritis. There is no arnoldo ulcer identified. There are postsurgical changes can system with the patient's history of a Billroth II surgery. There is no evidence of stricture at the anastomosis. There are mildly thickened folds in the proximal jejunum with no arnoldo ulcer identified. The barium column was followed through the small bowel to the level of the terminal ileum. Small bowel transit time is approximately 165 minutes . During fluoroscopy gentle palpation shows all loops are freely movable and pliable. There are no fixed or angulated loops. The small bowel mucosal pattern is normal in course and caliber. There is no transition to suggest a partial small-bowel obstruction. Spot filming of the terminal ileum shows it to be unremarkable. Impression: There is no evidence of stricture or obstruction at the anastomosis. In the stomach there are thickened folds which likely represents gastritis. There is no arnoldo ulcer identified. There are mildly thickened folds in the proximal jejunum with no arnoldo ulcer identified. 3.2 minutes of fluoro time was utilized for this procedure. Electronically Signed by CHAPITO Pereira 09/13/2019 03:37 P Electronically Signed by Winston Salazar MD 09/13/2019 03:47 P
== END ==
LOC: M RAD 07:57
PROVIDERS: ATTEND Internal Medicine Gastroenterology
DX: D62 Acute posthemorrhagic anemia (principal)

== ENCOUNTER → 2019-11-05 | Outpatient (REF) | payer OTHER, MEDICAID ==
[~2019-11-05] MED LIST changes: -E-Z-GAS II EFFERVESCENT PACKET (SODIUM BICARB./CITRIC ACID/SIMETHICONE) As Ordered ONE; -E-Z-HD 98% w/w 340GM SUSP BTL As Ordered ONE; -E-Z-PAQUE 96% w/w SUSP 176GM BTL As Ordered ONE
[2019-11-05 17:46] LABS: HEMATOCRIT 45.2 % (42.0-52.0); MEAN CORPUSCULAR HEMOGLOBIN 33.1 pg (27.0-33.0); MEAN CORPUSCULAR HGB CONC 33.2 g/dl (32.0-36.5); MEAN CORPUSCULAR VOLUME 99.8 fl (80.0-96.0); PLATELET COUNT, AUTOMATED 287 10^3/uL (150-450); RED BLOOD COUNT 4.53 10^6/uL (4.30-6.10); WHITE BLOOD COUNT 11.8 10^3/uL (4.0-10.0)
== END ==
LOC: M SFHCPLAZ 14:23
PROVIDERS: ATTEND Family Medicine
DX: D50.8 Other iron deficiency anemias (principal)
CPT/HCPCS: 36415; 85027; G0463

== ENCOUNTER → 2019-12-13 | Outpatient (CLI) | payer OTHER, MEDICAID ==
[~2019-12-13] MED LIST changes: +PANT40TA29 PO; -PANT40TA3 PO
== END ==
LOC: M LABSMTC 11:12
PROVIDERS: ATTEND Anesthesiology
DX: Z03.818 Encounter for observation for suspected exposure to other biological agents ruled out (principal); Z11.59 Encounter for screening for other viral diseases

== ENCOUNTER 2019-12-18 11:49 | Day surgery (SDC) | payer OTHER, MEDICAID ==
[~2019-12-18] VITALS: Ht 180.3 cm; Wt 72.5 kg
[~2019-12-18 11:49] MED LIST changes: +NS 1,000 ML IV ONE
[2019-12-18] MEDS ORDERED: propofoL 200 MG/20 ML VIAL As Ordered ONE (12:17)
[2019-12-18] MEDS ORDERED: fentaNYL 100 MCG/2 ML INJECTION (J3010) As Ordered ONE (12:17)
[2019-12-18] MEDS ORDERED: LIDOCAINE 2% 100MG/5ML SDV (FOR ANES.) As Ordered ONE (12:17)
--- NOTE | 2019-12-18 13:38 | ROOR ---
Patient Name: Artie Ferguson Procedure Date: 12/18/2019 1:16 PM Date of : 1955 Age: 64 Room: [facility] Gender: Male Note Status: Finalized Procedure: Upper GI endoscopy Indications: Abnormal UGI series Providers: Artie MENDOZA MD Referring MD: Henny Moffett Do Requesting Provider: Medicines: Monitored Anesthesia Care Complications: No immediate complications. Procedure: Pre-Anesthesia Assessment: - The heart rate, respiratory rate, oxygen saturations, blood pressure, adequacy of pulmonary ventilation, and response to care were monitored throughout the procedure. The Endoscope was introduced through the mouth, and advanced to the jejunum. The upper GI endoscopy was accomplished without difficulty. The patient tolerated the procedure well. Findings: The examined esophagus was normal. Evidence of a patent Billroth II gastrojejunostomy was found. The gastrojejunal anastomosis was characterized by ulceration. The efferent limb was examined. The afferent limb was examined. Biopsies were taken with a cold forceps for histology. The examined duodenum was normal. Impression: - Normal esophagus. - Patent Billroth II gastrojejunostomy was found, characterized by a 8 mm anastomotic ulceration. Base is clean, and free of stigmata of bleeding. Biopsied. - Normal examined duodenum. Recommendation: - Use Prilosec (omeprazole) 40 mg PO BID. - Use sucralfate tablets 1 gram PO BID. - (the script was sent to your pharmacy on file) - Repeat upper endoscopy in 3 months to assess disease activity. Artie Mendoza MD Artie MENDOZA MD 12/18/2019 1:37:49 PM Electronically signed by Artie MENDOZA MD Number of Addenda: 0 Note Initiated On: 12/18/2019 1:16 PM Estimated Blood Loss: Estimated blood loss: none.
[2019-12-18 13:57] VITALS: BP 153/72
== END 2019-12-18 13:56 | disposition home or self-care (01) ==
LOC: M OPP 11:49
PROVIDERS: ATTEND Internal Medicine Gastroenterology
DX: R93.3 Abnormal findings on diagnostic imaging of other parts of digestive tract (principal); Z98.0 Intestinal bypass and anastomosis status; Z79.899 Other long term (current) drug therapy
CPT/HCPCS: 43239; 88305; J3010

== ENCOUNTER → 2020-04-07 | Outpatient (CLI) | payer OTHER, MEDICAID ==
[~2020-04-07] MED LIST changes: -NS 1,000 ML IV ONE
--- NOTE | 2020-04-08 02:35 | REP ---
INDICATION: LOW BACK STRAIN COMPARISON: None. TECHNIQUE: AP, lateral, bilateral oblique, and coned-down views of the lumbar spine. FINDINGS: Alignment is maintained. Advanced degenerative spondylosis at L5-S1 include endplate sclerosis/irregularity, marginal osteophytosis, and disc space narrowing with hypertrophic facet changes. Moderate degenerative changes noted throughout the remainder of the examination including areas of endplate sclerosis with early spurring and minimal disc space narrowing. No acute fracture/compression injury or subluxation. IMPRESSION: Multilevel degenerative spondylosis primarily involving L5-S1. <Electronically signed by Franco Sifuentes > 04/08/20 [id number]
== END ==
LOC: M WUC 17:21
PROVIDERS: ATTEND Nurse Practitioner Family
DX: M54.5 Low back pain (principal); S39.012A Strain of muscle, fascia and tendon of lower back, initial encounter

== ENCOUNTER → 2020-04-27 | Outpatient (CLI) | payer OTHER, MEDICAID | LOC: M LABSMTC 08:26 | PROVIDERS: ATTEND Anesthesiology | DX: Z01.812 Encounter for preprocedural laboratory examination (principal); Z20.828 Contact with and (suspected) exposure to other viral communicable diseases ==

== ENCOUNTER 2020-05-02 10:15 | Day surgery (SDC) | payer OTHER, MEDICAID ==
[~2020-05-02] VITALS: Ht 180.3 cm; Wt 69.9 kg
[~2020-05-02 10:15] MED LIST changes: +NS 1,000 ML IV ONE
[2020-05-02] MEDS ORDERED: LIDOCAINE 2% 100MG/5ML SDV (FOR ANES.) As Ordered ONE (11:37)
[2020-05-02] MEDS ORDERED: propofoL 200 MG/20 ML VIAL As Ordered ONE ×2 (11:37→11:45)
--- NOTE | 2020-05-02 11:57 | ROOR ---
Patient Name: Artie Ferguson Procedure Date: 05/02/2020 11:32 AM Date of : 1955 Age: 64 Room: [facility] Gender: Male Note Status: Finalized Procedure: Upper GI endoscopy Indications: Follow-up of gastrojejunal ulcer with hemorrhage Providers: Artie MENDOZA MD Referring MD: Henny Mofftet Do Requesting Provider: Medicines: Monitored Anesthesia Care Complications: No immediate complications. Procedure: Pre-Anesthesia Assessment: - The heart rate, respiratory rate, oxygen saturations, blood pressure, adequacy of pulmonary ventilation, and response to care were monitored throughout the procedure. The Endoscope was introduced through the mouth, and advanced to the third part of duodenum. The upper GI endoscopy was accomplished without difficulty. The patient tolerated the procedure well. Findings: The examined esophagus was normal. Evidence of a patent Billroth II gastrojejunostomy was found. The gastrojejunal anastomosis was characterized by a small shallow erosion and an intact staple line. The efferent limb was examined. The afferent limb was examined. Impression: - Normal esophagus. - Patent Billroth II gastrojejunostomy was found, characterized by an intact staple line and a nearly completely healed previous ulcer site. I see a 3-4 mm shallow erosion at the previous ulcer site. (images compared to 12/18/19 EGD). - Pt on plavix, No specimens collected. Recommendation: - Continue present medications. - Observe patient's clinical course. - I anticipate no further need for intervention. 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 All rights reserved. The codes documented in this report are preliminary and upon clinical operations consultant review may be revised to meet current compliance requirements. Artie Mendoza MD Artie MENDOZA MD 05/02/2020 11:57:14 AM Electronically signed by Artie MENDOZA MD Number of Addenda: 0 Note Initiated On: 05/02/2020 11:32 AM Estimated Blood Loss: Estimated blood loss: none.
[2020-05-02 12:10] VITALS: BP 147/68
== END 2020-05-02 12:24 | disposition home or self-care (01) ==
LOC: M OPP 10:15
PROVIDERS: ATTEND Internal Medicine Gastroenterology
DX: K28.4 Chronic or unspecified gastrojejunal ulcer with hemorrhage (principal); Z98.0 Intestinal bypass and anastomosis status; Z09 Encounter for follow-up examination after completed treatment for conditions other than malignant neoplasm; K21.9 Gastro-esophageal reflux disease without esophagitis; I70.203 Unspecified atherosclerosis of native arteries of extremities, bilateral legs; Z79.899 Other long term (current) drug therapy; F17.210 Nicotine dependence, cigarettes, uncomplicated; Z86.19 Personal history of other infectious and parasitic diseases

== ENCOUNTER → 2020-07-11 | Outpatient (REF) | payer OTHER, MEDICAID ==
[~2020-07-11] MED LIST changes: +LISI10TA22 PO; -LISI10TA4 PO; -NS 1,000 ML IV ONE
[2020-07-11 15:12] LABS: BASO # 0.1 10^3/uL (0.0-0.2); BASO % 0.4 % (0.0-1.0); EOS # 0.1 10^3/uL (0.0-0.5); EOS % 0.5 % (0.0-3.0); HEMOGLOBIN 15.6 g/dl (13.5-17.5); LYMPH # 2.1 10^3/uL (1.5-5.0); LYMPH % 13.6 % (24.0-44.0); MEAN CORPUSCULAR HEMOGLOBIN 33.6 pg (27.0-33.0); MEAN CORPUSCULAR HGB CONC 33.2 g/dl (32.0-36.5); MEAN CORPUSCULAR VOLUME 101.3 fl (80.0-96.0); MONO # 0.9 10^3/uL (0.0-0.8); NEUTROPHILS # 12.2 10^3/uL (1.5-8.5); NEUTROPHILS % 79.2 % (36.0-66.0); PLATELET COUNT, AUTOMATED 276 10^3/uL (150-450); RED BLOOD COUNT 4.64 10^6/uL (4.30-6.10); WHITE BLOOD COUNT 15.3 10^3/uL (4.0-10.0)
[2020-07-11 15:43] LABS: ALBUMIN 3.9 GM/DL (3.2-5.2); ALT/SGPT 19 U/L (12-78); BILIRUBIN,TOTAL 0.6 MG/DL (0.2-1.0); BLOOD UREA NITROGEN 16 MG/DL (7-18); CALCIUM LEVEL 9.2 MG/DL (8.8-10.2); CARBON DIOXIDE LEVEL 29 MEQ/L (21-32); CHLORIDE LEVEL 108 MEQ/L (98-107); CREATININE FOR GFR 0.87 MG/DL (0.70-1.30); GLOMERULAR FILTRATION RATE > 60.0 (>49); GLUCOSE, FASTING 89 MG/DL (70-100); POTASSIUM SERUM 4.7 MEQ/L (3.5-5.1); SODIUM LEVEL 142 MEQ/L (136-145); TOTAL PROTEIN 6.7 GM/DL (6.4-8.2)
[2020-07-14 16:08] LABS: AFP TUMOR TOTAL 3.4 ng/mL (0.0-8.0)
== END ==
LOC: M SFHCPLAZ 13:14
PROVIDERS: ATTEND Family Medicine
DX: K74.00 Hepatic fibrosis, unspecified (principal)

== ENCOUNTER → 2020-07-21 | Outpatient (CLI) | payer OTHER, MEDICAID ==
--- NOTE | 2020-07-21 10:20 | REP ---
INDICATION: LIVER FIBROSIS. COMPARISON: Comparison sonography August 24, 2019.. TECHNIQUE: Right upper quadrant sonography. FINDINGS: Scanning through the right upper quadrant of the abdomen demonstrates a normal sized, thin-walled gallbladder without evidence of stone or polyp. Common bile duct is normal measuring 0.2 cm in greatest diameter. There are 2 small cysts in the right lobe of the liver measuring 9 and 3 mm in greatest diameter respectively. This is similar to the prior study. No other focal liver lesion is seen. Liver size is normal. No pancreatic abnormality is observed. Pancreas is partially obscured by bowel gas. No right renal abnormality is seen. There is no evidence of ascites. The right kidney measures 11.1 x 5.1 x 3.7 cm. IMPRESSION: Small liver cysts again seen. Otherwise negative.. <Electronically signed by Abel Espinosa > 07/21/20 [id number]
== END ==
LOC: M RAD 09:09
PROVIDERS: ATTEND Internal Medicine Pulmonary Disease
DX: Q44.6 Cystic disease of liver (principal)

== ENCOUNTER → 2020-08-22 | Outpatient (REF) | payer MEDICAID | LOC: M LAB REF 19:11 | PROVIDERS: ATTEND Family Medicine | DX: D23.21 Other benign neoplasm of skin of right ear and external auricular canal (principal); D23.4 Other benign neoplasm of skin of scalp and neck ==

== ENCOUNTER → 2020-08-22 | Outpatient (CLI) | payer MEDICAID ==
--- NOTE | 2020-08-22 17:17 | REP ---
INDICATION: NICOTINE DEPENDENCE, UNSPECIFIED, UNCOMPLICATED. COMPARISON: Comparison is made with multiple prior studies, the most recent which is from March 22, 2019 and the most remote is dated May 21, 2016.. TECHNIQUE: Dose reduction was performed utilizing CARE dose with automated adjustment of the kV and MAS according to patient size; iterative reconstruction, automated exposure control, as well as adaptive dose shielding. Helical scanning is acquired and 3 mm axial images re-formatted at lung only windows. 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 Axial images demonstrate biapical bullous formation and mild emphysematous change. There is minimal linear fibrosis in the left base. A 4.7 cm air cyst is seen in the left lung base in the lingula. There is a granulomatous nodule in the left lower lobe at the left lung base as well. No pulmonary mass lesion is seen. No new infiltrate is observed. No significant pulmonary nodule is appreciated. IMPRESSION: Stable lung RADS category 1 findings. Repeat screening study recommended in 1 year. <Electronically signed by Abel Espinosa > 08/22/20 [id number]
== END ==
LOC: M RAD 14:08
PROVIDERS: ATTEND Family Medicine
DX: Z12.2 Encounter for screening for malignant neoplasm of respiratory organs (principal); F17.210 Nicotine dependence, cigarettes, uncomplicated

== ENCOUNTER → 2020-10-09 | Outpatient (CLI) | payer MEDICAID ==
[2020-10-09 12:18] LABS: BLOOD UREA NITROGEN 12 MG/DL (7-18); CALCIUM LEVEL 9.3 MG/DL (8.8-10.2); CARBON DIOXIDE LEVEL 27 MEQ/L (21-32); CHLORIDE LEVEL 110 MEQ/L (98-107); CREATININE FOR GFR 0.76 MG/DL (0.70-1.30); GLOMERULAR FILTRATION RATE > 60.0 (>49); GLUCOSE, FASTING 98 MG/DL (70-100); POTASSIUM SERUM 4.3 MEQ/L (3.5-5.1); SODIUM LEVEL 141 MEQ/L (136-145)
== END ==
LOC: M PLALAB 08:10
PROVIDERS: ATTEND Physician Assistant
DX: I10 Essential (primary) hypertension (principal)

== ENCOUNTER → 2020-10-15 | Outpatient (REF) | payer MEDICAID | LOC: M LAB REF 14:15 | PROVIDERS: ATTEND Physician Assistant | DX: D23.30 Other benign neoplasm of skin of unspecified part of face (principal); L82.1 Other seborrheic keratosis ==

== ENCOUNTER → 2021-02-25 | Outpatient (CLI) | payer OTHER ==
--- NOTE | 2021-02-26 06:05 | REP ---
INDICATION: SADE OCCLUSION/STENOSIS CAROTID ARTERIES COMPARISON: 10/19/2018 TECHNIQUE: Salazar scale and color Doppler evaluation using linear high frequency transducer Findings: FINDINGS: Two-dimensional salazar scale and color images demonstrate moderate amounts of mixed atheromatous plaquing throughout the bilateral carotid arteries and specifically involving the left carotid bulb/proximal internal carotid artery. Color Doppler interrogation demonstrates arterial wave patterns with elements of spectral broadening. Normal flow direction is appreciated in the bilateral vertebral arteries. ICA peak systolic velocity: Right 79.2 cm/s; Left 149.8 cm/s ICA diastolic velocity: Right 19.0 cm/s; Left 39.5 cm/s ECA peak systolic velocity: Right 194.6 cm/s; Left 135.7 cm/s CCA peak systolic velocity: Right 114.4 cm/s; Left 111.8 cm/s ICA/CCA ratio: Right 0.69 cm/s; Left 1.34 cm/s IMPRESSION: Narrowing at the left carotid bulb/proximal internal carotid artery within the 50-69% range. Narrowing in the right internal carotid artery in the less than 50% range <Electronically signed by Franco Sifuentes > 02/26/21 0602
== END ==
LOC: M RAD 12:58
PROVIDERS: ATTEND Physician Assistant
DX: I65.23 Occlusion and stenosis of bilateral carotid arteries (principal)

== ENCOUNTER → 2021-08-04 | Outpatient (CLI) | payer MEDICARE, OTHER, MEDICAID ==
[~2021-08-04] MED LIST changes: -OMEP-221 PO; +OMEP40CA5 PO
[2021-08-04 10:52] LABS: HEMATOCRIT 44.9 % (42.0-52.0); HEMOGLOBIN 14.5 g/dl (13.5-17.5); MEAN CORPUSCULAR HEMOGLOBIN 32.9 pg (27.0-33.0); MEAN CORPUSCULAR HGB CONC 32.3 g/dl (32.0-36.5); MEAN CORPUSCULAR VOLUME 101.8 fl (80.0-96.0); PLATELET COUNT, AUTOMATED 277 10^3/uL (150-450); RED BLOOD COUNT 4.41 10^6/uL (4.30-6.10); WHITE BLOOD COUNT 9.8 10^3/uL (4.0-10.0)
[2021-08-04 11:00] LABS: ALBUMIN 3.4 GM/DL (3.2-5.2); ALT/SGPT 20 U/L (12-78); BILIRUBIN,TOTAL 0.2 MG/DL (0.2-1.0); BLOOD UREA NITROGEN 15 MG/DL (7-18); CALCIUM LEVEL 9.3 MG/DL (8.8-10.2); CARBON DIOXIDE LEVEL 30 MEQ/L (21-32); CHLORIDE LEVEL 110 MEQ/L (98-107); CHOLESTEROL LEVEL 148 MG/DL (<200); CHOLESTEROL RISK RATIO 2.551 (<5); GLOMERULAR FILTRATION RATE > 60.0 (>49); GLUCOSE, FASTING 103 MG/DL (70-100); HDL CHOLESTEROL 58 MG/DL (>40); LDL CHOLESTEROL 79 MG/DL (<100); MAGNESIUM LEVEL 2.1 MG/DL (1.8-2.4); NON-HDL-C 90 MG/DL; POTASSIUM SERUM 4.6 MEQ/L (3.5-5.1); SODIUM LEVEL 141 MEQ/L (136-145); TOTAL PROTEIN 6.4 GM/DL (6.4-8.2); TRIGLYCERIDES LEVEL 57 MG/DL (<150)
== END ==
LOC: M PLALAB 08:39
PROVIDERS: ATTEND Physician Assistant
DX: E78.00 Pure hypercholesterolemia, unspecified (principal); I10 Essential (primary) hypertension

== ENCOUNTER → 2021-08-24 | Outpatient (REF) | payer MEDICARE, MEDICAID | LOC: M SFHCPLAZ 10:38 | PROVIDERS: ATTEND Family Medicine | DX: I25.10 Atherosclerotic heart disease of native coronary artery without angina pectoris (principal) ==

== ENCOUNTER → 2021-08-31 | Outpatient (CLI) | payer MEDICARE, MEDICAID ==
[2021-08-31 11:33] LABS: HEMOGLOBIN A1c 5.2 %
== END ==
LOC: M PLALAB 08:35
PROVIDERS: ATTEND Student in an Organized Health Care Education/Training Program
DX: Z00.00 Encounter for general adult medical examination without abnormal findings (principal)

== ENCOUNTER → 2021-09-17 | Outpatient (CLI) | payer MEDICARE, OTHER, MEDICAID | LOC: M RAD 10:46 | PROVIDERS: ATTEND Family Medicine | DX: Z12.2 Encounter for screening for malignant neoplasm of respiratory organs (principal); F17.210 Nicotine dependence, cigarettes, uncomplicated; J43.9 Emphysema, unspecified; J84.10 Pulmonary fibrosis, unspecified ==

== ENCOUNTER → 2022-02-19 | Outpatient (CLI) | payer MEDICARE, MEDICAID | LOC: M RAD 14:55 | PROVIDERS: ATTEND Physician Assistant | DX: I65.23 Occlusion and stenosis of bilateral carotid arteries (principal) ==

== ENCOUNTER → 2022-11-24 | Outpatient (CLI) | payer MEDICARE, OTHER, MEDICAID | LOC: M RAD 16:06 | PROVIDERS: ATTEND Family Medicine | DX: Z12.2 Encounter for screening for malignant neoplasm of respiratory organs (principal); F17.200 Nicotine dependence, unspecified, uncomplicated ==

== ENCOUNTER → 2022-11-24 | Outpatient (CLI) | payer MEDICARE, MEDICAID, OTHER ==
[2022-11-24 16:37] LABS: BASO # 0.1 10^3/uL (0.0-0.2); BASO % 0.3 % (0.0-1.0); HEMATOCRIT 38.1 % (42.0-52.0); HEMOGLOBIN 12.5 g/dl (13.5-17.5); LYMPH # 1.5 10^3/uL (1.5-5.0); LYMPH % 7.3 % (24.0-44.0); MEAN CORPUSCULAR HEMOGLOBIN 32.5 pg (27.0-33.0); MEAN CORPUSCULAR HGB CONC 32.8 g/dl (32.0-36.5); MONO # 1.4 10^3/uL (0.0-0.8); MONO % 6.9 % (2.0-8.0); NEUTROPHILS # 17.1 10^3/uL (1.5-8.5); NEUTROPHILS % 84.8 % (36.0-66.0); PLATELET COUNT, AUTOMATED 491 10^3/uL (150-450); RED BLOOD COUNT 3.85 10^6/uL (4.30-6.10); WHITE BLOOD COUNT 20.1 10^3/uL (4.0-10.0)
[2022-11-24 16:43] LABS: ALBUMIN 2.5 G/DL (3.2-5.2); ALKALINE PHOSPHATASE 77 U/L (46-116); ALT/SGPT < 9 U/L (7.0-40); AST/SGOT 21 U/L (<34); BILIRUBIN,TOTAL 0.4 MG/DL (0.3-1.2); BLOOD UREA NITROGEN 10 MG/DL (9-23); CARBON DIOXIDE LEVEL 27 MMOL/L (20-31); CHLORIDE LEVEL 104 MMOL/L (98-107); CHOLESTEROL LEVEL 61 MG/DL (<200); CHOLESTEROL RISK RATIO 2.46 (<5); GLOMERULAR FILTRATION RATE > 60.0 (>49); GLUCOSE, FASTING 93 MG/DL (74-106); HDL CHOLESTEROL 24.7 MG/DL (>40); LDL CHOLESTEROL 24.3 MG/DL (<100); NON-HDL-C 36.3 MG/DL; POTASSIUM SERUM 3.9 MMOL/L (3.5-5.1); SODIUM LEVEL 135 MMOL/L (136-145); TOTAL PROTEIN 6.1 G/DL (5.7-8.2); TRIGLYCERIDES LEVEL 60 MG/DL (<150)
[2022-11-24 17:39] LABS: HEMOGLOBIN A1c 5.4 % (4.0-6.0)
== END ==
LOC: M PLALAB 12:26
PROVIDERS: ATTEND Student in an Organized Health Care Education/Training Program
DX: I25.10 Atherosclerotic heart disease of native coronary artery without angina pectoris (principal); Z12.5 Encounter for screening for malignant neoplasm of prostate; Z13.1 Encounter for screening for diabetes mellitus; Z79.899 Other long term (current) drug therapy

== ENCOUNTER → 2022-12-28 | Outpatient (CLI) | payer MEDICARE, OTHER, MEDICAID | LOC: M RAD 13:43 | PROVIDERS: ATTEND Nurse Practitioner | DX: Z12.2 Encounter for screening for malignant neoplasm of respiratory organs (principal); F17.210 Nicotine dependence, cigarettes, uncomplicated; R91.8 Other nonspecific abnormal finding of lung field; J84.10 Pulmonary fibrosis, unspecified ==

== ENCOUNTER → 2023-06-07 | Outpatient (CLI) | payer MEDICARE, OTHER, MEDICAID ==
[2023-06-07 16:31] LABS: BLOOD UREA NITROGEN 14 MG/DL (9-23); CALCIUM LEVEL 8.8 MG/DL (8.3-10.6); CARBON DIOXIDE LEVEL 29 MMOL/L (20-31); CHLORIDE LEVEL 107 MMOL/L (98-107); CREATININE FOR GFR 0.79 MG/DL (0.70-1.30); GLOMERULAR FILTRATION RATE > 60.0 (>49); GLUCOSE, FASTING 66 MG/DL (74-106); POTASSIUM SERUM 4.3 MMOL/L (3.5-5.1); SODIUM LEVEL 140 MMOL/L (136-145)
== END ==
LOC: M PLALAB 12:42
PROVIDERS: ATTEND Family Medicine
DX: I10 Essential (primary) hypertension (principal); R91.1 Solitary pulmonary nodule

== ENCOUNTER → 2023-06-08 | Outpatient (CLI) | payer MEDICARE, OTHER, MEDICAID ==
[~2023-06-08] MED LIST changes: +ISOVUE-370 76% 100ML VIAL As Ordered ONE
== END ==
LOC: M RAD 06:36
PROVIDERS: ATTEND Family Medicine
DX: R91.8 Other nonspecific abnormal finding of lung field (principal); Z98.84 Bariatric surgery status; I10 Essential (primary) hypertension; R91.1 Solitary pulmonary nodule
CPT/HCPCS: 71260; Q9967

== ENCOUNTER → 2023-06-27 | Outpatient (CLI) | payer MEDICARE, OTHER, MEDICAID ==
[~2023-06-27] MED LIST changes: -ISOVUE-370 76% 100ML VIAL As Ordered ONE
== END ==
LOC: M PLARAD 15:46
PROVIDERS: ATTEND Internal Medicine Critical Care Medicine
DX: R91.8 Other nonspecific abnormal finding of lung field (principal)
CPT/HCPCS: 78815; A9552

== ENCOUNTER → 2023-10-10 | Outpatient (CLI) | payer MEDICARE, OTHER, MEDICAID | LOC: M RAD 08:26 | PROVIDERS: ATTEND Internal Medicine Critical Care Medicine | DX: R91.8 Other nonspecific abnormal finding of lung field (principal); J43.9 Emphysema, unspecified; J47.9 Bronchiectasis, uncomplicated; I25.10 Atherosclerotic heart disease of native coronary artery without angina pectoris; I70.0 Atherosclerosis of aorta ==

== ENCOUNTER → 2023-11-09 | Outpatient (CLI) | payer MEDICARE, OTHER ==
[2023-11-09 13:47] LABS: HEMATOCRIT 44.1 % (42.0-52.0); HEMOGLOBIN 14.9 g/dl (13.5-17.5); MEAN CORPUSCULAR HEMOGLOBIN 34.5 pg (27.0-33.0); MEAN CORPUSCULAR HGB CONC 33.8 g/dl (32.0-36.5); MEAN CORPUSCULAR VOLUME 102.1 fl (80.0-96.0); PLATELET COUNT, AUTOMATED 232 10^3/uL (150-450); RED BLOOD COUNT 4.32 10^6/uL (4.30-6.10)
[2023-11-09 13:50] LABS: FREE T4 1.11 NG/DL (0.89-1.76); PSA SCREENING 0.35 NG/ML (< 4.00); THYROID STIMULATING HORMONE 5.034 uIU/ML (0.55-4.78)
[2023-11-09 14:00] LABS: ALBUMIN 3.4 G/DL (3.2-5.2); ALKALINE PHOSPHATASE 98 U/L (46-116); ALT/SGPT 19 U/L (7.0-40); AST/SGOT 14 U/L (<34); BILIRUBIN,TOTAL 0.8 MG/DL (0.3-1.2); BLOOD UREA NITROGEN 15 MG/DL (9-23); CALCIUM LEVEL 9.2 MG/DL (8.3-10.6); CARBON DIOXIDE LEVEL 27 MMOL/L (20-31); CHLORIDE LEVEL 108 MMOL/L (98-107); CHOLESTEROL LEVEL 105 MG/DL (<200); CHOLESTEROL RISK RATIO 2.07 (<5); CREATININE FOR GFR 0.83 MG/DL (0.70-1.30); GLOMERULAR FILTRATION RATE > 60.0 (>49); GLUCOSE, FASTING 122 MG/DL (74-106); HDL CHOLESTEROL 50.6 MG/DL (>40); LDL CHOLESTEROL 39.6 MG/DL (<100); NON-HDL-C 54.4 MG/DL; POTASSIUM SERUM 4.3 MMOL/L (3.5-5.1); SODIUM LEVEL 140 MMOL/L (136-145); TOTAL PROTEIN 6.4 G/DL (5.7-8.2); TRIGLYCERIDES LEVEL 74 MG/DL (<150)
[2023-11-09 14:42] LABS: HEMOGLOBIN A1c 5.2 % (4.0-6.0)
== END ==
LOC: M PLALAB 09:47
PROVIDERS: ATTEND Student in an Organized Health Care Education/Training Program
DX: Z00.00 Encounter for general adult medical examination without abnormal findings (principal); E78.5 Hyperlipidemia, unspecified; I73.9 Peripheral vascular disease, unspecified; D50.9 Iron deficiency anemia, unspecified; Z12.5 Encounter for screening for malignant neoplasm of prostate; Z79.899 Other long term (current) drug therapy
CPT/HCPCS: 36415; 80053; 80061; 83036; 84439; 84443; 85027; G0103

== ENCOUNTER → 2023-12-12 | Outpatient (CLI) | payer MEDICARE, OTHER ==
[2023-12-12 14:16] LABS: THYROID STIMULATING HORMONE 3.355 uIU/ML (0.55-4.78)
[2023-12-12 14:17] LABS: FREE T4 1.08 NG/DL (0.89-1.76)
== END ==
LOC: M PLALAB 11:19
PROVIDERS: ATTEND Student in an Organized Health Care Education/Training Program
DX: R94.6 Abnormal results of thyroid function studies (principal); R79.89 Other specified abnormal findings of blood chemistry

== ENCOUNTER → 2024-08-17 | Outpatient (CLI) | payer MEDICARE, OTHER | LOC: M RAD 14:11 | PROVIDERS: ATTEND Internal Medicine Critical Care Medicine | DX: R91.8 Other nonspecific abnormal finding of lung field (principal) ==

== ENCOUNTER → 2024-12-11 | Outpatient (CLI) | payer MEDICARE, OTHER ==
[~2024-12-11] MED LIST changes: -SUCR1ORA2 PO; +SUCR1ORA20 PO
[2024-12-11 14:37] LABS: PLATELET COUNT, AUTOMATED 221 10^3/uL (150-450)
[2024-12-11 15:02] LABS: ESTIMATED AVERAGE GLUCOSE 100.0 MG/DL (60-110)
[2024-12-11 15:18] LABS: ALT/SGPT 19.0 U/L (7.0-40); AST/SGOT 23.0 U/L (<34); CALCIUM LEVEL 9.6 MG/DL (8.3-10.6); CARBON DIOXIDE LEVEL 28.0 MMOL/L (20-31); CHLORIDE LEVEL 105.0 MMOL/L (98-107); CHOLESTEROL LEVEL 103.0 MG/DL (<200); CHOLESTEROL RISK RATIO 2.01 (<5); CREATININE FOR GFR 0.93 MG/DL (0.70-1.30); GLOMERULAR FILTRATION RATE 89.4 (>49); LDL CHOLESTEROL 34.5 MG/DL (<100); NON-HDL-C 51.9 MG/DL; POTASSIUM SERUM 5.3 MMOL/L (3.5-5.1); PSA SCREENING 0.45 NG/ML (< 4.00); SODIUM LEVEL 140.0 MMOL/L (136-145); TRIGLYCERIDES LEVEL 87.0 MG/DL (<150)
[2024-12-11 15:20] LABS: FREE T4 1.28 NG/DL (0.89-1.76)
== END ==
LOC: M PLALAB 09:11
PROVIDERS: ATTEND Family Medicine
DX: D50.8 Other iron deficiency anemias (principal); I10 Essential (primary) hypertension; Z13.1 Encounter for screening for diabetes mellitus; Z12.5 Encounter for screening for malignant neoplasm of prostate; Z13.29 Encounter for screening for other suspected endocrine disorder
CPT/HCPCS: 36415; 80053; 80061; 83036; 84439; 84443; 85027; G0103

== ENCOUNTER → 2024-12-11 | Outpatient (REF) | payer MEDICARE, OTHER, MEDICAID | LOC: M SFHCPLAZ 09:04 | PROVIDERS: ATTEND Family Medicine | DX: Z53.9 Procedure and treatment not carried out, unspecified reason (principal) ==